=== PATIENT | female | born 1945 | race Caucasian/White ===

== ENCOUNTER 2017-07-12 16:52 | Inpatient (IN) | payer OTHER, MEDICARE ==
--- OUTSIDE RECORDS SUMMARY | 2017-07-12 17:06 | XMS REPORT | Clinical Summary ---
:1945 Author Organization [facility] Address [address] [place] [address] Phone Care Team Providers Name Role Phone Unavailable Primary Care Provider Unavailable Allergies Active Allergy Reactions Severity Noted Date Comments Clonidine Anaphylaxis, Swelling High 09/24/2013 Carvedilol Shortness Of Breath High 09/24/2013 Lisinopril Swelling, Hives, Itching High 09/24/2013 Tongue swelling Current Medications Prescription Sig. Disp. Refills Start Date End Date Status fLUoxetine (PROZAC) 20 Take 20 mg by Active MG capsule mouth daily. gabapentin (NEURONTIN) Take 100 mg by Active 100 MG capsule mouth 3 (three) times daily. glucosamine-chondroitin Take 1 tablet by Active 500-400 mg tablet mouth daily. levalbuterol (XOPENEX Inhale 2 puffs Active HFA) 45 mcg/actuation by mouth via inhaler inhaler every 4 (four) hours as needed for Wheezing. levothyroxine Take 88 mcg by Active (SYNTHROID, LEVOTHROID) mouth daily. 88 MCG tablet liothyronine (CYTOMEL) Take 5 mcg by Active 5 MCG tablet mouth daily. losartan-hydrochlorothi Take 1 tablet by Active azide (HYZAAR) 100-12.5 mouth daily. mg per tablet methocarbamol (ROBAXIN) Take 750 mg by Active 750 MG tablet mouth 3 (three) times daily as needed. montelukast (SINGULAIR) Take 10 mg by Active 10 mg tablet mouth nightly. omeprazole (PRILOSEC) Take 40 mg by Active 40 MG capsule mouth daily. salmeterol (SEREVENT) Inhale 1 puff by Active 50 mcg/dose diskus mouth via inhaler inhaler 2 (two) times daily. tiotropium (SPIRIVA) 18 Inhale 18 mcg by Active mcg inhalation capsule mouth via inhaler daily. aspirin 81 MG EC tablet Take 81 mg by Active mouth daily. anastrozole (ARIMIDEX) Take 1 mg by Active 1 mg tabletIndications: mouth daily. metastatic breast carcinoma hydrALAZINE Take 1 tablet 180 tablet 0 07/15/2015 Active (APRESOLINE) 25 MG (25 mg total) by tablet mouth every 8 (eight) hours. Active Problems Problem Noted Date Leukocytosis 07/15/2015 Fever 07/15/2015 GERD (gastroesophageal reflux disease) per 07-14-2015 UGI 07/14/2015 Chronic non erosive gastritis per 07-11-2015 EGD 07/12/2015 Granular duodenal mucosa per 07-11-2015 EGD 07/12/2015 Small HH (hiatus hernia) per 07-11-2015 EGD 07/12/2015 Decreased rectal sphincter tone per 07-11-2015 exam 07/12/2015 Diverticulosis of colon per 07-11-2015 colonoscopy 07/12/2015 Hemorrhoids per 07-11-2015 colonoscopy 07/12/2015 Vomiting and diarrhea 07/11/2015 COPD (chronic obstructive pulmonary disease) (HCC) 07/09/2015 Gastritis 07/09/2015 Hypertension 07/09/2015 Upper GI bleed 07/09/2015 Nausea & vomiting 07/09/2015 Depression Family History Medical History Relation Name Comments Cancer Brother testicular Hypertension Brother Cancer Mother brain Relation Name Status Comments Brother Mother Social History Tobacco Use Types Packs/Day Years Used Date Former Smoker Cigarettes 2 50 Alcohol Use Drinks/Week oz/Week Comments Yes 14 Standard drinks or equivalent 7.0 Sex Assigned at Date Recorded Not on file Last Filed Vital Signs Not on file Plan of Treatment Not on file Results Not on fileafter 07/11/2016
[2017-07-12 18:07] LABS: Absolute Lymphocytes (CBC) 3.2 K/uL (0.7-4.9); Absolute Monocytes 1.7 K/uL (0.1-1.3); Absolute Neutrophil 4.9 K/uL (1.8-8.0); Basophils % 0.7 % (0-1.3); Eosinophils % 0.5 % (0-4.4); Hematocrit 48.8 % (36.0-45.0); Lymphocytes % 32.4 % (15.3-44.8); MCH 30.7 pg (27.0-35.0); MCV 91.7 fL (80-100); MPV 10.7 fL (7.6-11.3); Monocytes % 16.7 % (3.3-12.3); RBC Red Blood Cell Count 5.32 M/uL (3.86-4.86)
[2017-07-12 18:34] LABS: Blood Morphology Comment NOT SEEN (NOT SEEN); Platelet Estimate ADEQ; Urine White Blood Cell Casts OK
[2017-07-12] MEDS: GUAIFENESIN/DM 5 ML UCUP PO PRN (18:40)
[2017-07-12] MEDS: Levofloxacin500mg IV 500 MG/100 ML BAG IV SCH (18:40)
[2017-07-12] MEDS: METHYLPREDNISOLONE 40 MG INJ IV SCH ×2 (18:40→23:40)
[2017-07-12 19:04] LABS: Potassium 3.6 mEq/L (3.6-5.0)
[2017-07-12 19:07] LABS: Albumin 4.3 g/dL (3.2-5.5); Bilirubin Total 0.6 mg/dL (0.3-1.2); Magnesium 1.8 mg/dL (1.8-2.5); Protein, Total 7.6 g/dL (6.0-8.3)
[2017-07-12 19:43] LABS: Thyroid Stimulating Hormone 0.45 uIU/mL (0.34-5.60)
--- NOTE | 2017-07-12 19:50 | RAD REPORT ---
EXAM DESCRIPTION: RAD - Chest Pa And Lat (2 Views) - 07/12/2017 7:43 pm CLINICAL HISTORY: COPD COMPARISON: 03/19/2017 TECHNIQUE: PA and lateral views of the chest were obtained. FINDINGS: The lungs are hyperexpanded compatible with COPD. The heart is upper limit of normal in si ze. No fracture or aggressive bony process. Postsurgical changes are present well the left breast. IMPRESSION: COPD without acute process identified.
[2017-07-12] MEDS: ALBUTEROL 2.5 MG/3 ML NEB SOL NEB SCH ×2 (19:53→23:20)
[2017-07-12] MEDS: IPRATROPIUM BROM 0.5MG/2.5ML NEB SCH ×2 (19:53→23:20)
[2017-07-12] MEDS: AMLODIPINE 5 MG TAB PO SCH (20:49)
[2017-07-12] MEDS: ENOXAPARIN 40 MG/0.4 ML SQ SCH (20:50)
[2017-07-12] MEDS: LOSARTAN/HCTZ 50-12.5 PO SCH (20:50)
[2017-07-13 00:01] LABS: Urine Appearance CLOUDY; Urine Blood NEGATIVE (NEG); Urine Color DK YELLOW; Urine Glucose NEGATIVE (NEG); Urine Microscopic Reflex ORDER UMIC; Urine Protein TRACE (NEG); Urine Specific Gravity 1.025 (1.005-1.030)
[2017-07-13 00:42] LABS: Urine Bilirubin NEGATIVE (NEG)
[2017-07-13 00:54] LABS: Urine Bacteria 20-50 /HPF (<20); Urine Culture Reflex Order REFLEXED; Urine RBC NONE SEEN /HPF (NONE SEEN)
[2017-07-13] MEDS: IPRATROPIUM BROM 0.5MG/2.5ML NEB SCH ×6 (03:22→23:20)
[2017-07-13] MEDS: ALBUTEROL 2.5 MG/3 ML NEB SOL NEB SCH ×6 (03:22→23:20)
[2017-07-13] MEDS: MAGNESIUM SULFATE 1 gm IVPB 1 GM/100 ML BAG IV ONE ×2 (04:23→05:16)
[2017-07-13] MEDS: KCL 20 MEQ/100 mL IVPB 20 MEQ/100 ML BAG IV SCH ×2 (05:00→05:13)
[2017-07-13] MEDS: METHYLPREDNISOLONE 40 MG INJ IV SCH ×3 (05:13→17:32)
[2017-07-13] MEDS ORDERED: NA CHLORIDE 0.9% 250 ML ONE (05:34)
--- NOTE | 2017-07-13 06:04 | HP ---
Date of Admission: 07/12/2017 Chief Complaint: Cough, congestion, fever, shortness of breath. History Of Present Illness: This is a 71-year-old female patient, who came into office today with 4 days' history of cough, chest congestion, coughing up some mucus, wheezing, shortness of breath, and fever of 101 degrees Fahrenheit. Denies any vomiting, diarrhea. The patient gets short of breath wi th any day-to-day activity including walking in the room and also while talking she gets short of virgie ath. After she was evaluated, she was admitted to the hospital. Allergies: TO CLONIDINE CAUSING TONGUE AND FACE SWELLING, LISINOPRIL CAUSING TONGUE SWELLING. Medications: According to office records, she takes albuterol nebulizer treatment every 4 hours as n eeded, Fosamax 70 mg once a week, amlodipine 5 mg 2 times a day, aspirin 81 mg daily, baclofen 10 mg 3 times a day as needed, Daliresp 500 mcg p.o. daily, fluoxetine 40 mg p.o. daily, levothyroxine 200 mcg p.o. daily, liothyronine 5 mcg 1 tablet p.o. 2 times a day, losartan/HCTZ 100/12.5 one p.o. daily , omeprazole 40 mg daily, Stiolto 2.5 mcg inhaler 2 puffs daily, Voltaren Gel p.r.n., Xopenex inhaler 45 mcg 2 puffs 4 times a day as needed. Review of Systems: Respiratory: As mentioned above. Constitutional: As mentioned above. All other systems reviewed and negative. Past Medical History: Significant for osteoporosis, diverticulosis, breast cancer, gastroesophageal reflux disease, mixed hyperlipidemia, COPD, thyroid cancer, impaired fasting glucose, hepatic cyst, o steoarthritis multiple sites, hypothyroidism, depression, hypertension, carotid artery stenosis. Past Surgical History: Significant for surgery for bowel obstruction in 2013, mastectomy in 2011 and 2013, thyroidectomy in 2006, hysterectomy, , and appendectomy. Family History: Significant for cardiovascular disease, prostate cancer, Alzheimer disease, myocardi al infarction, emphysema, breast cancer. Social History: Prior history of smoking, not at present time. Use of alcohol negative. Physical Examination: Vital Signs: Today when the patient came into office, height 61 inches, weight 157.8 pounds. Blood pressure 146/90, respiratory rate 20, pulse 105, oxygen saturation at rest at office on room air 89%, temperature 98.2. General: Awake, alert, oriented, not in distress. HEENT: Head atraumatic, normocephalic. Conjunctivae nonerythematous. Sclerae white. Mouth, no thr ush or edema noted. Ears/Nose, no mass, lesion, discharge noted. Neck: Supple. No JVD, lymph nodes, bruit, thyromegaly noted. Lungs: Mild respiratory distress and scattered wheezing present in all the lung lawson. Heart: Normal heart sounds, no murmur or gallop. Abdomen: Soft, bowel sounds normal. No guarding, rigidity, tenderness, mass, hepatosplenomegaly, di stention, or bruit noted. Extremities: No leg edema. No calf tenderness. Skin: No rash, ulcer, cellulitis. Lymphatics: No lymph node enlargement in neck, supraclavicular, infraclavicular region. Neuro: No focal neurological deficit. Chest: Unremarkable. External Genitalia: Deferred. Rectal: Deferred. Laboratory Data: White count 9.9, hemoglobin 16.3, platelets 184. Sodium 137, potassium 3.6, chlori de 100, bicarb 31, BUN 13, creatinine 0.75, and glucose 106. Liver function tests unremarkable. Pro calcitonin less than 0.05. TSH 0.45. Hemoglobin A1c pending. Chest x-ray; COPD. Impression: 1.Acute exacerbation of chronic obstructive pulmonary disease. 2.Acute bronchitis. 3.Hypertension. 4.Mixed hyperlipidemia. 5.Thyroid cancer. 6.Breast cancer. 7.Hypothyroidism, postsurgical. 8.Impaired fasting glucose. 9.Osteoarthritis, multiple sites. 10.Osteoporosis. 11.Depression. 12.Bilateral carotid artery stenosis. Plan: We will go ahead and admit the patient to hospital for further evaluation and management of th is problem. The patient is appropriate for inpatient and [facility] We will continue home medications per order. I did discuss with her at office regarding advance directive, and at this point according to patient's decision, she will remain full code. We will go ahead and treat her current illness with IV antibiotic, which will be Levaquin. Start the patient on IV steroid, oxygen nebulizer treatment. During this hospitalization, we will see if she does need a nd qualify for home oxygen or not. The patient says in the past she was using home oxygen and when s he started seeing Dr. Higuera, his recommendation at that time was that she no longer needed home ox ygen, so her oxygen service was discontinued by him. So, we will have to look into it again to see w joseph she needs and qualifies for home oxygen or not. Overall, prognosis is guarded. Details and p joseph of treatment discussed with her. DVT prophylaxis will be given using Lovenox per order. JENNIFER/MODL Voice ID: [id number]
[2017-07-13] MEDS: FLUOXETINE 20 MG CAP PO SCH (08:32)
[2017-07-13] MEDS: LOSARTAN/HCTZ 50-12.5 PO SCH ×2 (08:32→21:00)
[2017-07-13] MEDS: ROFLUMILAST 500 MCG TABLET PO SCH (08:33)
[2017-07-13] MEDS: ASPIRIN EC 81 MG TAB PO SCH (08:33)
[2017-07-13] MEDS: AMLODIPINE 5 MG TAB PO SCH ×2 (08:33→21:02)
[2017-07-13] MEDS: PANTOPRAZOLE 40MG TABLET PO SCH (08:38)
[2017-07-13] MEDS: LIOTHYRONINE SOD 5 MCG TAB PO SCH (08:38)
[2017-07-13] MEDS: GUAIFENESIN/DM 5 ML UCUP PO PRN ×3 (08:41→21:02)
[2017-07-13] MEDS: LEVOTHYROXINE SOD 0.1 MG TAB PO SCH (09:46)
[2017-07-13 11:15] LABS: A1c Component 0.72 mg/dL; Hemoglobin A1c 5.7 % (4-6.0)
[2017-07-13] MEDS: Levofloxacin500mg IV 500 MG/100 ML BAG IV SCH (17:31)
[2017-07-13] MEDS: DULERA 100/5 (MOMETASONE/FORMOTEROL) INHALER IH SCH (20:59)
[2017-07-13] MEDS: ENOXAPARIN 40 MG/0.4 ML SQ SCH (21:01)
--- NOTE | 2017-07-13 23:10 | PN ---
Date of Progress Note: 07/13/2017 Subjective: The patient was seen this morning for followup. No new complaints or problems reported by the patient. She was lying in bed, not in distress. She still has cough, congestion, shortness o f breath, and wheezing, but overall it is somewhat better compared to yesterday. Objective: Vital Signs: Reviewed. HEENT: Examination unremarkable. Lungs: Bilateral scattered wheezing noted in both lung lawson, better today than yesterday. Not usi ng accessory muscles of respiration today. Heart: Sounds normal. Abdomen: Soft, bowel sounds normal. No guarding, rigidity, tenderness, or distention. Extremities: No leg edema. Impression: 1.Acute exacerbation of chronic obstructive pulmonary disease. 2.Acute bronchitis. 3.Hypertension. Plan: We will go ahead and continue current medications including oxygen nebulizer treatment, IV annita roid, IV antibiotic, DVT prophylaxis with Lovenox. We will add inhaler Dulera per order. We will se e her tomorrow for followup. The patient was encouraged to start ambulating in the room today as muc h as she can and depending on how she does, we will decide if she can start ambulating outside her ro om tomorrow. JENNIFER/MODL Voice ID: [id number] Report ID: [id number]
[2017-07-14] MEDS: METHYLPREDNISOLONE 40 MG INJ IV SCH ×3 (00:10→11:12)
[2017-07-14] MEDS: ALBUTEROL 2.5 MG/3 ML NEB SOL NEB SCH ×5 (03:11→19:42)
[2017-07-14] MEDS: IPRATROPIUM BROM 0.5MG/2.5ML NEB SCH ×5 (03:12→19:41)
[2017-07-14] MEDS: IBUPROFEN 200 MG TAB PO PRN (03:36)
[2017-07-14] MEDS: GUAIFENESIN/DM 5 ML UCUP PO PRN ×2 (03:37→20:04)
[2017-07-14 06:02] LABS: Magnesium 1.6 mg/dL (1.8-2.5); Potassium 3.1 mEq/L (3.6-5.0)
[2017-07-14] MEDS: LEVOTHYROXINE SOD 0.1 MG TAB PO SCH (06:30)
[2017-07-14] MEDS: LIOTHYRONINE SOD 5 MCG TAB PO SCH (06:42)
[2017-07-14] MEDS ORDERED: POTASSIUM 25 MEQ EFFERV TAB PO ONE (06:51)
[2017-07-14] MEDS ORDERED: MAGNESIUM SULFATE 1 gm IVPB 1 GM/100 ML BAG IV ONE (06:52)
[2017-07-14] MEDS: PANTOPRAZOLE 40MG TABLET PO SCH (09:49)
[2017-07-14] MEDS: ASPIRIN EC 81 MG TAB PO SCH (09:50)
[2017-07-14] MEDS: ROFLUMILAST 500 MCG TABLET PO SCH (09:50)
[2017-07-14] MEDS: DULERA 100/5 (MOMETASONE/FORMOTEROL) INHALER IH SCH ×2 (09:50→20:04)
[2017-07-14] MEDS: FLUOXETINE 20 MG CAP PO SCH (09:50)
[2017-07-14] MEDS: AMLODIPINE 5 MG TAB PO SCH ×2 (09:50→20:05)
[2017-07-14] MEDS: LOSARTAN/HCTZ 50-12.5 PO SCH ×2 (09:50→20:05)
[2017-07-14] MEDS ORDERED: POTASSIUM CL SA 10 MEQ TAB PO ONE (15:00)
--- NOTE | 2017-07-14 15:32 | PN ---
Date of Progress Note: 07/14/2017 Subjective: Patient was seen this morning for followup. No new complaints, problems reported by the patient. Overall, her shortness of breath and wheezing is better than before. She ambulated well y esterday. Objective: Vital signs: Reviewed. HEENT: Unremarkable. Lungs: Bilateral good very minimum wheezing present not using any accessory muscles of respiration. Overall much better than before. Heart: Sounds normal. Abdomen: Soft, bowel sounds normal. No guarding, rigidity, tenderness, or distention. Laboratory Data: Sodium 135, potassium 3.1, chloride 99, bicarb 21, BUN 27, creatinine 0.93, glucose 222, magnesium 1.6. Impression: 1.Acute exacerbation of chronic obstructive pulmonary disease. 2.Acute bronchitis. 3.Hypokalemia. 4.Hypomagnesemia. 5.Hypertension. Plan: We will continue current medication, antibiotic, steroid inhaler, replace electrolytes per pro tocol. Ambulation was encouraged. I will see her tomorrow for followup. Possible discharge to go [facility] tomorrow. The patient was started on Dulera inhaler yesterday. We will continue that at this ti me. JENNIFER/MODL Voice ID: [id number] Report ID: [id number]
[2017-07-14] MEDS: Levofloxacin500mg IV 500 MG/100 ML BAG IV SCH (17:07)
[2017-07-14] MEDS: ENOXAPARIN 40 MG/0.4 ML SQ SCH (20:04)
[2017-07-14] MEDS: predniSONE 20 MG TAB PO SCH (20:06)
[2017-07-14] MEDS: ACETAMINOPHEN 500 MG TAB PO PRN (20:06)
[2017-07-15] MEDS: ALBUTEROL 2.5 MG/3 ML NEB SOL NEB SCH ×7 (00:01→23:24)
[2017-07-15] MEDS: IPRATROPIUM BROM 0.5MG/2.5ML NEB SCH ×7 (03:47→23:24)
[2017-07-15] MEDS: ACETAMINOPHEN 500 MG TAB PO PRN ×2 (04:05→20:48)
[2017-07-15 05:06] LABS: Magnesium 1.7 mg/dL (1.8-2.5)
[2017-07-15] MEDS ORDERED: MAGNESIUM SULFATE 1 gm IVPB 1 GM/100 ML BAG IV ONE (05:16)
[2017-07-15] MEDS: LEVOTHYROXINE SOD 0.1 MG TAB PO SCH (05:30)
[2017-07-15] MEDS: LIOTHYRONINE SOD 5 MCG TAB PO SCH (05:30)
[2017-07-15] MEDS: GUAIFENESIN/DM 5 ML UCUP PO PRN ×2 (05:43→20:49)
[2017-07-15] MEDS: DULERA 100/5 (MOMETASONE/FORMOTEROL) INHALER IH SCH ×2 (08:42→20:56)
[2017-07-15] MEDS: predniSONE 20 MG TAB PO SCH ×2 (08:42→20:48)
[2017-07-15] MEDS: ROFLUMILAST 500 MCG TABLET PO SCH (08:42)
[2017-07-15] MEDS: PANTOPRAZOLE 40MG TABLET PO SCH (08:42)
[2017-07-15] MEDS: ASPIRIN EC 81 MG TAB PO SCH (08:42)
[2017-07-15] MEDS: FLUOXETINE 20 MG CAP PO SCH (08:43)
[2017-07-15] MEDS: AMLODIPINE 5 MG TAB PO SCH ×2 (08:43→20:48)
[2017-07-15] MEDS: LOSARTAN/HCTZ 50-12.5 PO SCH ×2 (08:43→20:49)
[2017-07-15] MEDS: TIOTROPIUM 5 SPRAYS/INHALER IH SCH (11:12)
--- NOTE | 2017-07-15 16:12 | PN ---
Date of Progress Note: 07/15/2017 Subjective: The patient was seen this morning for followup. She still has some wheezing and shortne ss of breath and today the patient wanted to talk to me about her ongoing stress and depression tj valverde. She has children, one lives here and two lives out of town, outside [facility] and the patient lives by herself here at home and informs me that she really does not have good support from her chi ldren and she has good support from her children's friends and there are 4-5 families who helps her. She also has a good support from her christian families. She was upset and crying, talking about this ongoing stress and I did talk to her at great length, explain her that she should try to get some cou nseling service through counselor at her [facility] if one is available. If not, we can help make arrang ements for some outside counselor to provide her some counseling services. So she will look into get ting such help through her [facility]. We also talked about making adjustment on her antidepres mary beth medication. The patient is willing to do so. She takes Prozac 40 mg daily and we will add Sero quel 25 mg at bedtime and I would help her with her depression as well as insomnia that she has. Objective: Vital Signs: Reviewed. HEENT: Examination unremarkable. Lungs: Bilateral, good equal air entry. Presence of scattered wheezing in both lung lawson. I know wheezing is worse today compared to yesterday. Not using accessory muscles of respiration. Heart: Sounds normal. Abdomen: Soft, bowel sounds normal. No guarding, rigidity, tenderness, or distention. Extremities: No leg edema. Impression: 1.Acute exacerbation of chronic obstructive pulmonary disease. 2.Acute bronchitis. 3.Depression. 4.Insomnia. Plan: We will go ahead and continue current medications. Oxygen nebulizer treatment, antibiotics, s teroids which is prednisone 20 mg twice a day. The patient is on Dulera inhaler, we will continue th at and we will go ahead and add Spiriva inhaler daily per order and we will also start her on Seroque l 25 mg at bedtime. I will see her tomorrow for followup, depending on her respiratory condition, we will decide if she is stable enough for discharge tomorrow. We will continue current antihypertensi ve medication. JENNIFER/MODL Voice ID: [id number] Report ID: [id number]
[2017-07-15] MEDS: Levofloxacin500mg IV 500 MG/100 ML BAG IV SCH (17:01)
[2017-07-15] MEDS: QUETIAPINE 25 MG TAB PO SCH (20:48)
[2017-07-15] MEDS: ENOXAPARIN 40 MG/0.4 ML SQ SCH (22:14)
[2017-07-16] MEDS: IPRATROPIUM BROM 0.5MG/2.5ML NEB SCH ×7 (03:35→23:39)
[2017-07-16] MEDS: ALBUTEROL 2.5 MG/3 ML NEB SOL NEB SCH ×6 (03:35→23:39)
[2017-07-16 05:20] LABS: Magnesium 1.9 mg/dL (1.8-2.5)
[2017-07-16 05:21] LABS: Potassium 4.9 mEq/L (3.6-5.0)
[2017-07-16] MEDS: LEVOTHYROXINE SOD 0.1 MG TAB PO SCH (05:51)
[2017-07-16] MEDS: LIOTHYRONINE SOD 5 MCG TAB PO SCH (05:52)
[2017-07-16] MEDS: DULERA 200/5 (MOMETASONE/FORMOTEROL) INHALER IH SCH ×2 (09:00→20:57)
[2017-07-16] MEDS: AMLODIPINE 5 MG TAB PO SCH ×2 (10:05→20:54)
[2017-07-16] MEDS: METHYLPREDNISOLONE 40 MG INJ IV SCH ×2 (10:05→20:56)
[2017-07-16] MEDS: FLUOXETINE 20 MG CAP PO SCH (10:05)
[2017-07-16] MEDS: predniSONE 20 MG TAB PO SCH ×2 (10:06→20:56)
[2017-07-16] MEDS: ROFLUMILAST 500 MCG TABLET PO SCH (10:06)
[2017-07-16] MEDS: ASPIRIN EC 81 MG TAB PO SCH (10:06)
[2017-07-16] MEDS: LOSARTAN/HCTZ 50-12.5 PO SCH ×2 (10:06→21:00)
[2017-07-16] MEDS: PANTOPRAZOLE 40MG TABLET PO SCH (10:06)
[2017-07-16] MEDS: TIOTROPIUM 5 SPRAYS/INHALER IH SCH (10:07)
[2017-07-16] MEDS: Levofloxacin500mg IV 500 MG/100 ML BAG IV SCH (18:39)
[2017-07-16] MEDS: ENOXAPARIN 40 MG/0.4 ML SQ SCH (20:54)
[2017-07-16] MEDS: QUETIAPINE 25 MG TAB PO SCH (20:56)
--- NOTE | 2017-07-17 00:31 | PN ---
Date of Progress Note: 07/16/2017 Subjective: The patient was seen this morning for followup. She was lying in bed. She actually loo ked better today than yesterday and informed me that last night she slept very well. This is first t melissa she got good night sleep in a long time. She still has lot of coughing and wheezing that has not improved any since yesterday. Objective: Vital Signs: Reviewed. HEENT: Examination unremarkable. Lungs: Bilateral good equal air entry. Presence of scattered wheezing in both lung lawson, unchange d from yesterday. Heart: Heart sounds normal. Abdomen: Soft. Bowel sounds normal. No guarding, rigidity, tenderness, or distention. Extremities: No leg edema. Laboratory Data: Sodium 138, potassium 4.9, chloride 100, bicarb 28, BUN 16, creatinine 0.88, glucos e 163, magnesium 1.9. Impression: 1.Acute exacerbation of chronic obstructive pulmonary disease. 2.Acute bronchitis. 3.Depression. 4.Hypertension. Plan: We will go ahead and continue current medications. Continue oxygen nebulizer treatment, Levaq uin. DVT prophylaxis with Lovenox. Continue Dulera inhaler, but increase the strength on Dulera inh aler. Continue Spiriva inhaler and oral prednisone. We will give couple of doses of IV steroid today. We will see her tomorrow for followup. If her wheezing is better, then obed giraldo will plan to discharge her tomorrow. JENNIFER/MODL Voice ID: [id number] Report ID: [id number]
[2017-07-17] MEDS: IPRATROPIUM BROM 0.5MG/2.5ML NEB SCH ×2 (04:26→07:42)
[2017-07-17] MEDS: ALBUTEROL 2.5 MG/3 ML NEB SOL NEB SCH ×2 (04:26→07:42)
[2017-07-17] MEDS: LEVOTHYROXINE SOD 0.1 MG TAB PO SCH (05:08)
[2017-07-17] MEDS: LIOTHYRONINE SOD 5 MCG TAB PO SCH (05:08)
[2017-07-17] MEDS: PANTOPRAZOLE 40MG TABLET PO SCH (08:28)
[2017-07-17] MEDS: IBUPROFEN 200 MG TAB PO PRN (08:54)
[2017-07-17] MEDS: ASPIRIN EC 81 MG TAB PO SCH (08:55)
[2017-07-17] MEDS: LOSARTAN/HCTZ 50-12.5 PO SCH (08:55)
[2017-07-17] MEDS: AMLODIPINE 5 MG TAB PO SCH (08:55)
[2017-07-17] MEDS: FLUOXETINE 20 MG CAP PO SCH (08:55)
[2017-07-17] MEDS: ROFLUMILAST 500 MCG TABLET PO SCH (08:55)
[2017-07-17] MEDS: TIOTROPIUM 5 SPRAYS/INHALER IH SCH (08:56)
[2017-07-17] MEDS: predniSONE 20 MG TAB PO SCH (08:56)
[2017-07-17] MEDS: METHYLPREDNISOLONE 40 MG INJ IV SCH (08:56)
[2017-07-17] MEDS: DULERA 200/5 (MOMETASONE/FORMOTEROL) INHALER IH SCH (08:56)
--- NOTE | 2017-07-18 03:51 | DS ---
Date of Discharge: 07/17/2017 Disposition: Discharged to go home. Physical Examination: HEENT: Unremarkable. Lungs: Clear to auscultation except very minimum wheezing and it is much better than last couple of days, significantly better compared to how it was when she first came in. Not using accessory muscle s of respiration. Heart: Sounds normal. Abdomen: Soft, bowel sounds normal. No guarding, rigidity, tenderness, or distention. Extremities: No leg edema. Hospital Course: A 71-year-old female patient, admitted to the hospital with cough, congestion, feve r, and shortness of breath. Please see dictated H and P for more information. The patient was admit becky to the hospital after she was evaluated at the office with acute exacerbation of COPD and acute b ronchitis. Chest x-ray was done which was negative for pneumonia. She was started on oxygen nebuliz er treatment, IV steroid, and IV antibiotic, which was Levaquin. Home medications were continued. D VT prophylaxis with Lovenox was given. The patient started ambulating well, and we did change from I V steroid to oral prednisone and her wheezing got worse couple of days ago. At that time, we Dulera and Spiriva inhaler. As of yesterday, we gave couple of doses of IV Solu-Medrol and continued oral p rednisone. Overall, she is feeling much better. Today, her wheezing is much, much better. She is a mbulating well without much trouble, has good appetite. She has significant problem with depression that she informed me about and she takes Prozac 40 mg daily, which was continued. She also has signi ficant trouble with insomnia, so we did start her on Seroquel 25 mg at nighttime and for last 2 night s, she has rested very well and informed me that this is the best sleep that she has in a long time. This morning when I saw her, in fact, she was happy, smiling and this is first time I saw her, like that. So we will plan to continue Seroquel on outpatient basis as it has already helped her. Discharge Diagnoses: 1.Acute exacerbation of chronic obstructive pulmonary disease. 2.Acute bronchitis. 3.Hypertension. 4.Mixed hyperlipidemia. 5.Depression. 6.Primary insomnia. 7.Thyroid cancer. 8.Breast cancer. 9.Hypothyroidism, post-surgical. 10.Impaired fasting glucose. 11.Osteoarthritis, multiple sites. 12.Osteoporosis. 13.Depression. 14.Bilateral carotid artery stenosis. Discharge Medications And Instructions: 1.Continue all prior home medications. 2.Follow up at my office next week, according to her scheduled appointment, on 07/25/2017. Take new medications as prescribed as below: 1.Seroquel 25 mg p.o. at bedtime. 2.Levaquin 500 mg p.o. daily for 5 days. 3.Dulera 200 mcg inhaler 2 puffs by mouth 2 times a day. Rinse mouth with water after each use. 4.Prednisone 10 mg, the patient to take 2 tablets by mouth daily for 4 days, then 1 tablet by mouth daily for 4 days, then half tablet by mouth daily for 4 days, then stop. Laboratory Data: Her white count when she came in was 9.9, hemoglobin 16.3, platelets 184. When she first came in, sodium 137, potassium 3.6, chloride 100, bicarbonate 31. BUN 13, creatinine 0.75, gl ucose 106. Liver function tests normal. TSH 0.45. Last chemistry yesterday; sodium 138, potassium 4.9, chloride 100, bicarb 28. BUN 16, creatinine 0.88, glucose 163. JENNIFER/MODL Voice ID: [id number] Report ID: [id number]
== END 2017-07-17 09:50 | disposition home or self-care (01) | DRG 192 ==
LOC: 2ND 17:04
PROVIDERS: ADMIT Internal Medicine; ATTEND Internal Medicine
DX: J44.1 Chronic obstructive pulmonary disease with (acute) exacerbation (principal); J20.9 Acute bronchitis, unspecified; J44.0 Chronic obstructive pulmonary disease with (acute) lower respiratory infection; I10 Essential (primary) hypertension; E78.5 Hyperlipidemia, unspecified; F32.9 Major depressive disorder, single episode, unspecified; F51.01 Primary insomnia; E89.0 Postprocedural hypothyroidism; M19.90 Unspecified osteoarthritis, unspecified site; M81.0 Age-related osteoporosis without current pathological fracture; I65.23 Occlusion and stenosis of bilateral carotid arteries; E87.6 Hypokalemia; E83.42 Hypomagnesemia; Z85.3 Personal history of malignant neoplasm of breast; Z85.850 Personal history of malignant neoplasm of thyroid
CPT/HCPCS: 36415; 71046; 80048; 80053; 81003; 81015; 83036; 83735; 84132; 84145; 84443; 85025; 87070; 87086; 87088; 87205; J1650; J2920; J3475; J7512; J7606

== ENCOUNTER 2018-04-10 11:43 | Inpatient (IN) | payer OTHER, MEDICARE ==
[2018-04-10] MEDS: ALBUTEROL 2.5 MG/3 ML NEB SOL NEB SCH ×2 (15:01→19:39)
[2018-04-10] MEDS: IPRATROPIUM BROM 0.5MG/2.5ML NEB SCH ×2 (15:01→19:39)
--- NOTE | 2018-04-10 15:06 | RAD REPORT ---
EXAM DESCRIPTION: RAD - Chest Pa And Lat (2 Views) - 04/10/2018 2:50 pm CLINICAL HISTORY: COPD exacerbation, rule out pneumonia Chest pain. COMPARISON: Chest Pa And Lat (2 Views) dated 07/12/2017; Chest Pa And Lat (2 Views) dated 03/19/2017; Chest Single View dated 03/06/2017; Chest Single View dated 08/18/2016 FINDINGS: Diffuse COPD is present. The heart is normal in size. No displaced fractures. Postsurgical changes of left mastectomy noted. IMPRESSION: Prominent COPD.
[2018-04-10 15:21] LABS: Absolute Lymphocytes (CBC) 3.6 K/uL (0.7-4.9); Absolute Monocytes 1.3 K/uL (0.1-1.3); Absolute Neutrophil 8.2 K/uL (1.8-8.0); Basophils % 0.7 % (0-1.3); Eosinophils % 0.7 % (0-4.4); Hematocrit 46.2 % (36.0-45.0); Lymphocytes % 27.3 % (15.3-44.8); MPV 10.5 fL (7.6-11.3); Monocytes % 9.9 % (3.3-12.3); RBC Red Blood Cell Count 4.94 M/uL (3.86-4.86)
[2018-04-10 16:12] LABS: Bilirubin Total 0.4 mg/dL (0.2-1.0)
[2018-04-10 16:27] LABS: Potassium 3.8 mmol/L (3.5-5.1)
[2018-04-10 16:28] LABS: Albumin 3.6 g/dL (3.4-5.0); Magnesium 2.1 mg/dL (1.8-2.4); Protein, Total 7.5 g/dL (6.4-8.2); Thyroid Stimulating Hormone 46.7 uIU/mL (0.360-3.740)
[2018-04-10] MEDS: CEFTRIAXONE/SWI 1gm 1 GM/10 ML SYR IVP SCH ×2 (17:48→21:00)
[2018-04-10] MEDS: AZITHROMYCIN IV 500 MG in NA CHLORIDE 0.9% 250 ML IVPB SCH (17:48)
[2018-04-10] MEDS: ENOXAPARIN 40 MG/0.4 ML SQ SCH (17:53)
[2018-04-10 19:42] LABS: Urine Appearance CLOUDY; Urine Bilirubin NEGATIVE (NEG); Urine Blood NEGATIVE (NEG); Urine Color DK YELLOW; Urine Glucose NEGATIVE (NEG); Urine Protein TRACE (NEG)
[2018-04-10 20:07] LABS: Urine Bacteria >50 /HPF (<20); Urine RBC <5 /HPF (NONE SEEN)
[2018-04-10 20:08] LABS: Urine Culture Reflex Order NOT NEEDED
[2018-04-10] MEDS ORDERED: POTASSIUM CL SA 10 MEQ TAB PO ONE (21:00)
[2018-04-10] MEDS ORDERED: METHYLPREDNISOLONE 40 MG INJ IV SCH (22:00)
[2018-04-10] MEDS: QUETIAPINE 25 MG TAB PO SCH (22:02)
[2018-04-10] MEDS: AMLODIPINE 5 MG TAB PO SCH (22:02)
[2018-04-10] MEDS: LIOTHYRONINE SOD 5 MCG TAB PO SCH (22:03)
[2018-04-10] MEDS: DULERA 200/5 (MOMETASONE/FORMOTEROL) INHALER IH SCH (22:03)
[2018-04-11] MEDS: ALBUTEROL 2.5 MG/3 ML NEB SOL NEB SCH ×4 (01:50→20:00)
[2018-04-11] MEDS: IPRATROPIUM BROM 0.5MG/2.5ML NEB SCH ×4 (01:50→20:00)
--- NOTE | 2018-04-11 03:14 | HP ---
Date of Admission: 04/10/2018 Chief Complaint: Cough, congestion, shortness of breath, feeling weak. History Of Present Illness: This is a 72-year-old female patient who came into office today with inc reasing symptoms since April 02, 2018, including cough, chest congestion, coughing up greenish col ored mucus, feeling very weak, has very poor appetite, and feels tired and sleepy. She has tried ove [id number] medication which has not helped. She is having lot of wheezing and shortness of breath . Has very poor appetite, and feels weak and dizzy when she gets up. After I evaluated her, maria de jesus horton was made to admit her to hospital, as I was concerned about pneumonia and COPD exacerbation. Allergies: CLONIDINE CAUSING TONGUE AND FACE SWELLING AND LISINOPRIL CAUSING TONGUE SWELLING. Medications: Amlodipine 5 mg 2 times a day; aspirin 81 mg daily; fluoxetine 40 mg p.o. daily; levoth yroxine 200 mcg p.o. daily; liothyronine 5 mcg p.o. 2 times every day; losartan/HCTZ 100/12.5 one p.o . daily; omeprazole 40 mg daily; Robaxin 500 mg 3 times a day as needed for muscle spasm; Seroquel 25 mg at bedtime; Stiolto Respimat 2.5 mcg, take 2 puffs by mouth daily; and Dulera 200 mcg inhaler, 2 puffs by mouth 2 times a day; alendronate 70 mg p.o. every week; and albuterol nebulizer treatment ev charli 4 hours as needed; Xopenex inhaler 4 times a day as needed. Review of Systems: Constitutional: As mentioned above. Respiratory: As mentioned above. All other systems reviewed and negative. Past Medical History: Diverticulosis, breast cancer, gastroesophageal reflux disease, hyperlipidemia , COPD, thyroid cancer, impaired fasting glucose, liver cyst, osteoarthritis at multiple sites, osteo porosis, hypothyroidism, depression, hypertension, and carotid artery disease. Social History: Negative for alcohol use and negative for smoking. The patient does have prior hist ory of smoking, but she quit long time ago. Family History: Significant for Alzheimer disease, prostate cancer, COPD, myocardial infarction, virgie ast cancer. Past Surgical History: Thyroidectomy, mastectomy, surgery for bowel obstruction in 2013, appendectom y, , hysterectomy. Physical Examination: Vital Signs: When I saw her at office today, height 61 inches, weight 164.8 pounds, blood pressure 1 29/88, respiratory rate 16, pulse 88, temperature 97.6, oxygen saturation 95%. General: The patient appears very weaker than normal and gets into mild respiratory distress with co ughing spell. HEENT: Head atraumatic, normocephalic. Conjunctivae nonerythematous. Sclerae white. Mouth, no thr ush or edema noted. Ears/Nose, no mass, lesion, discharge noted. Neck: Supple. No JVD, lymph nodes, bruit, thyromegaly noted. Lungs: Bilateral scattered wheezing and rales noted in lower lung lawson. Heart: Normal heart sounds, no murmur or gallop. Abdomen: Soft, bowel sounds normal. No guarding, rigidity, tenderness, mass, hepatosplenomegaly, dis tention, or bruit noted. Extremities: No leg edema. No calf tenderness. Skin: No rash, ulcer, cellulitis. Lymphatics: No lymph node enlargement in neck, supraclavicular, infraclavicular region. Neuro: No focal neurological deficit. Chest: Unremarkable. External Genitalia: Deferred. Rectal: Deferred. Laboratory Data: Chest x-ray shows prominent COPD changes. White count 13.4, hemoglobin 15.8, plate lets 255. Sodium 139, potassium 3.8, chloride 104, bicarb 28, BUN 10, creatinine 0.98, glucose 101. Liver function tests unremarkable. Procalcitonin less than 0.05. TSH 46.7. Urinalysis more than 5 0 bacteria, otherwise negative. Impression: 1.Acute exacerbation of chronic obstructive pulmonary disease. 2.Rule out pneumonia. 3.Hypothyroidism. 4.Hypertension. 5.Breast cancer. 6.Mixed hyperlipidemia. 7.Thyroid cancer. 8.Postoperative hypothyroidism. 9.Impaired fasting glucose. 10.Osteoarthritis at multiple sites. 11.Osteoporosis. 12.Depression. Plan: Admit the patient to hospital for further evaluation and management of this problem. [facility] inpatient and is expected to spend 2 midnights in hospital. We will go ahead and continue her home medications. Her to make adjustment on thyroid medication depending on what in formation she gives me when I talk to her tomorrow regarding her compliance with the thyroid medicati on. Also, order CAT scan of the chest without contrast. It will be done tomorrow. Home medications will be continued per order and we will give her oxygen nebulizer treatment, IV steroid, and IV anti biotics per order. DVT prophylaxis will be given using Lovenox. We will follow up on sputum culture , blood culture. JENNIFER/EPIFANIO Voice ID: [id number]
[2018-04-11] MEDS: METHYLPREDNISOLONE 40 MG INJ IV SCH ×3 (05:34→21:48)
[2018-04-11] MEDS: PANTOPRAZOLE 40MG TABLET PO SCH (05:35)
[2018-04-11] MEDS: LEVOTHYROXINE SOD 0.1 MG TAB PO SCH (05:35)
--- NOTE | 2018-04-11 07:46 | RAD REPORT ---
EXAM DESCRIPTION: CT - Thorax Wo Con - 04/10/2018 9:53 pm CLINICAL HISTORY: Pneumonia, shortness of breath COMPARISON: Chest exam April 10, CT chest December 2017 TECHNIQUE: Axial 5 mm thick images of the chest were obtained without IV contrast. All CT scans are performed using dose optimization technique as appropriate and may include automated exposure control or mA/KV adjustment according to patient size. FINDINGS: No acute infiltrates seen. A few granulomas are present in the lung parenchyma. Minimal ar eas of nodularity detailed December 2017 are either stable or less pronounced. Patient does have pat ateral lower lobe bronchial wall thickening. Trace amount of interstitial opacification is present co mpared to prior imaging. No pleural thickening or pleural effusion. No pneumothorax. No abnormal mediastinal or hilar masses or lymphadenopathy seen. No gross aortic or pulmonary artery finding suspected. Assessment is limited in the absence of IV contrast. No chest wall mass or abnormal axillary lymphadenopathy. Prominent thoracic spine disc and endplate degenerative changes are present in the lower thoracic spi ne. IMPRESSION: Bronchitis or viral infiltrate findings are seen. No focal lung parenchymal process to suspect bacterial pneumonia.
[2018-04-11] MEDS: AZITHROMYCIN IV 500 MG in NA CHLORIDE 0.9% 250 ML IVPB SCH (08:26)
[2018-04-11] MEDS: DULERA 200/5 (MOMETASONE/FORMOTEROL) INHALER IH SCH ×2 (08:27→21:48)
[2018-04-11] MEDS: CEFTRIAXONE/SWI 1gm 1 GM/10 ML SYR IVP SCH ×2 (08:27→21:48)
[2018-04-11] MEDS: LIOTHYRONINE SOD 5 MCG TAB PO SCH ×2 (08:28→21:47)
[2018-04-11] MEDS: LOSARTAN POTASSIUM 50 MG TABLET PO SCH (08:28)
[2018-04-11] MEDS: ASPIRIN EC 81 MG TAB PO SCH (08:28)
[2018-04-11] MEDS: AMLODIPINE 5 MG TAB PO SCH ×2 (08:28→21:47)
[2018-04-11] MEDS: FLUOXETINE 20 MG CAP PO SCH (08:28)
[2018-04-11] MEDS: OLODATEROL HCL IH SCH (08:29)
[2018-04-11] MEDS: [UNRECOGNIZED DRUG - OTHER] IH SCH (08:29)
[2018-04-11 09:13] LABS: Potassium 4.5 mmol/L (3.5-5.1)
[2018-04-11] MEDS: ENOXAPARIN 40 MG/0.4 ML SQ SCH (17:13)
[2018-04-11] MEDS: CODEINE 30MG/APAP 300MG TAB PO PRN (21:47)
[2018-04-11] MEDS: QUETIAPINE 25 MG TAB PO SCH (21:48)
[2018-04-11] MEDS: GUAIFENESIN/DM 5 ML UCUP PO PRN (23:15)
--- NOTE | 2018-04-12 02:09 | PN ---
Date of Progress Note: 04/11/2018 Subjective: The patient was seen this morning for followup, lying in bed, not in distress. Overall, she feels better compared to yesterday. Objective: Vital Signs: Reviewed. HEENT: Examination unremarkable. Lungs: Clear to auscultation except some minimum scattered wheezing noted in both lung lawson, much better than yesterday, not in respiratory distress. Cardiac: Heart sounds normal. Abdomen: Soft. Bowel sounds normal. No guarding, rigidity, tenderness or distention. Extremities: No leg edema. Laboratory Data: Chemistry was pending this morning. CAT scan of the chest, results reviewed. Impression: 1.Acute exacerbation of chronic obstructive pulmonary disease. 2.Pneumonia. 3.Hypertension. Plan: We will go ahead and continue current medication, antibiotic, steroid, oxygen nebulizer treatm ent. I will see her tomorrow for followup. Depending on her condition, we will decide if she is sta ble for discharge tomorrow or not. This evening, the patient was complaining of some right-sided ricardo st pain with coughing and was requesting some pain medication and Tylenol With Codeine was ordered conrado grijalva JENNIFER/MODL Voice ID: [id number] Report ID: [id number]
[2018-04-12] MEDS: ALBUTEROL 2.5 MG/3 ML NEB SOL NEB SCH ×4 (02:29→20:45)
[2018-04-12] MEDS: IPRATROPIUM BROM 0.5MG/2.5ML NEB SCH ×4 (02:30→20:45)
[2018-04-12] MEDS: CODEINE 30MG/APAP 300MG TAB PO PRN ×4 (03:24→19:40)
[2018-04-12] MEDS: METHYLPREDNISOLONE 40 MG INJ IV SCH ×3 (06:09→22:09)
[2018-04-12] MEDS: PANTOPRAZOLE 40MG TABLET PO SCH (06:10)
[2018-04-12] MEDS: LEVOTHYROXINE SOD 0.1 MG TAB PO SCH (06:10)
[2018-04-12] MEDS: OLODATEROL HCL IH SCH (09:00)
[2018-04-12] MEDS: [UNRECOGNIZED DRUG - OTHER] IH SCH (09:00)
[2018-04-12] MEDS: GUAIFENESIN/DM 5 ML UCUP PO PRN ×2 (09:16→20:55)
[2018-04-12] MEDS: AZITHROMYCIN IV 500 MG in NA CHLORIDE 0.9% 250 ML IVPB SCH (09:16)
[2018-04-12] MEDS: CEFTRIAXONE/SWI 1gm 1 GM/10 ML SYR IVP SCH ×2 (09:17→20:46)
[2018-04-12] MEDS: LIOTHYRONINE SOD 5 MCG TAB PO SCH ×2 (09:17→20:45)
[2018-04-12] MEDS: DULERA 200/5 (MOMETASONE/FORMOTEROL) INHALER IH SCH ×2 (09:17→20:55)
[2018-04-12] MEDS: FLUOXETINE 20 MG CAP PO SCH (09:18)
[2018-04-12] MEDS: LOSARTAN POTASSIUM 50 MG TABLET PO SCH (09:18)
[2018-04-12] MEDS: ASPIRIN EC 81 MG TAB PO SCH (09:18)
[2018-04-12] MEDS: AMLODIPINE 5 MG TAB PO SCH ×2 (09:18→20:45)
--- NOTE | 2018-04-12 15:47 | PN ---
Date of Progress Note: 04/12/2018 Subjective: The patient was seen this morning for followup. No new complaints or problems reported by the patient, except she is not feeling as well today as yesterday. Overall, she feels better comp ared to how she was when she first came in. She still has some cough, congestion, coughing up colore d mucus with wheezing. Objective: Vital signs: Reviewed. HEENT: Unremarkable. Lungs: Bilateral scattered wheezing noted, which is more today compared to yesterday. Heart: Sounds normal. Abdomen: Soft. Bowel sounds normal. No guarding, rigidity, tenderness, or distention. Extremities: No leg edema. Impression: 1.Pneumonia. 2.Acute exacerbation of chronic obstructive pulmonary disease. 3.Hypertension. Plan: We will continue current medications. Continue nebulizer treatment, inhaler, oxygen, steroids , antibiotics. Ambulation was encouraged. I will see her tomorrow for followup. JENNIFER/MODL Voice ID: [id number] Report ID: [id number]
[2018-04-12] MEDS: ENOXAPARIN 40 MG/0.4 ML SQ SCH (17:28)
[2018-04-12] MEDS: QUETIAPINE 25 MG TAB PO SCH (20:47)
[2018-04-13] MEDS: ALBUTEROL 2.5 MG/3 ML NEB SOL NEB SCH ×4 (02:20→20:00)
[2018-04-13] MEDS: IPRATROPIUM BROM 0.5MG/2.5ML NEB SCH ×4 (02:20→20:00)
[2018-04-13] MEDS: CODEINE 30MG/APAP 300MG TAB PO PRN ×3 (02:51→15:20)
[2018-04-13] MEDS: LEVOTHYROXINE SOD 0.1 MG TAB PO SCH (05:57)
[2018-04-13] MEDS: PANTOPRAZOLE 40MG TABLET PO SCH (05:57)
[2018-04-13] MEDS: METHYLPREDNISOLONE 40 MG INJ IV SCH ×3 (05:57→21:34)
[2018-04-13] MEDS: GUAIFENESIN/DM 5 ML UCUP PO PRN ×3 (08:25→21:35)
[2018-04-13] MEDS: AZITHROMYCIN IV 500 MG in NA CHLORIDE 0.9% 250 ML IVPB SCH (08:25)
[2018-04-13] MEDS: LIOTHYRONINE SOD 5 MCG TAB PO SCH ×2 (08:26→21:35)
[2018-04-13] MEDS: AMLODIPINE 5 MG TAB PO SCH ×2 (08:26→21:35)
[2018-04-13] MEDS: CEFTRIAXONE/SWI 1gm 1 GM/10 ML SYR IVP SCH (08:26)
[2018-04-13] MEDS: FLUOXETINE 20 MG CAP PO SCH (08:26)
[2018-04-13] MEDS: DULERA 200/5 (MOMETASONE/FORMOTEROL) INHALER IH SCH ×2 (08:26→21:35)
[2018-04-13] MEDS: LOSARTAN POTASSIUM 50 MG TABLET PO SCH (08:26)
[2018-04-13] MEDS: ASPIRIN EC 81 MG TAB PO SCH (08:27)
[2018-04-13] MEDS: [UNRECOGNIZED DRUG - OTHER] IH SCH (08:27)
[2018-04-13] MEDS: OLODATEROL HCL IH SCH (08:27)
[2018-04-13] MEDS: TIOTROPIUM 5 SPRAYS/INHALER IH SCH (13:00)
[2018-04-13] MEDS: Levofloxacin500mg IV 500 MG/100 ML BAG IV SCH (13:00)
--- NOTE | 2018-04-13 15:01 | RAD REPORT ---
EXAM DESCRIPTION: Villat Pa And Lat (2 Views)04/13/2018 2:54 pm CLINICAL HISTORY: Cough COMPARISON: April 10, 2018 FINDINGS: Lungs are hyperaerated. Mild peribronchial thickening is unchanged. A lung consolidation is not noted. The heart is normal size IMPRESSION: COPD without visualization acute abnormality
--- NOTE | 2018-04-13 15:19 | PN ---
Date of Progress Note: 04/13/2018 Subjective: The patient was seen this morning for followup. No new complaints or problems reported by the patient, except she is not feeling any better today compared to yesterday. In fact, she reported that she feels a little worse today compared to yesterday. Objective: Vital Signs: Reviewed. HEENT: Unremarkable. Lungs: Bilateral equal entry. Presence of scattered wheezing noted in all the lung lawson, unchanged from yesterday. Heart: Sounds normal. Abdomen: Soft. Bowel sounds normal. No guarding, rigidity, tenderness, or distention. Extremities: No leg. Impression: 1. Pneumonia. 2. Acute exacerbation of chronic obstructive pulmonary disease. 3. Hypertension. Plan: We will go ahead and repeat chest x-ray today. Continue current Dulera inhaler, oxygen nebulizer treatment, IV steroids. The patient is on ceftriaxone as well as azithromycin, we will discontinue both of these antibiotics, and start her on Levaquin 500 mg IV piggyback daily. We will also add Spiriva inhaler daily. I will see her tomorrow for followup. JENNIFER/EPIFANIO Voice ID: [id number] Report ID: [id number] JUAN
[2018-04-13] MEDS: ENOXAPARIN 40 MG/0.4 ML SQ SCH (17:25)
[2018-04-13] MEDS: QUETIAPINE 25 MG TAB PO SCH (21:35)
[2018-04-14] MEDS: CODEINE 30MG/APAP 300MG TAB PO PRN ×3 (00:21→16:27)
[2018-04-14] MEDS: IPRATROPIUM BROM 0.5MG/2.5ML NEB SCH ×4 (02:00→19:40)
[2018-04-14] MEDS: ALBUTEROL 2.5 MG/3 ML NEB SOL NEB SCH ×4 (02:00→19:40)
[2018-04-14] MEDS: LEVOTHYROXINE SOD 0.1 MG TAB PO SCH (05:52)
[2018-04-14] MEDS: METHYLPREDNISOLONE 40 MG INJ IV SCH ×3 (05:52→20:58)
[2018-04-14] MEDS: PANTOPRAZOLE 40MG TABLET PO SCH (05:52)
[2018-04-14] MEDS: OLODATEROL HCL IH SCH (09:00)
[2018-04-14] MEDS: [UNRECOGNIZED DRUG - OTHER] IH SCH (09:00)
[2018-04-14] MEDS: GUAIFENESIN/DM 5 ML UCUP PO PRN ×2 (09:14→16:28)
[2018-04-14] MEDS: METHOCARBAMOL 500 MG TAB PO PRN ×2 (09:15→21:01)
[2018-04-14] MEDS: ASPIRIN EC 81 MG TAB PO SCH (09:16)
[2018-04-14] MEDS: LOSARTAN POTASSIUM 50 MG TABLET PO SCH (09:16)
[2018-04-14] MEDS: LIOTHYRONINE SOD 5 MCG TAB PO SCH ×2 (09:16→20:56)
[2018-04-14] MEDS: FLUOXETINE 20 MG CAP PO SCH (09:16)
[2018-04-14] MEDS: DULERA 200/5 (MOMETASONE/FORMOTEROL) INHALER IH SCH ×2 (09:16→20:58)
[2018-04-14] MEDS: AMLODIPINE 5 MG TAB PO SCH ×2 (09:17→20:56)
[2018-04-14] MEDS: TIOTROPIUM 5 SPRAYS/INHALER IH SCH (09:17)
[2018-04-14] MEDS: Levofloxacin500mg IV 500 MG/100 ML BAG IV SCH (13:00)
[2018-04-14] MEDS: ENOXAPARIN 40 MG/0.4 ML SQ SCH (16:27)
--- NOTE | 2018-04-14 19:24 | PN ---
Date of Progress Note: 04/14/2018 Subjective: The patient was seen this morning for followup. No new complaints or problems reported by her except she still has some cough, congestion, wheezing, and coughing up some yellowish-colored mucus, even though overall it is much better compared to how it was when she came in. Objective: Vital Signs: Reviewed. HEENT: Unremarkable. Lungs: Bilateral good equal air entry. Very minimum wheezing noted in her lung lawson and it is sig nificantly better compared to how it was when she first came in. Lung findings are much better than yesterday. Not in respiratory distress. Heart: Heart sounds normal. Abdomen: Soft. Bowel sounds normal. No guarding, rigidity, tenderness, or distention. Extremities: No leg edema. Impression: 1.Acute exacerbation of chronic obstructive pulmonary disease. 2.Pneumonia. 3.Hypertension. 4.Smoking. Plan: The patient was advised not to smoke anymore. She was smoking up until this hospital admissio n. Overall, her condition has improved. We will continue current oxygen nebulizer treatment, steroi d, antibiotic, and possible discharge to go home tomorrow. JENNIFER/MODL Voice ID: [id number] Report ID: [id number]
[2018-04-14] MEDS: QUETIAPINE 25 MG TAB PO SCH (20:57)
[2018-04-15] MEDS: ALBUTEROL 2.5 MG/3 ML NEB SOL NEB SCH ×2 (02:35→08:00)
[2018-04-15] MEDS: IPRATROPIUM BROM 0.5MG/2.5ML NEB SCH ×2 (02:35→08:00)
[2018-04-15] MEDS: GUAIFENESIN/DM 5 ML UCUP PO PRN (03:08)
[2018-04-15] MEDS: METHYLPREDNISOLONE 40 MG INJ IV SCH (06:17)
[2018-04-15] MEDS: LEVOTHYROXINE SOD 0.1 MG TAB PO SCH (06:17)
[2018-04-15] MEDS: PANTOPRAZOLE 40MG TABLET PO SCH (06:17)
--- NOTE | 2018-04-16 04:33 | DS ---
Date of Discharge: 04/15/2018 Disposition: Discharged to go home. Physical Examination: HEENT: Unremarkable. Lungs: Clear to auscultation. Heart: Sounds normal. Abdomen: Soft. Bowel sounds normal. No guarding, rigidity, tenderness, or distention. Extremities: No leg edema. Laboratory Data: Labs done during this hospitalization: Upon admission white count 13.4, hemoglobin 15.8, platelets 255. Upon admission sodium 139, potassium 3.8, chloride 104, bicarb 28, BUN 10, crea tinine 0.98, glucose 101. Liver function tests unremarkable. TSH was elevated at 46. Procalcitonin less than 0.05. Hospital Course: This is a 72-year-old female patient admitted to hospital with cough, congestion, s hortness of breath, feeling weak. Please see dictated H and P for more information. After patient w as evaluated at office, she was admitted to the hospital. Further evaluation done in the hospital in cluded chest x-ray, CAT scan of the chest. The patient was diagnosed as having pneumonia and acute e xacerbation of COPD, and was admitted and treated in the hospital for this problem. She was started on oxygen nebulizer treatment, IV steroid, IV antibiotics and initially she was started on ceftriaxon e and azithromycin. Her condition did improve but did not improve as expected. So over the weekend, I did change antibiotic from ceftriaxone and azithromycin to Levaquin and inhaler Dulera and Spiriva were given along with other medical management. Overall, her condition has improved very well in la st 48 hours and she is medically stable for discharge. Her TSH was very high when she came in and e patient admitted that she was not compliant and was not taking her thyroid medications regularly an d I have instructed her to take her thyroid medication as prescribed on a regular basis and we will m onitor her thyroid blood test sometime next month and then we will decide any further dose adjustment needed or not. The patient continues to smoke. She was smoking up until this hospital admission an d we did talk about importance of her not to smoke anymore. Final Diagnoses: 1.Pneumonia. 2.Acute exacerbation of chronic obstructive pulmonary disease. 3.Hypothyroidism. 4.Hypertension. 5.Breast cancer. 6.Mixed hyperlipidemia. 7.Thyroid cancer. 8.Postoperative hypothyroidism. 9.Impaired fasting glucose. 10.Osteoarthritis, multiple sites. 11.Osteoporosis. 12.Depression. Discharge Medications And Instruction: 1.Continue all prior home medications. 2.Take Dulera 2 puffs twice a day and Spiriva 1 puff daily. 3.Take Levaquin 500 mg p.o. daily for 1 week. 4.Take prednisone 10 mg; the patient to take 2 tablets daily for 4 days then 1 tablet daily for 4 da ys, then 1/2 tablet daily for 4 days, then stop. 5.Follow up at my office in 2 weeks. JENNIFER/EPIFANIO Voice ID: [id number] Report ID: [id number]
== END 2018-04-15 09:27 | disposition home or self-care (01) | DRG 190 ==
LOC: OBSVTOIN 12:34 → 2ND 12:34
PROVIDERS: ADMIT Internal Medicine; ATTEND Internal Medicine
DX: J44.1 Chronic obstructive pulmonary disease with (acute) exacerbation (principal); J18.9 Pneumonia, unspecified organism; E03.9 Hypothyroidism, unspecified; I10 Essential (primary) hypertension; C50.919 Malignant neoplasm of unspecified site of unspecified female breast; E78.2 Mixed hyperlipidemia; C73 Malignant neoplasm of thyroid gland; E89.0 Postprocedural hypothyroidism; M15.9 Polyosteoarthritis, unspecified; M81.0 Age-related osteoporosis without current pathological fracture; F32.9 Major depressive disorder, single episode, unspecified; F17.200 Nicotine dependence, unspecified, uncomplicated
CPT/HCPCS: 36415; 71046; 71250; 80048; 80053; 81001; 83735; 84145; 84439; 84443; 85025; 87040; 87070; 87205; J0456; J0696; J1650; J2920; J7606

== ENCOUNTER 2019-07-31 09:53 | Emergency (ER) | payer OTHER, MEDICARE ==
--- OUTSIDE RECORDS SUMMARY | 2019-07-31 09:55 | XMS REPORT | Summary of Care ---
:1945 Author Organization [facility] Address [address] [place] [address] Care Team Providers Name Role Phone Roc Brownlee Primary Care Provider Reason for Visit Reason Comments LAB WORK Auth/Cert Status Reason Specialty Diagnoses / Referred By Referred To Procedures Contact Contact Clinical Medical Procedures [facility] Laboratory CBC [address] [place] [address] Encounter Details Date Type Department Care Team Description 12/02/2018 Post Doc Fellowship Visit [facility] Marcos Monge MD [address] [place] [id number] Pre-op testing Phlebotomy 1, [facility] Lab (Primary Dx) Lab-[address] [place] [address] Allergies Active Allergy Reactions Severity Noted Date Comments Amlodipine Dizziness 05/22/2016 Carvedilol Shortness of Breath 05/22/2016 Clonidine Swelling 05/22/2016 Lisinopril Hives 05/22/2016 documented as of this encounter (statuses as of 12/02/2018) Medications Medication Sig Dispensed Refills Start Date End Date Status FLUoxetine 20 mg Take 20 mg by 0 Active capsule mouth daily. levalbuterol 45 Inhale 2 Puffs 0 Active mcg/actuation inhaler every 4 (four) hours as needed. levothyroxine 88 mcg Take 88 mcg by 0 Active tablet mouth every morning. liothyronine 5 mcg Take 5 mcg by 0 Active tablet mouth daily. losartan-hydrochlorothi Take 1 tablet by 0 Active azide 100-12.5 mg per mouth daily. tablet methocarbamol 750 mg Take 750 mg by 0 Active tablet mouth 4 (four) times daily as needed. montelukast 10 mg Take 10 mg by 0 Active tablet mouth daily. omeprazole 40 mg Take 40 mg by 0 Active capsule mouth daily. salmeterol 50 mcg/dose Inhale 1 Puff 0 Active diskus every 12 (twelve) hours. tiotropium 18 mcg Inhale 18 mcg 0 Active inhalation daily. oxymetazoline (AFRIN, Use 1 [place] in 15 mL 0 11/12/2017 Active OXYMETAZOLINE,) 0.05 % each nostril nasal spray every 6 (six) hours as needed for Other (Nasal congestion). multivitamin, Take 1 tablet by 0 Active tx-minerals (COMPLETE mouth daily. MULTIVITAMIN) tablet albuterol 2.5 mg /3 mL Inhale 2.5 mg as 0 07/27/2016 Active (0.083 %) nebulizer needed. solution alendronate 70 mg Take 70 mg by 0 07/19/2015 Active tablet mouth weekly. anastrozole 1 mg tablet Take 1 mg by 0 Active mouth daily aspirin-calcium Take 81 mg by 0 Active carbonate 81 mg-300 mg mouth daily. calcium(777 mg) Tab baclofen 10 mg tablet Take 10 mg by 0 04/27/2016 Active mouth 3 (three) times daily as needed. clonazePAM 0.5 mg Take 0.5 mg by 0 Active tablet mouth 2 (two) times daily as needed. Diclofenac Sodium 1 % Apply 1 Dose to 0 04/27/2016 Active gel area(s) as needed. glucosamine-chondroitin Take 1 tablet by 0 Active 500-400 mg tablet mouth daily. metoprolol tartrate 50 Take 50 mg by 0 Active mg tablet mouth 2 (two) times daily. acetaminophen-codeine Take 1 tablet by 0 Active 300-30 mg tablet mouth every 4 (four) hours as needed. documented as of this encounter (statuses as of 12/02/2018) Active Problems Not on filedocumented as of this encounter (statuses as of 12/02/2018) Social History Tobacco Use Types Packs/Day Years Used Date Current Every Day Smoker Cigarettes 0.25 Smokeless Tobacco: Never Used Alcohol Use Drinks/Week oz/Week Comments Yes 1-2 mixed drinks on weekends Alcohol Habits Answer Date Recorded How often do you have a drink containing alcohol? 2-4 times a month 12/02/2018 How many drinks containing alcohol do you have on a 1 or 2 12/02/2018 typical day when you are drinking? How often do you have six or more drinks on one Not asked occasion? Sex Assigned at Date Recorded Not on file Job Start Date Occupation Industry Not on file Not on file Not on file Travel History Travel Start Travel End No recent travel history available. documented as of this encounter Last Filed Vital Signs Not on filedocumented in this encounter Plan of Treatment Date Type Specialty Care Team Description 12/04/2018 Hospital Encounter Surgery Eddie Monge MD [address] [facility] [address] [address] 12/04/2018 Surgery Surgery Eddie Monge OPEN SHOUL LISA ROTATOR MD Konstantin CUFF REPAIR [address] [facility] [address] [address] Name Type Priority Associated Diagnoses Date/Ti me CBC WITH DIFF LAB Routine Pre-op testing 12/02/2018 1 2:57 PM CDT COMP. METABOLIC PANEL LAB Routine Pre-op testing 11/08 12:57 PM CDT (70125) CBC WITH DIFFERENTIAL LAB Routine Pre-op testing 11/08 12:57 PM CDT Health Maintenance Due Date Last Done Comments HEPATITIS C (HCV) SCREEN 1945 DTaP,Tdap,and Td Vaccines (1 - 1964 Tdap) MAMMOGRAM 1985 COLONOSCOPY 07/30/1995 Zoster Recombinant Vaccine 07/30/1995 (SHINGRIX) (1 of 2) Medicare Wellness Visit 2010 Osteoporosis Screening 2010 PNEUMOCOCCAL VACCINES 65+ (1 of 2 2010 - PCV13) INFLUENZA VACCINE (#1) 2018 01/19/2016, 11/30/2014, 12/11/2013, Additional history exists documented as of this encounter Results Not on filedocumented in this encounter Visit Diagnoses Diagnosis Pre-op testing - Primary Preoperative examination, unspecified documented in this encounter Insurance Payer Benefit Plan / Subscriber ID Effective Phone Address T ype Group Dates MEDICARE MEDICARE PART xxxxxxxxxx 2009-Pre [phone] [address] [employer] sent [phone] [place] B[place] [id number] [facility] [id number] 2016-Pre [address] [facility] sent [id number] Supplement MEDICARE [place] SUPPLEMENT IOANA SANCHEZ [id number] documented as of this encounter
--- OUTSIDE RECORDS SUMMARY | 2019-07-31 09:55 | XMS REPORT ---
:1945 Author Organization [facility] t Address [address] Ibarra [address] [place] [id number] Care Team Providers Name Role Phone Unavailable Unavailable Unavailable Problems This patient has no known problems. Allergies, Adverse Reactions, Alerts This patient has no known allergies or adverse reactions. Medications This patient has no known medications.
--- OUTSIDE RECORDS SUMMARY | 2019-07-31 09:56 | XMS REPORT | Summary of Care ---
:1945 Author Organization [facility] - [facility] Address [address] [place] [id number] Care Team Providers Name Role Phone Kem Roc Mims Primary Care Provider Reason for Visit Auth/Cert Status Reason Specialty Diagnoses / Procedures Referred By Felicita ontact Referred To Contact Surgery Diagnoses Incomplete rotator cuff tear or rupture of left shoulder, not specified as traumatic Incomplete L rotator cuff tear Adc Pre/Pacu/Post Procedures OH REPAIR ROTATOR CUFF,ACUTE OH SHLDR ARTHROSCOP,PART DEBRIDE OPEN SHOULDER ROTATOR CUFF REPAIR SHOULDER ARTHROSCOPY [address] [facility] [place], [place] [address] Phone: Fax: Encounter Details Date Type Department Care Team Description 12/04/2018 - Hospital Encounter ADC Intensive Care Jaspreet Monge Post-op pain 12/05/2018 Yeyo Pryor MD [address] [place] [address] [place] [address] [facility] [phone] [address] [phone] Allergies Active Allergy Reactions Severity Noted Date Comments Amlodipine Dizziness 05/22/2016 Carvedilol Shortness of Breath 05/22/2016 Clonidine Swelling 05/22/2016 Lisinopril Hives 05/22/2016 documented as of this encounter (statuses as of 12/05/2018) Medications Medication Sig Dispensed Refills Start Date End Date Status acyclovir 200 mg Take 4 140 capsule 0 05/22/2016 Discontinued capsule capsules by 9 mouth 5 (five) times daily. traMADOL (ULTRAM) 50 Take 1 tablet 20 tablet 0 11/10/201711/08 Discontinued mg tablet by mouth 9 every 6 (six) hours as needed for Pain (scale 4-6). aspirin 81 mg EC Take 81 mg by 0 Discontinued tablet mouth. 9 FLUoxetine 20 mg Take 20 mg by 0 Discontinued capsule mouth daily. 9 hydralAZINE 25 mg Take 25 mg by 0 07/15/2015 01 Discontinued tablet mouth. 9 levalbuterol 45 Inhale 2 0 Disc ontinued mcg/actuation Puffs every 4 9 inhaler (four) hours as needed. levothyroxine 88 mcg Take 88 mcg 0 01 Discontinued tablet by mouth 9 every morning. liothyronine 5 mcg Take 5 mcg by 0 01 Discontinued tablet mouth daily. 9 losartan-hydrochloro Take 1 tablet 0 12/05 Discontinued thiazide 100-12.5 mg by mouth 9 per tablet daily. methocarbamol 750 mg Take 750 mg 0 Discontinued tablet by mouth 4 9 (four) times daily as needed. montelukast 10 mg Take 10 mg by 0 12/06/19 1 Discontinued tablet mouth daily. 9 omeprazole 40 mg Take 40 mg by 0 Discontinued capsule mouth daily. 9 salmeterol 50 Inhale 1 Puff 0 Di scontinued mcg/dose diskus every 12 9 (twelve) hours. tiotropium 18 mcg Inhale 18 mcg 0 12/06/19 1 Discontinued inhalation daily. 9 amoxicillin-clavulan Take 1 tablet 20 tablet 0 11/12/201711/08 Discontinued ate (AUGMENTIN) by mouth 2 9 875-125 mg per (two) times tablet daily. oxymetazoline Use 1 [facility] 15 mL 0 11/12/2017 Dis continued (AFRIN, in each 9 OXYMETAZOLINE,) 0.05 nostril every % nasal spray 6 (six) hours as needed for Other (Nasal congestion). pseudoephedrine SA Take 1 tablet 14 tablet 0 11/12/2017 Discontinued (SUDAFED 12 HOUR) by mouth 2 9 120 mg SR tablet (two) times daily. multivitamin, Take 1 tablet 0 Di scontinued tx-minerals by mouth 9 (COMPLETE daily. MULTIVITAMIN) tablet albuterol 2.5 mg /3 Inhale 2.5 mg 0 07/27/201612/05 Discontinued mL (0.083 %) as needed. 9 nebulizer solution alendronate 70 mg Take 70 mg by 0 07/19/2015 01 Discontinued tablet mouth weekly. 9 anastrozole 1 mg Take 1 mg by 0 Discontinued tablet mouth daily 9 aspirin-calcium Take 81 mg by 0 Discontinued carbonate 81 mg-300 mouth daily. 9 mg calcium(777 mg) Tab baclofen 10 mg Take 10 mg by 0 04/27/2016 Discontinued tablet mouth 3 9 (three) times daily as needed. clonazePAM 0.5 mg Take 0.5 mg 0 Discontinued tablet by mouth 2 9 (two) times daily as needed. Diclofenac Sodium 1 Apply 1 Dose 0 04/27/2016 Discontinued % gel to area(s) as 9 needed. glucosamine-chondroi Take 1 tablet 0 12/05 Discontinued tin 500-400 mg by mouth 9 tablet daily. metoprolol tartrate Take 50 mg by 0 Discontinued 50 mg tablet mouth 2 (two) 9 times daily. acetaminophen-codein Take 1 tablet 0 12/05 Discontinued e 300-30 mg tablet by mouth 9 every 4 (four) hours as needed. documented as of this encounter (statuses as of 12/05/2018) Active Problems Problem Noted Date Post-op pain 12/04/2018 documented as of this encounter (statuses as of 12/05/2018) Social History Tobacco Use Types Packs/Day Years [...] of this encounter Last Filed Vital Signs Vital Sign Reading Time Taken Comments Blood Pressure 112/74 12/05/2018 12:00 PM CDT Pulse 71 12/05/2018 12:00 PM CDT Temperature 36.7 C (98 F) 12/05/2018 12:00 PM CDT Respiratory Rate 18 12/05/2018 12:00 PM CDT Oxygen Saturation 92% 12/05/2018 12:00 PM CDT Inhaled Oxygen Concentration - - Weight 68 kg (150 lb) 12/02/2018 9:00 AM CDT Height 157.5 cm (5' 2") 12/02/2018 9:00 AM CDT Body Mass Index 27.44 12/02/2018 9:00 AM CDT documented in this encounter Discharge Instructions Donny Burroughs RN - 12/05/2018Friday, December 06, 2018 at 08:30 AM Post Hospital follow up appointment with Dr Eddie Monge M.D. Address: [address] [place] [address] AttachmentsThe following attachments cannot be sent through Care Everywhere. Managing Post-Op Pain at Home ([place])Surgical Site Infections, Preventing ([place])Rotator Cuff Repair (Open), Discharge Instructions for ([place]) documented in this encounter Progress Notes Ct Gomes LBSW - 12/05/2018 11:04 AM CDTSubjective Patient ID: Yodit Mercedes is a 73 year old female. Care Management Social Functional Assessment Patient Name: Yodit Mercedes Age: [age] year old Sex: female Previous admit date: N/A Current diagnosis and co-morbidities: Incomplete L rotator cuff tear;M75.112 (ICD-10-CM) - Incomplete rotator cuff tear or rupture of leftshoulder, not specified as traumatic Readmission Questions: Was patient discharged from any acute care hospital within the last 30 days: No Social Functional Assessment: Primary language spoken/preferred: Malian Mental Status: Alert & Oriented to Person,Place & Time Information given by: Self Patient's support system: Child Name and number of support system: Chaparrita Wise dtr [phone] 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 Brownlee Home Health Care Agency: No Provider Services: No DME Company: No Equipment: None Hemodialysis: No Community resources utilized: None Funding Resources: Medicare A & B Prescription coverage plan: Medicare Part D Pharmacy where meds are filled: Other Other pharmacy: [facility] Anticipated services prior to disharge: Continue Medical Eval Expected mode of discharge transportation: Same as support system Additional Recommendations for DC: Medical clearance Additional info required for discharge planning: Pending medical evaluation Recommended discharge plan: Home SFA Complete: Social Functional Assessment complete: Yes Alcohol Use Screening (AUDIT-C) How often do you have a drink containing alcohol?: Never SCORE: 0 Did patient elect to have resources provided: No Role of Care Management explained. Any issues or concerns with obtaining/affording your medications at home: no. 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 Review of Systems Objective Physical Exam Assessment/Plan Home with support of her daughter APOLLO Hanley Wig Comber - Care Management [facility] [phone] [email or web address] documented in this encounter Plan of Treatment Health Maintenance Due Date Last Done Comments HEPATITIS C (HCV) SCREEN 1945 DTaP,Tdap,and Td Vaccines (1 - 1964 Tdap) MAMMOGRAM 1985 COLONOSCOPY 07/30/1995 Zoster Recombinant Vaccine 07/30/1995 (SHINGRIX) (1 of 2) LUNG CANCER SCREEN: Recommended 2000 for age 55-80 with 30 + pack year history Medicare Wellness Visit 2010 Osteoporosis Screening 2010 PNEUMOCOCCAL VACCINES 65+ (1 of 2 2010 - PCV13) INFLUENZA VACCINE (#1) 2018 01/19/2016, 11/30/2014, 12/11/2013, Additional history exists documented as of this encounter Implants Implanted Type Area Stamp Mounter Device Shelf Model / Identifier Expiration Serial / Date Lot Adc Vivien Suture Greenleaf 2.9 Mm - Sna ANCHOR Left: Biomet 09/30/2022 [id number] / Implanted: Qty: 1 on 12/04/2018 by Eddie Kidd MD at [facility] Shoulder N A / [id number] Chip documented as of this encounter Procedures Procedure Name Priority Date/Time Associated Comments Diagnosis THYROID STIMULATING Routine 12/05/2018 5:06 Resu lts for this HORMONE AM CDT procedure are i n the results section. SHOULDER Level 5 (greater 12/04/2018 7:25 Incomplete L ARTHROSCOPY than 5 days) AM CDT rotator cuff tear OPEN SHOULDER Level 5 (greater 12/04/2018 7:25 Incomplete L ROTATOR CUFF REPAIR than 5 days) AM CDT rotator cuff tear CONSENT/REFUSAL FOR Routine 12/02/2018 12:28 DIAGNOSIS AND PM CDT TREATMENT ASSIGNMENT OF Routine 12/02/2018 12:27 BENEFITS PM CDT NOTICE OF PRIVACY Routine 12/02/2018 12:27 PRACTICES PM CDT CONSENT/REFUSAL FOR Routine 12/02/2018 12:27 DIAGNOSIS AND PM CDT TREATMENT ASSIGNMENT OF Routine 12/02/2018 12:26 BENEFITS PM CDT PHYSICIAN ORDERS Routine 12/02/2018 12:01 AM CDT documented in this encounter Results THYROID STIMULATING HORMONE (12/05/2018 5:06 AM CDT) Pathologist Sig nature TSH 2.88Comment: Biotin 0.45 - 4.70 [facility] to cause a negative bias, interpret results relative to patient's use of biotin. Specimen Blood - HEEL, RIGHT Performing Organization Address City/State/Zipcode Phone Number [facility] CLIA: [id number], [address] [place], [place] [address] documented in this encounter Visit Diagnoses Diagnosis Post-op pain - Primary Other acute postoperative pain documented in this encounter Administered Medications Medication Order MAR Action Action Date Dose Rate Site albuterol (PROVENTIL) 2.5 mg /3 mL (0.08 3 %) nebulizer solution 2.5 mg 2.5 mg, Inhalation, Q6HPRN, Starting Sun12/04/18 at 15 47, Until Discontinued, Routine, Shortness of Breath, Wheezing docusate (COLACE) capsule 100 mg Given 12/05/2018 8:18 AM CDT 100 mg 100 mg, Oral, Q12H, First dose on Sun12/04/18 at 2000, Until Discontinued, Routine Given 12/04/2018 8:08 PM CDT 100 mg FLUoxetine (PROZAC) capsule 20 mg Given 12/05/2018 8:17 AM CDT 20 mg 20 mg, Oral, DAILY, First dose on Sun12/05/18 at 0900, Until Discontinued, Routine HYDROcodone-acetaminophen (NORCO) 10-325 Given 12/05/2018 5 :19 AM CDT 1 tablet mg tablet 1 tablet 1 tablet, Oral, Q4HPRN, Starting Sun12/04/18 at 0923, Until Discontinued, Routine, Pain (scale 7-10) Given 12/04/2018 11:28 AM CDT 1 tablet ipratropium (ATROVENT) 0.02 % nebulizer solution 0.5 mg 0.5 mg, Inhalation, Q6HPRN, Starting Sun12/04/18 at 15 47, Until Discontinued, Routine, Wheezing, Shortness of Breath levothyroxine (SYNTHROID) tablet 88 mcg Given 12/05/2018 5:10 AM CDT 88 mcg 88 mcg, Oral, QAM-0600, First dose on Sun12/05/18 at 0600, Until Discontinued, Routine liothyronine (CYTOMEL) tablet 5 mcg Given 12/05/2018 8:17 AM CDT 5 mcg 5 mcg, Oral, DAILY, First dose on Sun12/05/18 at 0900, Until Discontinued, Routine metoprolol tartrate (LOPRESSOR) tablet 5 0 mg Given 12/05/2018 8:18 AM CDT 50 mg 50 mg, Oral, BID, First dose on Sun12/04/18 at 2000, Until Discontinued, Routine Given 12/04/2018 8:08 PM CDT 50 mg morpHINE injection 2 mg Given 12/05/2018 8:18 AM CDT 2 mg 2 mg, Slow IV Push, Q4HPRN, Starting Sun12/04/18 at 1217, Until Discontinued, Routine, Pain (scale 7-10), Breakthrough Pain (scale 4-10) Given 12/04/2018 11:56 PM CDT 2 mg Given 12/04/2018 8:08 PM CDT 2 mg omeprazole (PRILOSEC) capsule 40 mg Given 12/05/2018 8:17 AM CDT 40 mg 40 mg, Oral, DAILY, First dose on Sun12/05/18 at 0900, Until Discontinued ondansetron (ZOFRAN (PF)) injection 4 mg Given 12/04/2018 8:08 PM CDT 4 mg 4 mg, Slow IV Push, Q6HPRN, Starting Sun12/04/18 at 0923, Until Discontinued, Routine, Nausea and Vomiting (N/V) tiotropium (SPIRIVA) inhalation 18 mcg Given 12/05/2018 8:18 AM CDT 18 mcg 18 mcg, Inhalation, DAILY, First dose on Sun12/05/18 at 0900, Until Discontinued, Routine, clergy member approving Restricted medication: MARCIA MUNOZ Medication Order MAR Action Action Date Dose Rate Site lactated ringers IV infusion New Bag 12/04/2018 7:28 AM CDT 1,000 mL 20 mL/hr 1,000 mL at 20 mL/hr, 1,000 mL, IV Infusion, ONCE, 1 dose, Sun12/04/18 at 0730, Routine, DSU Pre-op levalbuterol (XOPENEX) nebulizer solution Given 12/04/2018 7:28 AM CDT 1.25 mg 1.25 mg 1.25 mg, Inhalation, ONCE, 1 dose, Sun12/04/18 at 0800, Routine, DSU Pre-op, Approved by: ADC PROVIDER morpHINE injection 4 mg Given 12/04/2018 10:02 AM CDT 4 mg 4 mg, Slow IV Push, Q5MIN PRN, 2 doses, Starting Sun12/04/18 at 0959, Until Sun12/04/18 at 1058, Routine, Pain (scale 7-10), PACU documented in this encounter Insurance Payer Benefit Plan / Subscriber ID Effective Phone Address T e Group Dates MEDICARE MEDICARE PART xxxxxxxxxxx 2009-Pre [phone] [address] [employer] sent [id number] IO[place] BASS [id number] [facility] [id number] 2016-Pre [address] QUE [facility] sent [id number] Supplement MEDICARE [place] SUPPLEMENT IOANA SANCHEZ [id number] documented as of this encounter
--- OUTSIDE RECORDS SUMMARY | 2019-07-31 09:56 | XMS REPORT | Summary of Care ---
:1945 Author Organization [facility] - [facility] Address [address] [place] [address] Care Team Providers Name Role Phone Roc Brownlee Primary Care Provider Reason for Visit Reason Comments Transition Of Care Encounter Details Date Type Department Care Team Description 12/06/[address] [facility] [address] [address] Allergies Active Allergy Reactions Severity Noted Date Comments Amlodipine Dizziness 05/22/2016 Carvedilol Shortness of Breath 05/22/2016 Clonidine Swelling 05/22/2016 Lisinopril Hives 05/22/2016 documented as of this encounter (statuses as of 12/06/2018) Medications No known medicationsdocumented as of this encounter (statuses as of 12/06/2018) Active Problems Problem Noted Date Post-op pain 12/04/2018 documented as of this encounter (statuses as of 12/06/2018) Social History Tobacco Use Types Packs/Day Years [...] filedocumented in this encounter Plan of Treatment Health [...] of this encounter Implants Implanted Type Area Painter Maintenance Device Shelf Model / Identifier Expiration Serial / Date Lot Adc Juggerknot Suture [place] 2.9 Mm - Sna ANCHOR Left: Biomet 09/30/2022 [id number] / Implanted: Qty: 1 on 12/04/2018 by Eddie Kidd MD at [facility] Shoulder N A / [id number] Chip documented as of this encounter Results Not on filedocumented in this encounter Insurance Payer Benefit Plan / Subscriber ID Effective Phone Address T [facility] Group Dates MEDICARE MEDICARE PART xxxxxxxxxxx 2009-Pre [phone] [address] [place] [employer] sent [id number] IO[place] BASS [id number] [facility] [id number] 2016-Pre [address] [facility] sent [id number] Supplement MEDICARE [place] SUPPLEMENT IO[place] SANCHEZ [id number] documented as of this encounter
--- NOTE | 2019-07-31 11:04 | RAD REPORT ---
EXAM DESCRIPTION: CT - Head Brain Wo Cont - 07/31/2019 10:57 am CLINICAL HISTORY: Dizziness;Weakness Headache, drowsiness, CVA symptomology COMPARISON: No comparisons TECHNIQUE: All CT scans are performed using dose optimization technique as appropriate and may inclu de automated exposure control or mA/KV adjustment according to patient size. FINDINGS: No intracranial hemorrhage, hydrocephalus or extra-axial fluid collection.Moderate diminis hed density periventricular deep white matter is present suggesting chronic microvascular ischemic ch anges.No areas of brain edema or evidence of midline shift. The paranasal sinuses and mastoids are clear. The calvarium is intact. IMPRESSION: No acute intracranial abnormality. If there is continued clinical concern for CVA, MR imaging of the brain would be recommended.
[2019-07-31 11:36] LABS: Absolute Lymphocytes (CBC) 3.6 K/uL (0.7-4.9); Basophils % 0.9 % (0-1.3); Hematocrit 46.3 % (36.0-45.0); Lymphocytes % 32.6 % (15.3-44.8); RBC Red Blood Cell Count 5.05 M/uL (3.86-4.86)
[2019-07-31 11:57] LABS: ALT/SGPT 17 U/L (12-78); AST/SGOT 18 U/L (15-37); Albumin 3.4 g/dL (3.4-5.0); Alkaline Phosphatase 90 U/L (45-117); BUN Blood Urea Nitrogen 15 mg/dL (7-18); Bicarbonate 30 mmol/L (21-32); Bilirubin Direct 0.1 mg/dL (0-0.2); Bilirubin Total 0.4 mg/dL (0.2-1.0); Glucose Level 100 mg/dL (74-106); NT PRO-BNP 116 pg/mL (<125); Potassium 4.7 mmol/L (3.5-5.1); Protein, Total 6.6 g/dL (6.4-8.2); Sodium Level 142 mmol/L (136-145); Troponin (Emerg Dept Use Only) < 0.02 ng/mL (0.0-0.045)
--- NOTE | 2019-07-31 12:00 | RAD REPORT ---
EXAM DESCRIPTION: RAD - Chest Single View - 07/31/2019 11:06 am CLINICAL HISTORY: dizziness Chest pain. COMPARISON: Chest Pa And Lat (2 Views) dated 11/18/2018; Chest Pa And Lat (2 Views) dated 04/13/2018; C hest Pa And Lat (2 Views) dated 04/10/2018; Chest Pa And Lat (2 Views) dated 07/12/2017; Head Brain Wo Co nt dated 07/31/2019 FINDINGS: Portable technique limits examination quality. The lungs are grossly clear. The heart is normal in size. No displaced fractures. IMPRESSION: No acute intrathoracic process suspected.
[2019-07-31 12:04] LABS: Thyroid Stimulating Hormone 1.36 uIU/mL (0.360-3.740)
--- NOTE | 2019-07-31 13:14 | RAD REPORT ---
EXAM DESCRIPTION: MRI - Brain Wo Cont - 07/31/2019 12:50 pm CLINICAL HISTORY: Dizziness;Weakness COMPARISON: Head Brain Wo Cont dated 07/31/2019 TECHNIQUE: Sagittal T1-weighted images were obtained along with axial PD, heavily T2-weighted and T2 -FLAIR images. Axial DWI and ADC mapping sequences were also obtained along with coronal heavily T2-w eighted images. FINDINGS: No intracranial hemorrhage, mass or acute infarction. There is no edema or shift of midlin e structures. No cortical edema or sulcal effacement. Atrophy changes are mild. 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 Ventricles are in proportion to volume loss. Pickett-matter/white matter junction is preserved . Signal voids are seen as a normal finding in the major intracranial vessels. No globe or orbital content abnormality. No sella or supra sella abnormality. Mastoid air cells and paranasal sinuses are clear. IMPRESSION: No acute infarction changes. No hemorrhage or other acute intracranial finding. Mild to moderate atrophy with mild to moderate cerebral hemisphere and brainstem chronic ischemic paramjit nge.
--- NOTE | 2019-07-31 13:19 | RAD REPORT ---
EXAM DESCRIPTION: MRI - C Spine Wo Cont - 07/31/2019 12:50 pm CLINICAL HISTORY: dizziness, slurred speech, left upper extremity weakness and tingling COMPARISON: C Spine Wo Cont dated 08/16/2018 TECHNIQUE: Sagittal T1-weighted, T2-weighted and T2-STIR sequences were obtained as well as T2 medic sequence. FINDINGS: Exam has motion degradation limitations. Cervical vertebral bodies are normal in height and alignment. No suspicious marrow edema or marrow re placing process. No paraspinal mass. Cerebellar tonsils and mid-line skull base show no suspicious finding. No significant finding at the C1 and C2 levels. C2-3 level: No significant findings. C3-4 level: Significant left facet hypertrophic degenerative change present. Mild left foraminal encr oachment may be present. Motion limits accurate assessment. C4-5 level: Posterior disc bulge and endplate spurring changes are present attenuating the anterior s ubarachnoid space. Posterior ligamentous thickening also present. Canal is borderline stenotic at 9-1 0 mm. Motion limits accurate assessment. Bilateral mild bony foraminal encroachment seen from endplat e and uncovertebral joint hypertrophy. C5-6 level: No herniation or significant disc bulge. Facet hypertrophy and uncovertebral joint hypert rophy are evident. Left foraminal encroachment is suspected. C6-7 level: No herniation or significant disc bulge. Left facet joint hypertrophy causes bony foramin al encroachment. Right foraminal encroachment is questionable. C7-T1 level: No significant findings. Cervical cord shows no focal narrowing, expansion or signal abnormality. IMPRESSION: Multilevel cervical spondylosis changes are present as detailed. There is multilevel for aminal encroachment as well as borderline to mild central spinal stenosis at C4-5. No acute cervical spine finding. These degenerative changes are not substantially different from August 2018. The presence of motion does limit detail and the assessment of subtle interval change.
--- NOTE | 2019-07-31 13:32 | EDPHYS ---
Physician Documentation [facility] Name: Yodit Mercedes Age: 74 yrs Sex: Female : 1945 Arrival Date: 07/31/2019 Time: 09:55 Bed 6 Private MD: Chandni Brownlee C ED Physician Sherif Titus HPI: 07/30 10:20 This 74 yrs old Female presents to ER via Wheelchair with complaints of jr8 Dizziness, Slurred Speech. 10:20 The patient presents with dizziness. Onset: The symptoms/episode began/occurred jr8 gradually, 3 week(s) ago. Context: occurred at home. Modifying factors: The symptoms are alleviated by nothing, the symptoms are aggravated by changing position. Associated signs and symptoms: Pertinent positives: headache, weakness, syncope . Severity of symptoms: At their worst the symptoms were moderate in the emergency department the symptoms are unchanged. The patient has not experienced similar symptoms in the past. The patient has not recently seen a physician. Historical: - Allergies: 10:00 Lisinopril; aa5 10:00 Nifedipine; aa5 - PMHx: 10:00 Asthma; COPD; CVA; Depression; Hyperlipidemia; Hypertension; Breast Cancer; Thyroid aa5 Cancer; - PSHx: 10:00 L mastectomy; Thyroidectomy; aa5 - Immunization history:: Flu vaccine is up to date. - Social history:: Smoking status: Patient reports the use of cigarette tobacco products, smokes one-half pack cigarettes per day. ROS: 10:20 Eyes: Negative for injury, pain, redness, and discharge, ENT: Negative for injury, jr8 pain, and discharge, Neck: Negative for injury, pain, and swelling, Cardiovascular: Negative for chest pain, palpitations, and edema, Respiratory: Negative for shortness of breath, cough, wheezing, and pleuritic chest pain, Abdomen/GI: Negative for abdominal pain, nausea, vomiting, diarrhea, and constipation, Back: Negative for injury and pain, MS/Extremity: Negative for injury and deformity, Skin: Negative for injury, rash, and discoloration. 10:20 Neuro: Positive for dizziness, speech changes, visual changes, weakness. Exam: 10:20 Eyes: Pupils equal round and reactive to light, extra-ocular motions intact. Lids and jr8 lashes normal. Conjunctiva and sclera are non-icteric and not injected. Cornea within normal limits. Periorbital areas with no swelling, redness, or edema. ENT: Nares patent. No nasal discharge, no septal abnormalities noted. Tympanic membranes are normal and external auditory canals are clear. Oropharynx with no redness, swelling, or masses, exudates, or evidence of obstruction, uvula midline. Mucous membranes moist. Neck: Trachea midline, no thyromegaly or masses palpated, and no cervical lymphadenopathy. Supple, full range of motion without nuchal rigidity, or vertebral point tenderness. No Meningismus. Cardiovascular: Regular rate and rhythm with a normal S1 and S2. No gallops, murmurs, or rubs. Normal PMI, no JVD. No pulse deficits. Respiratory: Lungs have equal breath sounds bilaterally, clear to auscultation and percussion. No rales, rhonchi or wheezes noted. No increased work of breathing, no retractions or nasal flaring. Abdomen/GI: Soft, non-tender, with normal bowel sounds. No distension or tympany. No guarding or rebound. No evidence of tenderness throughout. Back: No spinal tenderness. No costovertebral tenderness. Full range of motion. Skin: Warm, dry with normal turgor. Normal color with no rashes, no lesions, and no evidence of cellulitis. 10:20 Musculoskeletal/extremity: Sensation intact. Patient able to move right side normally and with good strength. Left arm has pain with motion along with tenderness to left trapezius region. Pain with ROM of left leg as well. Noticeable weakness with left arm and leg. Pulses 2 + bilaterally radial and pedal . 11:05 ECG was reviewed by the Attending Physician. jr8 12:10 Neuro: Orientation: to person, place, time \T\ situation. Mentation: is normal, Memory: jr8 is normal, immediate memory is intact, recent memory is intact, remote memory is intact, Cranial nerves: CN I not tested, CN II- XII are normal as tested, visual lawson are intact. extraocular movements are intact, Facial palsy and sensory deficits are absent. Nystagmus is absent. Speech is clear and appropriate. Tongue strength is normal, Cerebellar function: dysmetria is noted on the left, heel to rodriguez testing is normal, Motor: moves all fours, Sensation: no obvious gross deficits, Gait: not tested. seizure activity, is not displayed by the patient, Abnormal movements: there are no abnormal movements. Vital Signs: 10:00 BP 142 / 82; Pulse 80; Resp 22 S; Temp 97.2(TE); Pulse Ox 97% on R/A; Weight 74.39 kg aa5 (R); Height 5 ft. 2 in. (157.48 cm) (R); Pain 10/10; 10:40 BP 126 / 75; Pulse 76; Resp 17; Pulse Ox 99% ; bp 12:05 BP 154 / 83; Pulse 78; Resp 27; Pulse Ox 99% ; bp 13:09 BP 140 / 74; Pulse 74; Resp 17 S; Pulse Ox 97% on R/A; ca1 10:00 Body Mass Index 30.00 (74.39 kg, 157.48 cm) aa5 NIH Stroke Scale Scores: 10:39 NIHSS Score: 2 bp 12:10 NIHSS Score: 3 jr8 MDM: 10:08 Patient medically screened. jr8 13:28 Data reviewed: vital signs, nurses notes, lab test result(s), EKG, radiologic studies, jr8 CT scan, MRI, plain films. Data interpreted: Pulse oximetry: on room air is 97 %. Interpretation: normal. Counseling: I had a detailed discussion with the patient and/or guardian regarding: the historical points, exam findings, and any diagnostic results supporting the discharge/admit diagnosis, lab results, radiology results, the need for outpatient follow up, a associate software engineer, a family practitioner, a neurologist, to return to the emergency department if symptoms worsen or persist or if there are any questions or concerns that arise at home. ED course: No acute findings on CT or MRI of brain. MRI cervical region still with spondylosis and disc bulge but without acute cord compression or substantial difference from past. Labs without acute finding. Discussed this with Dr. Brownlee. Both him and I agree patient ok to go home and f/u with him along with cardiology and neurology. Patient good with this and knows to come back if worse or other symptoms were to arrise. 07/30 10:09 Order name: Basic Metabolic Panel; Complete Time: 12:02 8 07/30 10:09 Order name: CBC with Diff; Complete Time: 11:55 8 07/30 10:09 Order name: LFT's; Complete Time: 12:02 07/30 10:09 Order name: Magnesium; Complete Time: 12:02 07/30 10:09 Order name: NT PRO-BNP; Complete Time: 12:02 07/30 10:09 Order name: Troponin (emerg Dept Use Only); Complete Time: 12:02 07/30 10:09 Order name: XRAY Chest (1 view); Complete Time: 12:02 07/30 10:09 Order name: EKG; Complete Time: 10:10 07/30 10:09 Order name: CT Head Brain wo Cont; Complete Time: 11:10 07/30 10:18 Order name: TSH; Complete Time: 12:07 07/30 10:18 Order name: T4 Free; Complete Time: 12:07 07/30 11:28 Order name: MRI - Brain Wo Cont; Complete Time: 13:14 07/30 11:34 Order name: C Spine Wo Cont; Complete Time: 13:21 EDNC 07/30 10:09 Order name: Cardiac monitoring; Complete Time: 10:15 07/30 10:09 Order name: EKG - Nurse/Tech; Complete Time: 10:36 07/30 10:09 Order name: IV Saline Lock; Complete Time: 10:36 07/30 10:09 Order name: Labs collected and sent; Complete Time: 10:36 07/30 10:09 Order name: O2 Per Protocol; Complete Time: 10:15 07/30 10:09 Order name: O2 Sat Monitoring; Complete Time: 10:15 EC:05 Rate is 76 beats/min. Rhythm is regular, Normal Sinus Rhythm. QRS [place] is Normal. CA jr8 interval is normal at 144 msec. QRS interval is normal at 80 msec. QT interval is normal at 452 msec. No Q waves. T waves are Normal. No ST changes noted. Clinical impression: Normal ECG and No evidence of ischemia. Interpreted by me. Reviewed by me. Administered Medications: No medications were administered Disposition: 13:53 Co-signature as Attending Physician, Sherif Titus MD I agree with the assessment and kdr plan of care. Disposition: 07/31/19 13:31 Discharged to Home. Impression: Dizziness and giddiness, Cervical disc disorder with radiculopathy, Syncope and collapse. - Condition is Stable. - Discharge Instructions: Cervical Radiculopathy, Dizziness, Syncope. - Medication Reconciliation Form, Thank You Letter, Antibiotic Education, Prescription Opioid Use form. - Follow up: Chandni Brownlee MD; When: 5 - 6 days; Reason: Recheck today's complaints, Continuance of care, Re-evaluation by your physician. Follow up: Romie Ribeiro MD; When: 2 - 3 days; Reason: Recheck today's complaints, Continuance of care, Re-evaluation by your physician. Follow up: Judd Sanders MD; When: 2 - 3 days; Reason: Recheck today's complaints, Continuance of care, Re-evaluation by your physician. - Problem is new. - Symptoms have improved. NIH Stroke Scale - NIH Stroke Score Date: 07/31/2019 Time: 10:39 Total Score = 2 1a. Level of Consciousness (LOC) - 0(Alert) 1b. Level of Consciousness (LOC) (Year \T\ Age) - 0(Both) 1c. LOC Commands (Open \T\ Closes Eyes/Demurrage Man) - 0(Both) 2. Best Gaze (Lateral Gaze Paresis) - 0(Normal) 3. Visual Field Loss - 0(No visual loss) 4. Facial Palsy - 0(Normal) 5a. Left Arm: Motor (10-second hold) - 1(Drift) 5b. Right Arm: Motor (10-second hold) - 0(No drift) 6a. Left Leg: Motor (5-second hold - always test supine) - 1(Drift) 6b. Right Leg: Motor (5-second hold - always test supine) - 0(No drift) 7. Limb Ataxia (finger/nose \T\ heel/rodriguez - test with eyes open) - 0(Absent) 8. Sensory Loss (pinprick arms/legs/face) - 0(Normal) 9. Best Language: Aphasia (description/naming/reading) - 0(No aphasia) 10. Dysarthria (speech clarity - read or repeat words) - 0(Normal) 11. Extinction and Inattention (visual/tactile/auditory/spatial/personal) - 0(No abnormality) Initials: bp NIH Stroke Scale - NIH Stroke Score Date: 07/31/2019 Time: 12:10 Total Score = 3 1a. Level of Consciousness (LOC) - 0(Alert) 1b. Level of Consciousness (LOC) (Year \T\ Age) - 0(Both) 1c. LOC Commands (Open \T\ Closes Eyes/Demurrage Man) - 0(Both) 2. Best Gaze (Lateral Gaze Paresis) - 0(Normal) 3. Visual Field Loss - 0(No visual loss) 4. Facial Palsy - 0(Normal) 5a. Left Arm: Motor (10-second hold) - 1(Drift) 5b. Right Arm: Motor (10-second hold) - 0(No drift) 6a. Left Leg: Motor (5-second hold - always test supine) - 1(Drift) 6b. Right Leg: Motor (5-second hold - always test supine) - 0(No drift) 7. Limb Ataxia (finger/nose \T\ heel/rodriguez - test with eyes open) - 1(Present in one limb) 8. Sensory Loss (pinprick arms/legs/face) - 0(Normal) 9. Best Language: Aphasia (description/naming/reading) - 0(No aphasia) 10. Dysarthria (speech clarity - read or repeat words) - 0(Normal) 11. Extinction and Inattention (visual/tactile/auditory/spatial/personal) - 0(No abnormality) Initials: jr8 Signatures: Dispatcher [employer] EDNC Sherif Titus MD MD kdr Missy Guevara, RN RN aa5 Javi Fine PA PA jr8 Jacob Hensley, FABI RN bp Corrections: (The following items were deleted from the chart) 12:38 10:10 PROTIME (+INR)+COAG.LAB.BRZ ordered. [facility] EDNC 13:32 10:20 Associated signs and symptoms: Pertinent positives: headache, weakness , jr8 jr8 13:32 13:31 07/31/2019 13:31 Discharged to Home. Impression: Dizziness and giddiness; jr8 Cervical disc disorder with radiculopathy. Condition is Stable. Forms are Medication Reconciliation Form, Thank You Letter, Antibiotic Education, Prescription Opioid Use. Follow up: Chandni Brownlee; When: 5 - 6 days; Reason: Recheck today's complaints, Continuance of care, Re-evaluation by your physician. Follow up: Romie Ribeiro; When: 2 - 3 days; Reason: Recheck today's complaints, Continuance of care, Re-evaluation by your physician. Follow up: Judd Sanders; When: 2 - 3 days; Reason: Recheck today's complaints, Continuance of care, Re-evaluation by your physician. Problem is new. Symptoms have improved. jr8 13:44 13:32 07/31/2019 13:31 Discharged to Home. Impression: Dizziness and giddiness; bp Cervical disc disorder with radiculopathy; Syncope and collapse. Condition is Stable. Discharge Instructions: Cervical Radiculopathy, Dizziness, Syncope. Forms are Medication Reconciliation Form, Thank You Letter, Antibiotic Education, Prescription Opioid Use. Follow up: Chandni Brownlee; When: 5 - 6 days; Reason: Recheck today's complaints, Continuance of care, Re-evaluation by your physician. Follow up: Romie Ribeiro; When: 2 - 3 days; Reason: Recheck today's complaints, Continuance of care, Re-evaluation by your physician. Follow up: Judd Sanders; When: 2 - 3 days; Reason: Recheck today's complaints, Continuance of care, Re-evaluation by your physician. Problem is new. Symptoms have improved. jr8
--- NOTE | 2019-07-31 13:32 | ER ---
Nurse's Notes [facility] Name: Yodit Mercedes Age: 74 yrs Sex: Female : 1945 Arrival Date: 07/31/2019 Time: 09:55 Bed 6 Private MD: Chandni Brownlee C Diagnosis: Dizziness and giddiness;Cervical disc disorder with radiculopathy;Syncope and collapse Presentation: 07/30 10:00 Chief complaint: Patient states: Left arm weakness and tingling x 1 month ago. Pt also aa5 reports tingling to left side of face x 1 month ago and intermittent slurred speech x 1 month ago. Weakness noted to left arm and left leg. Pt also reports left arm pain. 10:00 Coronavirus screen: Patient reports a cough. Patient reports shortness of breath or aa5 difficulty breathing. Patient denies measured and/or subjective temperature greater than 100.4F prior to today's visit. Patient denies travel on a cruise ship or to a country the [facility] currently lists as an affected area. Patient denies contact with known and/or suspected case of COVID-19. Pt reports SOB and cough is her baseline, not worse than normal. Pt reports she has COPD and is a current smoker. Ebola Screen: Patient negative for fever greater than or equal to 101.5 degrees Fahrenheit, and additional compatible Ebola Virus Disease symptoms. An acute neurological deficit is present. Pre-hospital glucose is not applicable to this patient. Risk Assessment: Do you want to hurt yourself or someone else? Patient reports no desire to harm self or others. Onset of symptoms was June 2019. 10:00 Acuity: SEN 2 aa5 10:00 Method Of Arrival: Wheelchair aa5 10:00 Initial Sepsis Screen: Does the patient meet any 2 criteria? HR > 90 bpm. Does the aa5 patient have a suspected source of infection? No. Patient's initial sepsis screen is negative. Triage Assessment: 10:12 The onset of the patients symptoms was more than six hours ago. General: Appears in no bp apparent distress. comfortable, obese, Behavior is cooperative, appropriate for age, anxious. Pain: Complains of pain in left arm. EENT: No deficits noted. Neuro: Level of Consciousness is awake, alert, obeys commands, Oriented to person, place, time, situation, Appropriate for age Weakness in left arm(s) leg(s) Reports dizziness, weakness in left arm and left leg. Cardiovascular: Rhythm is sinus rhythm. Respiratory: No deficits noted. GI: No signs and/or symptoms were reported involving the gastrointestinal system. : No signs and/or symptoms were reported regarding the genitourinary system. Derm: No deficits noted. Musculoskeletal: No deficits noted. Stroke Activation: Symptom onset > 6 hours Physician: Stroke Attending; Name: ; Notified At: ; Arrived At: Physician: Chief Stroke Resident; Name: ; Notified At: ; Arrived At: Physician: Stroke Resident; Name: ; Notified At: ; Arrived At: Physician: ED Attending; Name: ; Notified At: ; Arrived At: Physician: ED Resident; Name: ; Notified At: ; Arrived At: Historical: - Allergies: 10:00 Lisinopril; aa5 10:00 Nifedipine; aa5 - PMHx: 10:00 Asthma; COPD; CVA; Depression; Hyperlipidemia; Hypertension; Breast Cancer; Thyroid aa5 Cancer; - PSHx: 10:00 L mastectomy; Thyroidectomy; aa5 - Immunization history:: Flu vaccine is up to date. - Social history:: Smoking status: Patient reports the use of cigarette tobacco products, smokes one-half pack cigarettes per day. Screenin:14 Abuse screen: Denies threats or abuse. Denies injuries from another. Nutritional bp screening: No deficits noted. Tuberculosis screening: No symptoms or risk factors identified. Fall Risk None identified. Assessment: 10:14 General: SEE TRIAGE NOTE. bp 10:39 VAN Scoring: Arm Drift: Minor drift Visual Disturbance: No visual disturbance noted. bp Aphasia: No aphasia noted. Neglect: No neglect noted. The patient has not been NPO before screening. The patient is alert, and able to follow commands. The patient does not exhibit slurred or garbled speech. The patient is not exhibiting difficulty speaking. The patient does not exhibit difficulty understanding words. The patient is able to swallow own secretions with no drooling or need for suction. Patient tolerated one teaspoon of water. No drooling, immediate coughing, gurgling, or clearing of the throat was noted. The patient tolerated 90mL of water. No drooling, immediate coughing, gurgling, or clearing of the throat was noted. The patient passed the bedside swallow screening. Oral medications may be given as ordered. Contact Physician for further diet orders. Provider notified of bedside swallow screening results: Javi TRIPLETT. T-PA (Activase) Screening: Contraindications: Patient reports onset of signs and symptoms of stroke greater than 6 hours ago: Yes. 10:41 Reassessment: CT PENDING. NO CHANGE IN PT NEURO STATUS. bp 11:06 Reassessment: PT RETURNED FROM CT. PHLEBOTOMY AT B/S FOR LAB RECOLLECT. bp 12:06 Reassessment: NO NEURO FINDINGS NOTED. MRI PENDING. VS STABLE. bp 12:11 Reassessment: PT TO MRI. bp 13:42 Reassessment: PT D/C HOME VIA W/C, DX WITH CERVICAL RADICULOPATHY AND DIZZINESS. bp Vital Signs: 10:00 BP 142 / 82; Pulse 80; Resp 22 S; Temp 97.2(TE); Pulse Ox 97% on R/A; Weight 74.39 kg aa5 (R); Height 5 ft. 2 in. (157.48 cm) (R); Pain 10/10; 10:40 BP 126 / 75; Pulse 76; Resp 17; Pulse Ox 99% ; bp 12:05 BP 154 / 83; Pulse 78; Resp 27; Pulse Ox 99% ; bp 13:09 BP 140 / 74; Pulse 74; Resp 17 S; Pulse Ox 97% on R/A; ca1 10:00 Body Mass Index 30.00 (74.39 kg, 157.48 cm) aa5 NIH Stroke Scale Scores: 10:39 NIHSS Score: 2 bp 12:10 NIHSS Score: 3 8 ED Course: 09:55 Patient arrived in ED. ag5 09:56 Chandni Brownlee MD is Private Physician. ag5 10:00 Arm band placed on Patient placed in an exam room, on a stretcher. aa5 10:05 Javi Fine PA is [facility]. jr8 10:05 Sherif Titus MD is Attending Physician. jr8 10:06 Triage completed. aa5 10:10 Jacob Hensley, FABI is Primary Nurse. bp 10:14 Patient has correct armband on for positive identification. Bed in low position. Call bp light in reach. Side rails up X2. 10:36 Inserted saline lock: 22 gauge in right forearm, using aseptic technique. Blood bp collected. 10:46 CT Head Brain wo Cont Sent. bp 10:57 CT Head Brain wo Cont In Process Unspecified. EDMS 11:05 XRAY Chest (1 view) In Process Unspecified. EDMS 12:24 MRI - Brain Wo Cont In Process Unspecified. EDMS 12:51 C Spine Wo Cont In Process Unspecified. EDMS 13:30 Chandni Brownlee MD is Referral Physician. jr8 13:30 Romie Ribeiro MD is Referral Physician. jr8 13:30 Judd Sanders MD is Referral Physician. jr8 13:42 No provider procedures requiring assistance completed. IV discontinued, intact, bp bleeding controlled, No redness/swelling at site. Pressure dressing applied. Administered Medications: No medications were administered Outcome: 13:31 Discharge ordered by . jr8 13:42 Discharged to home via wheelchair. bp 13:42 Condition: stable 13:42 Discharge instructions given to patient, Instructed on discharge instructions, follow up and referral plans. Demonstrated understanding of instructions, follow-up care. 13:44 Patient left the ED. bp NIH Stroke Scale - NIH Stroke Score Date: 07/31/2019 Time: 10:39 Total Score = 2 1a. Level of Consciousness (LOC) - 0(Alert) 1b. Level of Consciousness (LOC) (Year \T\ Age) - 0(Both) 1c. LOC Commands (Open \T\ Closes Eyes/Field Hockey And Lacrosse Coach) - 0(Both) 2. Best Gaze (Lateral Gaze Paresis) - 0(Normal) 3. Visual Field Loss - 0(No visual loss) 4. Facial Palsy - 0(Normal) 5a. Left Arm: Motor (10-second hold) - 1(Drift) 5b. Right Arm: Motor (10-second hold) - 0(No drift) 6a. Left Leg: Motor (5-second hold - always test supine) - 1(Drift) 6b. Right Leg: Motor (5-second hold - always test supine) - 0(No drift) 7. Limb Ataxia (finger/nose \T\ heel/rodriguez - test with eyes open) - 0(Absent) 8. Sensory Loss (pinprick arms/legs/face) - 0(Normal) 9. Best Language: Aphasia (description/naming/reading) - 0(No aphasia) 10. Dysarthria (speech clarity - read or repeat words) - 0(Normal) 11. Extinction and Inattention (visual/tactile/auditory/spatial/personal) - 0(No abnormality) Initials: bp NIH Stroke Scale - NIH Stroke Score Date: 07/31/2019 Time: 12:10 Total Score = 3 1a. Level of Consciousness (LOC) - 0(Alert) 1b. Level of Consciousness (LOC) (Year \T\ Age) - 0(Both) 1c. LOC Commands (Open \T\ Closes Eyes/Field Hockey And Lacrosse Coach) - 0(Both) 2. Best Gaze (Lateral Gaze Paresis) - 0(Normal) 3. Visual Field Loss - 0(No visual loss) 4. Facial Palsy - 0(Normal) 5a. Left Arm: Motor (10-second hold) - 1(Drift) 5b. Right Arm: Motor (10-second hold) - 0(No drift) 6a. Left Leg: Motor (5-second hold - always test supine) - 1(Drift) 6b. Right Leg: Motor (5-second hold - always test supine) - 0(No drift) 7. Limb Ataxia (finger/nose \T\ heel/rodriguez - test with eyes open) - 1(Present in one limb) 8. Sensory Loss (pinprick arms/legs/face) - 0(Normal) 9. Best Language: Aphasia (description/naming/reading) - 0(No aphasia) 10. Dysarthria (speech clarity - read or repeat words) - 0(Normal) 11. Extinction and Inattention (visual/tactile/auditory/spatial/personal) - 0(No abnormality) Initials: jr8 Signatures: Dispatcher [employer] Missy Maynard RN RN aa5 Javi Fine PA PA jr8 Jacob Hensley RN RN bp Dyan Grigsby RN RN [facility] Farzaneh Mccracken 5
[2019-07-31 13:52] VITALS: TEMP 97.2
[2019-07-31 13:56] VITALS: BP 140/74; O2SAT 97
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
== END 2019-07-31 13:44 | disposition home or self-care (01) ==
LOC: ER 09:53
DX: M50.10 Cervical disc disorder with radiculopathy, unspecified cervical region (principal); R55 Syncope and collapse; I10 Essential (primary) hypertension; F17.210 Nicotine dependence, cigarettes, uncomplicated; Z85.3 Personal history of malignant neoplasm of breast; Z85.850 Personal history of malignant neoplasm of thyroid; Z88.8 Allergy status to other drugs, medicaments and biological substances
CPT/HCPCS: 36415; 70450; 70551; 71045; 72141; 80048; 80076; 83735; 83880; 84439; 84443; 84484; 85025; 93005; 99284

== ENCOUNTER 2020-02-26 07:55 | Day surgery (SDC) | payer OTHER, MEDICARE ==
[2020-02-25 11:14] LABS: Absolute Lymphocytes (CBC) 3.2 K/uL (0.7-4.9); Basophils % 1.1 % (0-1.3); Hematocrit 50.8 % (36.0-45.0); MPV 10.4 fL (7.6-11.3); RBC Red Blood Cell Count 5.49 M/uL (3.86-4.86)
[2020-02-25 11:55] LABS: Potassium 5.1 mmol/L (3.5-5.1)
--- NOTE | 2020-02-25 13:46 | RAD REPORT ---
EXAM DESCRIPTION: RAD - Chest Pa And Lat (2 Views) - 02/25/2020 11:15 am CLINICAL HISTORY: PRE OP, pending skin cancer removal left forearm COMPARISON: Single-view chest July 2019 TECHNIQUE: Frontal and lateral views of the chest were obtained. FINDINGS: The lungs are clear of acute finding. Interstitial pattern matches comparison. Diaphragm is flattened. COPD changes are evident. Numerous surgical clips overlie the left chest/ breast region. Heart size is normal and central vascu lature is within normal limits. No pleural effusion or pneumothorax seen. No acute bony finding not ed. No aortic abnormality. IMPRESSION: COPD with no acute cardiopulmonary finding. No significant change from comparison.
--- NOTE | 2020-02-26 06:06 | EKG ---
Test Date: 2020-02-25 Test Time: 10:35:26 Director Video: MANISH MEASUREMENT RESULTS: Intervals: Rate: 87 IL: 132 QRSD: 74 QT: 454 QTc: 546 [place]: P: 86 IL: 132 QRS: 79 T: 263 INTERPRETIVE STATEMENTS: Normal sinus rhythm T wave abnormality, consider inferior ischemia Abnormal ECG Compared to ECG 07/31/2019 10:50:25 T-wave abnormality now present Possible ischemia now present Sinus arrhythmia no longer present Electronically Signed On 02-26-20 06:03:13 FOOD CHECKER by Romie Ribeiro
[~2020-02-26 07:55] MED LIST: FENTANYL CITR 100 MCG/2 ML ONE; KETOROLAC 30 MG/ML INJ ONE; LIDOCAINE 2% MPF 5 ML VIAL ONE; MIDAZOLAM HCL 2 MG/2 ML INJ ONE; ONDANSETRON 4 MG/2 ML VIAL ONE; dexAMETHasone 4 MG/ML VIAL ONE; propofoL 200 MG/20 ML VIAL IV ONE
--- OUTSIDE RECORDS SUMMARY | 2020-02-26 07:59 | XMS REPORT | Clinical Summary ---
:1945 Author Organization [facility] Address [address] [place] [address] Care Team Providers Name Role Phone Jeremiah Unavailable Unavailable Quigley Primary Care Provider Allergies Active Allergy Reactions Severity Noted Date Comments Clonidine Anaphylaxis, Swelling High 09/24/2013 Carvedilol Shortness Of Breath High 09/24/2013 Lisinopril Swelling, Hives, Itching High 09/24/2013 Ton nataly swelling Medications Medication Sig Dispensed Refills Start Date End Date Status fLUoxetine (PROZAC) 20 Take 20 mg by 0 Active MG capsule mouth daily. gabapentin (NEURONTIN) Take 100 mg by 0 Active 100 MG capsule mouth 3 (three) times daily. glucosamine-chondroitin Take 1 tablet by 0 Active 500-400 mg tablet mouth daily. levalbuterol (XOPENEX Inhale 2 puffs 0 Active HFA) 45 mcg/actuation by mouth via inhaler inhaler every 4 (four) hours as needed for Wheezing. levothyroxine Take 88 mcg by 0 A ctive (SYNTHROID, LEVOTHROID) mouth daily. 88 MCG tablet liothyronine (CYTOMEL) Take 5 mcg by 0 Active 5 MCG tablet mouth daily. losartan-hydrochlorothi Take 1 tablet by 0 Active azide (HYZAAR) 100-12.5 mouth daily. mg per tablet methocarbamol (ROBAXIN) Take 750 mg by 0 Active 750 MG tablet mouth 3 (three) times daily as needed. montelukast (SINGULAIR) Take 10 mg by 0 Active 10 mg tablet mouth nightly. omeprazole (PRILOSEC) Take 40 mg by 0 Active 40 MG capsule mouth daily. salmeterol (SEREVENT) Inhale 1 puff by 0 Active 50 mcg/dose diskus mouth via inhaler inhaler 2 (two) times daily. tiotropium (SPIRIVA) 18 Inhale 18 mcg by 0 Active mcg inhalation capsule mouth via inhaler daily. aspirin 81 MG EC tablet Take 81 mg by 0 Active mouth daily. anastrozole (ARIMIDEX) Take 1 mg by 0 Active 1 mg tabletIndications: mouth daily. metastatic breast carcinoma hydrALAZINE Take 1 tablet 180 tablet 0 07/15/2015 Ac tive (APRESOLINE) 25 MG (25 mg total) by tablet mouth every 8 (eight) hours. Active Problems Problem Noted Date Leukocytosis 07/15/2015 Fever 07/15/2015 GERD (gastroesophageal reflux disease) per 07-14-2015 UG I 07/14/2015 Chronic non erosive gastritis per 07-11-2015 EGD 016 Granular duodenal mucosa per 07-11-2015 EGD 07/12/2015 Small HH (hiatus hernia) per 07-11-2015 EGD 07/12/2015 Decreased rectal sphincter tone per 07-11-2015 exam 07/2015 Diverticulosis of colon per 07-11-2015 colonoscopy 07/11 Hemorrhoids per 07-11-2015 colonoscopy 07/12/2015 Vomiting and diarrhea 07/11/2015 COPD (chronic obstructive pulmonary disease) 6 Gastritis 07/09/2015 Hypertension 07/09/2015 Upper GI bleed 07/09/2015 Nausea & vomiting 07/09/2015 Depression Family History Medical History Relation Name Comments Cancer Brother testicular Hypertension Brother Cancer Mother brain Relation Name Status Comments Brother Mother Social History Tobacco Use Types Packs/Day Years Used Date Former Smoker Cigarettes 2 50 Alcohol Use Drinks/Week oz/Week Comments Yes 14 Standard drinks or equivalent 11.7 Sex Assigned at Date Recorded Not on file Last Filed Vital Signs Not on file Plan of Treatment Not on file Results Not on fileafter 02/25/2019 Advance Directives For more information, please contact: [phone] Code Status Date Activated Date Inactivated Comments Full Code 07/09/2015 11:46 PM 07/15/2015 4:54 PM This code status was determined by: Patient Code ONE 09/24/2013 9:13 PM 09/27/2013 5:29 AM All possib le means of support, including: cardi ac massage, mechanical ventilation, and defibrillation will be used to suppo rt life.
--- OUTSIDE RECORDS SUMMARY | 2020-02-26 07:59 | XMS REPORT | Continuity of Care Document ---
:1945 Author Organization [facility] t Address [address] [place] [address] Care Team Providers Name Role Phone Quigley Primary Care Physician Lor DUNLAP, L Attending Clinician Unavailable Konstantin Monge MD Attending Clinician 1, Lab Attending Clinician Unavailable Konstantin Monge MD Admitting Clinician Problems Condition Condition Condition Status Onset Resolution Last Treating Co mments Source Name Details Category Date Date Treatment Clinician Date Leukocytos Leukocytos Disease Active [facility] Fever Fever Disease [facility] GERD GERD Disease Active [facility] (gastroeso (gastroeso 06 [place] - phageal phageal 00:00: Medical reflux reflux 00 Center disease) disease) per per 07-14-2015 07-14-2015 UGI UGI Chronic Chronic Disease Active [facility] - erosive erosive 00:00: Medical gastritis gastritis 00 Cent er per per 07-11-2015 07-11-2015 EGD EGD Granular Granular Disease [facility] duodenal duodenal [facility] mucosa per mucosa per 00:00: Me dical 07-11-2015 07-11-2015 00 Center EGD EGD Small HH Small HH Disease [facility] (hiatus ([facility]atus [facility] hernia) hernia) 00:00: Medical per per 00 Center 07-11-2015 07-11-2015 EGD EGD Decreased Decreased Disease Active [facility] rectal rectal 07-11 [facility] - sphincter sphincter 00:00: Medi joanne tone per tone per 00 Center 07-11-2015 07-11-2015 exam exam Diverticul Diverticul Disease Active [facility] osis of osis of 07[facility]11 [facility] - colon per colon per 00:00: Medi joanne 07-11-2015 07-11-2015 00 Center colonoscop colonoscop y y Hemorrhoid Hemorrhoid Disease Active [facility] per s per 07-11 [facility] - 07-11-2015 07-11-2015 00:00: Medica l colonoscop colonoscop 00 Ce nter y y Vomiting Vomiting Disease [facility] diarrhea diarrhea 00:00: Medica l 00 Center COPD COPD Disease Active [facility] (chronic (chronic 07-08 [facility] - obstructiv obstructiv 00:00: Me dical e e 00 Center pulmonary pulmonary disease) disease) Gastritis Gastritis Disease Active [facility] 07[facility]08 [facility] 00:[facility]: Medical 00 [place] Hypertensi Hypertensi Disease Active [facility] on on 07-08 [facility] - 00:[facility]: Medical 00 [place] Upper GI Upper GI Disease [facility] bleed bleed [facility]: Medical 00 [place] Nausea & Nausea & Disease [facility] vomiting vomiting [facility] Depression Depression Disease [facility] Allergies, Adverse Reactions, Alerts Allergy Allergy Status Severity Reaction(s) Onset Inactive Treating Comm ents Source Name Type Date Date Clinician Clonidin Drug Active Anaphylaxis, [facility] Allergy Swelling 09-24 [facility]: Medical 00 [place] Carvedil Propensi Active Shortness Of [facility] to Breath 09-24 [facility] - adverse 00:00: Medical reaction 00 Center s Lisinopr Drug Active Swelling, Tongue [facility] Allergy Hives, 6-18 swelling [facility] Itching 00:[facility]: [facility] 00 Center Family History Family Member Diagnosis Comments Start Date Stop Date Source Natural brother Cancer [facility] Natural brother Hypertension [facility] Natural mother Cancer [facility] Social History Social Habit Start Date Stop Date Quantity Comments Source History of tobacco Cigarette Smoker [facility] use [facility] Sex Assigned At [facility] Cigarettes smoked 2015-07-12 2015-07-12 [facility] - current (pack per 00:00:00 00:00:00 Medical Center day) - Reported Cigarette 2015-07-12 2015-07-12 [facility] - pack-years 00:00:00 00:00:00 [facility] Alcohol intake 2015-07-12 2015-07-12 Current drinker [facility] Osmin day antelmo - 00:00:00 00:00:00 of alcohol [facility] Center (finding) Smoking Status Start Date Stop Date Source Former smoker 2015-07-12 00:00:00 2015-07-12 00:00:00 [facility] Medications Ordered Filled Start Stop Current Ordering Indication Dosage Frequency Signature Comments Components Source Medication Medication Date Date Medication? Clinician (SIG) Name Name fLUoxetine Yes 20mg QD Take [address] (PROZAC) 20 4-07 by mouth Luke s - MG capsule 14:54: daily. Medic al 10 [place] gabapentin Yes 100mg [id number] Take [address] [facility] (NEURONTIN) 4-07 [id number] mg by L ukes - 100 MG 14:54: 3D mouth 3 Medical capsule 10 (three) Center times daily. glucosamine Yes 1{tbl} QD Take [address] -chondroiti 4-07 tablet by Nikki es - n 500-400 14:54: mouth Medical mg tablet 10 daily. [place] levalbutero Yes 2{puff} Inhale [address] [facility] (XOPENEX 4-07 puffs by Luantelmo - HFA) 45 14:54: mouth via Medic al mcg/actuati 10 inhaler Cente r on inhaler every 4 (four) hours as needed for Wheezing. levothyroxi Yes 88ug QD Take [address] ne 4-07 mcg by [facility] - (SYNTHROID, 14:54: mouth Medic al LEVOTHROID) 10 daily. [place] 88 MCG tablet liothyronin Yes 5ug QD Take [address] e (CYTOMEL) 4-07 by mouth Luke s - 5 MCG 14:54: daily. Medical tablet 10 [place] losartan-hy 2016-0 Yes 1{tbl} QD Take [address] drochloroth 4-07 tablet by Nikki es - iazide 14:54: mouth Medical (HYZAAR) 10 daily. [place] 100-12.5 mg per tablet methocarbam Yes 750mg Take [address] ol 4-07 mg by [facility] - (ROBAXIN) 14:54: mouth 3 Medic al 750 MG 10 (three) Center tablet times daily as needed. montelukast 2015- Yes 10mg QD Take [address] [facility] (SINGULAIR) 4-07 by mouth Luke s - 10 mg 14:54: nightly. Medical tablet 10 [place] omeprazole Yes 40mg QD Take [address] (PRILOSEC) 4-07 by mouth [facility] - 40 MG 14:54: daily. Medical capsule 10 [place] salmeterol Yes 1{puff} Q.5D Inhale [address] (SEREVENT) 4-07 puff by [facility] - 50 mcg/dose 14:54: mouth via M edical diskus 10 inhaler 2 [place] inhaler (two) times daily. tiotropium Yes 18ug QD Inhale [address] (SPIRIVA) 4-07 mcg by [facility] - 18 mcg 14:54: mouth via Medica l inhalation 10 inhaler Center capsule daily. aspirin 81 Yes 81mg QD Take [address] MG EC 4-07 by mouth [facility] - tablet 14:54: daily. [address] anastrozole Yes metastatic 1mg QD Take [address] [facility] [address] (ARIMIDEX) 4-07 breast by mouth Nikki es - 1 mg tablet 14:54: carcinoma daily. [address] hydrALAZINE Yes 25mg Take [address] [facility] (APRESOLINE 4-07 tablet (25 [place] - ) 25 MG 00:00: mg total) Medic al tablet 00 by mouth Center every 8 (eight) hours. Procedures This patient has no known procedures. Encounters Start End Encounter Admission Attending Care Care Encounter Source Date/Time Date/Time Type Type Clinicians Facility Department ID 2018-12-06 2018-12-06 Transition Samanta Hroowitz [id number] 00:00:00 00:00:00 of Care Trisha Muñiz [id number] Pr[place] [id number] 2018-12-04 2018-12-05 [facility] [id number] 06:07:00 13:55:00 Encounter Eddie Robertson [id number] [place] [id number] [place] [id number] 2018-12-02 2018-12-02 Patient Services Rep 1, Adc Lab [facility] [id number] 12:38:21 12:53:21 Visit Ailyn [id number] [place] [id number] [place] [id number] Results This patient has no known results.
[2020-02-26] MEDS ORDERED: Ringers Lactate 1,000 ML IV ONE (08:31)
[2020-02-26] MEDS: CEFAZOLIN/SWI 1gm 1 GM/10 ML SYR ONE ×2 (08:54→09:15)
[2020-02-26] MEDS ORDERED: ONDANSETRON 4 MG/2 ML VIAL ONE (10:05)
[2020-02-26] MEDS ORDERED: KETOROLAC 30 MG/ML INJ ONE (10:05)
[2020-02-26] MEDS ORDERED: LIDOCAINE 2% MPF 5 ML VIAL ONE (10:05)
[2020-02-26] MEDS ORDERED: propofoL 200 MG/20 ML VIAL IV ONE (10:05)
[2020-02-26] MEDS ORDERED: FENTANYL CITR 100 MCG/2 ML ONE (10:05)
[2020-02-26] MEDS ORDERED: MIDAZOLAM HCL 2 MG/2 ML INJ ONE (10:05)
--- NOTE | 2020-02-26 10:50 | OP ---
Date of Procedure: 02/26/2020 Surgeon: Garrison Parker MD Financial Aid Director: BLAZE Sampson. Preoperative Diagnosis: Left arm mass. Postoperative Diagnosis: Left arm mass. Procedure Performed: Wide excision, left arm mass 4 x 2 cm with layered closure. Estimated Blood Loss: Minimal. Specimen: Left arm mass, keratoacanthoma, margins free. Finding: As above. Anesthesia: MAC. Complications: None. Disposition: The patient tolerated the procedure in stable condition and taken to Recovery in good g eneral condition. Procedure In Detail: The patient was brought to the OR, placed in supine position. MAC anesthesia w as begun. The patient was prepped and draped in the usual sterile fashion. Lidocaine 1% infiltrated locally. A 15-blade was used to make a 4 x 2 cm incision. Subcutaneous tissue divided. There was 1.5 cm raised pleomorphic mass excised down through the subcutaneous tissue and sent to Pathology. 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 Wound was irrigated. Ble eding was controlled with cautery. Flaps were created. 3-0 chromic was used for subcutaneous tissue and 5-0 nylon used to close skin. Sterile dressing was applied. Patient was awakened and taken to Recovery in good general condition. Discharge Note: The patient will go to Day Surgery and home when stable. Disposition: Home. Condition: Stable. Discharge Instructions: Resume home medications and diet. Activity as tolerated. No heavy lifting. Keep dressing clean and dry. Follow up in my office in 12 days. Call for appointment. Tylenol No .3 one tablet p.o. q.4 p.r.n. pain. Shower with plastic covering. /MODL Voice ID: [id number] Report ID: [id number]
[2020-02-26 11:02] VITALS: BP 155/96; TEMP 97.5; O2SAT 93
== END 2020-02-26 10:56 | disposition home health service (06) ==
LOC: OR 07:55
PROVIDERS: ATTEND Surgery
PROC: 0JBH0ZZ Excision of Left Lower Arm Subcutaneous Tissue and Fascia, Open Approach (ICD-10-PCS; principal; 2020-02-26 09:45)
DX: R22.32 Localized swelling, mass and lump, left upper limb (principal); L85.8 Other specified epidermal thickening; L57.0 Actinic keratosis; J44.9 Chronic obstructive pulmonary disease, unspecified; I10 Essential (primary) hypertension; K58.9 Irritable bowel syndrome, unspecified; Z72.0 Tobacco use; Z88.8 Allergy status to other drugs, medicaments and biological substances; Z85.3 Personal history of malignant neoplasm of breast; Z85.850 Personal history of malignant neoplasm of thyroid; Z20.828 Contact with and (suspected) exposure to other viral communicable diseases
CPT/HCPCS: 93005; 85025; 80048; 36415; 88331; 88332; 88305; 71046; 11404; U0002; J2704 ×2; J1100; J2250 ×2; J3010 ×2; J0690; J7120; J2405 ×2

== ENCOUNTER 2021-01-04 06:37 | Inpatient (IN) | payer OTHER ==
[2021-01-04] MEDS ORDERED: IPRATROPIUM BROM 0.5MG/2.5ML ONE ×2 (08:19→11:11)
[2021-01-04] MEDS ORDERED: METHYLPREDNISOLONE 125 MG INJ ONE (08:19)
[2021-01-04] MEDS ORDERED: ALBUTEROL 2.5 MG/3 ML NEB SOL ONE ×3 (08:19→13:40)
[2021-01-04] MEDS ORDERED: MAGNESIUM SULFATE 1 gm IVPB 1 GM/100 ML BAG IV ONE (08:20)
--- NOTE | 2021-01-04 08:23 | RAD REPORT ---
EXAM DESCRIPTION: RAD - Chest Single View - 01/04/2021 7:02 am CLINICAL HISTORY: DYSPNEA COMPARISON: February 2020 TECHNIQUE: AP portable chest image was obtained 01/04/2021 7:02 am . FINDINGS: No acute lung parenchymal process. Interstitial pattern matches comparison. Numerous surgi joanne clips overlie the left side of the chest presumably from mastectomy. Heart and vasculature are no rmal. No measurable pleural effusion and no pneumothorax. No acute bony abnormality seen. No acute ao rtic findings suspected. IMPRESSION: No acute cardiopulmonary process.
[2021-01-04 08:37] LABS: ALT/SGPT 17 U/L (12-78); AST/SGOT 15 U/L (15-37); Alkaline Phosphatase 74 U/L (45-117); BUN Blood Urea Nitrogen 11 mg/dL (7-18); Bicarbonate 31 mmol/L (21-32); Bilirubin Direct 0.1 mg/dL (0-0.2); Bilirubin Total 0.3 mg/dL (0.2-1.0); Glucose Level 119 mg/dL (74-106); Magnesium 1.8 mg/dL (1.8-2.4); NT PRO-BNP 311 pg/mL (<450); Potassium 3.7 mmol/L (3.5-5.1); Protein, Total 6.7 g/dL (6.4-8.2); Sodium Level 141 mmol/L (136-145)
[2021-01-04 08:43] LABS: Absolute Lymphocytes (CBC) 2.6 K/uL (0.7-4.9); Basophils % 0.6 % (0-1.3); Hematocrit 46.2 % (36.0-45.0); Lymphocytes % 29.3 % (15.3-44.8); MPV 11.1 fL (7.6-11.3); RBC Red Blood Cell Count 5.14 M/uL (3.86-4.86)
[2021-01-04 08:46] LABS: Protime INR 1.09
--- NOTE | 2021-01-04 08:59 | EDPHYS ---
Physician Documentation [facility] Name: Yodit Mercedes Age: 75 yrs Sex: Female : 1945 Arrival Date: 01/04/2021 Time: 06:38 Bed 28 Private MD: ED Physician Rodrick Martinez HPI: 01/04 07:51 This 75 yrs old Female presents to ER via Ambulatory with complaints of kb Pneumonia, Flu, Low O2. 06:49 Pt reports shortness of breath, cough, fever, and weakness for 6 days. States she got kb the flu shot 10 days ago so she believes that is the cause of her symptoms. 07:51 The patient has shortness of breath at rest. Onset: The symptoms/episode began/occurred kb 6 day(s) ago. Duration: The symptoms are continuous. The patient's shortness of breath is aggravated by nothing, is alleviated by nothing. Associated signs and symptoms: Pertinent positives: non-productive cough, fever, Pertinent negatives: chest pain, productive cough. Severity of symptoms: At their worst the symptoms were mild moderate in the emergency department the symptoms are unchanged. The patient has not experienced similar symptoms in the past. The patient has not recently seen a physician. Historical: - Allergies: 06:46 Lisinopril; wg 06:46 Nifedipine; wg 06:46 tramadol; wg - PMHx: 06:46 COPD; Cancer; THYROID CANCER; Hypertension; breast cancer; Osteoporosis; wg - Immunization history:: Adult Immunizations up to date. - Social history:: Smoking status: Patient reports the use of cigarette tobacco products, smokes one pack cigarettes per day. - Family history:: not pertinent. - Code Status:: Full code. ROS: 07:50 Cardiovascular: Negative for chest pain, palpitations, and edema. kb 07:50 Constitutional: Positive for fever. 07:50 Respiratory: Positive for cough, shortness of breath, Negative for dyspnea on exertion, hemoptysis, orthopnea, pleurisy, sputum production, wheezing. 07:50 Neuro: Positive for weakness. 07:50 All other systems are negative. Exam: 07:49 Constitutional: This is a well developed, well nourished patient who is awake, alert, kb and in no acute distress. Head/Face: Normocephalic, atraumatic. ENT: Moist Mucous membranes Cardiovascular: Regular rate and rhythm with a normal S1 and S2. No gallops, murmurs, or rubs. No pulse deficits. Abdomen/GI: Soft, non-tender. No distention Skin: Warm, dry with normal turgor. Normal color. MS/ Extremity: Pulses equal, no cyanosis. Neurovascular intact. Full, normal range of motion. Neuro: Awake and alert, GCS 15, oriented to person, place, time, and situation. Moves all extremities. Normal gait. Psych: Awake, alert, with orientation to person, place and time. Behavior, mood, and affect are within normal limits. 07:49 ECG was reviewed by the Attending Physician. 07:49 Respiratory: the patient does not display signs of respiratory distress, Respirations: normal, Breath sounds: wheezing: expiratory that is moderate, is scattered. Vital Signs: 06:42 BP 132 / ???; Pulse 73; Resp 22; Temp 98.8; Pulse Ox 93% on R/A; Weight 68.95 kg; wg Height 5 ft. 0 in. (152.40 cm); Pain 0/10; 08:39 BP 130 / 93; Pulse 75; Resp 18; Temp 98.3; Pulse Ox 98% on 2 lpm NC; cc4 09:44 BP 121 / 65; Pulse 77; Resp 28 S; Pulse Ox 91% on R/A; kh1 10:56 BP 119 / 74; Pulse 81; Resp 32; Pulse Ox 100% on 2 lpm NC; kh1 06:42 Body Mass Index 29.69 (68.95 kg, 152.40 cm) MDM: 06:47 Patient medically screened. kb 06:49 Data reviewed: vital signs, nurses notes. Data interpreted: Pulse oximetry: on room air kb is 93 %. Interpretation: acceptable. 08:59 ED course: O2 sat 97% on room air. Pt nontoxic in appearance. No distress noted. . kb 09:57 Counseling: I had a detailed discussion with the patient and/or guardian regarding: the kb historical points, exam findings, and any diagnostic results supporting the discharge/admit diagnosis, lab results, radiology results, the need for further work-up and treatment in the hospital. Physician consultation: A Kem FELIX was contacted at 09:57, regarding admission, to the telemetry unit. patient's condition, and will see patient in inpatient room. 10:20 ED course: Pt now reports she wears oxygen at all times at home at 2L. Oxygen 91% on kb room air, 96-97% on 2L. Pt ambulated to restroom and became very short of breath. Nurse helped her back to room and back onto oxygen. Pt states she has been crawling around at home until she can get back onto her oxygen. . 01/04 06:48 Order name: Basic Metabolic Panel kb 01/04 06:48 Order name: CBC with Diff; Complete Time: 08:53 kb 01/04 06:48 Order name: LFT's; Complete Time: 08:38 kb 01/04 06:48 Order name: Magnesium; Complete Time: 08:38 kb 01/04 06:48 Order name: NT PRO-BNP; Complete Time: 08:38 kb 01/04 06:48 Order name: PT-INR; Complete Time: 08:53 kb 01/04 06:48 Order name: XRAY Chest (1 view); Complete Time: 08:35 kb 01/04 06:49 Order name: Basic Metabolic Panel; Complete Time: 08:38 EDMS 01/04 08:07 Order name: SARS-COV-2 RT PCR; Complete Time: 08:09 EDMS 01/04 09:46 Order name: CT Head Brain wo Cont; Complete Time: 11:10 kb 01/04 10:01 Order name: CT Chest Wo Con; Complete Time: 11:13 kb 01/04 10:02 Order name: Blood Culture Adult (2) kb 01/04 06:48 Order name: EKG; Complete Time: 06:49 kb 01/04 06:48 Order name: Cardiac monitoring; Complete Time: 07:48 kb 01/04 06:48 Order name: EKG - Nurse/Tech; Complete Time: 07:49 kb 01/04 06:48 Order name: IV Saline Lock; Complete Time: 09:20 kb 01/04 06:48 Order name: Labs collected and sent; Complete Time: 09:20 kb 01/04 06:48 Order name: O2 Per Protocol; Complete Time: 07:49 kb 01/04 06:48 Order name: O2 Sat Monitoring; Complete Time: 07:49 kb EC:49 Rate is 69 beats/min. Rhythm is regular. QRS Labadie is Normal. DC interval is normal at kb 110 msec. QRS interval is normal at 74 msec. QT interval is normal at 422 msec. Administered Medications: 08:22 Drug: SOLU-Medrol (methylPrednisoLONE) 125 mg Route: IVP; Site: right antecubital; cc4 08:22 Drug: Magnesium Sulfate 1 grams Route: IVPB; Infused Over: 30 mins; Site: right cc4 antecubital; 08:23 Drug: Albuterol 2.5 mg Route: Inhalation; cc4 08:23 Drug: AtroVENT (ipratropium) Aerosol 0.5 mg Route: Inhalation; cc4 09:10 Drug: NS 0.9% 500 ml Route: IV; Rate: bolus; Site: right antecubital; kh1 10:53 Drug: Albuterol 2.5 mg Route: Inhalation; kh1 10:53 Drug: AtroVENT (ipratropium) Aerosol 0.5 mg Route: Inhalation; kh1 13:32 Drug: Rocephin (cefTRIAXone) 1 grams Route: IV; Rate: calculated rate; Site: right 1 antecubital; 13:33 Drug: Zithromax (azithromycin) 500 mg Route: IVPB; Infused Over: 1 hrs; Site: right 1 antecubital; Disposition Summary: 01/04/21 10:09 Hospitalization Ordered Hospitalization Status: Inpatient Admission kb Provider: Chandni Brownlee Location: Telemetry/MedSurg (Inpatient)(01/04/21 10:09) kb Condition: Stable(01/04/21 10:09) kb Problem: new kb Symptoms: are unchanged kb Bed/Room Type: Standard Room Assignment: 210(01/04/21 13:13) bd Diagnosis - COPD/ Chronic obstructive pulmonary disease with (acute) exacerbation kb Forms: - Medication Reconciliation Form kb - SBAR form kb Addendum: 01/07/2021 04:30 Co-signature as Attending Physician, Rodrick Martinez MD PA/ACCOUNT ADJUSTER's history reviewed, m a2 patient interviewed, and examined. I agree with assessment and care plan and confirm the diagnosis (es) above. Signatures: Dispatcher [employer] Bonny Burton FNP-C FNP-Ckb Dirrim, Barbara bd Alzahri, Mohammad, MD MD ma2 Harris, Kecia [facility] Gamba, Contreras, RN wg Luis, Delphine, RN RN cc4 Corrections: (The following items were deleted from the chart) 01/04 07:14 06:49 CORONAVIRUS+MR.LAB.BRZ ordered. EDMS EDMS 07:52 06:49 Pt reports shortness of breath, cough, fever, and weakness for 6 days. . kb kb 08:24 08:24 PMHx: Asthma; cc4 cc4 08:24 08:24 PMHx: Depression; cc4 cc4 08:24 08:24 PMHx: Hyperlipidemia; cc4 cc4 08:24 08:24 PMHx: CVA; cc4 cc4 10:00 08:58 Counseling: I had a detailed discussion with the patient and/or guardian kb regarding: the historical points, exam findings, and any diagnostic results supporting the discharge/admit diagnosis, lab results, radiology results, the need for outpatient follow up, a family practitioner, to return to the emergency department if symptoms worsen or persist or if there are any questions or concerns that arise at home, kb 10:06 08:58 Home kb kb 10:06 08:58 Stable kb kb 10:06 08:58 Acute bronchitis, unspecified kb kb 10:06 08:58 COPD/ Chronic obstructive pulmonary disease, unspecified kb kb 13:13 10:09 kb bd
--- NOTE | 2021-01-04 08:59 | ER ---
Nurse's Notes [facility] Name: Yodit Mercedes Age: 75 yrs Sex: Female : 1945 Arrival Date: 01/04/2021 Time: 06:38 Bed 28 Private MD: Diagnosis: COPD/ Chronic obstructive pulmonary disease with (acute) exacerbation Presentation: 01/04 06:42 Chief complaint: Patient states: C/o SOB, cough, and weakness since Thurs following a wg Flu shot from [facility] 12/25. Pt has a hx of COPD. Coronavirus screen: Vaccine status: Patient reports receiving the 2nd dose of the covid vaccine. Date June 2020. Ebola Screen: Patient negative for fever greater than or equal to 101.5 degrees Fahrenheit, and additional compatible Ebola Virus Disease symptoms Patient denies exposure to infectious person. Patient denies travel to an Ebola-affected area in the 21 days before illness onset. Initial Sepsis Screen: Does the patient meet any 2 criteria? No. Patient's initial sepsis screen is negative. Does the patient have a suspected source of infection? No. Patient's initial sepsis screen is negative. Risk Assessment: Do you want to hurt yourself or someone else? Patient reports no desire to harm self or others. Onset of symptoms was December 30, 2020. 06:42 Method Of Arrival: Ambulatory 06:42 Acuity: SEN 3 wg Triage Assessment: 06:48 General: Appears uncomfortable, well groomed, well developed, Behavior is cooperative, wg appropriate for age, anxious. Pain: Denies pain. Historical: - Allergies: 06:46 Lisinopril; wg 06:46 Nifedipine; wg 06:46 tramadol; wg - PMHx: 06:46 COPD; Cancer; THYROID CANCER; Hypertension; breast cancer; Osteoporosis; wg - Immunization history:: Adult Immunizations up to date. - Social history:: Smoking status: Patient reports the use of cigarette tobacco products, smokes one pack cigarettes per day. - Family history:: not pertinent. - Code Status:: Full code. Screenin:23 Abuse screen: Denies threats or abuse. Nutritional screening: No deficits noted. cc4 Tuberculosis screening: No symptoms or risk factors identified. Fall Risk None identified. IV access (20 points). Ambulatory Aid- Gait- Weak (10 pts.). Assessment: 08:25 General: Appears in no apparent distress. Behavior is calm, cooperative, appropriate cc4 for age. Neuro: Level of Consciousness is awake, alert, obeys commands, Oriented to person, place, time, situation, Reports. Respiratory: Reports shortness of breath at rest cough that is productive. GI: No deficits noted. : No deficits noted. 09:51 Reassessment: attempted to let pt know of discharge. pt called PCP office and stated kh1 she was not leaving until she heard from Dr Lemus. [facility] [employer] made aware. 10:56 Reassessment: Patient appears in no apparent distress at this time. No changes from 1 previously documented assessment. Patient and/or family updated on plan of care and expected duration. Pain level reassessed. Patient is alert, oriented x 3, equal unlabored respirations, skin warm/dry/pink. Patient states symptoms have not improved. 12:00 Reassessment: Patient appears in no apparent distress at this time. [facility]. Patient and/or family updated on plan of care and expected duration. Pain level reassessed. Patient is alert, oriented x 3, equal unlabored respirations, skin warm/dry/pink. Vital Signs: 06:42 BP 132 / ???; Pulse 73; Resp 22; Temp 98.8; Pulse Ox 93% on R/A; Weight 68.95 kg; wg Height 5 ft. 0 in. (152.40 cm); Pain 0/10; 08:39 BP 130 / 93; Pulse 75; Resp 18; Temp 98.3; Pulse Ox 98% on 2 lpm NC; cc4 09:44 BP 121 / 65; Pulse 77; Resp 28 S; Pulse Ox 91% on R/A; kh1 10:56 BP 119 / 74; Pulse 81; Resp 32; Pulse Ox 100% on 2 lpm NC; kh1 06:42 Body Mass Index 29.69 (68.95 kg, 152.40 cm) ED Course: 06:38 Patient arrived in ED. bp1 06:40 Bonny Spears FNP-C is PHCP. kb 06:40 Rodrick Martinez MD is Attending Physician. kb 06:46 Triage completed. wg 06:48 Arm band placed on left wrist. wg 07:02 XRAY Chest (1 view) In Process Unspecified. EDMS 07:23 Delphine Smith, RN is Primary Nurse. cc4 08:23 Basic Metabolic Panel Sent. cc4 08:23 CBC with Diff Sent. cc4 08:23 LFT's Sent. cc4 08:23 Magnesium Sent. cc4 08:23 NT PRO-BNP Sent. cc4 08:23 PT-INR Sent. cc4 08:24 Patient has correct armband on for positive identification. Bed in low position. Call cc4 light in reach. Side rails up X2. cardiac monitor on. Pulse ox on. NIBP on. 08:26 Basic Metabolic Panel Sent. cc4 08:40 Inserted saline lock: 22 gauge in right antecubital area, using aseptic technique. cc4 10:08 Chandni Brownlee MD is Hospitalizing Provider. kb 10:18 CT Head Brain wo Cont In Process Unspecified. EDMS 10:18 CT Chest Wo Con In Process Unspecified. EDMS Administered Medications: 08:22 Drug: SOLU-Medrol (methylPrednisoLONE) 125 mg Route: IVP; Site: right antecubital; cc4 08:22 Drug: Magnesium Sulfate 1 grams Route: IVPB; Infused Over: 30 mins; Site: right cc4 antecubital; 08:23 Drug: Albuterol 2.5 mg Route: Inhalation; cc4 08:23 Drug: AtroVENT (ipratropium) Aerosol 0.5 mg Route: Inhalation; cc4 09:10 Drug: NS 0.9% 500 ml Route: IV; Rate: bolus; Site: right antecubital; kh1 10:53 Drug: Albuterol 2.5 mg Route: Inhalation; kh1 10:53 Drug: AtroVENT (ipratropium) Aerosol 0.5 mg Route: Inhalation; kh1 13:32 Drug: Rocephin (cefTRIAXone) 1 grams Route: IV; Rate: calculated rate; Site: right 1 antecubital; 13:33 Drug: Zithromax (azithromycin) 500 mg Route: IVPB; Infused Over: 1 hrs; Site: right 1 antecubital; Outcome: 08:58 Discharge ordered by MD. kb 10:09 Decision to Hospitalize by Provider. kb 14:25 Patient left the ED. kj1 Signatures: Dispatcher [employer] EDMS Bonny Spears, [employer]-Casandra Horan kj1 Betsy Fernandez Kecia kh1 Contreras Hilario, FABI Delphine Smith RN RN cc4 Corrections: (The following items were deleted from the chart) 08:24 08:24 PMHx: Asthma; cc4 cc4 08: 08:24 PMHx: Depression; cc4 cc4 08: 08:24 PMHx: Hyperlipidemia; cc4 cc4 08: 08:24 PMHx: CVA; cc4 cc4
[2021-01-04] MEDS ORDERED: NA CHLORIDE 0.9% 500 ML ONE (09:28)
[2021-01-04] MEDS ORDERED: AZITHROMYCIN 500 MG INJ IVPB ONE (10:56)
[2021-01-04] MEDS ORDERED: CEFTRIAXONE 1000 MG/VIAL ONE (10:57)
[2021-01-04] MEDS ORDERED: NA CHLORIDE 0.9% 250 ML ONE (10:58)
[2021-01-04] MEDS ORDERED: ACETAMINOPHEN 500 MG TAB PO PRN (11:09)
--- NOTE | 2021-01-04 11:09 | RAD REPORT ---
EXAM DESCRIPTION: CT - Head Brain Wo Cont - 01/04/2021 10:19 am CLINICAL HISTORY: WEAKNESS COMPARISON: Head Brain Wo Cont dated 07/31/2019 TECHNIQUE: Axial 5 mm thick images of the head were obtained without IV contrast. All CT scans are performed using dose optimization technique as appropriate and may include automated exposure control or mA/KV adjustment according to patient size. FINDINGS: No intracranial hemorrhage, mass, edema or shift of mid-line structures. No acute infarcti on changes seen. Atrophy changes are mild. Mild to moderate chronic ischemic change seen in the cereb ral white matter. Ventricles are in proportion to the volume loss. Arterial and physiologic calcifica tions are present. Mastoid air cells are clear. Small air-fluid levels are seen in the paranasal sinuses. No acute bony findings. IMPRESSION: No acute intracranial findings identified. Patient has mild atrophy and mild to moderate chronic ischemic change. Air-fluid levels are seen in several paranasal sinuses.
--- NOTE | 2021-01-04 11:12 | RAD REPORT ---
EXAM DESCRIPTION: CT - Thorax Wo Con - 01/04/2021 10:19 am CLINICAL HISTORY: dyspnea COMPARISON: Lung Cancer Screening CT W/O dated 08/25/2019 TECHNIQUE: Axial 5 mm thick images of the chest were obtained without IV contrast. All CT scans are performed using dose optimization technique as appropriate and may include automated exposure control or mA/KV adjustment according to patient size. FINDINGS: Small focus parenchymal stranding seen in the posterior right apex (image 13). Small area of spiculated tissue lateral right upper lobe (image 17) 6 mm in size. Bronchial wall thickening is p resent mild in severity throughout all lobes. Scattered interstitial and a few alveolar opacities are present. Findings are most pronounced in the right lower lobe. A few scattered small areas of nodula rity are present. A calcified granuloma is present in the right base. No pleural thickening or pleura l effusion. No pneumothorax. No abnormal mediastinal or hilar masses or lymphadenopathy seen. A few small nonspecific mediastinal lymph nodes are present similar to the comparison study. No endobronchial lesion. No cardiomegaly or pericardial effusion. Assessment is limited in the absence of IV contrast. No chest wall mass or abnormal axillary lymphadenopathy. IMPRESSION: Bronchial wall thickening and scattered areas of interstitial and patchy alveolar opacit y consistent with a bronchitis or viral infiltrate process. Allergic or reactive bronchial wall thick ening and interstitial edema possible as well. Patient has a few small areas of nodularity and slightly spiculated parenchyma that may all be relate d to the acute process. Follow-up CT chest imaging in 6 months could be performed to assure the areas of nodularity and spiculated parenchyma resolve after the acute event.
[2021-01-04 11:30] VITALS: BMI 4274.5
[2021-01-04] MEDS ORDERED: IPRATROPIUM BROM 0.5MG/2.5ML NEB SCH (12:00)
[2021-01-04] MEDS ORDERED: ALBUTEROL 2.5 MG/3 ML NEB SOL NEB SCH (12:00)
[2021-01-04] MEDS: ALBUTEROL 2.5 MG/3 ML NEB SOL NEB SCH ×2 (13:17→20:00)
[2021-01-04] MEDS: IPRATROPIUM BROM 0.5MG/2.5ML NEB SCH ×2 (13:17→20:00)
--- NOTE | 2021-01-04 16:40 | EKG ---
Test Date: 2021-01-04 Test Time: 07:42:14 Home Care Specialist: MOHAMUD MEASUREMENT RESULTS: Intervals: Rate: 69 UT: 110 QRSD: 74 QT: 422 QTc: 452 [place]: P: 83 UT: 110 QRS: 71 T: 64 INTERPRETIVE STATEMENTS: Sinus rhythm with short UT Nonspecific ST abnormality Abnormal ECG Compared to ECG 02/25/2020 10:35:26 Short UT interval now present ST (T wave) deviation now present T-wave abnormality no longer present Possible ischemia no longer present Electronically Signed On 01-04-21 16:38:56 CDT by Romie Ribeiro
[2021-01-04] MEDS: METHYLPREDNISOLONE 40 MG INJ IV SCH (17:53)
--- NOTE | 2021-01-04 21:01 | HP ---
Date of Admission: 01/04/2021 Chief Complaint: Cough, congestion, shortness of breath, and feeling weak. History Of Present Illness: This is a 75-year-old female, who was evaluated via tele visit yesterday and she reported that last week on Sunday she had a pulmonary function test done at [facility] and her COVID test was done on that same day and it was negative. Last week on Sunday, she got her flu vaccine and ever since that day she started to have cough, congestion, shortness of breath, wheezing. She has oxygen at home that she uses on an intermittent basis and as of last Sunday, she started to use her oxygen because of shortness of breath complaints. She denies any vomiting or diarrhea. She is coughing up some white mucus. Denies any diarrhea or vomiting. She is having generalized body ache and reduced appetite. With all these symptoms, she is feeling very weak and unsteady on her feet and in fact today it was difficult for her to walk. After I talked to her yesterday, she did not come to emergency room last night, but she did not come last night and she came to emergency room today. After she was evaluated, decision was made to admit her to hospital. The patient says that when her friend brought her to emergency room, she was not able to walk from parking lot to walk inside the emergency room and she had to be brought in a wheelchair. Denies any fall or head injury at home. Allergies: TO ZESTRIL CAUSING SWELLING OF TONGUE AND ALSO CLONIDINE CAUSING TONGUE SWELLING. Medications: Albuterol nebulizer treatment every 4 hours as needed, Trelegy inhaler 1 puff daily, amlodipine 5 mg 2 times a day, aspirin 81 mg daily, levothyroxine 200 mcg daily, and liothyronine 5 mcg take 1 tablet by mouth 2 times a day, methocarbamol 500 mg 2 times a day as needed for back pain and muscle spasm, metoprolol tartrate 50 mg takes 1-1/2 tablet 2 times a day, omeprazole 40 mg daily. Review of Systems: Respiratory: As mentioned above. Constitutional: As mentioned above. All other systems reviewed and negative. Past Medical History: Thyroid cancer, hypothyroidism, impaired fasting glucose, COPD, hypertension, mixed hyperlipidemia, carotid artery stenosis, gastroesophageal reflux disease, diverticulosis, liver cyst, cervical spondylosis, lumbar spondylosis, osteoarthritis at multiple sites, breast cancer, depression, osteoporosis. Past Surgical History: Thyroidectomy, mastectomy, appendectomy, exploratory laparotomy due to small bowel obstruction, , hysterectomy, shoulder surgery. Family History: Father had COPD. Mother had RI. Brother had Alzheimer disease and prostate cancer. Sister, breast cancer. Social History: Significant for smoking. Use of alcohol, negative. Physical Examination: Vital Signs: Height 5 feet, weight 152 pounds. Temperature 98.3, pulse 75, respiratory rate 18, blood pressure 130/93, oxygen saturation 98%. General: Awake, alert, oriented, not in distress. HEENT: Head atraumatic, normocephalic. Conjunctivae nonerythematous. Sclerae white. Mouth, no thrush or edema noted. Ears/Nose, no mass, lesion, discharge noted. Neck: Supple. No JVD, lymph nodes, bruit, thyromegaly noted. Lungs: Bilateral scattered wheezing noted in all the lung lawson. Not using any accessory muscles of respiration. Heart: Normal heart sounds, no murmur or gallop. Abdomen: Soft, bowel sounds normal. No guarding, rigidity, tenderness, mass, hepatosplenomegaly, distention, or bruit noted. Extremities: No leg edema. No calf tenderness. Skin: No rash, ulcer, cellulitis. Lymphatics: No lymph node enlargement in neck, supraclavicular, infraclavicular region. Neuro: No focal neurological deficit. Chest: Unremarkable. External Genitalia: Deferred. Rectal: Deferred. Laboratory Data: White count 9, hemoglobin 15.2, platelets 193. Sodium 141, potassium 3.7, chloride 104, bicarb 31, BUN 11, creatinine 0.46, glucose 119. Liver function test unremarkable. COVID-19 test negative. Chest x-ray, no acute cardiopulmonary changes. CAT scan of the chest does not show any definite infiltrate. Impression: 1. Acute exacerbation of chronic obstructive pulmonary disease. 2. Acute bronchitis. 3. Hypertension. 4. Mixed hyperlipidemia. 5. Hypothyroidism, postsurgical. 6. Impaired fasting glucose. 7. Osteoarthritis, multiple sites. 8. Gastroesophageal reflux disease. Plan: Admit the patient to hospital for further evaluation and management of this problem. The patient is appropriate for inpatient and is expected to spend 2 midnights in hospital. We will continue home medications per order. We will continue oxygen replacement therapy. IV steroid, IV antibiotics will be given per order and nebulizer treatment per order. We will consult Physical Therapy. The patient's CAT scan of the head was unremarkable for any acute change. I will see her tomorrow for followup and plan of treatment discussed with her. JENNIFER/EPIFANIO Voice ID: [id number] MTDD
[2021-01-04] MEDS ORDERED: ENOXAPARIN 40 MG/0.4 ML SQ ONE (21:15)
[2021-01-04] MEDS ORDERED: METOPROLOL TAR 25 MG TAB PO ONE (21:16)
[2021-01-05] MEDS: METHYLPREDNISOLONE 40 MG INJ IV SCH ×3 (00:56→17:58)
[2021-01-05] MEDS: IPRATROPIUM BROM 0.5MG/2.5ML NEB SCH ×4 (02:00→20:05)
[2021-01-05] MEDS: ALBUTEROL 2.5 MG/3 ML NEB SOL NEB SCH ×4 (02:00→20:05)
[2021-01-05] MEDS: LEVOTHYROXINE SOD 0.1 MG TAB PO SCH (06:17)
[2021-01-05 06:32] LABS: Absolute Lymphocytes (CBC) 1.5 K/uL (0.7-4.9); Basophils % 0.2 % (0-1.3); Hematocrit 45.4 % (36.0-45.0); Lymphocytes % 11.1 % (15.3-44.8); MPV 11.4 fL (7.6-11.3); RBC Red Blood Cell Count 5.06 M/uL (3.86-4.86)
[2021-01-05 06:54] LABS: BUN Blood Urea Nitrogen 13 mg/dL (7-18); Bicarbonate 31 mmol/L (21-32); Glucose Level 164 mg/dL (74-106); NT PRO-BNP 658 pg/mL (<450); Sodium Level 143 mmol/L (136-145)
[2021-01-05] MEDS: CEFTRIAXONE 1 GM/NS 50 ML 1 GM/50 ML BAG IV SCH (09:45)
[2021-01-05] MEDS: ASPIRIN EC 81 MG TAB PO SCH (09:45)
[2021-01-05] MEDS: AZITHROMYCIN IV 500 MG in NA CHLORIDE 0.9% 250 ML IVPB SCH (09:45)
[2021-01-05] MEDS: METOPROLOL TAR 25 MG TAB PO SCH ×2 (09:45→20:32)
[2021-01-05] MEDS ORDERED: ENOXAPARIN 40 MG/0.4 ML SQ SCH (17:00)
--- NOTE | 2021-01-05 19:43 | PN ---
Date of Progress Note: 01/05/2021 Subjective: The patient was seen this morning for followup. No new complaints or problems reported by the patient. Lying in bed, not in distress. Vital signs reviewed. Overall, she feels better alexander n yesterday. She still has cough and has thick slightly brownish colored mucus coming up. Objective: HEENT: Unremarkable. Lungs: Bilateral good equal air entry. Presence of wheezing which is significantly better today alexander n last night. Not in any respiratory distress. Heart: Sounds normal. Abdomen: Soft. Bowel sounds normal. No guarding, rigidity, tenderness, distention. Extremities: No leg edema. Laboratory Data: White count 13.7, hemoglobin 14.9, platelets 210. Sodium 142, potassium 4, chlorid e 106, bicarb 31, BUN 13, creatinine 0.56, glucose 164. Impression: 1.Acute exacerbation of chronic obstructive pulmonary disease. 2.Hypertension. 3.Generalized weakness. Plan: We will go ahead and continue current medications. Continue current steroid, antibiotics, neb ulizer treatment, and Physical Therapy to work with the patient. I will see her tomorrow for followu p. Possible discharge to go home tomorrow depending on her condition. JENNIFER/MODL Voice ID: [id number] Report ID: [id number]
[2021-01-05] MEDS ORDERED: ALPRAZOLAM 0.25 MG TABLET PO SCH (21:33)
[2021-01-06] MEDS: METHYLPREDNISOLONE 40 MG INJ IV SCH ×2 (00:30→08:06)
[2021-01-06] MEDS: ALBUTEROL 2.5 MG/3 ML NEB SOL NEB SCH ×2 (02:00→07:47)
[2021-01-06] MEDS: IPRATROPIUM BROM 0.5MG/2.5ML NEB SCH ×2 (02:00→07:47)
[2021-01-06] MEDS: LEVOTHYROXINE SOD 0.1 MG TAB PO SCH (06:09)
[2021-01-06] MEDS: METOPROLOL TAR 25 MG TAB PO SCH (08:04)
[2021-01-06] MEDS: ASPIRIN EC 81 MG TAB PO SCH (08:04)
[2021-01-06] MEDS: CEFTRIAXONE 1 GM/NS 50 ML 1 GM/50 ML BAG IV SCH (08:05)
[2021-01-06] MEDS: AZITHROMYCIN IV 500 MG in NA CHLORIDE 0.9% 250 ML IVPB SCH (09:00)
[2021-01-06 09:16] VITALS: BP 149/64; TEMP 98.3
[2021-01-06 09:57] VITALS: O2SAT 99
--- NOTE | 2021-01-07 06:51 | DS ---
Date of Discharge: 01/06/2021 Disposition: Discharged to go home. Physical Examination: HEENT: Unremarkable. LUNGS: Clear to auscultation. Heart: Hear sounds normal. Abdomen: Soft, bowel sounds normal. No guarding, rigidity, tenderness, or distention. Extremities: No leg edema. Laboratory Data: Upon admission, white count 9, hemoglobin 15.2, platelets 193. Yesterday, white co unt 13.7, hemoglobin 14.9, platelets 210. Upon admission, sodium 141, potassium 3.7, chloride 104, b icarb 31, BUN 11, creatinine 0.46, glucose 119. Liver function tests unremarkable. proBNP 311. Yes terday morning, sodium 143, potassium 4, chloride 106, bicarb 31, BUN 13, creatinine 0.56, glucose 16 4. Hospital Course: 75-year-old female patient admitted to the hospital with cough, congestion, shortne ss of breath, and feeling very weak. Please see dictated H and P for more information. After johan day was evaluated in the ER, she was admitted to the hospital. The patient was admitted to the [facility] with acute exacerbation of COPD and acute bronchitis. Please see dictated H and P for more details . After she was admitted to the hospital, she was given antibiotics, IV steroid, nebulizer treatment . DVT prophylaxis was given. Home medications were continued and physical therapy was consulted. T he patient started to ambulate well with physical therapy. Her weakness improved and overall shortne ss of breath, cough, congestion improved as well. Once her condition improved, we discharged her to go home in stable condition with following discharge medication and instructions. Final Diagnoses: 1.Acute exacerbation of chronic obstructive pulmonary disease. 2.Acute bronchitis. 3.Hypertension. 4.Mixed hyperlipidemia. 5.Hypothyroidism, postsurgical. 6.Impaired fasting glucose. 7.Osteoarthritis, multiple sites. 8.Gastroesophageal reflux disease. Discharge Medications And Instructions: 1.Continue all prior home medications. 2.Take new medications as below;. a.Prednisone 10 mg, the patient to take 2 tablets by mouth 2 times a day for 4 days, then 2 tablets by mouth daily for 4 days, then 1 tablet by mouth daily for 4 days, then 1/2 tablet by mouth daily fo r 4 days, then stop. b.Cefuroxime 250 mg 2 times a day for 1 week, take it with food. c.Follow up at my office next week on on 01/13/2021 at 10 a.m. d.Use oxygen at 2 L/minute per nasal cannula all the time. JENNIFER/MODL Voice ID: [id number] Report ID: [id number]
== END 2021-01-06 10:05 | disposition home or self-care (01) | DRG 192 ==
LOC: ER 06:37 → OBSVTOIN 10:10 → ERHOLD 10:10 → 2ND 13:56
PROVIDERS: ADMIT Internal Medicine; ATTEND Internal Medicine
DX: J44.0 Chronic obstructive pulmonary disease with (acute) lower respiratory infection (principal); J20.9 Acute bronchitis, unspecified; J44.1 Chronic obstructive pulmonary disease with (acute) exacerbation; I10 Essential (primary) hypertension; E78.2 Mixed hyperlipidemia; E89.0 Postprocedural hypothyroidism; R73.01 Impaired fasting glucose; M19.90 Unspecified osteoarthritis, unspecified site; K21.9 Gastro-esophageal reflux disease without esophagitis; Z85.3 Personal history of malignant neoplasm of breast; Z20.822 Contact with and (suspected) exposure to COVID-19
CPT/HCPCS: 36415; 70450; 71045; 71250; 80048; 80076; 83735; 83880; 85025; 85610; 93005; 94640; 94760; 96374; 96375; 97116; 97161; 99285; J0456; J0696; J1650; J2920; J2930; J3475; J7040; J7050; U0003

== ENCOUNTER 2021-01-11 12:25 | Inpatient (IN) | payer OTHER ==
--- NOTE | 2021-01-11 13:54 | RAD REPORT ---
EXAM DESCRIPTION: CT - Head Brain Wo Cont - 01/11/2021 1:36 pm CLINICAL HISTORY: stroke, left leg and arm weakness COMPARISON: Head Brain Wo Cont dated 01/04/2021 TECHNIQUE: Axial 5 mm thick images of the head were obtained without IV contrast. All CT scans are performed using dose optimization technique as appropriate and may include automated exposure control or mA/KV adjustment according to patient size. FINDINGS: No intracranial hemorrhage, mass, edema or shift of mid-line structures. No acute cortical based infarction is identifiable. The patient has prominent chronic ischemic changes are again noted . No new or progressive intracranial finding is identifiable. No abnormal extra-axial fluid collectio ns. Ventricles are in proportion to the volume loss. Arterial tree calcifications are present. Mastoid air cells are clear. Bilateral maxillary sinus air-fluid levels still present. No acute bony findings. IMPRESSION: Atrophy and chronic ischemic changes are again identified. No new intracranial process. Bilateral maxillary sinusitis similar to January 04.
--- NOTE | 2021-01-11 14:04 | RAD REPORT ---
EXAM DESCRIPTION: RAD - Chest Single View - 01/11/2021 1:39 pm CLINICAL HISTORY: COPD COMPARISON: Portable chest January 04, CT chest January 04 TECHNIQUE: AP portable chest image was obtained 01/11/2021 1:39 pm . FINDINGS: Chronic interstitial lung disease is evident compatible with the COPD history. No focal ma ss or new consolidation. No progressive interstitial infiltrate or edema changes identifiable. Trache a is midline. Heart and vasculature are normal. No measurable pleural effusion and no pneumothorax. N o acute bony abnormality seen. No acute aortic finding. Numerous surgical clips overlie the left side of the chest. Left mastectomy changes are present. IMPRESSION: Mild chronic interstitial lung disease is evident compatible with the COPD history and s imilar to the January 04 short interval imaging studies. No new or progressive cardiopulmonary finding.
[2021-01-11 15:18] LABS: Absolute Lymphocytes (CBC) 1.8 K/uL (0.7-4.9); Basophils % 0.2 % (0-1.3); Lymphocytes % 8.7 % (15.3-44.8); RBC Red Blood Cell Count 5.36 M/uL (3.86-4.86)
[2021-01-11 15:30] LABS: Albumin 3.4 g/dL (3.4-5.0); Bilirubin Total 0.3 mg/dL (0.2-1.0); Magnesium 2.3 mg/dL (1.8-2.4); Potassium 4.4 mmol/L (3.5-5.1)
[2021-01-11 15:53] LABS: Blood Morphology Comment NOT SEEN (NOT SEEN); Platelet Estimate ADEQ
[2021-01-11] MEDS ORDERED: INFLUENZA VACCINE (for 6+ mo) 0.5 ML DOSE IMVAC ONE (20:00)
[2021-01-11] MEDS ORDERED: PNEUMOCOCCAL VACCINE 0.5 ML IMVAC ONE (20:00)
[2021-01-11] MEDS ORDERED: ENOXAPARIN 40 MG/0.4 ML SQ ONE (21:14)
[2021-01-11] MEDS ORDERED: ASPIRIN EC 81 MG TAB PO ONE (21:16)
[2021-01-11] MEDS: HYDROCODONE/APAP 5/325 MG TAB PO PRN (21:44)
[2021-01-11] MEDS: NA CHLORIDE 0.9% 1,000 ML IV SCH (21:45)
[2021-01-11] MEDS: CEFTRIAXONE 1 GM/NS 50 ML 1 GM/50 ML BAG IV SCH (22:00)
[2021-01-11] MEDS ORDERED: FAMOTIDINE 20 MG/2 ML VIAL IV ONE (23:00)
[2021-01-11] MEDS ORDERED: NA CHLORIDE 0.9% 100 ML ONE (23:09)
[2021-01-11] MEDS ORDERED: CEFTRIAXONE 1000 MG/VIAL ONE (23:09)
[2021-01-11] MEDS: ALBUTEROL 2.5 MG/3 ML NEB SOL NEB SCH (23:40)
[2021-01-12 00:05] LABS: Urine Appearance CLOUDY (Clear); Urine Bilirubin NEGATIVE (Negative); Urine Blood NEGATIVE (Negative); Urine Color DK YELLOW (Yellow); Urine Glucose NEGATIVE (Negative); Urine Protein NEGATIVE (Negative); Urine Specific Gravity 1.025 (1.005-1.030); Urine Urobilinogen 0.2 mg/dL (0.2-1.0)
[2021-01-12 00:37] LABS: Calcium Oxalate Crystals- Ur MANY (NONE SEEN); Urine Urothelial Cells <5 /HPF (NONE SEEN)
[2021-01-12 00:38] LABS: Urine Bacteria <20 /HPF (<20); Urine RBC NONE SEEN /HPF (NONE SEEN)
[2021-01-12] MEDS: HYDROCODONE/APAP 5/325 MG TAB PO PRN (03:16)
[2021-01-12] MEDS ORDERED: MORPHINE 2 MG/ML SYR IV PRN (04:38)
--- NOTE | 2021-01-12 07:19 | RAD REPORT ---
EXAM DESCRIPTION: US - CP - 01/12/2021 12:48 am CLINICAL HISTORY: stroke COMPARISON: No comparisons TECHNIQUE: Real-time sonographic evaluation of bilateral carotid and vertebral systems was performed . Pickett scale and Doppler interrogation were performed with waveform tracing bilaterally. FINDINGS: Normal high resistance waveforms are noted in both external carotid arteries. The common c arotid arteries and internal carotid arteries show normal low resistance waveforms. Irregular calcified plaquing changes are present in each carotid bulb and extending into the proximal right internal carotid artery. Visually the atherosclerotic plaquing changes do not cause significan t luminal narrowing. Peak systolic and end diastolic velocity values and the ICA/CCA ratios are in th e non-hemodynamically significant range. Antegrade flow seen in both vertebral arteries. Velocity values and ratios were recorded and are retained in the patient's imaging records. IMPRESSION: Irregular calcified plaquing changes in each carotid bulb and the proximal right interna l carotid artery. No visual evidence of a hemodynamically significant stenosis. Velocity values and waveforms also rosalba emile no significant degree of stenosis.
[2021-01-12] MEDS ORDERED: methocarbamoL 500 MG TAB PO PRN (07:24)
--- NOTE | 2021-01-12 07:37 | HP ---
Date of Admission: 01/11/2021 Chief Complaint: Weakness of left side. History Of Present Illness: This is a 75-year-old female patient who was admitted to our hospital wi th acute bronchitis and COPD exacerbation from 01/04/2021 to 01/06/2021. The patient was discharged to go home with prednisone and antibiotic cefuroxime. She was taking her medications as prescribed. Today, she came in to see me with her friend, informed me that last 3-4 days she is having weakness of the left side and this started some time after she came home. She was discharged to go home on , and her problem started after she came home and she did not seek any medical attention unti l today. She came to see me with this with her friend. Because of her weakness, she is having troub le walking and she is using a walker. She denies any headache. Denies any visual complaints. Denie s any trouble swallowing. She has tingling, numbness of left upper extremity and left lower extremit y with some pain in left upper and left lower extremity associated with this tingling and numbness. No fever. No chills. No nausea or vomiting. Medications: Albuterol nebulizer treatment every 4 hours as needed, Trelegy only 1 puff daily, amlod ipine 5 mg 2 times a day, aspirin 81 mg daily, levothyroxine 200 mcg daily, liothyronine 5 mcg 2 time s a day, methocarbamol 500 mg 2 times a day as needed for back pain and muscle spasm, metoprolol tart rate 50 mg she takes 1-1/2 tablet 2 times a day, omeprazole 40 mg daily. New prescription prescribed from last hospital stay, she takes prednisone 10 mg, it was prescribed 2 tablets 2 times a day for 4 days, then 2 tablets daily for 4 days, 1 tablet daily for 4 days, then 1/ 2 tablet daily for 4 days, and cefuroxime 250 mg 2 times a day. Allergies: TO ZESTRIL CAUSING SWELLING OF HER TONGUE AND CLONIDINE CAUSING TONGUE SWELLING. 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 All other systems reviewed and negative. Past Medical History: Significant for thyroid cancer, hypothyroidism, impaired fasting glucose, COPD , hypertension, mixed hyperlipidemia, carotid artery stenosis, gastroesophageal reflux disease, diver ticulosis, liver cyst, cervical spondylosis, lumbar spondylosis, osteoarthritis multiple sites, breas t cancer, depression, osteoporosis. Past Surgical History: Thyroidectomy, mastectomy, appendectomy, exploratory laparotomy due to bowel obstruction, , shoulder surgery, and hysterectomy. Social History: Significant for smoking. Use of alcohol negative. Family History: Father had COPD. Mother had ID. Brother had Alzheimer disease and prostate cancer, and sister had breast cancer. Physical Examination: Vital Signs: Upon admission, temperature 97.5, pulse 87, respiratory rate 40, blood pressure 148/74, oxygen saturation 100% on 3 L nasal cannula oxygen. Height 5 feet, weight 142 pounds. General: Awake, alert, oriented, not in distress. HEENT: Head atraumatic, normocephalic. Conjunctivae nonerythematous. Sclerae white. Mouth, no thr ush or edema noted. Ears/Nose, no mass, lesion, discharge noted. Neck: Supple. No JVD, lymph nodes, bruit, thyromegaly noted. Lungs: Bilateral scattered wheezing noted in all the lung lawson. Not using any accessory muscles o f respirations. Heart: Normal heart sounds, no murmur or gallop. Abdomen: Soft, bowel sounds normal. No guarding, rigidity, tenderness, mass, hepatosplenomegaly, dis tention, or bruit noted. Extremities: No leg edema. No calf tenderness. Skin: No rash, ulcer, cellulitis. Lymphatics: No lymph node enlargement in neck, supraclavicular, infraclavicular region. Neuro: No focal neurological deficit. Chest: Unremarkable. External Genitalia: Deferred. Rectal: Deferred. 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 There is no facial asymmetry. Speech is normal. Gait not tested. Laboratory Data: White count 20.20, hemoglobin 15.9, platelets 305. Sodium 142, potassium 4.4, chlo ride 100, bicarb 40, BUN 17, creatinine 0.71, glucose 124. Liver function tests unremarkable. Urinalysis negative. COVID-19 test negative. Chest x-ray: No change compared to prior chest x-ray. No acute cardiopulmonary changes noted. CAT scan of the head was negative for any acute intracranial changes. Impression: 1.Stroke with left-sided hemiparesis. 2.Acute exacerbation of chronic obstructive pulmonary disease. 3.Leukocytosis, likely due to steroid use. 4.Hypertension. 5.Mixed hyperlipidemia. 6.Carotid artery stenosis. 7.Gastroesophageal reflux disease. 8.Diverticulosis. 9.Osteoarthritis, multiple sites. 10.Breast cancer. 11.Impaired fasting glucose. 12.Hypothyroidism. 13.Depression. Plan: Admit patient to hospital for further evaluation and management of this problem. The patient is appropriate for inpatient and is expected to spend 2 midnights in hospital. We will go ahead and get an MRI done tomorrow, as her CAT scan was negative. We will get an MRI per stroke protocol and c wili Sanders for further evaluation and management of this problem. Get carotid Doppler echo with Doppler. DVT prophylaxis will be given per order. High dose statin will be started. We will g et a fasting lipid profile done and start her on nebulizer treatment and steroids for her acute exace rbation of COPD problem. The patient continues to smoke and her overall prognosis will remain poor w ith multiple comorbidities. We will consult Physical Therapy and Occupational Therapy and I also dis cussed home status with her and this was discussed at office in presence of her friend. The patient has expressed to remain full code. JENNIFER/MODL Voice ID: [id number]
[2021-01-12] MEDS: ALBUTEROL 2.5 MG/3 ML NEB SOL NEB SCH ×3 (08:00→20:00)
[2021-01-12] MEDS ORDERED: FAMOTIDINE 20 MG/2 ML VIAL IV SCH (09:00)
[2021-01-12] MEDS: AMLODIPINE 5 MG TAB PO SCH ×2 (10:01→21:51)
[2021-01-12] MEDS: CEFTRIAXONE 1 GM/NS 50 ML 1 GM/50 ML BAG IV SCH ×2 (10:02→21:51)
[2021-01-12] MEDS: METOPROLOL TAR 25 MG TAB PO SCH ×2 (10:03→21:51)
[2021-01-12] MEDS: ASPIRIN EC 81 MG TAB PO SCH (10:03)
[2021-01-12] MEDS ORDERED: GUAIFENESIN/CODEINE 5ML UCUP PO PRN (10:48)
[2021-01-12] MEDS: GABAPENTIN 100 MG CAP PO SCH ×3 (11:03→20:33)
[2021-01-12] MEDS: PANTOPRAZOLE 40MG TABLET PO SCH (11:03)
--- NOTE | 2021-01-12 11:43 | RAD REPORT ---
EXAM DESCRIPTION: MRI - Brain W/Wo Cont - 01/12/2021 11:30 am CLINICAL HISTORY: STROKE, right-sided weakness and slurred speech COMPARISON: MRA Head Wo Cont dated 01/12/2021; Head Brain Wo Cont dated 01/11/2021 TECHNIQUE: Sagittal and axial T1-weighted images were obtained. Axial PD/heavily T2-weighted and T2- FLAIR images were obtained along with axial DWI/ADC mapping sequences. Coronal heavily T2 weighted s equence obtained. Axial and coronal post-contrast T1-weighted images were also obtained. A 14 ml Mul tihance contrast following utilized. FINDINGS: No intracranial hemorrhage, mass or acute infarction. No cortical edema or sulcal effaceme nt. There is no edema or shift of midline structures. No extra-axial fluid collections. Pickett-matter/w noah matter junction is preserved. Signal voids are seen as a normal finding in the major intracrani al vessels. Atrophy changes are mild in severity for patient age. Ventricles are in proportion. Moder ate severity periventricular white matter chronic ischemic changes are seen with additional scattered areas of cerebral chronic ischemic change. Basal ganglia and thalamus tissues are generally spared. Patient has significant chronic ischemic change in the jarred. Post-contrast images show normal enhancement. No dural thickening. Mastoid air cells and paranasal sinuses are clear. IMPRESSION: No acute infarction changes are present. No hemorrhage, mass or acute intracranial findi ng identifiable. Patient has mild to moderate atrophy with ventricles in proportion to volume loss. Moderate severity chronic ischemic changes throughout the cerebral white matter and in the jarred of th e brainstem.
--- NOTE | 2021-01-12 11:46 | RAD REPORT ---
EXAM DESCRIPTION: MRI - MRA Head Wo Cont - 01/12/2021 11:29 am CLINICAL HISTORY: CVA, right-sided weakness, slurred speech COMPARISON: MRI brain same date TECHNIQUE: Axial and coronal 3D [id number] image acquisition was performed. 3D rotational images were generated with source and reconstruction images reviewed. Horizontal and vertical axis rotation al views generated using MIP protocol. FINDINGS: No aneurysm or vascular malformation. No vasculitis findings. Mild atherosclerotic changes are present in the bilateral middle cerebral arteries. Atherosclerotic c hanges are seen in the bilateral A1 segment of each anterior cerebral artery. Distal vertebral arteri es, basilar artery and posterior cerebral arteries show no significant finding. No significant change s seen in the distal internal carotid arteries. Major venous sinuses are patent. IMPRESSION: Mild atherosclerotic changes in the middle cerebral artery distributions. No named branc h occlusion, vasculitis or other acute finding.
--- NOTE | 2021-01-12 11:49 | RAD REPORT ---
EXAM DESCRIPTION: MRI - MRA Neck W/Wo Cont - 01/12/2021 11:30 am CLINICAL HISTORY: CVA, slurred speech, right-sided weakness COMPARISON: CT head January 11, MRI brain January 12, MRA brain January 12 TECHNIQUE: MR angiography of the cervical vasculature performed. Coronal imaging plane acquisition u tilized. A 14 MultiHance contrast volume was utilized. Coronal reformatted images were generated and reviewed. Vertical axis 3D rotational projections obtained using maximum intensity projection protoco l. FINDINGS: Aortic arch is a normal variant bovine configuration with no origins stenosis. Vertebral a rteries are codominant also without origins stenosis. No significant common carotid artery findings i dentified. At the carotid bulbs luminal narrowing is noted more prominent on the right. This does not exceed 50% stenosis. No measurable stenosis on the left. No dissection changes identified. IMPRESSION: Atherosclerotic changes are present at each carotid bulb, right greater than left with s tenosis not exceeding 50%.
[2021-01-12] MEDS: NA CHLORIDE 0.9% 1,000 ML IV SCH (14:10)
[2021-01-12] MEDS: ENOXAPARIN 40 MG/0.4 ML SQ SCH (16:40)
[2021-01-12] MEDS: ATORVASTATIN 80 MG TAB PO SCH (20:33)
--- NOTE | 2021-01-12 23:10 | CON ---
Reason For Consultation: Consultation called by Dr. Brownlee because of possible stroke. History Of Present Illness: Ms. Mercedes is a 75-year-old patient with multiple stroke risk factors including hypertension, chronic cigarette smoking, prior stroke who comes in with left-sided numbness and weakness present, probably worse for about a week, although she said the weakness has been off and on, no longer than that, even maybe a month or more. In any event, she was recently admitted to [facility] with bronchitis and COPD exacerbation. Discharged home with antibiotics and steroids and became significantly weaker on the left arm and leg, could not ambulate without support. She also had numbness and tingling in the left upper and lower extremity. At [facility], head CT scan showed no acute ischemic or hemorrhagic change and her brain MRI did not show any acute ischemic or hemorrhagic changes; however, showed pontine chronic strokes in addition to mild severity periventricular white matter small vessel ischemic disease scattered in the cerebral hemispheres. It was noted that the basal ganglia and thalami were generally spared. There are multiple areas of stroke in the jarred which appear to be significantly chronic, possible contributing factors to the patient's symptoms of weakness, gait, instability, and numbness. Since hospitalization, she has noted some recovery in strength in the upper and lower extremities. Past Medical History: As noted in addition to hypothyroidism, dyslipidemia, carotid artery stenosis, GE reflux, breast cancer, osteoporosis, and depression. Past Surgical History: Mastectomy, thyroidectomy, appendectomy, exploratory laparotomy, C section. Allergies: ZESTRIL AND CLONIDINE. Medications: Amlodipine, levothyroxine, methocarbamol, metoprolol, omeprazole, prednisone, and cefuroxime. Family History: COPD in father. Myocardial infarction in mother. Alzheimer disease in brother. Social History: The patient smokes regularly and denies alcohol or IV drug use. Physical Examination: Vital Signs: Blood pressure 130/60, pulse 73, respiratory rate 16 to 20, temperature 98.8, oxygen saturation 99%, weight 120 pounds, height 5 feet 4 inches, BMI 20. General: Daren is resting in bed. She is in no significant distress. HEENT: She is normocephalic, atraumatic. Sclerae are anicteric. Oropharynx is pink and moist. Neck: Supple. Chest: Shows mildly decreased breath sounds. Abdomen: Soft. Extremities: Show no significant edema, cyanosis, or clubbing. Neurological: She is alert and oriented to situation, place, and person. Follows commands appropriately. Cranial nerves show no focal deficits on 2 through 12. Motor examination, left upper and lower extremity 4/5 compared to the right 5/5, proximally and distally. Sensory exam decreased to light touch and temperature in the left upper and lower compared to the right side. Coordination intact in upper and lower extremities. Reflexes are depressed and symmetric. For gait, she ambulated 15 feet with a 4 wheel walker without ataxia and wide-based. She had oxygen 2L via NC. Laboratory Studies: Complete blood count with differential shows an elevated white blood cell count of 20.2, neutrophils 86.6. She is on prednisone and antibiotics. Her basic metabolic panel shows glucose 124, and carbon dioxide of 40. Her triglycerides elevated 214, total cholesterol 182, LDL cholesterol 77, HDL cholesterol 62. Urinalysis shows 5-10 epithelial cells, and many calcium oxalate crystals, trace ketones. COVID-19 test is negative. Chest x-ray showed mild chronic interstitial lung disease compatible with COPD. No new progression compared to study on January 04. Magnetic resonance angiogram of the neck show atherosclerotic changes in the carotid bulb, greater on the right than left, but stenosis not exceeding 50%. Her head magnetic resonance angiogram showed mild osmolality changes in the middle cerebral artery distribution, but no branch occlusion. Assessment: Ms. Mercedes is a 75-year-old patient who likely has late effects of her stroke producing incoordination, ataxic gait, and left-sided arm and leg weakness. Her NIH Stroke Scale is 5. Her comorbid conditions are multiple including smoking, dyslipidemia, hypertension and chronic small vessel ischemic disease. Plan: She may benefit from aggressive physical and occupational, speech therapy in the acute inpatient rehabilitation unit. She should be on aspirin 81 mg daily, Lipitor continue 80 mg at night, Lovenox for DVT prophylaxis and aggressive management of hypertension and careful management of blood sugars after very elevated levels which can worsen the patient with a history of acute or chronic stroke. This was discussed with the patient and she is agreeable to inpatient rehabilitation. The process will be initiated to have the patient admitted to the 5th floor unit. ITZEL Voice ID: [id number] Report ID: [id number] [facility]
[2021-01-13] MEDS: NA CHLORIDE 0.9% 1,000 ML IV SCH (00:40)
--- NOTE | 2021-01-13 01:44 | PN ---
Date of Progress Note: 01/12/2021 Physical Examination: The patient was seen this morning for followup. No new complaints or problems reported by the patien t. Last night, she had lot of pain in her left upper and left lower extremity along with tingling, n umbness, and she did not respond to hydrocodone and morphine was ordered and that actually has helped her. Objective: Vital Signs: Reviewed. HEENT: Examination unremarkable. Lungs: Bilateral good equal air entry. Clear to auscultation. Wheezing that she had yesterday has resolved. Not in any distress. Heart: Heart sounds normal. Abdomen: Soft, bowel sounds normal. No guarding, rigidity, tenderness, or distention. Extremities: No leg edema. Neuro: No change from yesterday and left upper and left lower extremity weakness. No new findings. Laboratory Data: Carotid Doppler shows approximately 50% stenosis of the carotid artery. No hemodyn amically significant stenotic lesion. Echo result pending. MRI done today per stroke protocol and t hat does show evidence of atherosclerotic changes, but no evidence of any acute stroke or hemorrhage. Impression: 1.Stroke. 2.Cerebral atherosclerosis. 3.Smoking. 4.Hypertension. 5.Hyperlipidemia. Plan: We will go ahead and continue to follow with Dr. Sanders. Continue current aspirin, statin t herapy, Physical therapy, Occupational therapy as well as followup with rehab consult. I will see her tomorrow for followup. Gabapentin was ordered, and we will continue current empiric IV antib iotics. JENNIFER/MODL Voice ID: [id number] Report ID: [id number]
[2021-01-13] MEDS: ALBUTEROL 2.5 MG/3 ML NEB SOL NEB SCH ×4 (02:00→19:25)
[2021-01-13] MEDS: PANTOPRAZOLE 40MG TABLET PO SCH (06:10)
--- NOTE | 2021-01-13 07:59 | ECHO ---
HEIGHT: 5 ft 5 in WEIGHT: 120 lb 0 oz DATE OF STUDY: 01/12/[address]: Roc Brownlee MD 2-DIMENSIONAL: YES M.MODE: YES DOPPLER: YES COLOR FLOW: YES TDS: YES PORTABLE: NO DEFINITY: NO BUBBLE STUDY: NO DIAGNOSIS: STROKE CARDIAC HISTORY: CATHERIZATION: NO SURGERY: NO PROSTHETIC VALVE: NO PACEMAKER: NO MEASUREMENTS (cm) DIASTOLIC (NORMALS) SYSTOLIC (NORMALS) IVSd 0.9 (0.6-1.2) LA Diam 3.7 (1.9-4.0) LVEF 64% LVIDd 3.4 (3.5-5.7) LVIDs 2.2 (2.0-3.5) %FS 34% LVPWd 1.0 (0.6-1.2) Ao Diam 2.2 (2.0-3.7) 2 DIMENSIONAL ASSESSMENT: RIGHT ATRIUM: LEFT ATRIUM: RIGHT VENTRICLE: LEFT VENTRICLE: TRICUSPID VALVE: MITRAL VALVE: PULMONIC VALVE: AORTIC VALVE: PERICARDIAL EFFUSION: AORTIC ROOT: LEFT VENTRICULAR WALL MOTION: DOPPLER/COLOR FLOW: COMMENTS: NORMAL 2D ECHO WITH DOPPLER. NO VEGETATION. NO THROMBUS. TECHNOLOGIST: ARDEN DUDLEY
[2021-01-13] MEDS: CEFTRIAXONE 1 GM/NS 50 ML 1 GM/50 ML BAG IV SCH ×2 (09:00→10:04)
[2021-01-13] MEDS: METOPROLOL TAR 25 MG TAB PO SCH ×2 (10:04→20:51)
[2021-01-13] MEDS: FAMOTIDINE 20 MG TAB PO SCH (10:04)
[2021-01-13] MEDS: AMLODIPINE 5 MG TAB PO SCH ×2 (10:05→20:51)
[2021-01-13] MEDS: FOLIC ACID 1 MG TABLET PO SCH (10:05)
[2021-01-13] MEDS: ASPIRIN EC 81 MG TAB PO SCH (10:05)
[2021-01-13] MEDS: GABAPENTIN 100 MG CAP PO SCH ×3 (10:05→20:52)
[2021-01-13] MEDS: predniSONE 20 MG TAB PO SCH (10:05)
[2021-01-13] MEDS ORDERED: MORPHINE 4 MG/ML SYR IV PRN (17:54)
[2021-01-13] MEDS: ENOXAPARIN 40 MG/0.4 ML SQ SCH (18:26)
--- NOTE | 2021-01-13 20:05 | PN ---
Date of Progress Note: 01/13/2021 Subjective: The patient was seen this morning for followup. No new complaints or problems reported by her. Last night, she went to the bed and she felt like she was going to pass out. She sat down o n the commode. Her oxygen saturation had dropped down at that time to like 80% or so, and [facility] team was contacted. The patient was brought back to bed and she was temporarily placed on BiPAP and subsequently it was changed back to nasal cannula oxygen and her condition stabilized. This mor angie when I saw her, she was on nasal cannula oxygen. Objective: Vital Signs: Reviewed. HEENT: Unremarkable. Lungs: Bilateral equal air entry with scattered wheezing noted. Not using any accessory muscles of respiration. Heart: Sounds normal. Abdomen: Soft. Bowel sounds normal. No guarding, rigidity, tenderness. No distention. Extremity: No leg edema. Neuro: Left upper and left lower extremity weakness remains unchanged from yesterday. Impression: 1.Stroke. 2.Hypertension. 3.Chronic obstructive pulmonary disease, with acute exacerbation. 4.Hyperlipidemia. Plan: We will go ahead and continue to work with Physical Therapy to help ambulate the patient. Chuy arteaga to follow up with neurologist. Continue aspirin, high dose statin therapy, oxygen, nebulizer t reatment, and steroids. We are waiting on insurance company's approval for inpatient rehab. She ines l benefit from such rehab stay. She lives by herself, not able to return back with her current condi tion and she has home oxygen that I have advised her upon discharge, she should use oxygen all the ti me. Her IV access was lost today and nurses were not able to re-establish IV access, so we will change antibiotics to oral antibiotics. We will see her tomorrow for followup. JENNIFER/MODL Voice ID: [id number] Report ID: [id number]
[2021-01-13] MEDS: HYDROCODONE/APAP 5/325 MG TAB PO PRN (20:51)
[2021-01-13] MEDS: ATORVASTATIN 80 MG TAB PO SCH (20:51)
[2021-01-13] MEDS: CEFUROXIME 250 MG TAB PO SCH (20:51)
[2021-01-14] MEDS: ALBUTEROL 2.5 MG/3 ML NEB SOL NEB SCH ×3 (02:00→13:28)
[2021-01-14] MEDS: HYDROCODONE/APAP 5/325 MG TAB PO PRN ×2 (05:28→11:52)
[2021-01-14] MEDS: PANTOPRAZOLE 40MG TABLET PO SCH (05:30)
[2021-01-14 07:54] LABS: MPV 10.6 fL (7.6-11.3)
[2021-01-14 08:10] LABS: Absolute Lymphocytes (CBC) 4.5 K/uL (0.7-4.9); Basophils % 0.5 % (0-1.3); Hematocrit 43.4 % (36.0-45.0); Lymphocytes % 22.1 % (15.3-44.8); RBC Red Blood Cell Count 4.83 M/uL (3.86-4.86)
[2021-01-14 08:37] LABS: BUN Blood Urea Nitrogen 10 mg/dL (7-18); Bicarbonate 39 mmol/L (21-32); Folic Acid, (Folate) 7.6 ng/mL (3.1-17.5); Glucose Level 108 mg/dL (74-106); Sodium Level 139 mmol/L (136-145)
[2021-01-14] MEDS: CEFUROXIME 250 MG TAB PO SCH (09:16)
[2021-01-14] MEDS: ASPIRIN EC 81 MG TAB PO SCH (09:16)
[2021-01-14] MEDS: METOPROLOL TAR 25 MG TAB PO SCH (09:16)
[2021-01-14] MEDS: predniSONE 20 MG TAB PO SCH (09:16)
[2021-01-14] MEDS: AMLODIPINE 5 MG TAB PO SCH (09:16)
[2021-01-14] MEDS: GABAPENTIN 100 MG CAP PO SCH ×2 (09:16→13:50)
[2021-01-14] MEDS: FAMOTIDINE 20 MG TAB PO SCH (09:17)
[2021-01-14] MEDS: FOLIC ACID 1 MG TABLET PO SCH (09:17)
--- NOTE | 2021-01-14 10:38 | RAD REPORT ---
EXAM DESCRIPTION: MRI - C Spine Wo Cont- 01/14/2021 10:27 am CLINICAL HISTORY: left arm and leg weakness Neck pain, radiculopathy COMPARISON: C Spine Wo Cont dated 09/18/2019; C Spine Wo Cont dated 07/31/2019; Brain W/Wo Cont dated 01/12/2021 FINDINGS: Cervical vertebral bodies are normal in height and alignment. No suspicious marrow edema or marrow replacing process. No fracture or traumatic subluxation. The craniocervical junction is normal. C2-3 level: No significant findings. C3-4 level: Mild facet hypertrophy is present with mild narrowing the left exit foramen. C4-5 level: Small posterior osteophyte/ disc complex is present attenuating the anterior subarachnoid space and mildly narrowing the canal. Moderate bilateral uncovertebral spurring moderately narrows b oth exit foramina. C5-6 level: Small posterior osteophyte/ disc complex is present without significant canal stenosis. M ild left-sided uncovertebral facet spurring mildly narrows the left exit foramen. C6-7 level: Small posterior osteophyte/ disc complex is present without canal stenosis or foraminal s tenosis evident. C7-T1 level: No significant findings. Cervical cord is normal in size and signal. IMPRESSION: Mild midcervical degenerative changes present, most notable at C4-5 as detailed. No babs re canal or foraminal stenosis seen at any level.
[2021-01-14] MEDS ORDERED: levoFLOXacin 500 MG TAB PO ONE (12:26)
[2021-01-14 12:59] VITALS: BP 163/72; TEMP 97.3
[2021-01-14 15:34] VITALS: O2SAT 97
--- NOTE | 2021-01-15 04:52 | DS ---
Date of Discharge: 01/14/2021 Disposition: Discharged to go home. Physical Examination: HEENT: Unremarkable. Lungs: Clear to auscultation. Heart: Heart sounds normal. Abdomen: Soft, bowel sounds normal. No guarding, rigidity, tenderness, distention. Extremities: No leg edema. Discharge Medications And Instructions: Continue all prior home medications. Start taking following new medications; 1.Gabapentin 100 mg take 2 capsules by mouth 3 times a day. 2.Atorvastatin 40 mg 1 tablet by mouth daily at bedtime. 3.Levaquin 500 mg take 1 tablet by mouth daily for 1 week. 4.Follow up at my office next week on , which is 01/20/2021 at 11 a.m. 5.Use oxygen 2-3 L/minute nasal cannula all the time. 6.Do not smoke. 7.The patient to have someone with her 24 hours a day for safety reasons. 8.Social Service to make arrangements for home health care and home physical therapy for her. Laboratory Data: Sodium 142 upon admission with potassium 4.4, chloride 100, bicarb 40, BUN 17, crea tinine 0.71, glucose 124. Liver function tests unremarkable. Lipid profile; triglycerides 214, tota l cholesterol 182, LDL 77. White count 20.20, hemoglobin 15.9, platelets 301. Echocardiogram showed normal ejection fraction. No evidence of any vegetation or thrombus. CAT scan of the head was nega tive for any acute changes. MRI of the brain was negative for any stroke or any acute changes. MRA of intracranial arteries shows evidence of cerebral atherosclerosis. No evidence of aneurysm. Carot id artery Doppler showed bilateral plaquing up to 50%, but no evidence of hemodynamically significant stenotic lesion. Hospital Course: This is a 75-year-old female patient who came into office with complaints of left u pper and left lower extremity. Please see dictated H and P for more information. The patient's shashank r in left upper and left lower extremity when I evaluated her was 4/5 and right upper and right lower extremity was 5/5. I was concerned about a stroke and she was admitted to the hospital directly aft er I evaluated her at the office. Neurology consultation was obtained from Dr. Sanders. She takes aspirin 81 mg daily at home, which was continued. MRI did not show any acute stroke, but she definit alisson continue to have weakness of her left upper and left lower extremity, which has improved over the period of this hospitalization. Today, when I saw her, her left lower extremity weakness has almost completely resolved and left upper extremity weakness has improved, but not back to normal and today her power in left upper extremity is 4+/5. She does not have any trouble swallowing. No headache. No nausea, vomiting. No visual complaints. Physical therapy was consulted. Inpatient rehab was co nsulted and today we found out that the patient's insurance company refused inpatient rehab benefit a nd this was appealed and Dr. Sanders also talked to insurance company physician and they still denie d any inpatient rehab benefit for her. I did talk to patient regarding other option of going to [facility] and she refused to go to care home and she says she will go home. I advice her that she will need 24-hour care at home and she informed me that she will make sure that she will arrange that with help of her denominational members who are willing to help her. The patient has a longstanding history of smoking, but she says she has not smoked in last 2-3 months and I informed her that she should no t smoke at all, but at the same time while she is using oxygen, she should not smoke for sure and nob sara else around her should smoke either. Her white count persistently remains elevated at 20,000 on initial blood work when she came in, as well as today. Cultures remained negative. I suspect that t his is due to steroid use and is off her prednisone. We will add Levaquin upon discharge and first d ose of Levaquin was given today. Final Diagnoses: 1.Left-sided hemiparesis. 2.Transient ischemic attack. 3.Acute exacerbation of chronic obstructive pulmonary disease. 4.Leukocytosis, likely due to steroid use. 5.Hypertension. 6.Mixed hyperlipidemia. 7.Carotid artery stenosis, bilateral. 8.Gastroesophageal reflux disease. 9.Diverticulosis. 10.Osteoarthritis, multiple sites. 11.Breast cancer. 12.Impaired fasting glucose. 13.Hypothyroidism. 14.Depression. JENNIFER/MODL Voice ID: [id number] Report ID: [id number]
[2021-01-15] MEDS ORDERED: levoFLOXacin 500 MG TAB PO SCH (09:00)
== END 2021-01-14 16:10 | disposition home health service (06) | DRG 69 ==
LOC: 2ND 12:25
PROVIDERS: ADMIT Internal Medicine; ATTEND Internal Medicine
DX: G45.9 Transient cerebral ischemic attack, unspecified (principal); J44.1 Chronic obstructive pulmonary disease with (acute) exacerbation; I69.354 Hemiplegia and hemiparesis following cerebral infarction affecting left non-dominant side; G81.94 Hemiplegia, unspecified affecting left nondominant side; I10 Essential (primary) hypertension; E03.9 Hypothyroidism, unspecified; E78.2 Mixed hyperlipidemia; D72.829 Elevated white blood cell count, unspecified; T38.0X5A Adverse effect of glucocorticoids and synthetic analogues, initial encounter; I67.2 Cerebral atherosclerosis; I65.23 Occlusion and stenosis of bilateral carotid arteries; K21.9 Gastro-esophageal reflux disease without esophagitis; K57.90 Diverticulosis of intestine, part unspecified, without perforation or abscess without bleeding; M19.90 Unspecified osteoarthritis, unspecified site; F32.A Depression, unspecified; Z85.850 Personal history of malignant neoplasm of thyroid; Z85.3 Personal history of malignant neoplasm of breast; Z87.891 Personal history of nicotine dependence; Z23 Encounter for immunization; Z20.822 Contact with and (suspected) exposure to COVID-19
CPT/HCPCS: 36415; 70450; 70544; 70549; 70553; 71045; 72141; 80048; 80053; 80061; 81001; 82607; 82746; 83735; 85025; 87040; 87070; 87205; 90471; 90732; 93306; 93880; 94640; 94660; 94760; 97116; 97161; 97530; A9577; J0696; J1650; J2270; J7030; J7512; Q2035; U0003

== ENCOUNTER 2022-01-23 12:50 | Inpatient (IN) | payer OTHER ==
--- OUTSIDE RECORDS SUMMARY | 2022-01-23 12:55 | XMS REPORT | Continuity of Care Document ---
:1945 Author Organization [facility] t Address [address] [place] [address] Dr. [address] [place] [address] Care Team Providers Name Role Phone HITESH KHANG Mims Primary Care Physician Unavailable [id number] Attending Clinician Unavailable LOIS GRAVES Attending Clinician Unavailable LOIS GRAVES Attending Clinician Unavailable Lois Graves DO Attending Clinician Doctor Unassigned, [place] Attending Clinician Unavailable Sonia Zeng MD Attending Clinician SONIA ZENG Attending Clinician Unavailable Josse RT, Tiara C Attending Clinician Unavailable Only, Adc Test Attending Clinician Unavailable JAISON ESPINOZA Attending Clinician Unavailable Therapist, Adc Respiratory Attending Clinician Unavailable Jaison Espinoza MD Attending Clinician Satish Krishnamurthy MD Attending Clinician Pob, Adc Lab Main Attending Clinician Unavailable Jairo Vides MD Attending Clinician JAIRO VIDES Attending Clinician Unavailable Lee Church DO Attending Clinician Lor DUNLAP, Trisha Montiel Attending Clinician Unavailable DIAN GRAYSON Attending Clinician Unavailable Kyle Damon MD Attending Clinician Jose Estrada MD Attending Clinician Dian Grayson MD Attending Clinician Ramez Anderson MD Attending Clinician MARCIA SORIA Attending Clinician Unavailable Marcia Baeza Attending Clinician Sav DUNLAP, Sallie Attending Clinician MORIAH QUILES Attending Clinician Unavailable Kwadwo FELIX, Moriah Thompson Attending Clinician Mariposa FELIX, Eddie Pryor Attending Clinician [phone] , [facility] Attending Clinician Unavailable ARLIN MUNOZ Attending Clinician Unavailable [id number] Admitting Clinician Unavailable LOIS GRAVES Admitting Clinician Unavailable Lois Graves DO Admitting Clinician DIAN GRAYSON Admitting Clinician Unavailable Dian Grayson MD Admitting Clinician MARCIA SORIA Admitting Clinician Unavailable MORIAH QUILES Admitting Clinician Unavailable Moriah Quiles MD Admitting Clinician Eddie Monge MD Admitting Clinician [phone] Payers Payer Name Policy Type Policy Number Effective Date Expiration Date S concepcion AETM AETM [id number] [employer]ET[employer] MEDICARE ADV [id number] 2020 00:00:00 Problems Condition Condition Condition Status Onset Resolution Last Treating Co mments Source Name Details Category Date Date Treatment Clinician Date Hemoptysis Hemoptysis Disease Active U nivers 1-29 ity of 00:00: [address] Post-op Post-op Disease Active Univers pain pain 8-28 ity of 00:00: [place] [facility] Allergies, Adverse Reactions, Alerts Allergy Allergy Status Severity Reaction(s) Onset Inactive Treating Comm ents Source Name Type Date Date Clinician AMLODIPI DRUG Active Dizziness Unive rs NE INGREDI 2- ity of 00:00: [place] [facility] CARVEDIL DRUG Active SOB Univers OL INGREDI 2-13 ity of 00:00: [place] [facility] CLONIDIN DRUG Active Swelling 2017-0 Univer s E INGREDI 2-13 ity of 00:00: [place] 00 [facility] LISINOPR DRUG Active Hives Univers IL INGREDI 2-13 ity of 00:00: [place] 00 [facility] Amlodipi Propensi Active Dizziness Uni vers ne ty to 2-13 ity of adverse 00:00: [place] reaction 00 Medical s Branch Carvedil Propensi Active Shortness of Univers ol ty to Breath 2-13 ity of adverse 00:00: [place] reaction 00 Medical s Branch Clonidin Propensi Active Swelling Univ ers e ty to 2-13 ity of adverse 00:00: [place] reaction 00 Medical s Branch Lisinopr Propensi Active Hives Univer s il ty to 2-13 ity of adverse 00:00: [place] reaction 00 Medical s Branch CLONIDIN Allergy Active [facility] CARVEDIL Allergy Active High Sob [facility] LISINOPR Allergy Active High [facility] Social History Social Habit Start Date Stop Date Quantity Comments Source History of tobacco Cigarette Smoker University of use [facility] Branch History SDOH University o f Alcohol Binge [place] [facility] Exposure to 2021-12-19 2021-12-29 Not sure [facility] SARS-CoV-2 (event) 00:00:00 09:58:00 [facility] Cigarettes smoked 2021-12-29 2021-12-29 Univers ity of current (pack per 00:00:00 00:00:00 [place] ) - Reported Branch Tobacco use and 2021-12-29 2021-12-29 Smokeless Universit y of exposure 00:00:00 00:00:00 tobacco non-user [facility] dical Branch Alcohol intake 2021-12-29 2021-12-29 Current drinker Unive rsity of 00:00:00 00:00:00 of alcohol [place] [facility] (finding) [facility] Tobacco Comment 2021-12-29 2021-12-29 1/2 a pack a day Uni versity of 00:00:00 00:00:00 [facility] Branch History SDOH 2020-05-07 2020-05-07 5 University o f Financial 00:00:00 00:00:00 [place] [facility] History SDUT Food 2020-05-07 2020-05-07 1 Univers ity of Worry 00:00:00 00:00:00 [place] [facility] History SDOH Food 2020-05-07 2020-05-07 1 Univers ity of Scarcity 00:00:00 00:00:00 [place] [facility] History [facility] 2020-05-07 2020-05-07 2 University o f Transport Med 00:00:00 00:00:00 [place] [facility] History [facility] 2020-05-07 2020-05-07 2 University o f Transport Non-Med 00:00:00 00:00:00 [place] M edical [facility] History [facility] 2018-12-02 2018-12-02 3 University o f Alcohol Frequency 00:00:00 00:00:00 [facility] edical Branch History [facility] 2018-12-02 2018-12-02 1 University o f Alcohol Std Drinks 00:00:00 00:00:00 [facility] Alcohol Comment 2018-12-02 2018-12-02 1-2 mixed drinks Uni versity of 00:00:00 00:00:00 on weekends [facility] Sex [birth year] Universit y of 00:00:00 00:00:00 [facility] Smoking Status Start Date Stop Date Source Smokes tobacco daily 2021-12-29 00:00:00 Univers ity of [facility] Medications Ordered Filled Start Stop Current Ordering Indication Dosage Frequency Signature Comments Components Source Medication Medication Date Date Medication? Clinician (SIG) Name Name liothyronin Yes 5ug Take 5 mcg Univers e 5 mcg 08 by mouth 2 ity of tablet 11:23: (two) [place] 10 times Medical daily. Branch levothyroxi Yes Take by Uni vers ne 200 mcg 08 mouth. ity of Cap 11:23: [place] 10 Medical Branch amLODIPine Yes 5mg Take 5 mg Un yvonne 5 mg tablet 08 by mouth 2 it y of 11:23: (two) [place] 10 times Medical daily. Branch aspirin 81 Yes 81mg Take 81 mg U nivers mg chewable 08 by mouth ity of tablet 11:23: daily. [place] 10 Medical Branch methocarbam Yes 500mg Take 500 U nivers oL 500 mg 9-08 mg by ity of tablet 11:23: mouth as [place] 10 needed. Medical Branch ferrous Yes 325mg Take 325 Unive rs sulfate 325 9-08 mg by ity of mg (65 mg 11:23: mouth [place] iron) 10 daily. Medical tablet Branch glucosamine Yes Take by Uni vers /chondro rowan 9-08 mouth 2 ity o f A/C/Mn 11:23: (two) [place] (GLUCOSAMIN 10 times Medical E-CHONDROIT daily. Branch IN COMPLX ORAL) cyanocobala Yes 5000ug Take 5,000 Univers min, 9-08 mcg by ity of vitamin 11:23: mouth [place] B-12, 10 daily. Medical (VITAMIN Branch B-12 ORAL) Cholecalcif Yes Take by Uni vers jerardo, 9-08 mouth ity of Vitamin D3, 11:23: [place]. [place] 125 [place] 10 Medical (5,000 Branch unit) tablet Zinc 50 mg Yes Take by Univ ers Tab 9-08 mouth ity of 11:23: daily. [place] 10 Medical Branch liothyronin Yes 5ug Take 5 mcg Univers e 5 mcg 9-08 by mouth 2 ity of tablet 11:23: (two) [place] 10 times Medical daily. Branch levothyroxi Yes Take by Uni vers ne 200 mcg 9-08 mouth. ity of Cap 11:23: [place] 10 Medical Branch amLODIPine Yes 5mg Take 5 mg Un yvonne 5 mg tablet 908 by mouth 2 it y of 11:23: (two) [place] 10 times Medical daily. Branch aspirin 81 Yes 81mg Take 81 mg U nivers mg chewable 9-08 by mouth ity of tablet 11:23: daily. [place] 10 Medical Branch methocarbam Yes 500mg Take 500 U nivers oL 500 mg 9-08 mg by ity of tablet 11:23: mouth as [place] 10 needed. Medical Branch ferrous Yes 325mg Take 325 Unive rs sulfate 325 9-08 mg by ity of mg (65 mg 11:23: mouth [place] iron) 10 daily. Medical tablet Branch glucosamine Yes Take by Uni vers /chondro rowan - mouth 2 ity o f A/C/Mn 11:23: (two) [place] (GLUCOSAMIN 10 times Medical E-CHONDROIT daily. Branch IN COMPLX ORAL) cyanocobala Yes 5000ug Take 5,000 Univers min, 9-08 mcg by ity of vitamin 11:23: mouth [place] B-12, 10 daily. Medical (VITAMIN Branch B-12 ORAL) Cholecalcif Yes Take by Uni vers jerardo, - mouth ity of Vitamin D3, 11:23: [place]. [place] 125 mcg 10 Medical (5,000 Branch unit) tablet Zinc 50 mg Yes Take by Univ ers Tab 9- mouth ity of 11:23: daily. [place] 10 Medical Branch liothyronin Yes 5ug Take 5 mcg Univers e 5 mcg 9-08 by mouth 2 ity of tablet 11:23: (two) [place] 10 times Medical daily. Branch levothyroxi Yes Take by Uni vers ne 200 mcg 9- mouth. ity of Cap 11:23: [place] [address] Medical Branch amLODIPine Yes 5mg Take 5 mg Un yvonne 5 mg tablet 08 by mouth 2 it y of 11:23: (two) [place] 10 times Medical daily. Branch aspirin 81 Yes 81mg Take 81 mg U nivers mg chewable 9-08 by mouth ity of tablet 11:23: daily. [place] 10 Medical Branch methocarbam Yes 500mg Take 500 U nivers oL 500 mg 9-08 mg by ity of tablet 11:23: mouth as [place] 10 needed. Medical Branch ferrous Yes 325mg Take 325 Unive rs sulfate 325 9-08 mg by ity of mg (65 mg 11:23: mouth [place] iron) 10 daily. Medical tablet Branch glucosamine Yes Take by Uni vers /chondro rowan - mouth 2 ity o f A/C/Mn 11:23: (two) [place] (GLUCOSAMIN 10 times Medical E-CHONDROIT daily. Branch IN COMPLX ORAL) cyanocobala Yes 5000ug Take 5,000 Univers min, 9-08 mcg by ity of vitamin 11:23: mouth [place] B-12, 10 daily. Medical (VITAMIN Branch B-12 ORAL) Cholecalcif 0 Yes Take by Uni vers jerardo, 9-08 mouth ity of Vitamin D3, 11:23: daily. [place] 125 mcg 10 Medical (5,000 Branch unit) tablet Zinc 50 mg Yes Take by Univ ers Tab 9-08 mouth ity of 11:23: daily. [place] [address] Medical Branch liothyronin 0 Yes 5ug Take 5 mcg Univers e 5 mcg 9-08 by mouth 2 ity of tablet 11:23: (two) [place] 10 times Medical daily. Branch levothyroxi Yes Take by Uni vers ne 200 mcg 9-08 mouth. ity of Cap 11:23: [place] [address] Medical Branch amLODIPine Yes 5mg Take 5 mg Un yvonne 5 mg tablet 12-15 by mouth 2 it y of 11:23: (two) [place] 10 times Medical daily. Branch aspirin 81 Yes 81mg Take 81 mg U nivers mg chewable 908 by mouth ity of tablet 11:23: daily. [place] [address] Medical Branch methocarbam Yes 500mg Take 500 U nivers oL 500 mg 9-08 mg by ity of tablet 11:23: mouth as [place] 10 needed. Medical Branch ferrous Yes 325mg Take 325 Unive rs sulfate 325 9-08 mg by ity of mg (65 mg 11:23: mouth [place] iron) 10 daily. Medical tablet Branch glucosamine Yes Take by Uni vers /chondro rowan 9- mouth 2 ity o f A/C/Mn 11:23: (two) [place] (GLUCOSAMIN 10 times Medical E-CHONDROIT daily. Branch IN COMPLX ORAL) cyanocobala 0 Yes 5000ug Take 5,000 Univers min, 9-08 mcg by ity of vitamin 11:23: mouth [place] B-12, 10 daily. Medical (VITAMIN Branch B-12 ORAL) Cholecalcif 0 Yes Take by Uni vers jerardo, 9-08 mouth ity of Vitamin D3, 11:23: daily. [place] 125 mcg 10 Medical (5,000 Branch unit) tablet Zinc 50 mg Yes Take by Univ ers Tab 9-08 mouth ity of 11:23: daily. [place] 10 Medical Branch liothyronin Yes 5ug Take 5 mcg Univers e 5 mcg 9-08 by mouth 2 ity of tablet 11:23: (two) [place] 10 times Medical daily. Branch levothyroxi Yes Take by Uni vers ne 200 mcg 9-08 mouth. ity of Cap 11:23: [place] 10 Medical Branch amLODIPine Yes 5mg Take 5 mg Un yvonne 5 mg tablet 9-08 by mouth 2 it y of 11:23: (two) [place] 10 times Medical daily. Branch aspirin 81 Yes 81mg Take 81 mg U nivers mg chewable 9-08 by mouth ity of tablet 11:23: daily. [place] [address] Medical Branch methocarbam Yes 500mg Take 500 U nivers oL 500 mg 9-08 mg by ity of tablet 11:23: mouth as [place] 10 needed. Medical Branch ferrous Yes 325mg Take 325 Unive rs sulfate 325 9-08 mg by ity of mg (65 mg 11:23: mouth [place] iron) 10 daily. Medical tablet Branch glucosamine Yes Take by Uni vers /chondro rowan 9-08 mouth 2 ity o f A/C/Mn 11:23: (two) [place] (GLUCOSAMIN 10 times Medical E-CHONDROIT daily. Branch IN COMPLX ORAL) cyanocobala Yes 5000ug Take 5,000 Univers min, 9-08 mcg by ity of vitamin 11:23: mouth [place] B-12, 10 daily. Medical (VITAMIN Branch B-12 ORAL) Cholecalcif Yes Take by Uni vers jerardo, 9-08 mouth ity of Vitamin D3, 11:23: daily. [place] 125 mcg 10 Medical (5,000 Branch unit) tablet Zinc 50 mg Yes Take by Univ ers Tab 9-08 mouth ity of 11:23: daily. [place] [address] Medical Branch liothyronin Yes 5ug Take 5 mcg Univers e 5 mcg 9-08 by mouth 2 ity of tablet 11:23: (two) [place] 10 times Medical daily. Branch levothyroxi Yes Take by Uni vers ne 200 mcg 9-08 mouth. ity of Cap 11:23: [place] [address] Medical Branch amLODIPine 2022-0 Yes 5mg Take 5 mg Un yvonne 5 mg tablet 9-08 by mouth 2 it y of 11:23: (two) [place] 10 times Medical daily. Branch aspirin 81 Yes 81mg Take 81 mg U nivers mg chewable 9-08 by mouth ity of tablet 11:23: daily. [place] 10 Medical Branch methocarbam 0 Yes 500mg Take 500 U nivers oL 500 mg 9-08 mg by ity of tablet 11:23: mouth as [place] 10 needed. Medical Branch ferrous Yes 325mg Take 325 Unive rs sulfate 325 9-08 mg by ity of mg (65 mg 11:23: mouth [place] iron) 10 daily. Medical tablet Branch glucosamine Yes Take by Uni vers /chondro rowan 9-08 mouth 2 ity o f A/C/Mn 11:23: (two) [place] (GLUCOSAMIN 10 times Medical E-CHONDROIT daily. Branch IN COMPLX ORAL) cyanocobala Yes 5000ug Take 5,000 Univers min, 9-08 mcg by ity of vitamin 11:23: mouth [place] B-12, 10 daily. Medical (VITAMIN Branch B-12 ORAL) Cholecalcif Yes Take by Uni vers jerardo, 9-08 mouth ity of Vitamin D3, 11:23: daily. [place] 125 mcg 10 Medical (5,000 Branch unit) tablet Zinc 50 mg Yes Take by Univ ers Tab 9-08 mouth ity of 11:23: daily. [place] 10 Medical Branch liothyronin Yes 5ug Take 5 mcg Univers e 5 mcg 908 by mouth 2 ity of tablet 11:23: (two) [place] 10 times Medical daily. Branch levothyroxi Yes Take by Uni vers ne 200 mcg 9-08 mouth. ity of Cap 11:23: [place] 10 Medical Branch amLODIPine Yes 5mg Take 5 mg Un yvonne 5 mg tablet 9-08 by mouth 2 it y of 11:23: (two) [place] 10 times Medical daily. Branch aspirin 81 0 Yes 81mg Take 81 mg U nivers mg chewable 9-08 by mouth ity of tablet 11:23: daily. [place] 10 Medical Branch methocarbam Yes 500mg Take 500 U nivers oL 500 mg 9-08 mg by ity of tablet 11:23: mouth as [place] 10 needed. Medical Branch ferrous Yes 325mg Take 325 Unive rs sulfate 325 9-08 mg by ity of mg (65 mg 11:23: mouth [place] iron) 10 daily. Medical tablet Branch glucosamine Yes Take by Uni vers /chondro rowan 9-08 mouth 2 ity o f A/C/Mn 11:23: (two) [place] (GLUCOSAMIN 10 times Medical E-CHONDROIT daily. Branch IN COMPLX ORAL) cyanocobala Yes 5000ug Take 5,000 Univers min, 9-08 mcg by ity of vitamin 11:23: mouth [place] B-12, 10 daily. Medical (VITAMIN Branch B-12 ORAL) Cholecalcif Yes Take by Uni vers jerardo, 9-08 mouth ity of Vitamin D3, 11:23: daily. [place] 125 mcg 10 Medical (5,000 Branch unit) tablet Zinc 50 mg Yes Take by Univ ers Tab 9-08 mouth ity of 11:23: daily. [place] 10 Medical Branch liothyronin Yes 5ug Take 5 mcg Univers e 5 mcg 9-08 by mouth 2 ity of tablet 11:23: (two) [place] 10 times Medical daily. Branch levothyroxi Yes Take by Uni vers ne 200 mcg 9-08 mouth. ity of Cap 11:23: [place] 10 Medical Branch amLODIPine Yes 5mg Take 5 mg Un yvonne 5 mg tablet 08 by mouth 2 it y of 11:23: (two) [place] 10 times Medical daily. Branch aspirin 81 0 Yes 81mg Take 81 mg U nivers mg chewable 9-08 by mouth ity of tablet 11:23: daily. [place] 10 Medical Branch methocarbam 0 Yes 500mg Take 500 U nivers oL 500 mg 9-08 mg by ity of tablet 11:23: mouth as [place] 10 needed. Medical Branch ferrous Yes 325mg Take 325 Unive rs sulfate 325 9-08 mg by ity of mg (65 mg 11:23: mouth [place] iron) 10 daily. Medical tablet Branch glucosamine Yes Take by Uni vers /chondro rowan 9-08 mouth 2 ity o f A/C/Mn 11:23: (two) [place] (GLUCOSAMIN 10 times Medical E-CHONDROIT daily. Branch IN COMPLX ORAL) cyanocobala Yes 5000ug Take 5,000 Univers min, 9-08 mcg by ity of vitamin 11:23: mouth [place] B-12, 10 daily. Medical (VITAMIN Branch B-12 ORAL) Cholecalcif Yes Take by Uni vers jerardo, 9-08 mouth ity of Vitamin D3, 11:23: daily. [place] 125 mcg 10 Medical (5,000 Branch unit) tablet Zinc 50 mg Yes Take by Univ ers Tab 9-08 mouth ity of 11:23: daily. [place] [address] Medical Branch liothyronin Yes 5ug Take 5 mcg Univers e 5 mcg 9-08 by mouth 2 ity of tablet 11:23: (two) [place] 10 times Medical daily. Branch levothyroxi Yes Take by Uni vers ne 200 mcg 9-08 mouth. ity of Cap 11:23: [place] [address] Medical Branch amLODIPine Yes 5mg Take 5 mg Un yvonne 5 mg tablet 08 by mouth 2 it y of 11:23: (two) [place] 10 times Medical daily. Branch aspirin 81 Yes 81mg Take 81 mg U nivers mg chewable 908 by mouth ity of tablet 11:23: daily. [place] [address] Medical Branch methocarbam Yes 500mg Take 500 U nivers oL 500 mg 9-08 mg by ity of tablet 11:23: mouth as [place] 10 needed. Medical Branch ferrous Yes 325mg Take 325 Unive rs sulfate 325 9-08 mg by ity of mg (65 mg 11:23: mouth [place] iron) 10 daily. Medical tablet Branch glucosamine Yes Take by Uni vers /chondro rowan 9-08 mouth 2 ity o f A/C/Mn 11:23: (two) [place] (GLUCOSAMIN 10 times Medical E-CHONDROIT daily. Branch IN COMPLX ORAL) cyanocobala Yes 5000ug Take 5,000 Univers min, 9-08 mcg by ity of vitamin 11:23: mouth [place] B-12, 10 daily. Medical (VITAMIN Branch B-12 ORAL) Cholecalcif 0 Yes Take by Uni vers jerardo, 9-08 mouth ity of Vitamin D3, 11:23: daily. [place] 125 mcg 10 Medical (5,000 Branch unit) tablet Zinc 50 mg Yes Take by [facility] ers Tab 9 mouth ity of 11:23: daily. [place] 10 Medical Branch doxycycline 2021- Yes [id number] 100mg Take 1 Univers monohydrate 12-15 tablet by it y of 100 mg 00:00: 04:59 mouth in [place] tablet 00 :00 the Medical morning Branch and 1 tablet in the evening. Do all this for 7 days. doxycycline 2021- Yes [id number] 100mg Take 1 Univers monohydrate 12-15 tablet by it y of 100 mg 00:00: 04:59 mouth in [place] tablet 00 :00 the Medical morning Branch and 1 tablet in the evening. Do all this for 7 days. predniSONE 2021- Yes [id number] 20mg Take 1 Univers 20 mg 12-15 tablet by ity of tablet 00:00: 04:59 mouth in [place] 00 :00 the Medical morning Branch for 5 days. predniSONE 2021- Yes [id number] 20mg Take 1 Univers 20 mg 12-15 tablet by ity of tablet 00:00: 04:59 mouth in [place] 00 :00 the Medical morning Branch for 5 days. OPTICHAMBER Yes USE WITH Un yvonne DERREK LG 8-29 SYMBICORT ity of MASK Spcr 00:00: Medical Branch OPTICHAMBER 0 Yes USE WITH Un yvonne DERREK LG 8-29 SYMBICORT ity of MASK Spcr 00:00: Medical Branch OPTICHAMBER 0 Yes USE WITH Un yvonne DERREK LG 8-29 SYMBICORT ity of MASK Spcr 00:00: Medical Branch OPTICHAMBER 0 Yes USE WITH Un yvonne DERREK LG 8-29 SYMBICORT ity of MASK Spcr 00:00: Medical Branch OPTICHAMBER 0 Yes USE WITH Un yvonne DERREK LG 8-29 SYMBICORT ity of MASK Spcr 00:00: Medical Branch OPTICHAMBER 0 Yes USE WITH Un yvonne DERREK LG 8-29 SYMBICORT ity of MASK Spcr 00:00: 00 Medical Branch OPTICHAMBER 0 Yes USE WITH Un yvonne DERREK LG 8-29 SYMBICORT ity of MASK Spcr 00:00: 00 Medical Branch rosuvastati 2021-0 Yes TAKE 1 Univ ers n 5 mg 8-10 TABLET BY ity of tablet 00:00: MOUTH 1 TIME A Medical WEEK Branch rosuvastati 2021-0 Yes TAKE 1 Univ ers n 5 mg 8-10 TABLET BY ity of tablet 00:00: MOUTH 1 TIME A Medical WEEK Branch rosuvastati 2021-0 Yes TAKE 1 Univ ers n 5 mg 8-10 TABLET BY ity of tablet 00:00: MOUTH 1 TIME A Medical WEEK Branch rosuvastati Yes TAKE 1 Univ ers n 5 mg 8-10 TABLET BY ity of tablet 00:00: MOUTH 1 TIME A Medical WEEK Branch rosuvastati 0 Yes TAKE 1 Univ ers n 5 mg 8-10 TABLET BY ity of tablet 00:00: MOUTH 1 TIME A Medical WEEK Branch rosuvastati 0 Yes TAKE 1 Univ ers n 5 mg 8-10 TABLET BY ity of tablet 00:00: MOUTH 1 TIME A Medical WEEK Branch rosuvastati 0 Yes TAKE 1 Univ ers n 5 mg 8-10 TABLET BY ity of tablet 00:00: MOUTH 1 TIME A Medical WEEK Branch QUEtiapine 0 Yes 25mg Take 25 mg U nivers (SEROQUEL) 6-16 by mouth ity o f 25 mg 11:15: at [place] tablet 43 bedtime. Medical Branch QUEtiapine 0 Yes 25mg Take 25 mg U nivers (SEROQUEL) 6-16 by mouth ity o f 25 mg 11:15: at [place] tablet 43 bedtime. Medical Branch QUEtiapine 2021-0 Yes 25mg Take 25 mg U nivers (SEROQUEL) 6-16 by mouth ity o f 25 mg 11:15: at [place] tablet 43 bedtime. Medical Branch QUEtiapine 0 Yes 25mg Take 25 mg U nivers (SEROQUEL) 6-16 by mouth ity o f 25 mg 11:15: at [place] tablet 43 bedtime. Medical Branch QUEtiapine 2022-0 Yes 25mg Take 25 mg U nivers (SEROQUEL) 6-16 by mouth ity o f 25 mg 11:15: at [place] tablet 43 bedtime. Medical Branch QUEtiapine 0 Yes 25mg Take 25 mg U nivers (SEROQUEL) 6-16 by mouth ity o f 25 mg 11:15: at [place] tablet 43 bedtime. Medical Branch QUEtiapine 0 Yes 25mg Take 25 mg U nivers (SEROQUEL) 6-16 by mouth ity o f 25 mg 11:15: at [place] tablet 43 bedtime. Medical Branch QUEtiapine 0 Yes 25mg Take 25 mg U nivers (SEROQUEL) 6-16 by mouth ity o f 25 mg 11:15: at [place] tablet 43 bedtime. Medical Branch QUEtiapine Yes 25mg Take 25 mg U nivers (SEROQUEL) 6-16 by mouth ity o f 25 mg 11:15: at [place] tablet 43 bedtime. Medical Branch albuterol Yes [id number] 2{puff} Inhale 2 Univers 90 6-16 Puffs ity of mcg/actuati 00:00: every 6 [place] as on inhaler 00 (six) Medical hours as Branch needed for Wheezing or Shortness of Breath. albuterol Yes [id number] 2{puff} Inhale 2 Univers 90 6-16 Puffs ity of mcg/actuati 00:00: every 6 [place] on inhaler 00 (six) Medical hours as Branch needed for Wheezing or Shortness of Breath. albuterol Yes [id number] 2{puff} Inhale 2 Univers 90 6-16 Puffs ity of mcg/actuati 00:00: every 6 [place] on inhaler 00 (six) Medical hours as Branch needed for Wheezing or Shortness of Breath. albuterol Yes [id number] 2{puff} Inhale 2 Univers 90 6-16 Puffs ity of mcg/actuati 00:00: every 6 [place] on inhaler 00 (six) Medical hours as Branch needed for Wheezing or Shortness of Breath. albuterol Yes [id number] 2{puff} Inhale 2 Univers 90 6-16 Puffs ity of mcg/actuati 00:00: every 6 [place] on inhaler 00 (six) Medical hours as Branch needed for Wheezing or Shortness of Breath. albuterol Yes [id number] 2{puff} Inhale 2 Univers 90 6-16 Puffs ity of mcg/actuati 00:00: every 6 [place] as on inhaler 00 (six) Medical hours as Branch needed for Wheezing or Shortness of Breath. albuterol Yes [id number] 2{puff} Inhale 2 Univers 90 6-16 Puffs ity of mcg/actuati 00:00: every 6 [place] on inhaler 00 (six) Medical hours as Branch needed for Wheezing or Shortness of Breath. albuterol Yes [id number] 2{puff} Inhale 2 Univers 90 6-16 Puffs ity of mcg/actuati 00:00: every 6 [place] on inhaler 00 (six) Medical hours as Branch needed for Wheezing or Shortness of Breath. albuterol Yes [id number] 2{puff} Inhale 2 Univers 90 6-16 Puffs ity of mcg/actuati 00:00: every 6 [place] on inhaler 00 (six) Medical hours as Branch needed for Wheezing or Shortness of Breath. atorvastati Yes [id number] 40mg Take 1 Univers n 40 mg 3-18 tablet by ity of tablet 00:00: mouth at [place] [address] bedtime. Medical Branch atorvastati Yes [id number] 40mg Take 1 Univers n 40 mg 3-18 tablet by ity of tablet 00:00: mouth at [place] [address] bedtime. Medical Branch atorvastati Yes [id number] 40mg Take 1 Univers n 40 mg 3-18 tablet by ity of tablet 00:00: mouth at [place] [address] bedtime. Medical Branch atorvastati Yes [id number] 40mg Take 1 Univers n 40 mg 3-18 tablet by ity of tablet 00:00: mouth at [place] [address] bedtime. Medical Branch atorvastati Yes [id number] 40mg Take 1 Univers n 40 mg 3-18 tablet by ity of tablet 00:00: mouth at [place] [address] bedtime. Medical Branch atorvastati Yes [id number] 40mg Take 1 Univers n 40 mg 3-18 tablet by ity of tablet 00:00: mouth at [place] 00 bedtime. Medical Branch atorvastati 0 Yes [id number] 40mg Take 1 Univers n 40 mg 3-18 tablet by ity of tablet 00:00: mouth at [place] [address] bedtime. Medical Branch atorvastati 0 Yes [id number] 40mg Take 1 Univers n 40 mg 3-18 tablet by ity of tablet 00:00: mouth at [place] [address] bedtime. Medical Branch atorvastati 0 Yes [id number] 40mg Take 1 Univers n 40 mg 3-18 tablet by ity of tablet 00:00: mouth at [place] [address] bedtime. Medical Branch fluticasone Yes 1{puff} Inhale 1 Univers -umeclidin- 2-10 Puff ity of vilanter 00:00: daily. [place] ([address]) Branch 100-62.5-25 mcg DsDv albuterol Yes [id number] 2{puff} Inhale 2 Univers 90 2-10 Puffs ity of mcg/actuati 00:00: every 6 [place] as on inhaler 00 (six) Medical hours as Branch needed for Wheezing or Shortness of Breath. fluticasone Yes 1{puff} Inhale 1 Univers -umeclidin- 2-10 Puff ity of vilanter 00:00: daily. [place] ([address]) Branch 100-62.5-25 mcg DsDv albuterol Yes [id number] 2{puff} Inhale 2 Univers 90 2-10 Puffs ity of mcg/actuati 00:00: every 6 [place] as on inhaler 00 (six) Medical hours as Branch needed for Wheezing or Shortness of Breath. fluticasone 0 Yes 1{puff} Inhale 1 Univers -umeclidin- 2-10 Puff ity of vilanter 00:00: daily. [place] [facility] Branch 100-62.5-25 mcg DsDv albuterol 0 Yes [id number] 2{puff} Inhale 2 Univers 90 2-10 Puffs ity of mcg/actuati 00:00: every 6 [place] as on inhaler 00 (six) Medical hours as Branch needed for Wheezing or Shortness of Breath. fluticasone 202-0 Yes 1{puff} Inhale 1 Univers -umeclidin- 2-10 Puff ity of vilanter 00:00: daily. [address]) Branch 100-62.5-25 mcg DsDv albuterol 202-0 Yes [id number] 2{puff} Inhale 2 Univers 90 2-10 Puffs ity of mcg/actuati 00:00: every 6 [place] as on inhaler 00 (six) Medical hours as Branch needed for Wheezing or Shortness of Breath. fluticasone 2021-0 Yes 1{puff} Inhale 1 Univers -umeclidin- 2-10 Puff ity of vilanter 00:00: daily. [place] ([address]) Branch 100-62.5-25 mcg DsDv albuterol 2021-0 Yes [id number] 2{puff} Inhale 2 Univers 90 2-10 Puffs ity of mcg/actuati 00:00: every 6 [place] as on inhaler 00 (six) Medical hours as Branch needed for Wheezing or Shortness of Breath. fluticasone 2021-0 Yes 1{puff} Inhale 1 Univers -umeclidin- 2-10 Puff ity of vilanter 00:00: daily. [place] ([address]) Branch 100-62.5-25 mcg DsDv albuterol 2021-0 Yes [id number] 2{puff} Inhale 2 Univers 90 2-10 Puffs ity of mcg/actuati 00:00: every 6 [place] as on inhaler 00 (six) Medical hours as Branch needed for Wheezing or Shortness of Breath. fluticasone 2021-0 Yes 1{puff} Inhale 1 Univers -umeclidin- 2-10 Puff ity of vilanter 00:00: daily. [place] ([address]) Branch 100-62.5-25 mcg DsDv albuterol 202-0 Yes [id number] 2{puff} Inhale 2 Univers 90 2-10 Puffs ity of mcg/actuati 00:00: every 6 [place] as on inhaler 00 (six) Medical hours as Branch needed for Wheezing or Shortness of Breath. fluticasone Yes 1{puff} Inhale 1 Univers -umeclidin- 2-10 Puff ity of vilanter 00:00: daily. [place] ([facility] 00 Medical ELLIPTA) Branch 100-62.5-25 mcg DsDv albuterol Yes [id number] 2{puff} Inhale 2 Univers 90 2-10 Puffs ity of mcg/actuati 00:00: every 6 [place] as on inhaler 00 (six) Medical hours as Branch needed for Wheezing or Shortness of Breath. fluticasone Yes 1{puff} Inhale 1 Univers -umeclidin- 2-10 Puff ity of vilanter 00:00: daily. [place] (TRELEGY 00 Medical ELLIPTA) Branch 100-62.5-25 mcg DsDv albuterol Yes [id number] 2{puff} Inhale 2 Univers 90 2-10 Puffs ity of mcg/actuati 00:00: every 6 [place] as on inhaler 00 (six) Medical hours as Branch needed for Wheezing or Shortness of Breath. albuterol 2020-04 Yes [id number] 2.5mg Inhale 3 Univers 2.5 mg /3 1-05 mL every 4 ity of mL (0.083 00:00: (four) [place] %) 00 hours as Medical nebulizer needed for Bran ch solution Wheezing or Shortness of Breath. albuterol 2020-04 Yes [id number] 2.5mg Inhale 3 Univers 2.5 mg /3 1-05 mL every 4 ity of mL (0.083 00:00: (four) [place] %) 00 hours as Medical nebulizer needed for Bran ch solution Wheezing or Shortness of Breath. albuterol 2020-04 Yes [id number] 2.5mg Inhale 3 Univers 2.5 mg /3 1-05 mL every 4 ity of mL (0.083 00:00: (four) [place] %) 00 hours as Medical nebulizer needed for Bran ch solution Wheezing or Shortness of Breath. albuterol 2020-04 Yes [id number] 2.5mg Inhale 3 Univers 2.5 mg /3 1-05 mL every 4 ity of mL (0.083 00:00: (four) [place] %) 00 hours as Medical nebulizer needed for Bran ch solution Wheezing or Shortness of Breath. albuterol 2020-04 Yes [id number] 2.5mg Inhale 3 Univers 2.5 mg /3 1-05 mL every 4 ity of mL (0.083 00:00: (four) [place] %) 00 hours as Medical nebulizer needed for Bran ch solution Wheezing or Shortness of Breath. albuterol 2020-04 Yes [id number] 2.5mg Inhale 3 Univers 2.5 mg /3 1-05 mL every 4 ity of mL (0.083 00:00: (four) [place] %) 00 hours as Medical nebulizer needed for Bran ch solution Wheezing or Shortness of Breath. albuterol 2020-04 Yes [id number] 2.5mg Inhale 3 Univers 2.5 mg /3 1-05 mL every 4 ity of mL (0.083 00:00: (four) [place] %) 00 hours as Medical nebulizer needed for Bran ch solution Wheezing or Shortness of Breath. albuterol 2020-04 Yes [id number] 2.5mg Inhale 3 Univers 2.5 mg /3 1-05 mL every 4 ity of mL (0.083 00:00: (four) [place] %) 00 hours as Medical nebulizer needed for Bran ch solution Wheezing or Shortness of Breath. albuterol 2020-04 Yes [id number] 2.5mg Inhale 3 Univers 2.5 mg /3 1-05 mL every 4 ity of mL (0.083 00:00: (four) [place] %) 00 hours as Medical nebulizer needed for Bran ch solution Wheezing or Shortness of Breath. omeprazole 2020-0 Yes [id number] 40mg Take 1 U nivers 40 mg 2-03 capsule by ity of capsule 00:00: mouth [place] 00 daily. Medical Branch omeprazole 2020-0 Yes [id number] 40mg Take 1 U nivers 40 mg 2-03 capsule by ity of capsule 00:00: mouth [place] 00 daily. Medical Branch omeprazole 2020-0 Yes [id number] 40mg Take 1 U nivers 40 mg 2-03 capsule by ity of capsule 00:00: mouth [place] 00 daily. Medical Branch omeprazole 2020-0 Yes [id number] 40mg Take 1 U nivers 40 mg 2-03 capsule by ity of capsule 00:00: mouth 00 daily. Medical Branch omeprazole 2020-0 Yes [id number] 40mg Take 1 U nivers 40 mg 2-03 capsule by ity of capsule 00:00: mouth 00 daily. Medical Branch omeprazole 2020-0 Yes [id number] 40mg Take 1 U nivers 40 mg 2-03 capsule by ity of capsule 00:00: mouth 00 daily. Medical Branch omeprazole 2020-0 Yes [id number] 40mg Take 1 U nivers 40 mg 2-03 capsule by ity of capsule 00:00: mouth 00 daily. Medical Branch omeprazole 0 Yes [id number] 40mg Take 1 U nivers 40 mg 2-03 capsule by ity of capsule 00:00: mouth 00 daily. Medical Branch omeprazole 0 Yes [id number] 40mg Take 1 U nivers 40 mg 2-03 capsule by ity of capsule 00:00: mouth 00 daily. Medical Branch melatonin 3 0 Yes [id number] 3mg Take 1 Univers mg tablet 2-02 tablet by ity o f 00:00: mouth at bedtime. Medical Branch metoprolol 0 Yes [id number] 50mg Take 1 U nivers tartrate 50 2-02 tablet by ity of mg tablet 00:00: mouth (two) Medical times Branch daily. melatonin 3 2020-0 Yes [id number] 3mg Take 1 Univers mg tablet 2-02 tablet by ity o f 00:00: mouth at bedtime. Medical Branch metoprolol 2020-0 Yes [id number] 50mg Take 1 U nivers tartrate 50 2-02 tablet by ity of mg tablet 00:00: mouth (two) Medical times Branch daily. melatonin 3 2020-0 Yes [id number] 3mg Take 1 Univers mg tablet 2-02 tablet by ity o f 00:00: mouth at 00 bedtime. Medical Branch metoprolol 2020-0 Yes [id number] 50mg Take 1 U nivers tartrate 50 2-02 tablet by ity of mg tablet 00:00: mouth (two) Medical times Branch daily. melatonin 3 2020-0 Yes [id number] 3mg Take 1 Univers mg tablet 2-02 tablet by ity o f 00:00: mouth at bedtime. Medical Branch metoprolol 2020- Yes [id number] 50mg Take 1 U nivers tartrate 50 2-02 tablet by ity of mg tablet 00:00: mouth 2 (two) Medical times Branch daily. melatonin 3 2020- Yes [id number] 3mg Take 1 Univers mg tablet 2-02 tablet by ity o f 00:00: mouth at [place] bedtime. Medical Branch metoprolol Yes [id number] 50mg Take 1 U nivers tartrate 50 2-02 tablet by ity of mg tablet 00:00: mouth 2 (two) Medical times Branch daily. melatonin 3 Yes [id number] 3mg Take 1 Univers mg tablet 2-02 tablet by ity o f 00:00: mouth at [place] bedtime. Medical Branch metoprolol Yes [id number] 50mg Take 1 U nivers tartrate 50 2-02 tablet by ity of mg tablet 00:00: mouth 2 (two) Medical times Branch daily. melatonin 3 Yes [id number] 3mg Take 1 Univers mg tablet 2-02 tablet by ity o f 00:00: mouth at [place] bedtime. Medical Branch metoprolol Yes [id number] 50mg Take 1 U nivers tartrate 50 2-02 tablet by ity of mg tablet 00:00: mouth 2 (two) Medical times Branch daily. melatonin 3 Yes [id number] 3mg Take 1 Univers mg tablet 2-02 tablet by ity o f 00:00: mouth at [place] bedtime. Medical Branch metoprolol 2020- Yes [id number] 50mg Take 1 U nivers tartrate 50 2-02 tablet by ity of mg tablet 00:00: mouth 2 (two) Medical times Branch daily. melatonin 3 2020- Yes [id number] 3mg Take 1 Univers mg tablet 2-02 tablet by ity o f 00:00: mouth at [place] bedtime. Medical Branch metoprolol 2020- Yes [id number] 50mg Take 1 U nivers tartrate 50 2-02 tablet by ity of mg tablet 00:00: mouth 2 [place] [address] (two) Medical [facility] daily. Immunizations Ordered Filled Immunization Date Status Comments [facility] e Immunization Name Name Influenza High Dose 2016-01-19 Completed Unive rsity of 00:00:00 [facility] Influenza High Dose 2016-01-19 Completed Unive rsity of 00:00:00 [facility] Influenza High Dose 2016-01-19 Completed Unive rsity of 00:00:00 [facility] Influenza High Dose 2016-01-19 Completed Unive rsity of 00:00:00 [facility] Influenza High Dose 2016-01-19 Completed Unive rsity of 00:00:00 [facility] Influenza High Dose 2016-01-19 Completed Unive rsity of 00:00:00 [facility] Influenza High Dose 2016-01-19 Completed Unive rsity of 00:00:00 [facility] Influenza High Dose 2016-01-19 Completed Unive rsity of 00:00:00 [facility] Influenza High Dose 2016-01-19 Completed Unive rsity of 00:00:00 [facility] Pneumococcal 13 2015-04-22 Completed Universit y of Conjugate, PCV13 00:00:00 [place] Me [facility]ical (Prevnar 13) Branch Pneumococcal 13 2015-04-22 Completed Universit y of Conjugate, PCV13 00:00:00 [place] [facility] (Prevnar 13) Branch Pneumococcal 13 2015-04-22 Completed Universit y of Conjugate, PCV13 00:00:00 [place] [facility] (Prevnar 13) Branch Pneumococcal 13 2015-04-22 Completed Universit y of Conjugate, PCV13 00:00:00 [place] [facility] (Prevnar 13) Branch Pneumococcal 13 2015-04-22 Completed Universit y of Conjugate, PCV13 00:00:00 [place] [facility] (Prevnar 13) Branch Pneumococcal 13 2015-04-22 Completed Universit y of Conjugate, PCV13 00:00:00 [place] [facility] (Prevnar 13) Branch Pneumococcal 13 2015-04-22 Completed Universit y of Conjugate, PCV13 00:00:00 [place] [facility] (Prevnar 13) Branch Pneumococcal 13 2015-04-22 Completed Universit y of Conjugate, PCV13 00:00:00 [place] [facility] (Prevnar 13) Branch Pneumococcal 13 2015-04-22 Completed Universit y of Conjugate, PCV13 00:00:00 [place] [facility] (Prevnar 13) Branch Influenza High Dose 2014-11-30 Completed Unive rsity of 00:00:00 [facility] Influenza High Dose 2014-11-30 Completed Unive rsity of 00:00:00 [facility] Influenza High Dose 2014-11-30 Completed Unive rsity of 00:00:00 [facility] Influenza High Dose 2014-11-30 Completed Unive rsity of 00:00:00 [facility] Influenza High Dose 2014-11-30 Completed Unive rsity of 00:00:00 [facility] Influenza High Dose 2014-11-30 Completed Unive rsity of 00:00:00 [facility] Influenza High Dose 2014-11-30 Completed Unive rsity of 00:00:00 [facility] Influenza High Dose 2014-11-30 Completed Unive rsity of 00:00:00 [facility] Influenza High Dose 2014-11-30 Completed Unive rsity of 00:00:00 [facility] Influenza High Dose 2013-12-11 Completed Unive rsity of 00:00:00 [facility] Influenza High Dose 2013-12-11 Completed Unive rsity of 00:00:00 [facility] Influenza High Dose 2013-12-11 Completed Unive rsity of 00:00:00 [facility] Influenza High Dose 2013-12-11 Completed Unive rsity of 00:00:00 [facility] Influenza High Dose 2013-12-11 Completed Unive rsity of 00:00:00 [facility] Influenza High Dose 2013-12-11 Completed Unive rsity of 00:00:00 [facility] Influenza High Dose 2013-12-11 Completed Unive rsity of 00:00:00 [facility] Influenza High Dose 2013-12-11 Completed Unive rsity of 00:00:00 [facility] Influenza High Dose 2013-12-11 Completed Unive rsity of 00:00:00 [facility] Influenza High Dose 2013-01-01 Completed Unive rsity of 00:00:00 [facility] TDAP 2013-01-01 Completed University of 00:00:00 [facility] Influenza High Dose 2013-01-01 Completed Unive rsity of 00:00:00 [facility] TDAP 2013-01-01 Completed University of 00:00:00 [facility] Influenza High Dose 2013-01-01 Completed Unive rsity of 00:00:00 [facility] TDAP 2013-01-01 Completed University of 00:00:00 [facility] Influenza High Dose 2013-01-01 Completed Unive rsity of 00:00:00 [facility] TDAP 2013-01-01 Completed University of 00:00:00 [facility] Influenza High Dose 2013-01-01 Completed Unive rsity of 00:00:00 [facility] TDAP 2013-01-01 Completed University of 00:00:00 [facility] Influenza High Dose 2013-01-01 Completed Unive rsity of 00:00:00 [facility] TDAP 2013-01-01 Completed University of 00:00:00 [facility] Influenza High Dose 2013-01-01 Completed Unive rsity of 00:00:00 [facility] TDAP 2013-01-01 Completed University of 00:00:00 [facility] Influenza High Dose 2013-01-01 [facility] 00:[facility]:00 [facility] Influenza High Dose 2013-01-01 Completed Unive rsity of 00:00:00 [facility] TDAP 2013-01-01 Completed University of 00:00:00 [facility] Influenza High Dose 2011-12-26 Completed Unive rsity of 00:00:00 [facility] Influenza High Dose 2011-12-26 Completed Unive rsity of 00:00:00 [facility] Influenza High Dose 2011-12-26 Completed Unive rsity of 00:00:00 [facility] Influenza High Dose 2011-12-26 Completed Unive rsity of 00:00:00 [facility] Influenza High Dose 2011-12-26 Completed Unive rsity of 00:00:00 [facility] Influenza High Dose 2011-12-26 Completed Unive rsity of 00:00:00 [facility] Influenza High Dose 2011-12-26 Completed Unive rsity of 00:00:00 [facility] Influenza High Dose 2011-12-26 Completed Unive rsity of 00:00:00 [facility] Influenza High Dose 2011-12-26 Completed Unive rsity of 00:00:00 [facility] Influenza High Dose 2011-01-04 Completed Unive rsity of 00:00:00 [facility] Pneumococcal 2011-01-04 Completed University o f Polysaccharide, 00:00:00 [place] Med ical PPSV23 (PNEUMOVAX) Branch Influenza High Dose 2011-01-04 Completed Unive rsity of 00:00:00 [facility] Pneumococcal 2011-01-04 Completed University o f Polysaccharide, 00:00:00 [place] Med ical PPSV23 (PNEUMOVAX) Branch Influenza High Dose 2011-01-04 Completed Unive rsity of 00:00:00 [facility] Pneumococcal 2011-01-04 Completed University o f Polysaccharide, 00:00:00 [place] Med ical PPSV23 (PNEUMOVAX) Branch Influenza High Dose 2011-01-04 Completed Unive rsity of 00:00:00 [facility] Pneumococcal 2011-01-04 Completed University o f Polysaccharide, 00:00:00 [place] Med ical PPSV23 (PNEUMOVAX) Branch Influenza High Dose 2011-01-04 Completed Unive rsity of 00:00:00 [facility] Pneumococcal 2011-01-04 Completed University o f Polysaccharide, 00:00:00 [place] Med ical PPSV23 (PNEUMOVAX) Branch Influenza High Dose 2011-01-04 Completed Unive rsity of 00:00:00 [facility] Pneumococcal 2011-01-04 Completed University o f Polysaccharide, 00:00:00 [place] Med ical PPSV23 (PNEUMOVAX) Branch Influenza High Dose 2011-01-04 Completed Unive rsity of 00:00:00 [facility] Pneumococcal 2011-01-04 Completed University o f Polysaccharide, 00:00:00 [place] Med ical PPSV23 (PNEUMOVAX) Branch Influenza High Dose 2011-01-04 Completed Unive rsity of 00:00:00 [facility] Pneumococcal 2011-01-04 Completed University o f Polysaccharide, 00:00:00 [place] Med ical PPSV23 (PNEUMOVAX) Branch Influenza High Dose 2011-01-04 Completed Unive rsity of 00:00:00 [facility] Pneumococcal 2011-01-04 Completed University o f Polysaccharide, 00:00:00 [place] Med ical PPSV23 (PNEUMOVAX) Branch Influenza Virus 2009-12-22 Completed Universit y of Vaccine Quad IM 00:00:00 [place] Med ical Multi-dose 6+ MO Branch Influenza Virus 2009-12-22 Completed Universit y of Vaccine Quad IM 00:00:00 [place] Med ical Multi-dose 6+ MO Branch Influenza Virus 2009-12-22 Completed Universit y of Vaccine Quad IM 00:00:00 [place] Med ical Multi-dose 6+ MO Branch Influenza Virus 2009-12-22 Completed Universit y of Vaccine Quad IM 00:00:00 [place] Med ical Multi-dose 6+ MO Branch Influenza Virus 2009-12-22 Completed Universit y of Vaccine Quad IM 00:00:00 [place] Med ical Multi-dose 6+ MO Branch Influenza Virus 2009-12-22 Completed Universit y of Vaccine Quad IM 00:00:00 [place] Med ical Multi-dose 6+ MO Branch Influenza Virus 2009-12-22 Completed Universit y of Vaccine Quad IM 00:00:00 [place] Med ical Multi-dose 6+ MO Branch Influenza Virus 2009-12-22 Completed Universit y of Vaccine Quad IM 00:00:00 [place] Med ical Multi-dose 6+ MO Branch Influenza Virus 2009-12-22 Completed Universit y of Vaccine Quad IM 00:00:00 [place] Med ical Multi-dose 6+ MO Branch Influenza Virus 2009-01-06 Completed Universit y of Vaccine Quad IM 00:00:00 [place] Med ical Multi-dose 6+ MO Branch Influenza Virus 2009-01-06 Completed Universit y of Vaccine Quad IM 00:00:00 [place] Med ical Multi-dose 6+ MO Branch Influenza Virus 2009-01-06 Completed Universit y of Vaccine Quad IM 00:00:00 [place] Med ical Multi-dose 6+ MO Branch Influenza Virus 2009-01-06 Completed Universit y of Vaccine Quad IM 00:00:00 [place] Med ical Multi-dose 6+ MO Branch Influenza Virus 2009-01-06 Completed Universit y of Vaccine Quad IM 00:00:00 [place] Med ical Multi-dose 6+ MO Branch Influenza Virus 2009-01-06 Completed Universit y of Vaccine Quad IM 00:00:00 [place] Med ical Multi-dose 6+ MO Branch Influenza Virus 2009-01-06 Completed Universit y of Vaccine Quad IM 00:00:00 [place] Med ical Multi-dose 6+ MO Branch Influenza Virus 2009-01-06 Completed Universit y of Vaccine Quad IM 00:00:00 [place] Med ical Multi-dose 6+ MO Branch Influenza Virus 2009-01-06 Completed Universit y of Vaccine Quad IM 00:00:00 [place] [facility] Multi-dose 6+ MO Branch Zoster(Zostavax)( 2008-09-15 Completed Unive rsity of ingles) 00:00:00 [facility] Zoster(Zostavax)( 2008-09-15 Completed Unive rsity of ingles) 00:00:00 [facility] Zoster(Zostavax)( 2008-09-15 Completed Unive rsity of ingles) 00:00:00 [facility] Zoster(Zostavax)( 2008-09-15 Completed Unive rsity of ingles) 00:00:00 [facility] Zoster(Zostavax)( 2008-09-15 Completed Unive rsity of ingles) 00:00:00 [facility] Zoster(Zostavax)( 2008-09-15 Completed Unive rsity of ingles) 00:00:00 [facility] Zoster(Zostavax)( 2008-09-15 Completed Unive rsity of ingles) 00:00:00 [facility] Zoster(Zostavax)( 2008-09-15 Completed Unive rsity of ingles) 00:00:00 [facility] Zoster(Zostavax)( 2008-09-15 Completed Unive rsity of ingles) 00:00:00 [facility] Vital Signs Vital Name Observation Time Observation Value Comments Source Systolic blood 2021-12-29 16:20:00 149 mm[Hg] Univer sity of pressure [facility] Diastolic blood 2021-12-29 16:20:00 84 mm[Hg] Unive rsity of pressure [facility] Heart rate 2021-12-29 16:20:00 66 /min [facility] Oxygen saturation in 2021-12-29 16:20:00 92 /min [facility] Arterial blood by [facility] Pulse oximetry Branch Respiratory rate 2021-12-29 16:19:00 22 /[facility] [place] [facility] Body height 2021-12-29 16:19:00 154.9 cm [facility] Body weight 2021-12-29 16:19:00 69.128 kg [facility] BMI 2021-12-29 16:19:00 28.80 kg/m2 [facility] Systolic blood 2021-12-15 16:27:00 108 mm[Hg] Univer sity of pressure [facility] Diastolic blood 2021-12-15 16:27:00 69 mm[Hg] Unive rsity of pressure [facility] Heart rate 2021-12-15 16:27:00 67 /min [facility] Respiratory rate 2021-12-15 16:27:00 18 /min [facility] [place] [facility] Body height 2021-12-15 16:27:00 154.9 cm [facility] Body weight 2021-12-15 16:27:00 68.085 kg [facility] BMI 2021-12-15 16:27:00 28.36 kg/m2 [facility] Oxygen saturation in 2021-12-15 16:27:00 90 /min [facility] Arterial blood by [facility] Pulse oximetry Branch Procedures Procedure Date / Time Performing Clinician Source Performed AUTHORIZATION FOR 2021-12-26 05:01:00 [facility] PH[facility]ICIAN ORDERS 2021-12-15 05:01:00 [facility] Encounter Admission Attending Care Care Encounter Source Date/Time Date/Time Type Type Clinicians Facility Department ID 2021-11-04 Outpatient 3 [id number] [facility] CVA [id number] [facility] 10:21:12 [facility] [place] [facility] 2021-10-26 Outpatient 3 [id number] [facility] CVA [id number] [facility] 09:51:59 [facility] [place] 2021-10-24 Outpatient 3 [id number] [facility] REF [id number] [facility] 10:37:23 [facility] [place] 2021-10-21 Outpatient 3 [id number] [facility] REF [id number] [facility] 12:44:25 [facility]15 [facility] [place] 2021-05-05 Outpatient STLMLC ST[facility] [id number] Common 08:39:04 [facility] 2021-05-04 Outpatient STLMLC STLMLC [id number] Common 14:25:11 [id number] [facility] 2021-02-06 Outpatient LOIS GRAVES [facility] [id number] Univers 00:36:46 GRAVES LOIS it y of [facility] 2021-02-05 [facility] [id number] Univers 23:24:30 GRAVES LOIS gayatri y of [facility] 2022-01-26 2022-01-26 Outpatient R OCTAVIANO GRAVESClifford [facility] [id number] Univers 11:00:00 11:00:00 LOIS GRAVES i ty of [facility] 2022-01-23 2022-01-23 Outpatient R OCTAVIANO GRAVESClifford [facility] [id number] Univers 11:00:00 11:00:00 LOIS GRAVES i ty of [facility] 2022-01-23 2022-01-23 Outpatient R OCTAVIANO GRAVESClifford [facility] [id number] Univers 11:00:00 11:00:00 LOIS GRAVES i ty of [facility] 2021-12-29 2021-12-29 Office Alo [email or web address] [id number] Univers 10:30:00 11:00:00 Visit Lois JARRELL [id number] i ty of [place] [id number] [place] [id number] Az dical NAL 085 [facility] 2021-12-29 2021-12-29 Outpatient R OCTAVIANO GRAVESClifford [facility] [id number] Univers 10:30:00 10:30:00 LOIS GRAVES i ty of [facility] 2021-12-27 2021-12-27 Telephone Alo [facility] [[email or web address]] 1.2.537.123 [id number] Univers 00:00:00 00:00:00 Lois JARRELL 350.1.13.10 i ty of [place] [phone] Az dical NAL 085 [facility] 2021-12-26 2021-12-26 Orders Doctor WERNER 1.2.840.114 [id number] Univers 00:00:00 00:00:00 Only Unassigned, JANA 350.1.13.10 ity of [place] [facility] 4.2.7.2.686 [place] as [phone] [address] 2021-12-22 2021-12-22 Telephone Alo [facility] [[email or web address]] 1.2.292.650 [id number] Univers 00:00:00 00:00:00 Octavianon WESLY 350.1.13.10 i ty of [place] [phone] Az dic[address] 2021-12-15 2021-12-15 Outpatient R LOIS GRAVES [facility] 10 [id number] Univers 11:00:00 11:54:32 LOIS GRAVES i ty of [facility] 2021-12-15 2021-12-15 Office Alo [facility] [[email or web address]] 1.2.840.114 [id number] Univers 11:00:00 11:54:32 Visit Lois JARRELL 350.1.13.10 i ty [place] [phone] [address] 2021-12-15 2021-12-15 Orders Doctor ALPHONSO 1.2.840.114 [id number] Univers 00:00:00 00:00:00 Only Unassigned, JANA 350.1.13.10 ity of [place] [facility] 4.2.7.2.686 [place] as [phone] [address] 2021-11-24 2021-11-24 [facility] 1.2.044.442 [id number] Univers 00:00:00 00:00:00 Lois JARRELL 350.1.13.10 i ty of [place] [id number] [address] 2021-11-17 2021-11-17 [facility] 1.2.623.696 [id number] Univers 00:00:00 00:00:00 Octavianon WESLY 350.1.13.10 i ty of [place] [id number] [address] 2021-11-07 2021-11-07 [facility] 1.2.034.883 [id number] Univers 00:00:00 00:00:00 Shiwan [place] 350.1.13.10 i ty of [place] 4[place] [phone] [address] 2021-10-25 2021-10-25 [facility] 1.2.915.743 [id number] Univers 00:00:00 00:00:00 Shiwan [place] 350.1.13.10 i ty of [place] [phone] [address] 2021-10-20 2021-10-20 [facility] 1.2.865.379 [id number] Univers 00:00:00 00:00:00 Shiwan [place] 350.1.13.10 i ty [place] [id number] [address] 2021-10-19 2021-10-19 [facility] 1.2.901.600 [id number] Univers 00:00:00 00:00:00 Shiwan [place] 350.1.13.10 i ty of [place] [id number] [address] 2021-10-11 2021-10-11 [facility] 1.2.886.201 [id number] Univers 00:00:00 00:00:00 Shiwan [place] 350.1.13.10 i ty [place] [id number] [address] 2021-09-22 2021-09-22 Outpatient R LOIS GRAVES [facility] 10 [id number] Univers 11:00:00 11:57:19 LOIS GRAVES i ty of [facility] 2021-09-22 2021-09-22 Office Alo [facility] [[email or web address]] 1.2.840.114 [id number] Univers 11:00:00 11:57:19 Visit Octavianoclifford WESLY 350.1.13.10 i ty [place] [phone] Az dical NAL 085 [facility] 2021-09-22 2021-09-22 Telephone [facility] 1.2.730.531 [id number] Univers 00:00:00 00:00:00 Lois JARRELL 350.1.13.10 i ty [place] [phone] Az dical NAL 085 [facility] 2021-09-22 2021-09-22 Orders Doctor ALPHONSO 1.2.840.114 [id number] Univers 00:00:00 00:00:00 Only Unassigned, JANA 350.1.13.10 ity of [place] [facility] 4.2.7.2.686 [place] as [phone] [address] 2021-06-28 2021-06-28 Patient [facility] 1.2.840.114 [id number] Univers 00:00:00 00:00:00 Secure Msg Sonia JARRELL 350.1.13.10 ity of [place] [id number] Az dicnj NAL 9 [facility] 2021-06-23 2021-06-23 Orders Doctor ALPHONSO 1.2.840.114 [id number] Univers 00:00:00 00:00:00 Only Unassigned, JANA 350.1.13.10 ity of [place] [facility] 4.2.7.2.686 [place] as [phone] [address] 2021-06-23 2021-06-23 Telephone [facility] 1.2.979.722 [id number] [id number] Univers 00:00:00 00:00:00 Sonia JARRELL 350.1.13.10 ity of [place] [phone] Az dicnj NAL 059 [facility] 2021-06-22 2021-06-22 Outpatient [facility] [id number] Univers 10:00:00 10:00:00 SONIA oh o f [facility] 2021-06-22 2021-06-22 Outpatient R THADDEUS [facility] [id number] Univers 07:50:17 07:51:00 SONIA mendietay o f [facility] 2021-06-21 2021-06-21 Telephone [facility] 1.2.738.492 [id number] Univers 00:00:00 00:00:00 Tiara C [place] 350.1.13.10 i ty [place] [phone] Az dical NAL 296 [facility] 2021-06-16 2021-06-16 Telephone [facility] 1.2.056.725 [id number] 4734 Univers 00:00:00 00:00:00 Tiara C [place] 350.1.13.10 i ty [place] [id number] Az dical NAL 296 [facility] 2021-06-10 2021-06-10 [facility] 1.2.840.114 [id number] Univers 00:00:00 00:00:00 Secure Msg Qiaadajun [place] 350.1.13.10 ity of [place] [phone] Az dical NAL 059 [facility] 2021-06-09 2021-06-09 [facility]phone [facility] 1.2.627.514 [id number] 8702 Univers 00:00:00 00:00:00 Lois [place] 350.1.13.10 i ty of [place] [phone] Az dical NAL 085 [facility] 2021-06-08 2021-06-08 Telephone [facility] 1.2.040.649 [id number] Univers 00:00:00 00:00:00 Qiangjun [place] 350.1.13.10 ity of [place] [phone] Az dical NAL 059 [facility] 2021-06-07 2021-06-07 [facility] 1.2.840.[id number] [place] [address] 07:54:13 23:59:00 Encounter Sonia [place] 350.1.13.10 ity of [place] 4.2.7.2.686 [facility] [phone] [address] 2021-06-07 2021-06-07 [facility] 1.2.840.114 [id number] [facility] Univers 07:53:50 07:53:50 Encounter Qiangjeannine [place] 350.1.13.10 ity of [place] 4.2.7.2.686 [facility] [id number] [address] 2021-06-07 2021-06-07 [facility] 1.2.840.[id number] [place] [address] 07:53:27 07:53:27 Encounter Qiangjun [place] 350.1.13.10 ity of [place] 4.2.7.2.686 [facility] [id number] [address] 2021-06-07 2021-06-07 Outpatient [facility] [id number] Univers 07:53:04 07:53:04 SONIA mendietay o f [facility] 2021-06-07 2021-06-07 [facility] 1.2.840.[id number] [place] [address] 07:53:04 07:53:04 Encounter Janineadajeannine [place] 350.1.13.10 ity of [place] 4.2.7.2.686 [facility] [id number] [address] 2021-06-03 2021-06-03 Outpatient R [facility] [id number] Univers 08:30:00 08:30:00 SONIA mendietay o f [facility] 2021-06-02 2021-06-02 Telephone [facility] 1.2.990.312 [id number] Univers 00:00:00 00:00:00 Tiara [place] 350.1.13.10 i ty of [place] 4.2.7.2.686 [facility] PROFESSIO [phone] Az dical NAL 296 [facility] 2021-05-23 2021-05-23 Orders Doctor ALPHONSO 1.2.840.114 [id number] Univers 00:00:00 00:00:00 Only Unassigned, JANA 350.1.13.10 ity of [place] [facility] 4.2.7.2.686 [place] as [phone] [address] 2021-05-19 2021-05-19 Outpatient R [facility] [id number] Univers 11:40:00 12:03:28 SONIA mendietay o [facility] 2021-05-19 2021-05-19 Office [facility] 1.2.840.114 [id number] Univers 11:40:00 12:03:28 Visit Sonia JARRELL 350.1.13.10 ity [facility] [place].2.[place] [phone] Az dical NAL 059 [facility] 2021-05-19 2021-05-19 Outpatient R [facility] [id number] Univers 11:40:00 12:03:28 SONIA mendietay o [facility] 2021-05-19 2021-05-19 [facility] [id number] Univers 11:40:00 12:03:28 SONIA mendietay o [facility] 2021-05-19 2021-05-19 Office [facility] 1.2.840.114 [id number] Univers 11:40:00 12:03:28 Visit Sonia JARRELL 350.1.13.10 ity [facility] [place] [phone] Az dical NAL [address] [place] [address] 2021-05-19 2021-05-19 Outpatient R LOIS GRAVES [facility] 10 [id number] Univers 11:00:00 11:09:42 LOIS GRAVES i ty [facility] 2021-05-19 2021-05-19 Office [facility] 1.2.840.114 [id number] Univers 11:00:00 11:09:42 Visit Lois JARRELL 350.1.13.10 i ty [place] [id number] Az dicnj NAL [address] [place] [address] 2021-05-19 2021-05-19 Outpatient R LOIS GRAVES [facility] 10 [id number] Univers 11:00:00 11:00:00 LOIS GRAVES i ty of [facility] 2021-04-26 2021-04-26 [facility]phone [facility] 1.2.054.901 [id number] Univers 00:00:00 00:00:00 Shijesús [place] 350.1.13.10 i ty [place] [id number] [address] 2021-04-13 2021-04-13 [facility]phone [facility] 1.2.629.560 [id number] Univers 00:00:00 00:00:00 Shijesús [place] 350.1.13.10 i ty [facility] 4.2.7.2.[place] [phone] [address] 2021-02-11 2021-02-11 Outpatient R LOIS GRAVES [facility] 10 [id number] Univers 11:00:00 11:28:43 LOIS GRAVES i ty of [facility] 2021-02-11 2021-02-11 Office [facility] 1.2.840.114 [id number] Univers 10:54:36 11:28:43 Visit Lois JARRELL 350.1.13.10 i ty [place] [phone] [address] 2020-12-30 2020-12-30 Telephone Paulo Lawrence [facility] [[email or web address]] 1.2.840.114 [id number] Univers 00:00:00 00:00:00 Test [place] 350.1.13.10 i ty of [place].2.[place] [id number] [address] 2020-12-20 2020-12-20 Outpatient R OLGA [facility] [id number] Univers 10:00:00 10:00:00 JAISON ity of [facility] 2020-12-20 2020-12-20 Brush Head Maker Therapist, [facility] Respiratory [facility] [[email or web address]] 1.2.840.114 [id number] Univers 09:42:32 09:57:32 Visit Jaison Espinoza 350.1.13. 10 ity of [place] [phone] [facility] [address] [place] 2020-12-20 2020-12-20 Orders ESTIVEN Graves 1.2.121.456 [id number] Univers 00:00:00 00:00:00 Only [facility] 350.1.13.10 i ty of [place].2.[place] [phone] [facility] [address] [place] 2020-12-17 2020-12-17 Outpatient R [facility] [id number] [facility] 14:45:00 14:45:00 ity [facility] 2020-12-17 2020-12-17 Laboratory Only, [facility] Test [facility] [[email or web address]] 1.2.840. 114 [id number] [facility] 12:58:28 13:13:28 Only Yessy Satish [place] 350.1.13.10 ity of [place] 4.2.7.2.686 [facility] s [place] [phone] [facility] [address] [place] 2020-11-10 2020-11-10 Telephone Alo [facility] [[email or web address]] 1.2.289.100 [id number] Univers 00:00:00 00:00:00 Lois Jarrell 350.1.13.10 i ty of [place] [phone] Az dical nal [address] [place] [address] 2020-11-05 2020-11-05 Office Alo [facility] [[email or web address]] 1.2.840.114 [id number] Univers 15:24:38 16:01:16 Visit Lois Jarrell 350.1.13.10 i ty of [place] [phone] Az dical nal [address] [place] [address] 2020-11-05 2020-11-05 Outpatient R LIOS GRAVES [facility] 10 [id number] Univers 15:00:00 15:00:00 LOIS GRAVES i ty of [facility] 2020-11-05 2020-11-05 Orders Doctor ALPHONSO 1.2.840.114 [id number] Univers 00:00:00 00:00:00 Only Unassigned, JANA 350.1.13.10 ity of [place] [facility]PITAL 4.2.7.2.686 [place] as [phone] [address] 2020-11-01 2020-11-01 Telephone [facility] 1.2.830.901 [id number] Univers 00:00:00 00:00:00 Lois Jarrell 350.1.13.10 i ty of [place] [phone] Az dical nal 085 [facility] 2020-10-21 2020-10-21 Brush Head Maker Alie, [facility] Lab Main [facility] [[email or web address]] 1.2.8 40.114 [id number] Univers 10:09:49 10:24:49 Visit Jairo Vides [place] 350.1.13.1 0 ity of [place]2.[place] [id number] Az dical nal 353 [facility] 2020-10-21 2020-10-21 Outpatient R MAHOGANY [facility] [id number] Univers 10:15:00 10:15:00 JAIRO ity of [facility] 2020-10-21 2020-10-21 Orders Doctor ALPHONSO 1.2.840.114 [id number] Univers 00:00:00 00:00:00 Only Unassigned, JANA 350.1.13.10 ity of [place] [facility]OSPITAL 4.2.7.2.686 [place] as [phone] [address] 2020-09-16 2020-09-16 Outpatient R LOIS GRAVES [facility] 10 [id number] Univers 10:00:00 10:00:00 LOIS GRAVES i ty of [facility] 2020-09-12 2020-09-12 Telephone [facility] 1.2.165.735 [id number] Univers 00:00:00 00:00:00 Lois Jarrell 350.1.13.10 i ty [place] [phone] [place] 290165 [facility] 2020-06-11 2020-06-11 Office Alo [facility] [[email or web address]] 1.2.840.114 [id number] Univers 10:31:19 11:02:13 Visit Lois Jarrell 350.1.13.10 i ty of [place] [id number] [address] 2020-06-11 2020-06-11 Outpatient R LOIS GRAVES [facility] 10 [id number] Univers 10:00:00 10:00:00 LOIS GRAVES i ty of [facility] 2020-06-07 2020-06-07 Patient [facility] 1.2.840.114 [id number] Univers 00:00:00 00:00:00 Outreach Lee [facility] 350.1.13.10 i ty of [facility] 4.2.7.2.[place] [phone] [facility] [address] [place] 2020-06-02 2020-06-02 Hospital [facility] 1.2.840.114 [id number] Univers 06:39:00 11:15:00 Encounter [facility] Health 350.1.13.10 ity of [place].2.686 [place] [phone] [address] ([facility]) 2020-05-31 2020-05-31 Telephone ESTIVEN Graves 1.2.840.114 [id number] Univers 00:00:00 00:00:00 [facility] HEALTH 350.1.13.10 i ty of [place].2.[place] [id number] [place] 696064 [place] 2020-05-28 2020-05-28 Transition Samanta Horowitz 1.2.840.114 [id number] Univers 00:00:00 00:00:00 of Care Trisha Muñiz 350.1.13.10 i ty of [place].2.[place] [phone] [facility] [address] 2020-05-25 2020-05-26 Outpatient X [facility] [place] [id number] Univers 10:54:00 17:10:00 [place] ity [facility] 2020-05-25 2020-05-26 Hospital Kyle Damon 1.2.840.1 14 [id number] Univers 10:54:00 17:10:00 Encounter Joes Estrada 350.1.13.10 ity of [facility] 4.2.7.2.686 [place] [phone] [facility] [address] [place] 2020-05-21 2020-05-21 Office Alo [facility] [[email or web address]] 1.2.840.114 [id number] Univers 12:55:38 14:17:20 Visit Lois Jarrell 350.1.13.10 i ty of [place] [phone] Az dicnj nal [address] [place] [address] 2020-05-21 2020-05-21 Outpatient R LOIS GRAVES [facility] 10 [id number] Univers 13:40:00 13:40:00 LOIS GRAVES i ty of [facility] 2020-05-21 2020-05-21 Orders Doctor ALPHONSO 1.2.840.114 [id number] Univers 00:00:00 00:00:00 Only Unassigned, JANA 350.1.13.10 ity of [place] [facility] 4.2.7.2.686 [place] as [phone] [facility] [address] 2020-05-21 2020-05-21 Telephone Alo INJACLYN 1.2.403.159 [id number] Univers 00:00:00 00:00:00 Lois Jarrell 350.1.13.10 i ty of [place] [phone] Az dical nal 085 [facility] 2020-05-20 2020-05-20 Telephone Justin [facility] [[email or web address]] 1.2.840.114 [id number] Univers 00:00:00 00:00:00 Ramez PRIMARY 350.1.13.10 it y of [place] [phone] Az dical [address] 2020-05-13 2020-05-13 Emergency X SORIA [facility] [[email or web address]] ERT [id number] Univers 10:53:00 16:25:00 MARCIA ity of [facility] 2020-05-13 2020-05-13 Emergency [facility] 1.2.856.149 [id number] Univers 10:53:00 16:25:00 Marcia S [place] 350.1.13.10 i ty of [place] [phone] [facility] [address] 2020-05-12 2020-05-12 Transition Samanta Ang 1.2.840.114 [id number] Univers 00:00:00 00:00:00 of Care Sallie Muñiz 350.1.13.10 it y [place] [phone] [facility] [address] 2020-05-07 2020-05-11 Inpatient X [facility] [place] [id number] Univers 08:38:00 17:30:00 ity of [facility] 2020-05-07 2020-05-11 [facility] Kyle Damon 1.2.840.1 14 [id number] Univers 08:38:00 17:30:00 Encounter Kyle Damon 350.1.13.10 ity of [facility] 4.2.7.2.686 [place] [id number] [facility] [address] 2018-12-06 2018-12-06 Transition Samanta Horowitz 1.2.840.114 [id number] Univers 00:00:00 00:00:00 of Care Trisha Muñiz 350.1.13.10 i ty [place] [id number] [facility] [address] 2018-12-06 2018-12-06 Transition Samanta Horowitz 1.2.840.114 [id number] 00:00:00 00:00:00 of Care Trisha Muñiz 350.1.13.10 [place] 4.2.7.2.686 [id number] [facility] 2018-12-04 2018-12-05 [facility] 1.2.840.114 [id number] [facility] 06:07:00 13:55:00 Encounter Eddie Jarrell 350.1.13.10 ity of [place] 4.2.7.2.686 [facility] [phone] [facility] [address] [place] 2018-12-04 2018-12-05 [facility] 1.2.840.114 [id number] 06:07:00 13:55:00 Encounter Eddie Jarrell 350.1.13.10 [place] 4.2.7.2.686 [place] [phone] [facility] 2018-12-02 2018-12-02 Brush Head Maker 1, Adc Lab [facility] [[email or web address]] 1.2.840.114 [id number] [facility] 12:38:21 12:53:21 Visit Eddie Monge 350.1. 13.10 ity of [place] 4.2.7.2.686 [facility] [id number] [facility] [address] 2018-12-02 2018-12-02 Brush Head Maker 1, Adc Lab [facility] [[email or web address]] 1.2.840.114 [id number] 12:38:21 12:53:21 Visit Wesly 350.1.13.10 [place] 4.2.7.2.686 [place] [phone] 353 2014-11-30 2014-11-30 Outpatient ARLIN MUNOZ [id number] Janay 10:15:00 10:15:00 Paras dc Results This patient has no known results.
--- NOTE | 2022-01-23 14:39 | RAD REPORT ---
EXAM DESCRIPTION: RAD - Chest Single View - 01/23/2022 2:32 pm CLINICAL HISTORY: COUGH Chest pain. COMPARISON: Chest Single View dated 01/11/2021; Chest Single View dated 01/04/2021; Chest Pa And Lat ( 2 Views) dated 02/25/2020; Chest Single View dated 07/31/2019 FINDINGS: Portable technique limits examination quality. The lungs are grossly clear. The heart is normal in size. No displaced fractures.Left-sided chest pos tsurgical changes. IMPRESSION: No acute intrathoracic process suspected.
[2022-01-23 14:53] LABS: Absolute Lymphocytes (CBC) 3.5 K/uL (0.7-4.9); Hematocrit 46.6 % (36.0-45.0); Lymphocytes % 41.1 % (15.3-44.8); MCV 89.3 fL (80-100); MPV 10.5 fL (7.6-11.3); RBC Red Blood Cell Count 5.22 M/uL (3.86-4.86)
[2022-01-23 15:03] LABS: Protime INR 0.98
[2022-01-23 15:11] LABS: SARS-CoV-2 Antigen Rapid Res Negative (Negative)
[2022-01-23] MEDS ORDERED: CEFTRIAXONE 1000 MG/VIAL ONE (15:13)
[2022-01-23 15:15] LABS: Albumin 3.7 g/dL (3.4-5.0); Bilirubin Total 0.3 mg/dL (0.2-1.0); Potassium 3.7 mmol/L (3.5-5.1); Protein, Total 7.3 g/dL (6.4-8.2)
--- NOTE | 2022-01-23 18:47 | EDPHYS ---
Physician Documentation [facility] Name: Yodit Mercedes Age: 76 yrs Sex: Female : 1945 Arrival Date: 01/23/2022 Time: 12:51 Bed 24 Private MD: Chandni Brownlee C ED Physician Jazmyn Johnson HPI: 01/23 13:57 This 76 yrs old Female presents to ER via Ambulatory with complaints of pneumonia. snw 13:57 The patient has shortness of breath at rest. Onset: The symptoms/episode began/occurred snw 2 day(s) ago, and became worse. Duration: The symptoms are continuous. The patient's shortness of breath is aggravated by coughing, exertion, talking. Associated signs and symptoms: Pertinent positives: productive cough. Severity of symptoms: At their worst the symptoms were moderate today. The patient has experienced similar episodes in the past, multiple times. The patient has been recently seen by a physician: the patient's primary care provider, Dr. Brownlee. just came home from [facility] on 01.16.22. Over the past three days she has had worsening sob, cough with green mucus, on O2 chronically. Went to Dr. Brownlee's office today and came for ER eval. Historical: - Allergies: 13:37 Lisinopril; vg1 13:37 Nifedipine; vg1 13:37 tramadol; vg1 - PMHx: 13:37 breast cancer; Cancer; COPD; Hypertension; Osteoporosis; THYROID CANCER; vg1 - Immunization history:: Client reports receiving the 2nd dose of the Covid vaccine. - Social history:: Smoking status: Patient/guardian denies using tobacco, Stopped _ months ago 1. ROS: 14:00 Eyes: Negative for injury, pain, redness, and discharge, ENT: Negative for injury, snw pain, and discharge, Neck: Negative for injury, pain, and swelling, Cardiovascular: Negative for chest pain, palpitations, and edema, Abdomen/GI: Negative for abdominal pain, nausea, vomiting, diarrhea, and constipation, Back: Negative for injury and pain, : Negative for injury, bleeding, discharge, and swelling, MS/Extremity: Negative for injury and deformity, Skin: Negative for injury, rash, and discoloration, Neuro: Negative for headache, weakness, numbness, tingling, and seizure. 14:00 Constitutional: Positive for body aches, malaise, poor PO intake, worsening cough and congestion and shortness of breath over the past three days. 14:00 Respiratory: Positive for cough, dyspnea on exertion, orthopnea, shortness of breath, wheezing. Exam: 13:56 Constitutional: This is a well developed, well nourished patient who is awake, alert, snw and in no acute distress. Head/Face: Normocephalic, atraumatic. Eyes: Pupils equal round and reactive to light, extra-ocular motions intact. Lids and lashes normal. Conjunctiva and sclera are non-icteric and not injected. Cornea within normal limits. Periorbital areas with no swelling, redness, or edema. ENT: Nares patent. No nasal discharge, no septal abnormalities noted. Tympanic membranes are normal and external auditory canals are clear. Oropharynx with no redness, swelling, or masses, exudates, or evidence of obstruction, uvula midline. Mucous membranes moist. Neck: Trachea midline, no thyromegaly or masses palpated, and no cervical lymphadenopathy. Supple, full range of motion without nuchal rigidity, or vertebral point tenderness. No Meningismus. Chest/axilla: Normal chest wall appearance and motion. Nontender with no deformity. No lesions are appreciated. Cardiovascular: Regular rate and rhythm with a normal S1 and S2. No gallops, murmurs, or rubs. Normal PMI, no JVD. No pulse deficits. 13:56 Abdomen/GI: Soft, non-tender, with normal bowel sounds. No distension or tympany. No guarding or rebound. No evidence of tenderness throughout. Back: No spinal tenderness. No costovertebral tenderness. Full range of motion. Skin: Warm, dry with normal turgor. Normal color with no rashes, no lesions, and no evidence of cellulitis. MS/ Extremity: Pulses equal, no cyanosis. Neurovascular intact. Full, normal range of motion. Neuro: Awake and alert, GCS 15, oriented to person, place, time, and situation. Cranial nerves II-XII grossly intact. Motor strength 5/5 in all extremities. Sensory grossly intact. Cerebellar exam normal. Normal gait. 13:56 Respiratory: mild respiratory distress is noted, Respirations: accessory muscle usage, shallow respirations, tachypnea, Breath sounds: decreased breath sounds, rhonchi. Vital Signs: 13:31 BP 156 / 76; Pulse 86; Resp 28; Temp 98.6(O); Pulse Ox 97% on 2 lpm NC; Weight 69.85 vg1 kg; Height 5 ft. 1 in. (154.94 cm); Pain 5/10; 15:18 BP 139 / 92; Pulse 88; Resp 28; Pulse Ox 99% ; ld1 15:57 BP 146 / 76; Pulse 84; Resp 28; Pulse Ox 99% on 2 lpm NC; ld1 17:10 BP 142 / 80; Pulse 82; Resp 24; Pulse Ox 98% on 2 lpm NC; ld1 17:54 BP 165 / 60; Pulse 82; Resp 18; Pulse Ox 98% on 2 lpm NC; ld1 19:07 BP 162 / 79; Pulse 82; Resp 25; Pulse Ox 98% on 2 lpm NC; ld1 13:31 Body Mass Index 29.10 (69.85 kg, 154.94 cm) vg1 MDM: 13:40 Patient medically screened. snw 14:00 Data reviewed: vital signs, nurses notes. Physician consultation: A Kem FELIX regarding snw consult, patient's condition, will call when results available. 01/23 13:47 Order name: Blood Culture Adult (2) snw 01/23 13:47 Order name: CBC with Diff; Complete Time: 15:01 snw 01/23 13:47 Order name: CMP; Complete Time: 15:19 snw 01/23 13:47 Order name: Lactate; Complete Time: 15:19 snw 01/23 13:47 Order name: Protime (+inr); Complete Time: 15:06 snw 01/23 13:47 Order name: Ptt, Activated; Complete Time: 15:06 snw 01/23 13:47 Order name: Chest Single View XRAY; Complete Time: 14:42 snw 01/23 13:47 Order name: Accucheck; Complete Time: 15:09 snw 01/23 13:47 Order name: Cardiac monitoring; Complete Time: 15:18 snw 01/23 13:47 Order name: EKG - Nurse/Tech; Complete Time: 14:49 snw 01/23 13:47 Order name: IV Saline Lock - Large Bore; Complete Time: 14:49 snw 01/23 14:02 Order name: SARS RAPID; Complete Time: 15:19 snw 01/23 15:09 Order name: Glucose, Ancillary Testing; Complete Time: 15:19 EDMS 01/23 13:47 Order name: Labs collected and sent; Complete Time: 14:49 snw 01/23 13:47 Order name: O2 Per Protocol; Complete Time: 15:09 snw 01/23 13:47 Order name: O2 Sat Monitoring; Complete Time: 15:09 snw 01/23 13:47 Order name: Vital Signs; Complete Time: 15:18 snw EC:15 Rate is 81 beats/min. Rhythm is regular. QRS [place] is Normal. NH interval is normal. QRS snw interval is normal. Clinical impression: NSR w/ Non-specific ST/T Changes. Administered Medications: 15:18 Drug: Rocephin (cefTRIAXone) 1 grams Route: IV; Rate: calculated rate; Site: right ld1 forearm; Disposition Summary: 01/23/22 18:47 Hospitalization Ordered Hospitalization Status: Inpatient Admission snw Provider: Chandni Brownlee Location: Telemetry/MedSurg (Inpatient) snw Condition: Stable snw Problem: new snw Symptoms: have improved snw Bed/Room Type: Standard snw Room Assignment: 212(01/23/22 19:46) cg Diagnosis - COPD/ Chronic obstructive pulmonary disease with (acute) exacerbation snw Forms: - Medication Reconciliation Form snw - SBAR form snw Addendum: 01/26/2022 03:43 STAFF ATTESTATION STATEMENT: I was immediately available onsite in the emergency s d2 department for consultation in the care of this patient. I did not see or examine this patient. Jazmyn Johnson MD. Signatures: Dispatcher [employer] EDMS Gina Us FNP-C AUTOMOBILE TECHNICIAN-Csnw Barbara Jones, RN Joellen Hinton RN RN amador1 Evonne Finch RN RN ld1 Jazmyn Johnson MD MD sd2 Corrections: (The following items were deleted from the chart) 01/23 19:46 18:47 snw cg
--- NOTE | 2022-01-23 18:47 | ER ---
Nurse's Notes [facility] Name: Yodit Mercedes Age: 76 yrs Sex: Female : 1945 Arrival Date: 01/23/2022 Time: 12:51 Bed 24 Private MD: Chandni Brownlee C Diagnosis: COPD/ Chronic obstructive pulmonary disease with (acute) exacerbation Presentation: 01/23 13:31 Chief complaint: Patient states: SOB/difficulty breathing since 01/19/22, states CP was vg1 seen at Dr Brownlee's office today and was told to come to ED to be checked for pneumonia. Coronavirus screen: Vaccine status: Patient reports receiving the 2nd dose of the covid vaccine. Client denies travel out of the [place] in the last 14 days. Ebola Screen: Patient negative for fever greater than or equal to 101.5 degrees Fahrenheit, and additional compatible Ebola Virus Disease symptoms Patient denies exposure to infectious person. Initial Sepsis Screen: Does the patient meet any 2 criteria? RR > 20 per min. Yes Does the patient have a suspected source of infection? No. Patient's initial sepsis screen is negative. Risk Assessment: Do you want to hurt yourself or someone else? Patient reports no desire to harm self or others. Onset of symptoms was January 23, 2022. 13:31 Method Of Arrival: Ambulatory [facility] 13:31 Acuity: SEN 3 vg1 Triage Assessment: 13:37 General: Appears uncomfortable, Behavior is cooperative. Pain: Complains of pain in vg1 chest Pain currently is 5 out of 10 on a pain scale. Respiratory: Airway is patent Respiratory effort is even, labored, Respiratory pattern is tachypnea Breath sounds are diminished in left posterior lower lobe and right posterior lower lobe Breath sounds with wheezes bilaterally. Historical: - Allergies: 13:37 Lisinopril; vg1 13:37 Nifedipine; vg1 13:37 tramadol; vg1 - PMHx: 13:37 breast cancer; Cancer; COPD; Hypertension; Osteoporosis; THYROID CANCER; vg1 - Immunization history:: Client reports receiving the 2nd dose of the Covid vaccine. - Social history:: Smoking status: Patient/guardian denies using tobacco, Stopped _ months ago 1. Screenin:45 Abuse screen: Denies threats or abuse. Nutritional screening: No deficits noted. em6 Tuberculosis screening: No symptoms or risk factors identified. Fall Risk IV access (20 points). Total Hagan Fall Scale indicates No Risk (0-24 pts). Assessment: 14:45 General: Appears comfortable, Behavior is cooperative. Pain: Denies pain. Neuro: Level em6 of Consciousness is awake, alert, obeys commands, Oriented to person, place, time, situation. Cardiovascular: Heart tones present Patient's skin is warm and dry. Respiratory: Airway is patent Respiratory effort is even, unlabored, Respiratory pattern is regular, symmetrical, Breath sounds with crackles bilaterally. Respiratory: Reports cough that is productive, GI: No signs and/or symptoms were reported involving the gastrointestinal system. : No signs and/or symptoms were reported regarding the genitourinary system. EENT: No signs and/or symptoms were reported regarding the EENT system. Derm: No signs and/or symptoms reported regarding the dermatologic system. Musculoskeletal: Circulation, motion, and sensation intact. Range of motion: intact in all extremities. 16:00 Reassessment: Patient appears in no apparent distress at this time. No changes from ld1 previously documented assessment. Patient and/or family updated on plan of care and expected duration. Pain level reassessed. 17:54 Reassessment: Patient appears in no apparent distress at this time. Patient is alert, ld1 oriented x 3, equal unlabored respirations, skin warm/dry/pink. 19:07 Reassessment: Patient appears in no apparent distress at this time. Patient and/or ld1 family updated on plan of care and expected duration. Pain level reassessed. Patient is alert, oriented x 3, equal unlabored respirations, skin warm/dry/pink. Vital Signs: 13:31 BP 156 / 76; Pulse 86; Resp 28; Temp 98.6(O); Pulse Ox 97% on 2 lpm NC; Weight 69.85 vg1 kg; Height 5 ft. 1 in. (154.94 cm); Pain 5/10; 15:18 BP 139 / 92; Pulse 88; Resp 28; Pulse Ox 99% ; ld1 15:57 BP 146 / 76; Pulse 84; Resp 28; Pulse Ox 99% on 2 lpm NC; ld1 17:10 BP 142 / 80; Pulse 82; Resp 24; Pulse Ox 98% on 2 lpm NC; ld1 17:54 BP 165 / 60; Pulse 82; Resp 18; Pulse Ox 98% on 2 lpm NC; ld1 19:07 BP 162 / 79; Pulse 82; Resp 25; Pulse Ox 98% on 2 lpm NC; ld1 13:31 Body Mass Index 29.10 (69.85 kg, 154.94 cm) vg1 ED Course: 12:51 Patient arrived in ED. as 12:51 Chandni Brownlee MD is Private Physician. as 12:52 Gina Us FNP-C is [facility]. snw 12:52 Jazmyn Johnson MD is Attending Physician. snw 13:37 Triage completed. vg1 13:37 Arm band placed on. vg1 13:43 Evonne Finch, RN is Primary Nurse. ld1 13:49 Cheryle Doe, FABI is Primary Nurse. em6 14:34 Chest Single View XRAY In Process Unspecified. EDMS 14:45 Placed in gown. Bed in low position. Call light in reach. Side rails up X2. Cardiac em6 monitor on. Pulse ox on. NIBP on. Warm blanket given. 14:49 Inserted saline lock: 22 gauge in right forearm, using aseptic technique. Blood ld1 collected. 18:47 Chandni Brownlee MD is Hospitalizing Provider. snw 20:23 No provider procedures requiring assistance completed. Patient admitted, IV remains in ld1 place. Administered Medications: 15:18 Drug: Rocephin (cefTRIAXone) 1 grams Route: IV; Rate: calculated rate; Site: right ld1 forearm; Medication: 20:24 VIS not applicable for this client. ld1 Outcome: 18:47 Decision to Hospitalize by Provider. snw 20:23 Admitted to Med/surg accompanied by tech, via wheelchair, room 212, with chart, Report ld1 called to FABI Zurita 20:23 Condition: stable 20:23 Instructed on the need for admit. 21:12 Patient left the ED. ld1 Signatures: Dispatcher [employer] EDMS Gina Us FNP-C FNP-Olive Goldsmith Victoria, RN RN vg1 Evonne Finch, FABI RN ld1 Cheryle Doe RN RN em6
[2022-01-23] MEDS: IPRATROPIUM BROM 0.5MG/2.5ML NEB SCH (21:10)
[2022-01-23] MEDS ORDERED: ACETAMINOPHEN 500 MG TAB PO PRN (21:10)
[2022-01-23] MEDS: ALBUTEROL 2.5 MG/3 ML NEB SOL NEB SCH (21:10)
[2022-01-23] MEDS: METHYLPREDNISOLONE 40 MG INJ IV SCH (22:05)
[2022-01-23] MEDS: Levofloxacin500mg IV 500 MG/100 ML BAG IV SCH (22:05)
[2022-01-23 23:02] VITALS: BMI 29.0
[2022-01-24] MEDS: ALBUTEROL 2.5 MG/3 ML NEB SOL NEB SCH ×5 (01:00→19:40)
[2022-01-24] MEDS: IPRATROPIUM BROM 0.5MG/2.5ML NEB SCH ×4 (01:00→19:40)
[2022-01-24 05:33] LABS: Hematocrit 45.1 % (36.0-45.0); Lymphocytes % 23.9 % (15.3-44.8); MCV 89.1 fL (80-100); MPV 10.2 fL (7.6-11.3); RBC Red Blood Cell Count 5.06 M/uL (3.86-4.86)
[2022-01-24 05:56] LABS: Potassium 4.1 mmol/L (3.5-5.1)
[2022-01-24] MEDS: ASPIRIN EC 81 MG TAB PO SCH (07:48)
[2022-01-24] MEDS: ENOXAPARIN 40 MG/0.4 ML SQ SCH (07:48)
[2022-01-24] MEDS: METHYLPREDNISOLONE 40 MG INJ IV SCH ×2 (07:49→19:13)
--- NOTE | 2022-01-24 09:32 | RAD REPORT ---
EXAM DESCRIPTION: CT - Thorax Wo Con CLINICAL HISTORY: Chest pain COPD COMPARISON: Thorax Wo Con dated 01/04/2021 FINDINGS: Mild diffuse COPD is present. Small calcified granuloma is seen in the right lung base. Mi ld linear atelectasis or scarring is seen in the right posterior gutter. No pleural thickening or ple ural effusion. No pneumothorax. No axillary, mediastinal or hilar adenopathy. Mild diffuse osteopenia is present. No gross upper abdominal finding. All CT scans are performed using dose optimization technique as appropriate and may include automated exposure control or mA/KV adjustment according to patient size. IMPRESSION: Mild COPD is present.Linear scarring is seen in the right posterior gutter. Otherwise, t here is no significant or worrisome abnormality detected.
--- NOTE | 2022-01-24 11:45 | HP ---
Date of Admission: 01/23/2022 Chief Complaint: Cough, congestion, shortness of breath. History Of Present Illness: This is a 76-year-old female patient came into office today with her coty ivey and reported that she was admitted to the hospital for about 10 days in [facility] for pulmonary rehab therapy what she describes from December 30 to January 10. For last 3 or 4 days , she has been having increasing problem with cough, congestion, coughing up yellow to green colored mucus, wheezing and shortness of breath. She came into office today with these complaints. After hussain giraldo was evaluated, she was sent to emergency room for further evaluation and management of this problem and after further evaluation, she was admitted to the hospital. Medications: List reviewed. Review of Systems: Respiratory: As mentioned above. All other systems reviewed and negative. Allergies: LISINOPRIL CAUSING SWELLING OF HER TONGUE AND CLONIDINE CAUSING TONGUE SWELLING ALSO. Past Medical History: Significant for hypertension, hyperlipidemia, COPD, impaired fasting glucose, thyroid cancer, hypothyroidism, carotid artery stenosis, gastroesophageal reflux disease, diverticulo sis, liver cyst, cervical spondylosis, lumbar spondylosis, osteoarthritis at multiple sites, breast c ancer, depression, osteoporosis. Past Surgical History: Thyroidectomy, mastectomy, appendectomy, exploratory laparotomy due to bowel obstruction, , shoulder surgery, hysterectomy. Social History: Positive for smoking. Use of alcohol negative. Family History: Father had COPD. Mother had AK. Brother had Alzheimer disease, prostate cancer, an d sister had breast cancer. Physical Examination: Vital Signs: Temperature 98.6, pulse 86, respiratory rate 28, blood pressure 156/76, oxygen saturati on 97% on 2 L nasal cannula oxygen. Height 5 feet 1 inch, weight 154 pounds. General: Patient appears weaker than normal. Not using accessory muscles of respiration at rest. HEENT: Head atraumatic, normocephalic. Conjunctivae nonerythematous. Sclerae white. Mouth, no thr ush or edema noted. Ears/Nose, no mass, lesion, discharge noted. Neck: Supple. No JVD, lymph nodes, bruit, thyromegaly noted. Lungs: Presence of wheezing noted in bilateral lung lawson with presence of rales in lower lung fiel ds. Heart: Normal heart sounds, no murmur or gallop. Abdomen: Soft, bowel sounds normal. No guarding, rigidity, tenderness, mass, hepatosplenomegaly, dis tention, or bruit noted. Extremities: No leg edema. No calf tenderness. Skin: No rash, ulcer, cellulitis. Lymphatics: No lymph node enlargement in neck, supraclavicular, infraclavicular region. Neuro: No focal neurological deficit. Chest: Unremarkable. External Genitalia: Deferred. Rectal: Deferred. Laboratory Data: White count 8.6, hemoglobin 15.3, platelets 207. Sodium 138, potassium 3.7, chlori de 99, bicarb 37, BUN 10, creatinine 0.65, glucose 86. Liver function tests unremarkable. Chest x-r ay: No acute cardiopulmonary changes. COVID-19 test is negative. Impression: 1.Acute exacerbation of chronic obstructive pulmonary disease. 2.Acute respiratory failure with hypoxia. 3.Hypertension. 4.Hypothyroidism, postsurgical. 5.Mixed hyperlipidemia. 6.Impaired fasting glucose. 7.Gastroesophageal reflux disease. 8.Diverticulosis. 9.Osteoarthritis, multiple sites. 10.Depression. Plan: Admit patient to hospital for further evaluation and management of this problem. Patient is a ppropriate for inpatient and is expected to spend 2 midnights in hospital. DVT prophylaxis will be g iven using Lovenox per order. For COPD exacerbation, we will go ahead and give empiric antibiotic, o xygen replacement therapy, nebulizer treatment, and IV steroids per order. Continue her home medicat ions for hypertension. We will also continue her thyroid medication for her hypothyroidism per order . For her gastroesophageal reflux disease, continue her omeprazole. Problem is stable at this time. Overall, prognosis is guarded because of her severe COPD and ongoing smoker problem. Patient was a dvised on multiple occasions to quit smoking, but so far, she has decided not to quit smoking. JENNIFER/MODL Voice ID: [id number]
--- NOTE | 2022-01-24 14:04 | EKG ---
Test Date: 2022-01-23 Test Time: 14:10:40 Wallcovering Hanger: ZACARIAS MEASUREMENT RESULTS: Intervals: Rate: 81 DC: 126 QRSD: 74 QT: 386 QTc: 448 [place]: P: 80 DC: 126 QRS: 79 T: 78 INTERPRETIVE STATEMENTS: Normal sinus rhythm Normal ECG Compared to ECG 01/04/2021 07:42:14 Short DC interval no longer present ST (T wave) deviation no longer present Electronically Signed On 01-24-22 14:01:46 CDT by Stone Love
[2022-01-24] MEDS: Levofloxacin500mg IV 500 MG/100 ML BAG IV SCH (21:20)
[2022-01-24] MEDS ORDERED: methocarbamoL 500 MG TAB PO PRN (21:29)
[2022-01-24] MEDS: AMLODIPINE 5 MG TAB PO SCH (22:08)
[2022-01-24] MEDS: METOPROLOL TAR 50 MG TAB PO SCH (22:09)
[2022-01-24] MEDS: ALPRAZOLAM 0.25 MG TABLET PO PRN (22:09)
--- NOTE | 2022-01-24 23:01 | PN ---
Date of Progress Note: 01/24/2022 Subjective: Patient was seen this morning for followup. The patient was lying in bed, not in distre ss. Denies any new complaints. Objective: Vital Signs: Reviewed. HEENT: Unremarkable. Lungs: Clear to auscultation except presence of wheezing noted in lower lung lawson. Not using acce ssory muscles of respiration. Heart: Sounds normal. Abdomen: Soft. Bowel sounds normal. No guarding, rigidity, tenderness, distention. Extremities: No leg edema. Impression: 1.Acute exacerbation of chronic obstructive pulmonary disease. 2.Hypertension. 3.Hypothyroidism. Plan: We will go ahead and continue current medication including oxygen, steroid, antibiotic. DVT p rophylaxis. The patient asked me if she even had a CAT scan done of the brain because she has a fami ly history of brain cancer and she wants me to make sure that she at least had a CAT scan done and I did review her prior hospital records, January of 2021, which is almost a year ago. She had a CAT sc an of the brain and MRI of the brain and both were negative for any acute changes. Considering that and she does not have any symptoms indicating need for any repeat CAT scan of the brain, it is not ne cessary to do such test at this point, unless there is any clinical indication. CAT scan of the ches t was ordered today. JENNIFER/EPIFANIO Voice ID: [id number] Report ID: [id number]
[2022-01-25] MEDS: METHYLPREDNISOLONE 40 MG INJ IV SCH ×3 (00:45→16:49)
[2022-01-25] MEDS: IPRATROPIUM BROM 0.5MG/2.5ML NEB SCH ×4 (01:10→20:40)
[2022-01-25] MEDS: ALBUTEROL 2.5 MG/3 ML NEB SOL NEB SCH ×4 (01:10→20:40)
[2022-01-25] MEDS: METOPROLOL TAR 50 MG TAB PO SCH ×2 (08:35→21:04)
[2022-01-25] MEDS: ENOXAPARIN 40 MG/0.4 ML SQ SCH (08:35)
[2022-01-25] MEDS: LEVOTHYROXINE SOD 0.1 MG TAB PO SCH (08:37)
[2022-01-25] MEDS: PANTOPRAZOLE 40MG TABLET PO SCH (08:37)
[2022-01-25] MEDS: ASPIRIN EC 81 MG TAB PO SCH (08:37)
[2022-01-25] MEDS: DULERA 200/5 (MOMETASONE/FORMOTEROL) INHALER IH SCH ×2 (08:38→21:06)
[2022-01-25] MEDS: AMLODIPINE 5 MG TAB PO SCH ×2 (08:38→21:05)
[2022-01-25] MEDS ORDERED: ROSUVASTATIN 10 MG TAB PO SCH ×2 (09:00)
[2022-01-25] MEDS: ALPRAZOLAM 0.25 MG TABLET PO PRN (21:04)
[2022-01-25] MEDS: Levofloxacin500mg IV 500 MG/100 ML BAG IV SCH (21:06)
[2022-01-26] MEDS: METHYLPREDNISOLONE 40 MG INJ IV SCH ×2 (00:39→08:42)
[2022-01-26] MEDS: ALBUTEROL 2.5 MG/3 ML NEB SOL NEB SCH ×2 (02:00→08:25)
[2022-01-26] MEDS: IPRATROPIUM BROM 0.5MG/2.5ML NEB SCH ×2 (02:00→08:25)
[2022-01-26] MEDS: ENOXAPARIN 40 MG/0.4 ML SQ SCH (08:35)
[2022-01-26] MEDS: METOPROLOL TAR 50 MG TAB PO SCH (08:35)
[2022-01-26] MEDS: PANTOPRAZOLE 40MG TABLET PO SCH (08:36)
[2022-01-26] MEDS: ASPIRIN EC 81 MG TAB PO SCH (08:36)
[2022-01-26] MEDS: AMLODIPINE 5 MG TAB PO SCH (08:37)
[2022-01-26] MEDS: LEVOTHYROXINE SOD 0.1 MG TAB PO SCH (08:39)
[2022-01-26] MEDS: DULERA 200/5 (MOMETASONE/FORMOTEROL) INHALER IH SCH (08:40)
[2022-01-26 08:41] VITALS: BP 135/74
[2022-01-26 10:12] VITALS: O2SAT 96
[2022-01-26 10:19] VITALS: TEMP 97.3
--- NOTE | 2022-01-26 10:37 | PN ---
Date of Progress Note: 01/25/2022 Subjective: The patient was seen this morning for followup by the patient. She was lying in bed. Overall, she feels better but still has quite a bit cough, chest congestion and wheezing. Objective: Vital Signs: Reviewed. HEENT: Unremarkable. Lungs: Bilateral good equal air entry. Presence of wheezing and some rales noted in lower lung fiel ds, but overall better than before. Heart: Sounds normal. Abdomen: Soft. Bowel sounds normal. No guarding, rigidity, tenderness, distention. Extremities: No leg edema. Impression: 1.Acute exacerbation of chronic obstructive pulmonary disease. 2.Hypertension. 3.Hyperlipidemia. 4.Hypothyroidism. Plan: The patient's CAT scan of the chest done yesterday was unremarkable for any acute changes. We will continue current oxygen replacement therapy, steroids, antibiotics, DVT prophylaxis per order. Continue her levothyroxine and antihypertensive medication. I will see her tomorrow for followup, p ossible discharge to go home tomorrow depending on her condition. We will also use Dulera inhaler 2 puffs 2 times a day. JENNIFER/MODL Voice ID: [id number] Report ID: [id number]
--- NOTE | 2022-01-26 23:06 | DS ---
Date of Discharge: 01/26/2022 Disposition: Discharged to go home. Physical Examination: HEENT: Unremarkable. Lungs: Bilateral good equal air entry. Clear to auscultation. No wheezing. No rales. Not in any respiratory distress. Heart: Sounds normal. Abdomen: Soft. Bowel sounds normal. No guarding, rigidity, tenderness, or distention. Extremities: No leg edema. Laboratory Data: Upon admission; white count 8.6, hemoglobin 15.3, and platelets 207. Day after adm ission; white count 4.4, hemoglobin 14.8, and platelet count 195. Upon admission; sodium 138, potass ium 3.7, chloride 99, bicarb 37, BUN 10, creatinine 0.65, glucose 86. Liver function tests unremarka ble. Discharge Medications And Instructions: 1.Continue all prior home medications. 2.Take prednisone 10 mg 3 tablets daily for 3 days, then 2 tablets daily for 3 days, then 1 tablet d aily for 3 days, then stop. 3.Take Levaquin 500 mg daily for 5 days. 4.Follow up at my office next week. Hospital Course: This is a 76-year-old female patient admitted to the hospital with cough, congestio n, shortness of breath. Please see dictated H and P for more information. After patient was evaluat ed, she was admitted to the hospital with acute exacerbation of COPD. Chest x-ray was negative for a ny pneumonia. CAT scan of the chest was also negative for any acute changes. She was given oxygen r eplacement therapy. She takes oxygen at home also and this was continued. We also gave her IV stero id IV antibiotics. Home medications were continued per order and overall once her condition improved , today, we discharged her to go home in stable condition with above-mentioned medication and instruc tions. Final Diagnoses: 1.Acute exacerbation of chronic obstructive pulmonary disease. 2.Acute on chronic respiratory failure with hypoxia. 3.Hypertension. 4.Hypothyroidism, postsurgical. 5.Mixed hyperlipidemia. 6.Impaired fasting glucose. 7.Gastroesophageal reflux disease. 8.Diverticulosis. 9.Osteoarthritis, multiple sites. 10.Depression. JENNIFER/MODL Voice ID: [id number] Report ID: [id number]
== END 2022-01-26 11:32 | disposition home or self-care (01) | DRG 190 ==
LOC: ER 12:50 → ERHOLD 19:49 → 2ND 20:10
PROVIDERS: ADMIT Internal Medicine; ATTEND Internal Medicine
DX: J44.1 Chronic obstructive pulmonary disease with (acute) exacerbation (principal); J96.21 Acute and chronic respiratory failure with hypoxia; I10 Essential (primary) hypertension; E78.2 Mixed hyperlipidemia; F32.A Depression, unspecified; K21.9 Gastro-esophageal reflux disease without esophagitis; M19.09 Primary osteoarthritis, other specified site; E89.0 Postprocedural hypothyroidism; K57.90 Diverticulosis of intestine, part unspecified, without perforation or abscess without bleeding; R73.01 Impaired fasting glucose; Z88.5 Allergy status to narcotic agent; Z88.8 Allergy status to other drugs, medicaments and biological substances; Z85.3 Personal history of malignant neoplasm of breast; Z90.10 Acquired absence of unspecified breast and nipple; Z85.850 Personal history of malignant neoplasm of thyroid; Z87.891 Personal history of nicotine dependence; Z20.822 Contact with and (suspected) exposure to COVID-19
CPT/HCPCS: 36415; 71045; 71250; 80048; 80053; 82947; 83605; 83880; 85025; 85610; 85730; 87040; 87811; 93005; 94640; 94760; 96374; 97161; 99285; J1650; J2920; J3535

== ENCOUNTER 2023-05-13 09:09 | Observation (INO) | payer OTHER ==
[2023-05-13 10:25] LABS: Absolute Lymphocytes (CBC) 2.6 K/uL (0.7-4.9); Hematocrit 46.7 % (36.0-45.0); Lymphocytes % 21.5 % (15.3-44.8); MPV 10.4 fL (7.6-11.3); Platelets 225 thou/uL (152-406); RBC Red Blood Cell Count 4.96 M/uL (3.86-4.86)
[2023-05-13 10:28] LABS: Protime INR 0.94
[2023-05-13 10:41] LABS: Albumin 3.6 g/dL (3.4-5.0); Bilirubin Total 0.5 mg/dL (0.2-1.0); Potassium 3.5 mEq/L (3.5-5.1)
[2023-05-13 10:45] LABS: Magnesium 2.2 mg/dL (1.6-2.4); Troponin High Sensitivity 8.4 pg/mL (<58.9)
--- NOTE | 2023-05-13 11:14 | RAD REPORT ---
EXAM DESCRIPTION: Ashlyn Single View05/13/2023 10:57 am CLINICAL HISTORY: Chest pain COMPARISON: 2021 FINDINGS: The lungs appear clear of acute infiltrate. The heart is normal size IMPRESSION: No acute abnormalities displayed
[2023-05-13 11:45] LABS: Specific Gravity 1.021 (1.005-1.030); Urine Bacteria None Seen /HPF (<20); Urine Bilirubin NEGATIVE (Negative); Urine Blood Negative (Negative); Urine Clarity Turbid (Clear); Urine Color Yellow (Yellow); Urine Glucose NEGATIVE (Negative); Urine Mucus Slight /HPF (None Seen); Urine Protein TRACE (Negative); Urine RBC <5 /HPF (None Seen); Urine Urobilinogen 1+ (Normal)
--- NOTE | 2023-05-13 11:52 | ER ---
Nurse's Notes [facility] Name: Yodit Mercedes Age: 77 yrs Sex: Female : 1945 Arrival Date: 05/13/2023 Time: 09:09 Bed 16 Private MD: Diagnosis: COPD/ Chronic obstructive pulmonary disease with (acute) exacerbation;Altered mental status, unspecified Presentation: 05/13 09:42 Chief complaint: Patient's son or daughter states: "She saw Dr. Brownlee last week and told ss him that she hadn't been taking her medications. She started taking them again on Sunday and now she is having hallucinations." Pt reports that she has been seeing people coming out of the ceiling and she saw herself as the [place] on 3 different TVs within her home. Coronavirus screen: Client denies travel out of the [place] in the last 14 days. Ebola Screen: Patient denies exposure to infectious person. Patient denies travel to an Ebola-affected area in the 21 days before illness onset. Initial Sepsis Screen: Does the patient meet any 2 criteria? No. Patient's initial sepsis screen is negative. Does the patient have a suspected source of infection? No. Patient's initial sepsis screen is negative. Risk Assessment: Do you want to hurt yourself or someone else? Patient reports no desire to harm self or others. Onset of symptoms was May 10, 2023. 09:42 Method Of Arrival: Ambulatory 09:42 Acuity: SEN 3 Triage Assessment: 09:45 General: Appears in no apparent distress. comfortable, Behavior is calm, cooperative, bp appropriate for age. Pain: Denies pain. Historical: - Allergies: 09:46 Lisinopril; 09:46 Nifedipine; 09:46 tramadol; 09:46 atorvastatin; 09:46 Clonidine; 09:46 Zestril; - Home Meds: 09:46 Fosamax 70 mg Oral tablet 1 tab every week [Active]; amlodipine 5 mg tablet 1 tab daily ss [Active]; aspirin 81 mg Oral capsule [Active]; escitalopram oxalate 10 mg oral tablet 1 tab daily [Active]; levothyroxine 200 mcg capsule 1 cap daily [Active]; metoprolol tartrate 50 mg Oral tablet 1.5 tab 2 times per day [Active]; omeprazole 40 mg Oral capsule,delayed release (e.c.) 1 cap daily [Active]; rosuvastatin 5 mg oral tablet 1 tab 1 weekly [Active]; Incruse Ellipta 62.5 mcg/actuation inhalation Blister, With Inhalation Device [Active]; - PMHx: 09:46 breast cancer; Cancer; COPD; Hypertension; Osteoporosis; THYROID CANCER; Home O2 \\T\\ 2L ss NC (THYROID CANCER); - Immunization history:: Client reports receiving the 2nd dose of the Covid vaccine. - Social history:: Smoking status: Patient reports the use of cigarette tobacco products, smokes one pack cigarettes per day. Screenin:19 [facility] ED Fall Risk Assessment (Adult) History of falling in the last 3 months, bp including since admission No falls in past 3 months (0 pts). Abuse screen: Denies threats or abuse. Denies injuries from another. Nutritional screening: No deficits noted. Tuberculosis screening: No symptoms or risk factors identified. Assessment: 09:45 General: SEE TRIAGE NOTE. bp 11:30 Reassessment: Patient appears in no apparent distress at this time. Patient is alert, bp oriented x 3, equal unlabored respirations, skin warm/dry/pink. 12:11 Reassessment: ADMIT INITIATED. bp Vital Signs: 09:34 BP 167 / 83; Pulse 54; Resp 22; Temp 97.6; Pulse Ox 96% on 2 lpm NC; jg11 11:30 BP 147 / 73; Pulse 54; Resp 16; Pulse Ox 99% ; bp 13:30 BP 156 / 75; Pulse 55; Resp 16; Pulse Ox 100% ; bp 14:18 BP 151 / 71; Pulse 51; Resp 16; Pulse Ox 99% ; bp ED Course: 09:12 Patient arrived in ED. im 09:18 Gina Us FNP-C is PHCP. snw 09:18 Kari Plasencia MD is Attending Physician. snw 09:46 Triage completed. ss 09:46 Arm band placed on right wrist. ss 10:05 Patient has correct armband on for positive identification. Bed in low position. Call db light in reach. Side rails up X2. Client placed on continuous cardiac and pulse oximetry monitoring. NIBP monitoring applied. Warm blanket given. 10:05 Initial lab(s) drawn, by me, sent to lab. First set of blood cultures drawn by me. db Inserted saline lock: 22 gauge in right antecubital area, using aseptic technique. Blood collected. 10:10 Jacob Hensley, RN is Primary Nurse. bp 10:12 Jacob Hensley, RN is Primary Nurse. bp 10:59 Chest Single View XRAY In Process Unspecified. EDMS 11:51 Chandni Brownlee MD is Hospitalizing Provider. snw 12:19 CT Head Brain wo Cont In Process Unspecified. EDMS 19:45 No provider procedures requiring assistance completed. bp 19:45 Patient admitted, IV remains in place. bp Administered Medications: No medications were administered Medication: 19:45 VIS not applicable for this client. bp Outcome: 11:52 Decision to Hospitalize by Provider. snw 20:09 Patient left the ED. jbKelsea 20:16 Admitted to Med/surg accompanied by tech, via wheelchair, room 203, with chart, Report bp called to JOSE RN 20:16 Condition: good 20:16 Instructed on the need for admit, Signatures: Dispatcher [employer] EDGina Gomez, GUT SNATCHER-C GUT SNATCHER-Csnw Sara Reardon, RN RN George Silva, RN RN jbJacob Girard, RN RN Alannah Spencer, RN RN Manasa Vo Jordan [email or web address]
--- NOTE | 2023-05-13 11:52 | EDPHYS ---
Physician Documentation [facility] Name: Yodit Mercedes Age: 77 yrs Sex: Female : 1945 Arrival Date: 05/13/2023 Time: 09:09 Bed 16 Private MD: ED Physician Kari Plasencia HPI: 05/13 09:43 This 77 yrs old Female presents to ER via Unassigned with complaints of Hallucinations. snw 09:43 Onset: The symptoms/episode began/occurred 2 day(s) ago. It is unknown whether or not snw the patient has had similar symptoms in the past. Pt had stopped all of her regular medications (unknown duration). She saw Dr. Brownlee 2 weeks ago and restarted her medications. Pt has been cheerfully altered x 2-3 days. Last pm her Daughter noted she was confused but thought it might be from fatigue and not eating. This am at 0500, the patient called and told her that she had people coming out of the ceiling and flight of ideas was noted.. Historical: - Allergies: 09:46 Lisinopril; ss 09:46 Nifedipine; ss 09:46 tramadol; ss 09:46 atorvastatin; ss 09:46 Clonidine; ss 09:46 Zestril; ss - Home Meds: 09:46 Fosamax 70 mg Oral tablet 1 tab every week [Active]; amlodipine 5 mg tablet 1 tab daily ss [Active]; aspirin 81 mg Oral capsule [Active]; escitalopram oxalate 10 mg oral tablet 1 tab daily [Active]; levothyroxine 200 mcg capsule 1 cap daily [Active]; metoprolol tartrate 50 mg Oral tablet 1.5 tab 2 times per day [Active]; omeprazole 40 mg Oral capsule,delayed release (e.c.) 1 cap daily [Active]; rosuvastatin 5 mg oral tablet 1 tab 1 weekly [Active]; Incruse Ellipta 62.5 mcg/actuation inhalation Blister, With Inhalation Device [Active]; - PMHx: 09:46 breast cancer; Cancer; COPD; Hypertension; Osteoporosis; THYROID CANCER; Home O2 \T\ 2L ss NC (THYROID CANCER); - Immunization history:: Client reports receiving the 2nd dose of the Covid vaccine. - Social history:: Smoking status: Patient reports the use of cigarette tobacco products, smokes one pack cigarettes per day. ROS: 09:43 Eyes: Negative for injury, pain, redness, and discharge, ENT: Negative for injury, snw pain, and discharge, Neck: Negative for injury, pain, and swelling, Cardiovascular: Negative for chest pain, palpitations, and edema, Respiratory: Negative for shortness of breath, cough, wheezing, and pleuritic chest pain, Abdomen/GI: Negative for abdominal pain, nausea, vomiting, diarrhea, and constipation, Back: Negative for injury and pain, : Negative for injury, bleeding, discharge, and swelling, MS/Extremity: Negative for injury and deformity, Skin: Negative for injury, rash, and discoloration, Neuro: Negative for headache, weakness, numbness, tingling, and seizure, Psych: Negative for depression, anxiety, suicide ideation, homicidal ideation, and hallucinations, 09:43 Constitutional: Positive for confusion, seeing people come out of the ceiling, Exam: 09:43 Head/Face: Normocephalic, atraumatic. Eyes: Pupils equal round and reactive to light, snw extra-ocular motions intact. Lids and lashes normal. Conjunctiva and sclera are non-icteric and not injected. Cornea within normal limits. Periorbital areas with no swelling, redness, or edema. ENT: Nares patent. No nasal discharge, no septal abnormalities noted. Tympanic membranes are normal and external auditory canals are clear. Oropharynx with no redness, swelling, or masses, exudates, or evidence of obstruction, uvula midline. Mucous membranes moist. Neck: Trachea midline, no thyromegaly or masses palpated, and no cervical lymphadenopathy. Supple, full range of motion without nuchal rigidity, or vertebral point tenderness. No Meningismus. Chest/axilla: Normal chest wall appearance and motion. Nontender with no deformity. No lesions are appreciated. Cardiovascular: Regular rate and rhythm with a normal S1 and S2. No gallops, murmurs, or rubs. Normal PMI, no JVD. No pulse deficits. 09:43 Abdomen/GI: Soft, non-tender, with normal bowel sounds. No distension or tympany. No guarding or rebound. No evidence of tenderness throughout. Back: No spinal tenderness. No costovertebral tenderness. Full range of motion. Skin: Warm, dry with normal turgor. Normal color with no rashes, no lesions, and no evidence of cellulitis. MS/ Extremity: Pulses equal, no cyanosis. Neurovascular intact. Full, normal range of motion. Neuro: Awake and alert, GCS 15, oriented to person, place, time, and situation. Cranial nerves II-XII grossly intact. Motor strength 5/5 in all extremities. Sensory grossly intact. Cerebellar exam normal. Normal gait. 09:43 Constitutional: The patient appears alert, awake, pleasantly confused 09:43 Respiratory: the patient does not display signs of respiratory distress, Respirations: shallow respirations, tachypnea, wears Oxygen per nasal canula consistently, Breath sounds: bronchial sounds, that are mild, 09:43 Psych: Behavior/mood is pleasant, cooperative, confused. Affect is calm, Oriented to person, place, Not oriented to situation. Vital Signs: 09:34 BP 167 / 83; Pulse 54; Resp 22; Temp 97.6; Pulse Ox 96% on 2 lpm NC; jg11 11:30 BP 147 / 73; Pulse 54; Resp 16; Pulse Ox 99% ; bp 13:30 BP 156 / 75; Pulse 55; Resp 16; Pulse Ox 100% ; bp 14:18 BP 151 / 71; Pulse 51; Resp 16; Pulse Ox 99% ; bp MDM: 09:20 Patient medically screened. snw 09:51 Differential Diagnosis altered mental status, sepsis. Data reviewed: vital signs, snw nurses notes. 05/13 09:18 Order name: Urine W/Microscopic (UAM); Complete Time: 11:50 snw 05/13 09:19 Order name: Blood Culture Adult (2) snw 05/13 09:19 Order name: CBC with Diff; Complete Time: 10:39 snw 05/13 09:19 Order name: CMP; Complete Time: 11:00 snw 05/13 09:19 Order name: Lactate w/ 2H reflex if indic.; Complete Time: 11:00 snw 05/13 09:19 Order name: Protime (+inr); Complete Time: 10:39 snw 05/13 09:19 Order name: Ptt, Activated; Complete Time: 10:39 snw 05/13 09:39 Order name: Magnesium; Complete Time: 11:00 snw 05/13 09:39 Order name: Troponin High Sensitivity; Complete Time: 11:00 snw 05/13 09:39 Order name: BNP; Complete Time: 11:00 snw 05/13 14:29 Order name: Basic Metabolic Panel EDMS 05/13 14:29 Order name: Basic Metabolic Panel EDMS 05/13 14:29 Order name: CBC with Automated Diff EDMS 05/13 14:29 Order name: CBC with Automated Diff EDMS 05/13 14:29 Order name: Lipid Profile EDMS 05/13 14:29 Order name: Lipid Profile EDMS 05/13 14:29 Order name: Magnesium EDMS 05/13 14:29 Order name: Magnesium EDMS 05/13 16:59 Order name: Glucose, Ancillary Testing; Complete Time: 17:00 EDMS 05/13 09:19 Order name: Chest Single View XRAY; Complete Time: 11:24 snw 05/13 11:52 Order name: CT Head Brain wo Cont; Complete Time: 12:26 snw 05/13 09:19 Order name: EKG; Complete Time: 09:19 snw 05/13 14:29 Order name: Respiratory Therapy Consult EDNH 05/13 09:19 Order name: Accucheck; Complete Time: 10:41 snw 05/13 09:19 Order name: Cardiac monitoring; Complete Time: 09:34 snw 05/13 09:19 Order name: Cath; Complete Time: 11:45 snw 05/13 09:19 Order name: EKG - Nurse/Tech; Complete Time: 09:51 snw 05/13 09:19 Order name: IV Saline Lock - Large Bore; Complete Time: 09:51 snw 05/13 09:19 Order name: Labs collected and sent; Complete Time: 09:51 snw 05/13 09:19 Order name: O2 Per Protocol; Complete Time: 09:36 snw 05/13 09:19 Order name: O2 Sat Monitoring; Complete Time: 09:36 snw 05/13 09:19 Order name: Vital Signs; Complete Time: 09:36 snw EC:52 Rate is 53 beats/min. Rhythm is regular. QRS [place] is Normal. AL interval is normal at snw 130 msec. Q waves are Present in leads I, V4, V5, V6. Clinical impression: Sinus bradycardia. Administered Medications: No medications were administered Disposition Summary: 05/13/23 11:52 Hospitalization Ordered Notes: Hospitalization Status: Observation snw Provider: Brownlee, A snw Condition: Stable snw Problem: an acute exacerbation snw Symptoms: have improved snw Bed/Room Type: Standard snw Location: Telemetry/MedSurg (observation)(05/13/23 19:09) cg Room Assignment: 203(05/13/23 19:09) cg Diagnosis - COPD/ Chronic obstructive pulmonary disease with (acute) exacerbation snw - Altered mental status, unspecified snw Forms: - Medication Reconciliation Form snw - SBAR form snw - Leadership Thank You Letter snw Signatures: Dispatcher [employer] EDGina Gomez, MAT PACKER-C MAT PACKER-Csnw Sara Reardon RN RN ss Barbara Jones RN RN cg Donna Andrea Corrections: (The following items were deleted from the chart) 13:25 11:52 Telemetry/MedSurg (observation) snw eb 13: 11:52 snw eb 19: 13:25 [facility] ER HOLD eb cg 19: 13:25 ERHOLD- eb cg
--- NOTE | 2023-05-13 12:06 | HP ---
Date of Admission: 05/13/2023 Chief Complaint: Confusion. History Of Present Illness: This is a 77-year-old very pleasant female patient who lives at home by herself, was brought into emergency room by her daughter with couple of days of confusion and hallucinations. The patient has severe COPD on continuous home oxygen and she is not compliant with her medications and about 2 weeks ago, she came in to the office with acute exacerbation of COPD and acute bronchitis type of symptoms. She was prescribed oral steroid and antibiotic and then came back further followup this week and at that time, she had informed me that she was not taking most of her medications. We did review all her medication bottles and provided her with the accurate list of medications and instructed her to take medication as prescribed. In last 2 days, she is having trouble with confusion and hallucinations. She told her daughter that during nighttime she had gone to [place] and apparently she had not. She talks to people who are not there. She sees people coming out of the ceiling in her house and they talked to her and with all these concerns, daughter brought her to emergency room and I was contacted from ER. I went to see her in the ER and decision was made to admit her to hospital. Medications: List reviewed. 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 Respiratory: As mentioned above. All other systems reviewed and negative. Allergies: LISINOPRIL CAUSING SWELLING OF HER TONGUE AND CLONIDINE CAUSING TONGUE SWELLING ALSO. Past Medical History: Significant for hypertension, hyperlipidemia, COPD, impaired fasting glucose, thyroid cancer, hypothyroidism, carotid artery stenosis, gastroesophageal reflux disease, diverticulosis, liver cyst, cervical spondylosis, lumbar spondylosis, osteoarthritis at multiple sites, breast cancer, depression, osteoporosis. Past Surgical History: Thyroidectomy, mastectomy, appendectomy, exploratory laparotomy due to bowel obstruction, , shoulder surgery, hysterectomy. Social History: Positive for smoking. Use of alcohol negative. Family History: Father had COPD. Mother had OH. Brother had Alzheimer disease, prostate cancer, and sister had breast cancer. Physical Examination: Vital Signs: Height 5 feet 1 inches, weight 152 pounds, temperature 97.6, pulse 54, respiratory rate 22, blood pressure 167/83, oxygen saturation 96% on 2 LPM oxygen via nasal cannula. General: Awake, alert, oriented, not in distress. HEENT: Head atraumatic, normocephalic. Conjunctivae nonerythematous. Sclerae white. Mouth, no thrush or edema noted. Ears/Nose, no mass, lesion, discharge noted. Neck: Supple. No JVD, lymph nodes, bruit, thyromegaly noted. Lungs: Bilateral good equal air entry. Clear to auscultation. No rhonchi. No rales. Heart: Normal heart sounds, no murmur or gallop. Abdomen: Soft, bowel sounds normal. No guarding, rigidity, tenderness, mass, hepatosplenomegaly, distention, or bruit noted. Extremities: No leg edema. No calf tenderness. Skin: No rash, ulcer, cellulitis. Lymphatics: No lymph node enlargement in neck, supraclavicular, infraclavicular region. Neuro: No focal neurological deficit. Chest: Unremarkable. External Genitalia: Deferred. Rectal: Deferred. Laboratory Data: Chest x-ray no acute changes, no infiltrate, CT head no acute intracranial changes, WBC 11.9, hemoglobin 15.5, platelets 225, sodium 138, potassium 3.5, chloride 100, bicarb 34, BUN 12, creatinine 0.93, glucose 132, liver function tests unremarkable. Impression: 1. Hallucinations. 2. Severe chronic obstructive pulmonary disease. 3. Hypertension. 4. Hypothyroidism. 5. Hyperlipidemia. 6. Chronic respiratory failure with hypoxia. 7. Thyroid cancer. 8. Impaired fasting glucose. 9. Carotid artery stenosis. 10. Gastroesophageal reflux disease. 11. Diverticulosis. 12. Osteoarthritis, multiple sites. 13. Depression. 14. Osteoporosis. 15. Breast cancer. Plan: We will go ahead and admit the patient to hospital for further evaluation and management of this problem. We will continue her oxygen replacement therapy per order. Continue nebulizer treatment and give her steroid medication per order for her COPD problem. We have not introduced any new medication to her on outpatient basis and her chronic home medications she was not compliant with. She should continue that and I do not believe that those medications are causing any confusion or hallucinations. What I am concerned about is probably beginning of dementia presenting in a way that she is having this confusion and hallucination problems and I have asked her to follow up with the neurologist on outpatient basis. I have also expressed my concerns to patient and her daughter who was at bedside in the emergency room and explained that my recommendation is for her not to live by herself and daughter is well aware of that and she will communicate with the patient and other family members regarding this upon discharge. Daughter is also going to try to make it to all of her doctor's appointments. We will continue her home medications per order. Continue oxygen, steroid, nebulizer treatment. Continue her levothyroxine per order and I will see her tomorrow for followup. I did discuss with the patient regarding her advanced directives in presence of her daughter and the patient clearly has stated to me as well as emergency room provider that in the event of cardiopulmonary arrest, she does not want any heroic measures. No CPR, no defibrillation, no ventilator support and DNR order will be written in the chart. JENNIFER/ÁLVAROL Voice ID: [id number] JUAN
--- NOTE | 2023-05-13 12:25 | RAD REPORT ---
EXAM DESCRIPTION: CT - Head Brain Wo Cont - 05/13/2023 12:17 pm CLINICAL HISTORY: Alteration of awareness/confusion COMPARISON: 2020 TECHNIQUE: Computed axial tomography of the head was obtained. IV contrast was not requested. All CT scans are performed using dose optimization technique as appropriate and may include automated exposure control or mA/KV adjustment according to patient size. FINDINGS: An intracranial bleed is not seen The ventricles are normal in caliber No extra-axial fluid collection is noted. Mild to moderate low-density areas within periventricular, deep and subcortical white matter likely r epresent ischemic changes secondary to small vessel disease. Fluid within the sinuses/ mastoids is not seen. IMPRESSION: No acute intracranial abnormality is seen If patient's symptoms persist MRI of the brain would be recommended
[2023-05-13] MEDS: CEFTRIAXONE 1,000 MG in NA CHLORIDE 0.9% 50 ML IVPB SCH ×2 (15:00→21:00)
[2023-05-13] MEDS: INSULIN REGULAR (HUMAN) 100 UNIT/ML SQ SCH ×2 (16:30→21:00)
[2023-05-13] MEDS ORDERED: NA CHLORIDE 0.9% 100 ML ONE (16:42)
[2023-05-13] MEDS ORDERED: CEFTRIAXONE 1000 MG/VIAL ONE (16:42)
[2023-05-13] MEDS ORDERED: ENOXAPARIN 40 MG/0.4 ML SQ SCH (17:00)
[2023-05-13 17:22] VITALS: BMI 28.7
[2023-05-13] MEDS: IPRATROPIUM BROM 0.5MG/2.5ML NEB SCH (21:00)
[2023-05-13] MEDS ORDERED: ROSUVASTATIN 5 MG TAB PO SCH (21:00)
[2023-05-13] MEDS ORDERED: QUETIAPINE 25 MG TAB PO SCH (21:00)
[2023-05-13] MEDS: ALBUTEROL 2.5 MG/3 ML NEB SOL NEB SCH (21:00)
[2023-05-14] MEDS: ALBUTEROL 2.5 MG/3 ML NEB SOL NEB SCH ×2 (00:55→07:00)
[2023-05-14] MEDS: IPRATROPIUM BROM 0.5MG/2.5ML NEB SCH ×2 (00:55→07:00)
[2023-05-14] MEDS ORDERED: LEVOTHYROXINE SOD 0.1 MG TAB PO SCH (06:30)
[2023-05-14 07:02] LABS: Absolute Lymphocytes (CBC) 3.5 K/uL (0.7-4.9); Lymphocytes % 29.7 % (15.3-44.8); MCV 94.5 fL (80-100); MPV 10.7 fL (7.6-11.3); Platelets 206 thou/uL (152-406); RBC Red Blood Cell Count 4.76 M/uL (3.86-4.86)
[2023-05-14 07:22] LABS: Magnesium 2.1 mg/dL (1.6-2.4); Potassium 3.9 mEq/L (3.5-5.1)
[2023-05-14] MEDS: INSULIN REGULAR (HUMAN) 100 UNIT/ML SQ SCH (07:30)
[2023-05-14] MEDS ORDERED: PANTOPRAZOLE 40MG TABLET PO SCH (07:30)
[2023-05-14] MEDS: CEFTRIAXONE 1,000 MG in NA CHLORIDE 0.9% 50 ML IVPB SCH (07:41)
[2023-05-14 07:52] VITALS: BP 113/64; TEMP 98.5
[2023-05-14] MEDS ORDERED: ESCITALOPRAM 20 MG TAB PO SCH (09:00)
[2023-05-14] MEDS ORDERED: AMLODIPINE 5 MG TAB PO SCH (09:00)
[2023-05-14] MEDS ORDERED: ASPIRIN EC 81 MG TAB PO SCH (09:00)
--- NOTE | 2023-05-14 15:01 | EKG ---
Test Date: 2023-05-13 Test Time: 09:44:22 Business Continuity Analyst: DIDIER MEASUREMENT RESULTS: Intervals: Rate: 53 MN: 130 QRSD: 86 QT: 442 QTc: 414 [place]: P: 62 MN: 130 QRS: 58 T: 85 INTERPRETIVE STATEMENTS: Sinus bradycardia Nonspecific T wave abnormality Abnormal ECG Compared to ECG 01/23/2022 14:10:40 T-wave abnormality now present Sinus rhythm no longer present Electronically Signed On 05-14-23 14:58:25 SOCIAL SERVICE ASSISTANT by Stone Love
[2023-05-14 15:31] VITALS: O2SAT 95
--- NOTE | 2023-05-15 04:21 | DS ---
Date of Discharge: 05/14/2023 Physical Examination: HEENT: Unremarkable. Lungs: Clear to auscultation. Heart: Sounds normal. Abdomen: Soft. Bowel sounds normal. No guarding, rigidity, tenderness, distention. Extremities: No leg edema. Discharge Diagnoses: 1.Hallucinations. 2.Severe chronic obstructive pulmonary disease. 3.Hypertension. 4.Hypothyroidism. 5.Hyperlipidemia. 6.Chronic respiratory failure with hypoxia. 7.Thyroid cancer. 8.Impaired fasting glucose. 9.Carotid artery stenosis. 10.Gastroesophageal reflux disease. 11.Diverticulosis. 12.Osteoarthritis, multiple sites. 13.Depression. 14.Osteoporosis. 15.Breast cancer. Laboratory Data: Upon admission, white count 11.9, hemoglobin 15.5, and platelet count 225. Coat Cutter ry: Sodium 138, potassium 3.5, chloride 100, bicarb 34, BUN 12, creatinine 0.93, glucose 132. Liver function tests unremarkable. CAT scan of the head, no acute intracranial changes and chest x-ray, n o acute intrathoracic changes. Discharge Medications And Instructions: 1.Continue all prior home medications. 2.Take cefuroxime 250 mg 1 tablet by mouth 2 times a day with food for 1 week and prednisone 10 mg, the patient to take 3 tablets daily for 3 days, then 2 tablets daily for 3 days, then 1 tablet daily for 3 days, then stop, take it with food. 3.Seroquel 25 mg take 1 tablet by mouth daily at bedtime. 4.Follow up at my office next week. Hospital Course: This is a 77-year-old very pleasant female patient, who was brought into emergency room with complaints of hallucinations and confusion. Please see dictated H and P for more informati on. After the patient was evaluated in the ER, she was admitted to the hospital and her daughter was with her at bedside in the emergency room when I saw her yesterday. During her most recent office v isit, the patient informed me that she was not taking her medication as prescribed and she was encour aged to restart her usual home medications and this was just last week. About 2 weeks before that, s he was in office with acute exacerbation of COPD and she was prescribed antibiotic and prednisone and the patient's daughter told me that she did not take those medication as prescribed either. In any case during this hospitalization, we started her on Seroquel last night 25 mg at bedtime and in the p ast on outpatient basis, she was given Seroquel, but she stopped taking it. I have encouraged the pa alexy to follow up with neurologist on outpatient basis as I am concerned that she could have some un derlying senile dementia problem, presenting with symptoms of confusion and hallucinations and on out patient basis when she comes to see me next week, we will provide her referral to see the neurologist . Her overall condition remained stable and today after I saw her this morning, she was discharged t o go home in stable condition with above-mentioned medications and instructions. JENNIFER/MODL Voice ID: [id number] Report ID: [id number]
== END 2023-05-14 09:27 | disposition home or self-care (01) ==
LOC: ER 09:09 → ERHOLD 14:21 → 2ND 19:57
PROVIDERS: ADMIT Internal Medicine; ATTEND Internal Medicine
DX: R44.3 Hallucinations, unspecified (principal); R41.0 Disorientation, unspecified; J44.9 Chronic obstructive pulmonary disease, unspecified; J96.11 Chronic respiratory failure with hypoxia; I10 Essential (primary) hypertension; E03.9 Hypothyroidism, unspecified; E78.5 Hyperlipidemia, unspecified; C73 Malignant neoplasm of thyroid gland; C50.919 Malignant neoplasm of unspecified site of unspecified female breast; R73.02 Impaired glucose tolerance (oral); K21.9 Gastro-esophageal reflux disease without esophagitis; K57.90 Diverticulosis of intestine, part unspecified, without perforation or abscess without bleeding; M19.90 Unspecified osteoarthritis, unspecified site; F32.A Depression, unspecified; F17.210 Nicotine dependence, cigarettes, uncomplicated; M81.0 Age-related osteoporosis without current pathological fracture; Z91.148 Patient's other noncompliance with medication regimen for other reason; Z88.5 Allergy status to narcotic agent; Z88.8 Allergy status to other drugs, medicaments and biological substances; Z99.81 Dependence on supplemental oxygen
CPT/HCPCS: 93005; 87040 ×2; 85025 ×2; 81001; 80048; 36415; 83735 ×2; 85610; 80061; 82947 ×3; 83605; 85730; 84484; 80053; 83880; 70450; 71045; J7613; J7644; J0696 ×2; G0378 ×4

== ENCOUNTER 2023-05-24 10:56 | Inpatient (IN) | payer OTHER ==
[2023-05-24 11:49] LABS: Absolute Lymphocytes (CBC) 2.1 K/uL (0.7-4.9); Hematocrit 40.6 % (36.0-45.0); Lymphocytes % 15.7 % (15.3-44.8); MCV 96.4 fL (80-100); MPV 12.1 fL (7.6-11.3); Platelets 153 thou/uL (152-406); RBC Red Blood Cell Count 4.22 M/uL (3.86-4.86)
[2023-05-24 11:50] LABS: Protime INR 1.03
[2023-05-24] MEDS ORDERED: ASPIRIN 81 MG CHEWABLE TABLET ONE (11:53)
--- NOTE | 2023-05-24 12:00 | RAD REPORT ---
EXAM DESCRIPTION: Ashlyn Single View05/24/2023 11:32 am CLINICAL HISTORY: cough COMPARISON: May 13, 2023 FINDINGS: The lungs appear clear of acute infiltrate. The heart is normal size IMPRESSION: No acute abnormalities displayed
[2023-05-24 12:09] LABS: ALT/SGPT 57 U/L (13-56); AST/SGOT 20 U/L (15-37); Albumin 2.9 g/dL (3.4-5.0); Alkaline Phosphatase 85 U/L (45-117); BUN Blood Urea Nitrogen 11 mg/dL (7-18); Bilirubin Direct 0.3 mg/dL (0-0.2); Bilirubin Indirect, Calculated 0.3 mg/dL (0.2-0.8); Bilirubin Total 0.6 mg/dL (0.2-1.0); Glomerular Filtration Rate 90 ml/min (=/>90); Glucose Level 142 mg/dL (74-106); Magnesium 1.9 mg/dL (1.6-2.4); NT PRO-BNP 2120 pg/mL (<450); Potassium 3.8 mEq/L (3.5-5.1); Protein, Total 6.2 g/dL (6.4-8.2); Sodium Level 142 mEq/L (136-145); Troponin High Sensitivity 12.4 pg/mL (<58.9)
[2023-05-24 12:10] LABS: Bicarbonate > 45 mEq/L (21-32)
[2023-05-24] MEDS ORDERED: LEVALBUTEROL 1.25 MG/3 ML NEB ONE (14:03)
[2023-05-24] MEDS ORDERED: IPRATROPIUM BROM 0.5MG/2.5ML ONE (14:03)
[2023-05-24] MEDS ORDERED: predniSONE 20 MG TAB ONE (14:04)
[2023-05-24] MEDS ORDERED: levoFLOXacin 750 MG TAB ONE (14:04)
[2023-05-24 14:09] LABS: Arterial Blood Carboxyhemoglob 2.4 % (0-1.5); Blood Gas Oxyhemoglobin 83.3 % (94-97); Blood O2 Saturation 86.9 % (92-98.5)
--- NOTE | 2023-05-24 14:36 | EDPHYS ---
Physician Documentation [facility] Name: Yodit Mercedes Age: 77 yrs Sex: Female : 1945 Arrival Date: 05/24/2023 Time: 10:56 Bed 5 Private MD: ED Physician Carlton Dillon HPI: 05/24 14:02 This 77 yrs old Female presents to ER via EMS with complaints of Blood paramjit Pressure Problem. 14:02 The patient has shortness of breath at rest, with light activity. Onset: The paramjit symptoms/episode began/occurred 2 day(s) ago. Historical: - Allergies: 11:03 atorvastatin; kc6 11:03 Clonidine; kc6 11:03 Lisinopril; kc6 11:03 Nifedipine; kc6 11:03 tramadol; kc6 11:03 Zestril; kc6 - PMHx: 11:03 breast cancer; Cancer; COPD; Home O2 \\T\\ 2L NC (THYROID CANCER); Hypertension; kc6 Osteoporosis; THYROID CANCER; - PSHx: 11:03 left mastectomy (THYROID CANCER); kc6 - Immunization history:: Adult Immunizations unknown. - Social history:: Smoking status: unknown. ROS: 14:03 Constitutional: Negative for fever, chills, and weight loss, Eyes: Negative for injury, paramjit pain, redness, and discharge, ENT: Negative for injury, pain, and discharge, Neck: Negative for injury, pain, and swelling, Cardiovascular: Negative for chest pain, palpitations, and edema, Abdomen/GI: Negative for abdominal pain, nausea, vomiting, diarrhea, and constipation, Back: Negative for injury and pain, : Negative for injury, bleeding, discharge, and swelling, MS/Extremity: Negative for injury and deformity, Skin: Negative for injury, rash, and discoloration, Neuro: Negative for headache, weakness, numbness, tingling, and seizure, Psych: Negative for depression, anxiety, suicide ideation, homicidal ideation, and hallucinations, Allergy/Immunology: Negative for hives, rash, and allergies, Endocrine: Negative for neck swelling, polydipsia, polyuria, polyphagia, and marked weight changes, Hematologic/Lymphatic: Negative for swollen nodes, abnormal bleeding, and unusual bruising, 14:03 Respiratory: Positive for cough, "sounds productive", Exam: 14:03 Constitutional: This is a well developed, well nourished patient who is awake, alert, paramjit and in no acute distress. Head/Face: Normocephalic, atraumatic. Eyes: Pupils equal round and reactive to light, extra-ocular motions intact. Lids and lashes normal. Conjunctiva and sclera are non-icteric and not injected. Cornea within normal limits. Periorbital areas with no swelling, redness, or edema. ENT: Nares patent. No nasal discharge, no septal abnormalities noted. Tympanic membranes are normal and external auditory canals are clear. Oropharynx with no redness, swelling, or masses, exudates, or evidence of obstruction, uvula midline. Mucous membranes moist. Neck: Trachea midline, no thyromegaly or masses palpated, and no cervical lymphadenopathy. Supple, full range of motion without nuchal rigidity, or vertebral point tenderness. No Meningismus. Chest/axilla: Normal chest wall appearance and motion. Nontender with no deformity. No lesions are appreciated. Cardiovascular: Regular rate and rhythm with a normal S1 and S2. No gallops, murmurs, or rubs. Normal PMI, no JVD. No pulse deficits. Abdomen/GI: Soft, non-tender, with normal bowel sounds. No distension or tympany. No guarding or rebound. No evidence of tenderness throughout. Back: No spinal tenderness. No costovertebral tenderness. Full range of motion. Female : Normal external genitalia. Skin: Warm, dry with normal turgor. Normal color with no rashes, no lesions, and no evidence of cellulitis. MS/ Extremity: Pulses equal, no cyanosis. Neurovascular intact. Full, normal range of motion. Neuro: Awake and alert, GCS 15, oriented to person, place, time, and situation. Cranial nerves II-XII grossly intact. Motor strength 5/5 in all extremities. Sensory grossly intact. Cerebellar exam normal. Normal gait. Psych: Awake, alert, with orientation to person, place and time. Behavior, mood, and affect are within normal limits. 14:03 ECG was reviewed by the Attending Physician. 14:03 Respiratory: the patient does not display signs of respiratory distress, Respirations: labored breathing, that is mild, Breath sounds: bronchial sounds, that are mild, decreased breath sounds, that are mild, rhonchi, that are moderate, are scattered, stridor, is not appreciated, + upper airway congestion. wheezing: inspiratory expiratory is heard diffusely, Vital Signs: 11:00 BP 136 / 66; Pulse 65; Resp 18 S; Temp 98.6(O); Pulse Ox 100% on 2 lpm NC; Weight 68.04 kc6 kg (R); Height 5 ft. 2 in. (R); 12:46 BP 111 / 59; Pulse 58; Resp 16 S; Pulse Ox 96% on 2 lpm NC; kc6 15:40 BP 130 / 63; Pulse 68; Resp 16 S; Pulse Ox 100% 2 lpm ; kc6 11:00 Body Mass Index 27.44 (68.04 kg, 157.48 cm) kc6 Procedures: 14:46 Peripheral line: by aseptic technique a peripheral line was placed in the left external paramjit jugular vein. MDM: 11:03 Patient medically screened. [facility] 14:08 Differential diagnosis: Anemia asthma, Bronchitis CHF exacerbation, Chronic Obstructive paramjit Pulmonary Disease Myocardial Infarction pneumonia, Pneumothorax pulmonary edema, reactive airway disease, Sepsis Unstable Angina. Antibiotic administration: Levaquin given. Differential Diagnosis: CVA, electrolyte abnormality, pneumonia, seizure, sepsis, TIA, UTI, volume depletion. Differential Diagnosis: Obstructed Airway Bronchitis Influenza Upper Respiratory Infection Pharyngitis Otitis Media Viral Syndrome Pneumonia. Immunization status: Pneumococcal vaccine: within last 5 years. Influenza vaccine: within last 5 years. Data reviewed: vital signs, nurses notes, lab test result(s), EKG, radiologic studies, plain films. Consideration of Admission/Observation Patient was admitted/placed on observation. Escalation of care including admission/observation considered. I considered the following discharge prescriptions or medication management in the emergency department Medications were administered in the Emergency Department. See MAR. Test considered but Not performed: CT: no ct chest. 05/24 11:06 Order name: Basic Metabolic Panel; Complete Time: 13:46 [facility] 05/24 11:06 Order name: CBC with Diff; Complete Time: 13:46 [facility] 05/24 11:06 Order name: LFT's; Complete Time: 13:46 [facility] 05/24 11:06 Order name: Magnesium; Complete Time: 13:46 [facility] 05/24 11:06 Order name: NT PRO-BNP; Complete Time: 13:46 [facility] 05/24 11:06 Order name: PT-INR; Complete Time: 13:46 [facility] 05/24 11:06 Order name: Troponin HS; Complete Time: 13:46 [facility] 05/24 11:06 Order name: Urinalysis w/ reflexes 05/24 13:47 Order name: ABG [facility] 05/24 14:04 Order name: Blood Culture Adult (2) [facility] 05/24 14:11 Order name: SARS RAPID [facility] 05/24 14:11 Order name: Flu 05/24 11:06 Order name: XRAY Chest (1 view); Complete Time: 13:46 [facility] 05/24 14:34 Order name: CT Head Brain wo Cont [facility] 05/24 11:06 Order name: EKG; Complete Time: 11:07 [facility] 05/24 14:45 Order name: CONS Physician Consult EDAK 05/24 11:06 Order name: Cardiac monitoring; Complete Time: 11:24 [facility] 05/24 11:06 Order name: EKG - Nurse/Tech; Complete Time: 11:24 [facility] 05/24 11:06 Order name: IV Saline Lock; Complete Time: 14:37 [facility] 05/24 11:06 Order name: Labs collected and sent; Complete Time: 11:42 [facility] 05/24 11:06 Order name: O2 Per Protocol; Complete Time: 11:24 [facility] 05/24 11:06 Order name: O2 Sat Monitoring; Complete Time: 11:24 [facility] 05/24 11:32 Order name: Labs - recollect needed: please recollect green top; Complete Time: 11:42 em1 EC:03 Rate is 64 beats/min. Rhythm is regular. QRS [place] is Normal. [place] interval is normal. QRS paramjit interval is normal. QT interval is normal. No Q waves. T waves are Normal. No ST changes noted. Clinical impression: NSR w/ Non-specific ST/T Changes and No evidence of ischemia. Interpreted by me. Reviewed by me. Administered Medications: 11:56 Drug: Aspirin PO Chewable Tablet 324 mg PO once; 81 mg tablets x 4 Route: PO; kc6 12:47 Follow up: Response: No adverse reaction kc6 14:33 Not Given (Duplicate Order): [id number] mg PO once [facility] 14:35 Drug: Levalbuterol Inhalation 3.75 mg Inhalation once Route: Inhalation; kc6 14:35 Drug: Ipratropium Inhalation Aerosol 0.5 mg Inhalation once Route: Inhalation; kc6 14:41 Not Given (Patient Refused): [id number] mg PO once kc6 14:43 Not Given (Other Intervention Used): [id number] mg 100 ml IVPB once over 60 mins kc6 14:53 Drug: levofloxacin IVPB 750 mg 150 ml IVPB once over 90 mins Volume: 150 ml; Route: kc6 IVPB; Infused Over: 90 mins; Site: left jugular; 14:54 Drug: NS 0.9% IV 1000 ml IV at 125 ml/hr continuous Route: IV; Rate: 125 ml/hr; Site: kc6 left jugular; 15:07 Drug: MethylPrednisoLONE IVP 125 mg IVP once Route: IVP; Site: left jugular; kc6 Disposition Summary: 05/24/23 14:36 Hospitalization Ordered Notes: Hospitalization Status: Inpatient Admission paramjit Provider: Roc Brownlee cha Location: Telemetry/MedSurg (Inpatient) paramjit Condition: Fair paramjit Problem: new paramjit Symptoms: have improved paramjit Bed/Room Type: Standard [facility] Room Assignment: 206(05/24/23 16:43) ds4 Diagnosis - COPD/ Chronic obstructive pulmonary disease with (acute) exacerbation paramjit - Hypoxemia paramjit - Acute and chronic respiratory failure with hypoxia paramjit - Altered mental status, unspecified paramjit Forms: - Medication Reconciliation Form paramjit - SBAR form paramjit - Leadership Thank You Letter paramjit Signatures: Dispatcher [employer] EDCarlton Gutiérrez MD MD cha Martinez, Eric emAustin Garcia ds4 Brianna Quigley RN RN kc6 Corrections: (The following items were deleted from the chart) 16:43 14:36 paramjit ds4
--- NOTE | 2023-05-24 14:36 | ER ---
Nurse's Notes [facility] Name: Yodit Mercedes Age: 77 yrs Sex: Female : 1945 Arrival Date: 05/24/2023 Time: 10:56 Bed 5 Private MD: Diagnosis: COPD/ Chronic obstructive pulmonary disease with (acute) exacerbation;Hypoxemia;Acute and chronic respiratory failure with hypoxia;Altered mental status, unspecified Presentation: 05/24 11:00 Chief complaint: EMS states: family went to check on the pt today when they found 3 kc6 days worth of her metoprolol missing and called 911. EMS gave an ALISON treatment en route for wheezing and pt was 84% on RA. pt was not wearing her 2L of home O2. BGL en route 127. Coronavirus screen: At this time, the client does not indicate any symptoms associated with coronavirus-19. Ebola Screen: No symptoms or risks identified at this time. Initial Sepsis Screen: Does the patient meet any 2 criteria? Altered Mental Status. No. Patient's initial sepsis screen is negative. Does the patient have a suspected source of infection? No. Patient's initial sepsis screen is negative. Risk Assessment: Do you want to hurt yourself or someone else? Patient reports no desire to harm self or others. Onset of symptoms was May 24, 2023. 11:00 Method Of Arrival: EMS: [facility] kc6 11:00 Acuity: SEN 3 kc6 Triage Assessment: 11:03 General: Appears in no apparent distress. comfortable, well groomed, well developed, kc6 Behavior is calm, cooperative, appropriate for age. Pain: Denies pain. EENT: No signs and/or symptoms were reported regarding the EENT system. Neuro: Level of Consciousness is awake, alert, obeys commands, Oriented to person, place, time, situation, Appropriate for age. Cardiovascular: Capillary refill < 3 seconds. Respiratory: Airway is patent Trachea midline Respiratory effort is even, unlabored, Respiratory pattern is regular, symmetrical. GI: No signs and/or symptoms were reported involving the gastrointestinal system. : No signs and/or symptoms were reported regarding the genitourinary system. Derm: No signs and/or symptoms reported regarding the dermatologic system. Skin is intact, is healthy with good turgor, Skin is pink, warm \T\ dry. Musculoskeletal: No signs and/or symptoms reported regarding the musculoskeletal system. Circulation, motion, and sensation intact. Capillary refill < 3 seconds, Range of motion: intact in all extremities. Historical: - Allergies: 11:03 atorvastatin; kc6 11:03 Clonidine; kc6 11:03 Lisinopril; kc6 11:03 Nifedipine; kc6 11:03 tramadol; kc6 11:03 Zestril; kc6 - PMHx: 11:03 breast cancer; Cancer; COPD; Home O2 \T\ 2L NC (THYROID CANCER); Hypertension; kc6 Osteoporosis; THYROID CANCER; - PSHx: 11:03 left mastectomy (THYROID CANCER); kc6 - Immunization history:: Adult Immunizations unknown. - Social history:: Smoking status: unknown. Screenin:04 [facility] ED Fall Risk Assessment (Adult) History of falling in the last 3 months, kc6 including since admission No falls in past 3 months (0 pts) Confusion or Disorientation Yes (5 pts) Intoxicated or Sedated No (0 pts) Impaired Gait No (0 pts) Mobility Assist Device Used No (0 pt) Altered Elimination No (0 pt) Score/Fall Risk Level 3 or more points = High Risk. Abuse screen: Denies threats or abuse. Denies injuries from another. Nutritional screening: No deficits noted. Tuberculosis screening: No symptoms or risk factors identified. Assessment: 11:05 Reassessment: please see triage assessment. kc6 12:05 Reassessment: Patient appears in no apparent distress at this time. No changes from 6 previously documented assessment. Patient and/or family updated on plan of care and expected duration. Pain level reassessed. Patient is alert, oriented x 3, equal unlabored respirations, skin warm/dry/pink. 13:05 Reassessment: Patient appears in no apparent distress at this time. No changes from kc6 previously documented assessment. Patient and/or family updated on plan of care and expected duration. Pain level reassessed. Patient is alert, oriented x 3, equal unlabored respirations, skin warm/dry/pink. 14:05 Reassessment: Patient appears in no apparent distress at this time. No changes from 6 previously documented assessment. Patient and/or family updated on plan of care and expected duration. Pain level reassessed. Patient is alert, oriented x 3, equal unlabored respirations, skin warm/dry/pink. 15:05 Reassessment: Patient appears in no apparent distress at this time. No changes from [facility] previously documented assessment. Patient and/or family updated on plan of care and expected duration. Pain level reassessed. Patient is alert, oriented x 3, equal unlabored respirations, skin warm/dry/pink. Vital Signs: 11:00 BP 136 / 66; Pulse 65; Resp 18 S; Temp 98.6(O); Pulse Ox 100% on 2 lpm NC; Weight 68.04 kc6 kg (R); Height 5 ft. 2 in. (R); 12:46 BP 111 / 59; Pulse 58; Resp 16 S; Pulse Ox 96% on 2 lpm NC; kc6 15:40 BP 130 / 63; Pulse 68; Resp 16 S; Pulse Ox 100% 2 lpm ; kc6 11:00 Body Mass Index 27.44 (68.04 kg, 157.48 cm) [facility] ED Course: 11:00 Patient arrived in ED. [facility] 11:03 Triage completed. [facility] 11:03 Carlton Dillon MD is Attending Physician. [facility] 11:03 Arm band placed on. [facility] 11:04 Oxygen administration via nasal cannula \T\ 2L/min. [facility] 11:05 Patient has correct armband on for positive identification. Bed in low position. Call [facility] light in reach. Side rails up X2. Adult w/ patient. Client placed on continuous cardiac and pulse oximetry monitoring. NIBP monitoring applied. monitor car operator on. 11:25 Missed attempt(s): 20 gauge in right antecubital area. Missed attempt(s): 22 gauge in kc6 right forearm. 11:26 Brianna Quigley, FABI is Primary Nurse. kc 11:34 XRAY Chest (1 view) In Process Unspecified. EDMS 11:41 Initial lab(s) drawn, by nd, sent to lab. Missed attempt(s): 22 gauge in left iw antecubital area. Bleeding controlled, band aid applied, catheter tip intact. 14:35 Roc Brownlee MD is Hospitalizing Provider. [facility] 14:37 Inserted saline lock: 18 gauge in left EJ, using aseptic technique. ,using aseptic [facility] technique. by Dr. Dillon Blood collected. 14:45 CT Head Brain wo Cont In Process Unspecified. EDMS 16:50 IV discontinued, intact, bleeding controlled, No redness/swelling at site. Pressure ll1 dressing applied, patient pulled out IV. No active bleeding. Catheter intact. Administered Medications: 11:56 Drug: Aspirin PO Chewable Tablet 324 mg PO once; 81 mg tablets x 4 Route: PO; kc6 12:47 Follow up: Response: No adverse reaction kc6 14:33 Not Given (Duplicate Order): mg PO once paramjit 14:35 Drug: Levalbuterol Inhalation 3.75 mg Inhalation once Route: Inhalation; kc6 14:35 Drug: Ipratropium Inhalation Aerosol 0.5 mg Inhalation once Route: Inhalation; kc6 14:41 Not Given (Patient Refused): [id number] mg PO once kc6 14:43 Not Given (Other Intervention Used): [id number] mg 100 ml IVPB once over 60 mins kc6 14:53 Drug: levofloxacin IVPB 750 mg 150 ml IVPB once over 90 mins Volume: 150 ml; Route: kc6 IVPB; Infused Over: 90 mins; Site: left jugular; 14:54 Drug: NS 0.9% IV 1000 ml IV at 125 ml/hr continuous Route: IV; Rate: 125 ml/hr; Site: kc6 left jugular; 15:07 Drug: MethylPrednisoLONE IVP 125 mg IVP once Route: IVP; Site: left jugular; kc6 Outcome: 14:36 Decision to Hospitalize by Provider. paramjit 17:37 Patient left the ED. iw Signatures: Dispatcher [employer] EDND Carlton Dillon MD MD cha Williams, Irene, RN RN iw Jaswinder Cerda RN RN llBrianna Gerber RN RN kc6 Corrections: (The following items were deleted from the chart) 12:46 11:03 Neuro: Level of Consciousness is awake, alert, obeys commands, Oriented to kc6 person, place, kc6
[2023-05-24] MEDS ORDERED: NA CHLORIDE 0.9% 1,000 ML ONE (14:40)
[2023-05-24] MEDS ORDERED: Levofloxacin 750mg IV 750 MG/150 ML BAG IV ONE (14:42)
--- NOTE | 2023-05-24 14:55 | RAD REPORT ---
EXAM DESCRIPTION: CT - Head Brain Wo Cont - 05/24/2023 2:43 pm CLINICAL HISTORY: MENTAL STATUS CHANGE Headache, drowsiness COMPARISON: Head Brain Wo Cont dated 05/13/2023; Head Brain Wo Cont dated 01/11/2021 TECHNIQUE: All CT scans are performed using dose optimization technique as appropriate and may inclu de automated exposure control or mA/KV adjustment according to patient size. FINDINGS: No intracranial hemorrhage, hydrocephalus or extra-axial fluid collection.Moderate general ized brain atrophy is present with mild periventricular and deep white matter chronic microvascular i schemic changes.No areas of brain edema or evidence of midline shift. The paranasal sinuses and mastoids are clear. The calvarium is intact. IMPRESSION: No acute intracranial abnormality.
[2023-05-24 14:56] LABS: SARS-CoV-2 Antigen Rapid Res Negative (Negative)
[2023-05-24] MEDS ORDERED: METHYLPREDNISOLONE 125 MG INJ ONE (14:57)
[2023-05-24] MEDS ORDERED: ACETAMINOPHEN 500 MG TAB PO PRN (17:42)
[2023-05-24] MEDS ORDERED: ONDANSETRON 4 MG/2 ML VIAL IV PRN (17:42)
[2023-05-24] MEDS ORDERED: IPRATROPIUM BROM 0.5MG/2.5ML NEB PRN (17:42)
[2023-05-24] MEDS: Levofloxacin500mg IV 500 MG/100 ML BAG IV SCH (17:42)
[2023-05-24] MEDS ORDERED: ALBUTEROL 2.5 MG/3 ML NEB SOL NEB PRN (17:42)
[2023-05-24 17:55] VITALS: BMI 26.4
[2023-05-24] MEDS: METHYLPREDNISOLONE 40 MG INJ IV SCH (18:53)
[2023-05-24 20:41] LABS: Urine Bacteria None Seen /HPF (<20); Urine Bilirubin NEGATIVE (Negative); Urine Blood Negative (Negative); Urine Clarity Turbid (Clear); Urine Color Light-Yellow (Yellow); Urine Crystals Unidentified Few /HPF (None Seen); Urine Glucose 4+ (Over) (Negative); Urine Mucus Slight /HPF (None Seen); Urine Protein NEGATIVE (Negative); Urine RBC <5 /HPF (None Seen); Urine Urobilinogen Normal (Normal)
[2023-05-24] MEDS: DULERA 200/5 (MOMETASONE/FORMOTEROL) INHALER IH SCH (21:00)
[2023-05-25 03:47] LABS: Absolute Lymphocytes (CBC) 0.5 K/uL (0.7-4.9); Hematocrit 37.4 % (36.0-45.0); Lymphocytes % 5.6 % (15.3-44.8); MPV 11.7 fL (7.6-11.3); Platelets 143 thou/uL (152-406); RBC Red Blood Cell Count 3.94 M/uL (3.86-4.86)
[2023-05-25 04:10] LABS: Potassium 3.8 mEq/L (3.5-5.1)
[2023-05-25] MEDS: acetaZOLAMIDE 250 MG TAB PO SCH (08:44)
[2023-05-25] MEDS: METOPROLOL TAR 50 MG TAB PO SCH (08:44)
[2023-05-25] MEDS: AMLODIPINE 5 MG TAB PO SCH (08:44)
[2023-05-25] MEDS: ASPIRIN EC 81 MG TAB PO SCH (08:44)
[2023-05-25] MEDS ORDERED: GLUCAGON 1 MG/VIAL IM PRN (09:28)
[2023-05-25] MEDS ORDERED: D50W 25 GM/50 ML SYRINGE IV PRN (09:28)
[2023-05-25] MEDS ORDERED: D10W 125 ML IV PRN (09:48)
[2023-05-25] MEDS: ENOXAPARIN 40 MG/0.4 ML SQ ONE (10:00)
[2023-05-25 10:11] VITALS: O2SAT 96
--- NOTE | 2023-05-25 11:04 | PN ---
Date of Progress Note: 05/25/2023 Subjective: The patient was seen this morning for followup. No new complaints, problems reported by her. Overall feels a little better than yesterday. Still has cough, chest congestion, and wheezing . Vital signs reviewed. This morning blood pressure was elevated at 185/90 with pulse 79. The thong ent has not received her blood pressure medications last night so it was ordered this morning. Physical Examination: HEENT: Unremarkable. Lungs: Bilateral scattered wheezing. Not in any respiratory distress. Heart: Sounds normal. Abdomen: Soft. Bowel sounds normal. No guarding, rigidity, tenderness, distention. Extremities: No leg edema. Labs: White count 9.6, hemoglobin 12.4, platelets 143. Sodium 143, potassium 3.8, chloride 98, bica rb 43, BUN 14, creatinine 0.58, glucose 243. ProBNP 2482. Blood culture pending. Impression: 1.Acute exacerbation of COPD. 2.Acute respiratory failure with hypercapnia. 3.Chronic respiratory failure with hypoxia. 4.Hypertension. 5.Thrombocytopenia. Plan: We will go ahead and continue current medications. Continue current antibiotic, which is Leva michael. Continue IV steroid. We will go ahead and continue DVT prophylaxis using Lovenox. Physical T herapy to work with the patient. I will see her tomorrow morning for followup, possible discharge to go home tomorrow depending on her condition. Details and plan of mercedes atment discussed with the patient. JENNIFER/MODL Voice ID: [id number] Report ID: [id number]
--- NOTE | 2023-05-25 11:19 | P.CNS ---
Date of Consult: 05/25/23 Reason for Consult: COPD exacerbation Chief Complaint: Shortness of breath wheezing History of Present Illness: Patient is 77 years of age with a history of terminal COPD on oxygen apparently she got involved in a scam came distress started having more wheezing shortness of breath was brought into the emergency room is able to walk with physical therapy today denies any cough congestion Allergies memantine Allergy (Verified 02/25/20 11:12) Anaphylaxis clonidine Adverse Reaction (Verified 07/17/17 07:36) Anaphylaxis lisinopril Adverse Reaction (Verified 02/25/20 11:12) Anaphylaxis Home Medications: Omeprazole [Prilosec] 40 mg PO DAILY 02/25/20 Amlodipine [Norvasc*] 1 tab PO BID 01/24/22 Metoprolol Tartrate 1.5 tab PO BID 01/24/22 Rosuvastatin Calcium 1 tab PO SEECOM 01/24/22 Alendronate Sodium/Vitamin D3 [Fosamax Plus D 70 mg-2,800 Iu] 1 each PO SEECOM 05/24/23 Benzonatate 100 mg PO QID 05/24/23 Quetiapine Fumarate [Seroquel] 25 mg PO BEDTIME 05/24/23 - Past Medical/Surgical History Diabetic: No -: COPD -: Asthma -: Depression -: HTN -: hyperlipidemia -: Anxiety -: breast cancer -: thyroid cancer -: bowel obstruction -: left breast mastectomy -: thyroidectomy -: Bowel Sx -: Cesarian Section X1 -: hysterectomy -: appendectomy - Family History Mother Medical History: Heart disease, Hypertension, Cancer Notes: brain cancer Father Medical History: Lung disease Notes: emphysema. asthma Brother Medical History: Heart disease Sister Medical History: Cancer Notes: breast cancer - Social History Smoking Status: Unknown if ever smoked Alcohol use: No CD- Drugs: No Caffeine use: Yes Place of Residence: Home Review of Systems 10-point ROS is otherwise unremarkable General: Weakness Respiratory: Cough, Shortness of Breath Physical Examination Temp Pulse Resp BP Pulse Ox 98.0 F 85 19 185/90 H 97 05/25/23 08:00 05/25/23 08:00 05/25/23 08:00 05/25/23 04:00 05/25/23 08:00 General: Alert, Oriented x3 Respiratory: Clear to auscultation bilaterally, Diminished Cardiovascular: No edema, Regular rate/rhythm, Normal S1 S2 Gastrointestinal: Normal bowel sounds, Soft and benign Laboratory Data (last 24 hrs) 05/24/23 05/24/23 05/24/23 11:35 11:35 11:35 WBC 13.30 H Hgb 13.2 Hct 40.6 Plt Count 153 PT 11.3 INR 1.03 Sodium 142 Potassium 3.8 BUN 11 Creatinine 0.68 Glucose 142 H Magnesium 1.9 Total Bilirubin 0.6 AST 20 ALT 57 H Alkaline Phosphatase 85 - Problems (1) Chronic respiratory failure Current Visit: Yes Status: Acute Plan: Patient has a history of COPD has underlying chronic respiratory failure with elevated bicarbonate patient's chest x-ray is clear bicarbonate is very elevated patient will need some IV fluids IV bicarbonate will be a candidate for noninvasive ventilator at home to prevent readmissions labs chemistries all reviewed Qualifiers: Respiratory failure complication: hypoxia and hypercapnia Qualified Code(s): J96.11 - Chronic respiratory failure with hypoxia; J96.12 - Chronic respiratory failure with hypercapnia
[2023-05-25] MEDS: INSULIN REGULAR (HUMAN) 100 UNIT/ML SQ SCH (11:30)
[2023-05-25] MEDS: levoFLOXacin 500 MG TAB PO SCH (12:00)
[2023-05-25] MEDS: NA CHLORIDE 0.9% 1,000 ML IV SCH (12:00)
[2023-05-25] MEDS: IPRATROPIUM BROM 0.5MG/2.5ML NEB SCH (13:29)
[2023-05-25] MEDS ORDERED: LEVOFLOXACIN 750MG/D5W 150 ML IV SCH (15:00)
[2023-05-25] MEDS: DULERA 200/5 (MOMETASONE/FORMOTEROL) INHALER IH SCH (20:44)
[2023-05-26 08:46] VITALS: BP 150/71; TEMP 97.5
--- NOTE | 2023-05-26 09:50 | DS ---
Date of Discharge: 05/26/2023 Disposition: Discharged to go home. Physical Examination: HEENT: Unremarkable. Lungs: Clear to auscultation. Heart: Sounds normal. Abdomen: Soft. Bowel sounds normal. No guarding, rigidity, tenderness, distention. Extremities: No leg edema. Laboratory Data: Upon admission, white count 13.3, hemoglobin 13.2, platelets 153. Yesterday, white count 9.6, hemoglobin 12.4, platelets 143. Arterial blood gas: Upon admission, pH 7.38, pCO2 77.7, pO2 50.5, oxygen saturation 86.9% on 32% FiO2. Initial chemistry: Sodium 142, potassium 3.8, chlor rafael 97, bicarb more than 45, BUN 11, creatinine 0.68, glucose 142. Liver function test unremarkable. Initial troponin 12.4, second troponin 10.4. Initial proBNP 2120, second BNP 2482. Chemistry, fro m yesterday: Sodium 143, potassium , chloride 98, bicarb 43, BUN 14, creatinine 0.58, gluc ose . Final Diagnoses: 1.Acute respiratory failure with hypercapnia and hypoxia. 2.Chronic respiratory failure with hypoxia. 3.Acute exacerbation of chronic obstructive pulmonary disease. 4.Hypertension. 5.Hypothyroidism. 6.Hyperlipidemia. 7.Impaired fasting glucose. 8.Gastroesophageal reflux disease. 9.Carotid artery stenosis. 10.Diverticulosis. 11.Osteoarthritis, multiple sites. 12.Depression. 13.Osteoporosis. 14. cancer. 15.Thyroid cancer. Advance Directives: Do Not Resuscitate. Discharge Medications And Instructions: 1.Continue all prior home medications. 2.Take following new medications and prescription will be sent to your pharmacy. a.Levaquin 500 mg daily for 5 days. b.Prednisone 10 mg take 3 tablets daily for 3 days, then 2 tablets daily for 3 days, then 1 tablet d aily for 3 days, then stop, take it with food. c.Trelegy inhaler 1 puff by mouth daily, rinse mouth with water after each use. d.Albuterol inhaler 4 times a day. 3.Follow up at my office a week after. I have discussed with Dr. Higuera today regarding NIV, which is noninvasive ventilator and he will a rrange that on outpatient basis for the patient. Hospital Course: 77-year-old female patient, who lives at home, was brought into emergency room with altered mental status and she was found lethargic. Please see dictated H and P for more information . After she was evaluated, she was admitted to the hospital with respiratory failure with hypoxia an d hypercapnia and acute exacerbation of COPD. Overall, her condition improved with oxygen, nebulizer treatment, IV steroid, and antibiotics. Her mental status is back to normal as of last 2 days and s he has home oxygen that she uses at all the time, and Dr. Higuera from Pulmonary was consulted, and he has suggested that the patient will benefit from NIV, that is noninvasive ventilator and he will a rrange that for the patient on an outpatient basis. Meanwhile, the patient's condition has improved. Today, she was discharged to go home in stable condition with above-mentioned medications and instr uctions. JENNIFER/MODL Voice ID: [id number] Report ID: [id number]
[2023-05-26] MEDS: ENOXAPARIN 40 MG/0.4 ML SQ SCH (09:59)
--- NOTE | 2023-05-28 11:07 | EKG ---
Test Date: 2023-05-24 Test Time: 11:02:41 Senior Vice President & General Counsel: DIDIER MEASUREMENT RESULTS: Intervals: Rate: 64 WV: 112 QRSD: 82 QT: 396 QTc: 408 [place]: P: 85 WV: 112 QRS: 77 T: 78 INTERPRETIVE STATEMENTS: Normal sinus rhythm with sinus arrhythmia Normal ECG Compared to ECG 05/13/2023 09:44:22 Sinus bradycardia no longer present T-wave abnormality no longer present Electronically Signed On 05-28-23 11:00:54 LOAD DISPATCHER by Luis Armando Johns
--- NOTE | 2023-05-28 17:21 | HP ---
Date of Admission: 05/24/2023 Chief Complaint: Altered mental status. History Of Present Illness: This is a 77-year-old female patient, who has severe COPD, on home oxyge n due to chronic respiratory failure with hypoxia, was found very lethargic today at home, and she wa s brought into emergency room. After she was evaluated, she was admitted to the hospital with acute exacerbation of COPD and respiratory failure with hypercapnia and hypoxia. The patient's condition h as improved after her arrival and treatment in the emergency room. She was admitted to the hospital and I saw her this evening on the medical floor. One of her close friend was with her at bedside. Luz carpenter last hospital admission, young lady who was with the patient, and she introduced herself as the patient's daughter produce her as her daughter at that time and same lady came to office for followup visit recently, but today the patient tells me that she is not her daughter and in fact as she good relationship with her daughter as they do not come visit her and she does not want to communicate with that lady who was with her during last office visit and during last hospital stay. When I asked her about next of kin from her family that she wants me to communicate if it is necessary, she has informed me about her brother who lives in [place] and she has given permission to communicate with that brother if it becomes necessary at some point. Discussed with the patient reg arding her advance directives and in case of cardiopulmonary arrest, . Physical Examination: Vital Signs: 98.6, pulse 65, respiratory rate 18, blood pressure in both lung lawson. Not using accessory muscles of respiration. General: Awake, alert, oriented, not in distress. HEENT: Head atraumatic, normocephalic. Conjunctivae nonerythematous. Sclerae white. Mouth, no thr ush or edema noted. Ears/Nose, no mass, lesion, discharge noted. Neck: Supple. No JVD, lymph nodes, bruit, thyromegaly noted. Heart: Normal heart sounds, no murmur or gallop. Abdomen: Soft, bowel sounds normal. No guarding, rigidity, tenderness, mass, hepatosplenomegaly, dis tention, or bruit noted. Extremities: No leg edema. No calf tenderness. Skin: No rash, ulcer, cellulitis. Lymphatics: No lymph node enlargement in neck, supraclavicular, infraclavicular region. Neuro: No focal neurological deficit. Chest: Unremarkable. External Genitalia: Deferred. Rectal: Deferred. Laboratory Data: COVID-19 test negative. Chest x-ray, no acute cardiopulmonary changes. CAT scan o f the head, no acute intracranial changes. White count 13.3, hemoglobin 13.2, platelets 153. Sodium 142, potassium 3.8, chloride 97, bicarb more than 45, BUN , creatinine 0.68, glucose 142. Liver function tests unremarkable. Initial troponin 12.4, second troponin 10.4. ProBNP 2120. Shirin rial blood gas; pH 7.38, pCO2 77.7, pO2 59, oxygen saturation 86.9% on 32% FiO2. Impression: 1.Acute exacerbation of . 2.Hypertension. 3.Hypothyroidism. 4.Hyperlipidemia. 5.Thyroid cancer. 6.Impaired fasting glucose. 7.Carotid artery stenosis. 8.Gastroesophageal reflux disease. 9.Diverticulosis. 10.Osteoarthritis, multiple sites. 11.Breast cancer. 12.Osteoporosis. 13.Depression. Plan: We will go ahead and admit the patient to hospital for further evaluation and management of th is problem. The patient is appropriate for inpatient and [facility] We will continue oxygen replacement therapy per order. Continue IV steroid and nebulizer treatme nt per order. We will also continue empiric antibiotics. I will start her on acetazolamide 250 mg p .o. daily. Pulmonary consultation was requested from Dr. Higuera. DVT prophylaxis will be given pe r order. We will continue her home medications per order. For hypertension, we will continue antihy pertensive medication. Monitor blood pressure if necessary. Make adjustment on antihypertensive med ication. For hyperlipidemia, we will continue her statin therapy per order. Recently for serene moura, she was started on Seroquel and that actually has helped her very well to rest well at night and we will continue that. Fall precaution was ordered. I will see her tomorrow morning for followup. Consult Physical Therapy to help ambulate the patient. JENNIFER/EPIFANIO Voice ID: [id number]
== END 2023-05-26 13:55 | disposition home or self-care (01) | DRG 189 ==
LOC: ER 10:56 → ERHOLD 14:41 → 2ND 17:03
PROVIDERS: ADMIT Internal Medicine; ATTEND Internal Medicine
DX: J96.21 Acute and chronic respiratory failure with hypoxia (principal); J44.1 Chronic obstructive pulmonary disease with (acute) exacerbation; J96.02 Acute respiratory failure with hypercapnia; D69.6 Thrombocytopenia, unspecified; I10 Essential (primary) hypertension; E78.5 Hyperlipidemia, unspecified; E03.9 Hypothyroidism, unspecified; M81.0 Age-related osteoporosis without current pathological fracture; F32.A Depression, unspecified; K21.9 Gastro-esophageal reflux disease without esophagitis; M19.09 Primary osteoarthritis, other specified site; I65.29 Occlusion and stenosis of unspecified carotid artery; K57.90 Diverticulosis of intestine, part unspecified, without perforation or abscess without bleeding; R73.01 Impaired fasting glucose; Z66 Do not resuscitate; Z88.5 Allergy status to narcotic agent; Z88.8 Allergy status to other drugs, medicaments and biological substances; Z85.3 Personal history of malignant neoplasm of breast; Z90.12 Acquired absence of left breast and nipple; Z11.52 Encounter for screening for COVID-19; Z99.81 Dependence on supplemental oxygen; Z90.710 Acquired absence of both cervix and uterus; Z85.850 Personal history of malignant neoplasm of thyroid
CPT/HCPCS: 36415; 36600; 70450; 71045; 80048; 80076; 81001; 82805; 82947; 83735; 83880; 84484; 85025; 85610; 87040; 87804; 87811; 93005; 94640; 94760; 96374; 96375; 97116; 97161; 97530; 99285; J1650; J1815; J2920; J2930; J3535; J7030; J7512; J7614; J7644

== ENCOUNTER 2023-10-04 11:11 | Inpatient (IN) | payer OTHER ==
[2023-10-04] MEDS ORDERED: IPRATROPIUM BROM 0.5MG/2.5ML ONE (11:37)
[2023-10-04] MEDS ORDERED: NA CHLORIDE 0.9% 1,000 ML ONE (11:37)
[2023-10-04] MEDS ORDERED: ALBUTEROL 2.5 MG/3 ML NEB SOL ONE (11:37)
--- NOTE | 2023-10-04 12:13 | RAD REPORT ---
EXAM DESCRIPTION: RAD - Chest Single View - 10/04/2023 12:03 pm CLINICAL HISTORY: CHEST PAIN Chest pain. COMPARISON: Chest Single View dated 05/24/2023; Chest Single View dated 05/13/2023; Chest Pa And Lat (2 Views) dated 04/16/2023; Chest Single View dated 01/23/2022 FINDINGS: Portable technique limits examination quality. Prominent diffuse COPD is present. Vague rounded nodular lesion is present in the left base, incomple tely assessed on this radiograph. Mild linear opacities in the right base may represent subtle infilt rate/infection. The heart is normal in size. No displaced fractures.Postsurgical changes left chest w all. CT chest may be considered to further evaluate left lung base.
[2023-10-04 12:24] LABS: Absolute Basophils 0.1 K/uL (0-0.5); Absolute Eosinophils 0.1 K/uL (0-0.5); Absolute Lymphocytes (CBC) 2.4 K/uL (0.7-4.9); Absolute Monocytes 1.3 K/uL (0.1-1.3); Basophils % 0.5 % (0-1.3); Eosinophils % 0.7 % (0-4.4); Hematocrit 43.1 % (36.0-45.0); Hemoglobin 13.6 g/dL (12.0-15.0); Lymphocytes % 20.5 % (15.3-44.8); MCHC 31.6 g/dL (32.0-36.0); MCV 88.5 fL (80-100); MPV 10.9 fL (7.6-11.3); Monocytes % 10.7 % (3.3-12.3); Neutrophils % 67.6 % (41.7-73.7); Nucleated Red Blood Cells % 0.1 % (0-0); Platelets 209 thou/uL (152-406); RBC Red Blood Cell Count 4.87 M/uL (3.86-4.86); Red Cell Distribution Width 15.5 % (12.1-15.2)
[2023-10-04 12:43] LABS: ALT/SGPT < 14 U/L (13-56); AST/SGOT 12 U/L (15-37); Albumin 3.1 g/dL (3.4-5.0); Albumin/Globulin Ratio 0.9 (1.1-1.8); Alkaline Phosphatase 64 U/L (45-117); Anion Gap 3.7 mEq/L (5.0-15.0); BUN Blood Urea Nitrogen 11 mg/dL (7-18); Bicarbonate 42 mEq/L (21-32); Bilirubin Total 0.4 mg/dL (0.2-1.0); Globulin 3.5 g/dL (2.3-3.5); Glomerular Filtration Rate 94 ml/min (=/>90); Glucose Level 119 mg/dL (74-106); NT PRO-BNP 705 pg/mL (<450); Potassium 3.7 mEq/L (3.5-5.1); Protein, Total 6.6 g/dL (6.4-8.2); Sodium Level 143 mEq/L (136-145)
[2023-10-04 12:46] LABS: Troponin High Sensitivity 69.5 pg/mL (<58.9)
[2023-10-04] MEDS ORDERED: Levofloxacin 750mg IV 750 MG/150 ML BAG IV ONE (12:58)
--- NOTE | 2023-10-04 12:58 | ER ---
Nurse's Notes [facility] Name: Yodit Mercedes Age: 78 yrs Sex: Female : 1945 Arrival Date: 10/04/2023 Time: 11:11 Bed 15 Private MD: Diagnosis: Pneumonia;Sepsis;Elevated troponin Presentation: 10/03 11:13 Chief complaint: EMS states: they were toned out for left sided chest pain and kc6 difficulty breathing. pt is currently being treated for pnuemonia. Coronavirus screen: At this time, the client does not indicate any symptoms associated with coronavirus-19. Ebola Screen: No symptoms or risks identified at this time. Initial Sepsis Screen: Does the patient meet any 2 criteria? HR > 90 bpm. No. Patient's initial sepsis screen is negative. Does the patient have a suspected source of infection? No. Patient's initial sepsis screen is negative. Risk Assessment: Do you want to hurt yourself or someone else? Patient reports no desire to harm self or others. Onset of symptoms was October 04, 2023. 11:13 Method Of Arrival: EMS: [facility] kc6 11:13 Acuity: SEN 2 kc6 Triage Assessment: 11:15 General: Appears in no apparent distress. uncomfortable, well groomed, well developed, kc6 Behavior is calm, cooperative, appropriate for age. Pain: Complains of pain in anterior aspect of left upper chest. EENT: No signs and/or symptoms were reported regarding the EENT system. Neuro: Level of Consciousness is awake, alert, obeys commands, Oriented to person, place, time, situation, Appropriate for age. Cardiovascular: Reports chest pain, shortness of breath, Heart tones S1 S2 present Capillary refill < 3 seconds. Respiratory: Airway is patent Trachea midline Respiratory effort is even, pursed lip, Respiratory pattern is regular, symmetrical, Breath sounds are diminished in left posterior lower lobe. GI: No signs and/or symptoms were reported involving the gastrointestinal system. : No signs and/or symptoms were reported regarding the genitourinary system. Derm: No signs and/or symptoms reported regarding the dermatologic system. Skin is intact, with poor turgor Skin is dry, Skin is pale, Skin temperature is warm. Musculoskeletal: No signs and/or symptoms reported regarding the musculoskeletal system. Circulation, motion, and sensation intact. Capillary refill < 3 seconds, Range of motion: intact in all extremities. Historical: - Allergies: 11:15 atorvastatin; kc6 11:15 Clonidine; kc6 11:15 Lisinopril; kc6 11:15 Nifedipine; kc6 11:15 tramadol; kc6 11:15 Zestril; kc6 - PMHx: 11:15 breast cancer; Cancer; COPD; Home O2 \T\ 2L NC (THYROID CANCER); Hypertension; kc6 Osteoporosis; THYROID CANCER; - PSHx: 11:15 Left Mastectomy (D ); kc6 - Immunization history:: Adult Immunizations up to date. - Infectious Disease History:: Denies. - Social history:: Smoking status: Patient reports the use of cigarette tobacco products, denies chronic smoking, but will smoke occasionally. - Family history:: not pertinent. Screenin:16 [facility] ED Fall Risk Assessment (Adult) History of falling in the last 3 months, kc6 including since admission No falls in past 3 months (0 pts) Confusion or Disorientation No (0 pts) Intoxicated or Sedated No (0 pts) Impaired Gait No (0 pts) Mobility Assist Device Used No (0 pt) Altered Elimination No (0 pt) Score/Fall Risk Level 0 - 2 = Low Risk. Abuse screen: Denies threats or abuse. Denies injuries from another. Nutritional screening: No deficits noted. Tuberculosis screening: No symptoms or risk factors identified. Assessment: 11:16 Reassessment: please see triage. kc6 12:12 General: Appears in no apparent distress. Pain: Complains of pain in chest Pain does mb9 not radiate. Pain currently is 8 out of 10 on a pain scale. Quality of pain is described as throbbing, Pain began suddenly, Is continuous. Neuro: Dodson Agitation-Sedation Scale (RASS): 0 - Alert and Calm Level of Consciousness is awake, alert, obeys commands, Oriented to person, place, time, situation, Appropriate for age. Cardiovascular: Heart tones S1 S2 present Patient's skin is warm and dry. Respiratory: Airway is patent Respiratory effort is even, unlabored, Respiratory pattern is regular, symmetrical, Breath sounds with wheezes bilaterally. GI: No signs and/or symptoms were reported involving the gastrointestinal system. : No signs and/or symptoms were reported regarding the genitourinary system. Derm: Skin is fragile, is thin, Skin is dry, Skin is pale, Skin temperature is warm. Musculoskeletal: Range of motion: intact in all extremities. 14:00 Reassessment: No changes from previously documented assessment. Patient and/or family mb9 updated on plan of care and expected duration. Pain level reassessed. Patient is alert, oriented x 3, equal unlabored respirations, skin warm/dry/pink. Vital Signs: 11:13 BP 126 / 85; Pulse 109; Resp 20 S; Temp 98.3(O); Pulse Ox 100% on 4 lpm NC; Weight 50.8 kc6 kg (R); Height 5 ft. 0 in. (R); 13:45 BP 150 / 70; Pulse 120; Resp 18; Pulse Ox 100% on 2 lpm NC; mb9 15:03 BP 135 / 76; Pulse 115; Resp 18; Pulse Ox 100% on 2 lpm NC; mb9 11:13 Body Mass Index 21.87 (50.80 kg, 152.4 cm) 6 ED Course: 11:11 Patient arrived in ED. kc6 11:13 Brianna Quigley, RN is Primary Nurse. kc6 11:15 Triage completed. kc6 11:15 Arm band placed on. kc6 11:16 Patient has correct armband on for positive identification. Bed in low position. Call kc6 light in reach. Side rails up X2. monitor tech on. Pulse ox on. NIBP on. Pillow given. 11:17 Edd Hernandez MD is Attending Physician. rt 11:39 Primary Nurse role handed off by Brianna Quigley, FABI mb9 11:39 Shanelle Garcia, FABI is Primary Nurse. mb9 12:05 Chest Single View XRAY In Process Unspecified. EDMS 12:12 Initial lab(s) drawn, by il, sent to lab. Inserted saline lock: 22 gauge in left mb9 antecubital area, using aseptic technique. Blood collected. 12:12 No provider procedures requiring assistance completed. mb9 12:12 EKG done, by ED staff, reviewed by Shanelle Garcia RN. mb9 12:13 Provided Education on: press call light if needing anything. mb9 12:57 Roc Brownlee MD is Hospitalizing Provider. rt 15:03 Patient admitted, IV remains in place. mb9 Administered Medications: 12:12 Drug: NS 0.9% IV 1000 ml IV at 1 bolus Per protocol; 1000 mL bolus Route: IV; Rate: 1 mb9 bolus; Site: left antecubital; 13:12 Follow up: Response: No adverse reaction; IV Status: Completed infusion mb9 12:12 Drug: DuoNeb Nebulize (3:1) (2.5 mg - 0.5 mg) 3 ml Nebulizer once Route: Nebulizer; mb9 12:55 Follow up: Response: No adverse reaction mb9 13:12 Drug: LevaQUIN IVPB 750 mg IVPB once Route: IVPB; Site: left antecubital; mb9 15:01 Follow up: Response: No adverse reaction; IV Status: Completed infusion mb9 Medication: 11:53 VIS not applicable for this client. mb9 Outcome: 12:58 Decision to Hospitalize by Provider. rt 15:04 Admitted to ER Hold. Please see [facility] for further documentation. mb9 15:04 Condition: stable 15:04 Instructed on the need for admit, 16:11 Patient left the ED. mb9 Signatures: Dispatcher [employer] Brianna Bryan RN RN kc6 Shanelle Garcia RN RN mb9 Edd Hernandez MD MD rt
--- NOTE | 2023-10-04 12:58 | EDPHYS ---
Physician Documentation [facility] Name: Yodit Mercedes Age: 78 yrs Sex: Female : 1945 Arrival Date: 10/04/2023 Time: 11:11 Bed 15 Private MD: ED Physician Edd Hernandez HPI: 10/03 12:02 This 78 yrs old Female presents to ER via EMS with complaints of Chest Pain, Shortness rt Of Breath. 12:02 Patient with history of COPD presents to the ED with chest pain, shortness of breath rt starting about 3 this morning. Patient has been on about 30 mg of prednisone daily for the past week and a half. Denies other acute complaints at this time, symptoms are moderate in severity, no other aggravating alleviating factors.. Historical: - Allergies: 11:15 atorvastatin; kc6 11:15 Clonidine; kc6 11:15 Lisinopril; kc6 11:15 Nifedipine; kc6 11:15 tramadol; kc6 11:15 Zestril; kc6 - PMHx: 11:15 breast cancer; Cancer; COPD; Home O2 \T\ 2L NC (THYROID CANCER); Hypertension; kc6 Osteoporosis; THYROID CANCER; - PSHx: 11:15 Left Mastectomy (D ); kc6 - Immunization history:: Adult Immunizations up to date. - Infectious Disease History:: Denies. - Social history:: Smoking status: Patient reports the use of cigarette tobacco products, denies chronic smoking, but will smoke occasionally. - Family history:: not pertinent. ROS: 12:02 Constitutional: Negative for fever, chills, and weight loss, Abdomen/GI: Negative for rt abdominal pain, nausea, vomiting, diarrhea, and constipation, MS/Extremity: Negative for injury and deformity, Skin: Negative for injury, rash, and discoloration, Neuro: Negative for headache, weakness, numbness, tingling, and seizure, 12:02 Cardiovascular: Positive for chest pain, Negative for edema, 12:02 Respiratory: Positive for cough, shortness of breath, Exam: 12:02 Constitutional: This is a well developed, well nourished patient who is awake, alert, rt and in no acute distress. Head/Face: Normocephalic, atraumatic. Chest/axilla: Normal chest wall appearance and motion. Nontender with no deformity. No lesions are appreciated. Cardiovascular: Regular rate and rhythm with a normal S1 and S2. No gallops, murmurs, or rubs. Normal PMI, no JVD. No pulse deficits. Abdomen/GI: Soft, non-tender, with normal bowel sounds. No distension or tympany. No guarding or rebound. No evidence of tenderness throughout. Skin: Warm, dry with normal turgor. Normal color with no rashes, no lesions, and no evidence of cellulitis. MS/ Extremity: Pulses equal, no cyanosis. Neurovascular intact. Full, normal range of motion. Neuro: Awake and alert, GCS 15, oriented to person, place, time, and situation. Cranial nerves II-XII grossly intact. Motor strength 5/5 in all extremities. Sensory grossly intact. Cerebellar exam normal. Normal gait. 12:02 ECG was reviewed by the Attending Physician. 12:02 Respiratory: Wheezes with diminished breath sounds heard on all lung lawson, no respiratory distress, Vital Signs: 11:13 BP 126 / 85; Pulse 109; Resp 20 S; Temp 98.3(O); Pulse Ox 100% on 4 lpm NC; Weight 50.8 kc6 kg (R); Height 5 ft. 0 in. (R); 13:45 BP 150 / 70; Pulse 120; Resp 18; Pulse Ox 100% on 2 lpm NC; mb9 15:03 BP 135 / 76; Pulse 115; Resp 18; Pulse Ox 100% on 2 lpm NC; mb9 11:13 Body Mass Index 21.87 (50.80 kg, 152.4 cm) kc6 MDM: 11:18 Patient medically screened. rt 18:58 Differential diagnosis: Pneumonia, COPD, CHF. Data reviewed: vital signs, nurses notes, rt lab test result(s), EKG, radiologic studies. Consideration of Admission/Observation Patient was admitted/placed on observation. Management of patient was discussed with the following: Primary Care Provider: Agrees to admit. Test considered but Not performed: CT: Low suspicion for PE, CT angiogram not indicated. Care significantly affected by the following chronic conditions: Chronic Obstructive Pulmonary Disease. Counseling: I had a detailed discussion with the patient and/or guardian regarding the historical points, exam findings, and any diagnostic results supporting the discharge/admit diagnosis, lab results, radiology results, the need for further work-up and treatment in the hospital. Response to treatment: the patient's symptoms have markedly improved after treatment. 10/03 11:25 Order name: Blood Culture Adult (2) rt 10/03 11:25 Order name: CBC with Diff; Complete Time: 12:28 rt 10/03 11:25 Order name: CMP; Complete Time: 12:47 rt 10/03 11:25 Order name: Lactate w/ 2H reflex if indic.; Complete Time: 12:47 rt 10/03 11:25 Order name: Protime (+inr); Complete Time: 12:47 rt 10/03 11:25 Order name: Ptt, Activated; Complete Time: 12:47 rt 10/03 11:25 Order name: Troponin High Sensitivity; Complete Time: 12:47 rt 10/03 11:25 Order name: BNP; Complete Time: 12:47 rt 10/03 14:46 Order name: Troponin High Sensitivity; Complete Time: 14:59 EDMS 10/03 11:25 Order name: Chest Single View XRAY; Complete Time: 12:28 rt 10/03 13:04 Order name: CONS Physician Consult EDMS 10/03 11:25 Order name: Accucheck; Complete Time: 12:12 rt 10/03 11:25 Order name: Cardiac monitoring; Complete Time: 12:12 rt 10/03 11:25 Order name: EKG - Nurse/Tech; Complete Time: 12:12 rt 10/03 11:25 Order name: IV Saline Lock - Large Bore; Complete Time: 12:12 rt 10/03 11:25 Order name: Labs collected and sent; Complete Time: 12:12 rt 10/03 11:25 Order name: O2 Per Protocol; Complete Time: 12:12 rt 10/03 11:25 Order name: O2 Sat Monitoring; Complete Time: 12:12 rt 10/03 11:25 Order name: Vital Signs; Complete Time: 12:12 rt EC:02 Rate is 108 beats/min. Rhythm is regular, Sinus tachycardia with No ectopy. QRS [place] is rt Normal. TN interval is normal. QRS interval is normal. QT interval is normal. No Q waves. T waves are Normal. No ST changes noted. Administered Medications: 12:12 Drug: NS 0.9% IV 1000 ml IV at 1 bolus Per protocol; 1000 mL bolus Route: IV; Rate: 1 mb9 bolus; Site: left antecubital; 13:12 Follow up: Response: No adverse reaction; IV Status: Completed infusion mb9 12:12 Drug: DuoNeb Nebulize (3:1) (2.5 mg - 0.5 mg) 3 ml Nebulizer once Route: Nebulizer; mb9 12:55 Follow up: Response: No adverse reaction mb9 13:12 Drug: LevaQUIN IVPB 750 mg IVPB once Route: IVPB; Site: left antecubital; mb9 15:01 Follow up: Response: No adverse reaction; IV Status: Completed infusion mb9 Disposition Summary: 10/04/23 12:58 Hospitalization Ordered Notes: Hospitalization Status: Inpatient Admission rt Provider: Roc Brownlee rt Condition: Stable rt Problem: new rt Symptoms: have improved rt Bed/Room Type: Standard rt Location: Telemetry/MedSurg (Inpatient)(10/04/23 15:33) kb3 Room Assignment: 229(10/04/23 15:33) kb3 Diagnosis - Pneumonia rt - Sepsis rt - Elevated troponin rt Forms: - Medication Reconciliation Form rt - SBAR form rt - Leadership Thank You Letter rt Signatures: Dispatcher [employer] EDMS Brianna Quigley RN RN kc6 Amelia Gomez, RN RN kb3 Shanelle Garcia RN RN mb9 Edd Hernandez MD MD rt Corrections: (The following items were deleted from the chart) 11:26 11:26 Chest Single View+[id number].[email or web address].BRZ ordered. EDMS EDMS 13:31 12:58 Telemetry/MedSurg (Inpatient) rt kb3 13:31 12:58 rt kb3 15:33 13:31 [facility] ER HOLD kb3 kb3 15:33 13:31 ERHOLD- kb3 kb3
[2023-10-04 13:54] VITALS: BMI 21.9
--- NOTE | 2023-10-04 20:19 | CON ---
Date of Consultation: 10/04/2023 Reason For Consultation: Elevated troponin. History Of Present Illness: 78-year-old female, history of COPD, hypertension, breast cancer, hypoth yroidism, osteoporosis, presented to the emergency room with cough and left upper chest pain that is worsening with cough and chest wall movements as well as shortness of breath at rest and wheezing. S he has history of COPD and she is a smoker but smokes few cigarettes a week. Denies having any spont aneous chest pain. Her chest pain is mainly with deep breathing. Past Medical History: As outlined above in the HPI. Medications: Refer to reconciliation sheet for detailed list. Allergies: CLONIDINE AND LISINOPRIL AND MEMANTINE. Family History: No premature coronary artery disease or cancer. Social History: She is a smoker, but very lightly. Does not drink or use any drugs. Review of Systems: All systems were reviewed and they were negative except as mentioned in the HPI. Physical Examination: Vital Signs: Reviewed. Head and Neck: Pupils are equal, reactive to light. Intact eye movements. No JVD. No cervical lym phadenopathy. Neck is supple. Thyroid is not enlarged. Lungs: She has crackles on the left upper lung. Heart: Regular rate and rhythm. No extra sounds. Abdomen: Soft, nontender. Bowel sounds positive. No organomegaly. No masses or hernia. No rigidi ty or rebound. Extremities: No edema, clubbing, or cyanosis. Intact pulses. Skin: No rash. No nodule. Neurologic: Alert, awake, oriented x3. No acute focal deficits appreciated. Investigations: BUN is 11, creatinine 0.54. Troponin first set 69, second set 113, and hemoglobin i s 13.5. Chest x-ray showed questionable pneumonia. The white count is 11.8. Assessment And Recommendations: 1.Chest pain. It could be due to the pneumonia or it could be musculoskeletal as it is reproducible with the palpation. However, troponin is slightly elevated. Trend troponin one more set and recomm end to obtain a Lexiscan nuclear stress test when she is more clinically stable. To admit on telemet ry monitor. Start her on baby aspirin 81 mg and I recommend anticoagulation with Lovenox 1 mg/kg sub cu q.12 hours until the cardiac workup is completed. 2.Pneumonia, on antibiotics. 3.Chronic obstructive pulmonary disease, severe, with acute exacerbation. Antibiotics as above and nebulizers treatment. 4.Hypertension. Blood pressure is controlled. 5.Smoker. Patient was counseled to quit. SR/MODL Voice ID: [id number] Report ID: [id number]
[2023-10-04] MEDS: METOPROLOL TAR 25 MG TAB PO SCH (21:00)
[2023-10-04] MEDS: ATORVASTATIN 40 MG TAB PO SCH (21:01)
[2023-10-04] MEDS: ASPIRIN EC 81 MG TAB PO ONE (21:01)
[2023-10-04] MEDS: QUETIAPINE 25 MG TAB PO SCH (21:01)
[2023-10-04] MEDS: ENOXAPARIN 40 MG/0.4 ML SQ SCH (21:01)
[2023-10-04 21:38] LABS: Sqamous Epithelial <5 /HPF (None Seen); Urine Bacteria None Seen /HPF (<20); Urine Bilirubin NEGATIVE (Negative); Urine Blood Negative (Negative); Urine Clarity Clear (Clear); Urine Color Yellow (Yellow); Urine Culture Reflex Order NOT NEEDED; Urine Glucose NEGATIVE (Negative); Urine Ketones NEGATIVE (Negative); Urine Microscopic Reflex YN ORDER UMIC; Urine Nitrite NEGATIVE (Negative); Urine Protein TRACE (Negative); Urine RBC <5 /HPF (None Seen); Urine Urobilinogen Normal (Normal); Urine WBC <5 /HPF (<5); Urine pH 7.5 (5.0-7.0)
[2023-10-05] MEDS: NITROGLYCERIN 1 GM PKT TD SCH
[2023-10-05] MEDS: ALBUTEROL 2.5 MG/3 ML NEB SOL NEB SCH (00:33)
[2023-10-05] MEDS: IPRATROPIUM BROM 0.5MG/2.5ML NEB SCH (00:33)
--- NOTE | 2023-10-05 04:13 | HP ---
Date of Admission: 10/04/2023 Chief Complaint: Chest pain, cough, congestion, shortness of breath. History Of Present Illness: This is a 78-year-old female patient with multiple comorbidities, who has a longstanding history of smoking and says that she quit smoking just about 1 week ago, came into emergency room with few days' history of cough, congestion, coughing up some colored mucus, and as of this morning, started to have left-sided chest pain and left arm pain. After the patient was evaluated in the ER, she was admitted to the hospital with pneumonia, abnormal chest x-ray, abnormal cardiac enzymes. Medications: List reviewed. Review of Systems: Respiratory: As mentioned above. All other systems reviewed and negative. Allergies: LISINOPRIL CAUSING SWELLING OF HER TONGUE AND CLONIDINE CAUSING TONGUE SWELLING ALSO. Past Medical History: Significant for hypertension, hyperlipidemia, COPD, impaired fasting glucose, thyroid cancer, hypothyroidism, carotid artery stenosis, gastroesophageal reflux disease, diverticulosis, liver cyst, cervical spondylosis, lumbar spondylosis, osteoarthritis at multiple sites, breast cancer, depression, osteoporosis. Past Surgical History: Thyroidectomy, mastectomy, appendectomy, exploratory laparotomy due to bowel obstruction, , shoulder surgery, hysterectomy. Social History: Positive for smoking. Use of alcohol negative. Family History: Father had COPD. Mother had RI. Brother had Alzheimer disease, prostate cancer, and sister had breast cancer. Physical Examination: Vital Signs: Temperature 98.7, pulse 97, respiratory rate 28, blood pressure 142/74, oxygen saturation 94% on 2 L nasal cannula oxygen. Height 5 feet, weight 112 pounds. General: Awake, alert, oriented, not in distress. HEENT: Head atraumatic, normocephalic. Conjunctivae nonerythematous. Sclerae white. Mouth, no thrush or edema noted. Ears/Nose, no mass, lesion, discharge noted. Neck: Supple. No JVD, lymph nodes, bruit, thyromegaly noted. Presence of rales noted in right lower lung field and left lung base with diminished air entry in the left lower lung field. Not using any accessory muscles of respiration. Heart: Normal heart sounds, no murmur or gallop. Abdomen: Soft, bowel sounds normal. No guarding, rigidity, tenderness, mass, hepatosplenomegaly, distention, or bruit noted. Extremities: No leg edema. No calf tenderness. Skin: No rash, ulcer, cellulitis. Lymphatics: No lymph node enlargement in neck, supraclavicular, infraclavicular region. Neuro: No focal neurological deficit. Chest: Unremarkable. External Genitalia: Deferred. Rectal: Deferred. Laboratory Data: White count 11.8, hemoglobin 13.6, platelets 209. Sodium 143, potassium 3.7, chloride 101, bicarb 42, BUN 11, creatinine 0.54, glucose 119, lactic acid 1.4. Liver function tests unremarkable. Initial troponin 69.5, second troponin 113.4. Chest x-ray shows changes of COPD with vague, rounded, nodular density in the left lung base and some opacity in the right lung base as well. EKG shows sinus tachycardia. Impression: 1. Pneumonia. 2. Acute exacerbation of COPD. 3. Non-STEMI. 4. Chronic respiratory failure with hypoxia. 5. Hypertension. 6. Sepsis. 7. Hyperlipidemia. 8. Impaired fasting glucose. 9. Gastroesophageal reflux disease. 10. Diverticulosis. 11. Osteoarthritis, multiple sites. 12. Thyroid cancer. 13. Depression. 14. Osteoporosis. 15. Hypothyroidism. Plan: We will go ahead and admit her to hospital for further evaluation and management of this problem. The patient is appropriate for inpatient and is expected to spend 2 midnights in hospital. For pneumonia, we will go ahead and continue Levaquin. She received 750 mg of Levaquin in the emergency room and starting tomorrow, we will continue 500 mg IV daily. For abnormal chest x-ray showing pneumonia, but we need to rule out any possibility of underlying pulmonary mass, I have ordered CT scan of the chest without contrast. For acute exacerbation of COPD, we will continue her oxygen and nebulizer treatment using albuterol and Atrovent per order. For her chronic respiratory failure with hypoxia. She is on oxygen, which we will continue that and she is maintaining adequate oxygenation. For non-STEMI, we will go ahead and give her Lovenox per order and aspirin 81 mg daily, and we will consult Cardiology. For hypertension, we will go ahead and give metoprolol 25 mg 2 times a day per order. For hyperlipidemia, we will get a fasting lipid profile done tomorrow morning and start high-dose statin therapy, atorvastatin 40 mg daily at bedtime. I have reviewed prior hospital record from May 24, 2023, admission and her chest x-ray and CAT scan result as well as I have reviewed prior office records. I have also communicated with the ER physician and total time spent today including all these activities along with performing evaluation and management today was 85 minutes. I will see her tomorrow morning for followup. JENNIFER/EPIFANIO Voice ID: [id number] MTDD
[2023-10-05 04:49] LABS: Absolute Basophils 0.1 K/uL (0-0.5); Absolute Eosinophils 0.2 K/uL (0-0.5); Absolute Lymphocytes (CBC) 3.4 K/uL (0.7-4.9); Absolute Monocytes 1.1 K/uL (0.1-1.3); Absolute Neutrophil 4.1 K/uL (1.8-8.0); Basophils % 0.6 % (0-1.3); Eosinophils % 2.5 % (0-4.4); Hematocrit 34.4 % (36.0-45.0); Hemoglobin 11.3 g/dL (12.0-15.0); MCH 28.9 pg (27.0-35.0); MCHC 32.8 g/dL (32.0-36.0); MCV 88.2 fL (80-100); MPV 12.1 fL (7.6-11.3); Monocytes % 12.7 % (3.3-12.3); Neutrophils % 46.2 % (41.7-73.7); Nucleated Red Blood Cells % 0.2 % (0-0); Platelets 179 thou/uL (152-406); Red Cell Distribution Width 15.8 % (12.1-15.2)
[2023-10-05 05:04] LABS: Albumin 2.4 g/dL (3.4-5.0); Albumin/Globulin Ratio 0.9 (1.1-1.8); Alkaline Phosphatase 49 U/L (45-117); Anion Gap 4.5 mEq/L (5.0-15.0); BUN Blood Urea Nitrogen 17 mg/dL (7-18); Bicarbonate 37 mEq/L (21-32); Bilirubin Total 0.2 mg/dL (0.2-1.0); Globulin 2.7 g/dL (2.3-3.5); Glomerular Filtration Rate 96 ml/min (=/>90); Glucose Level 138 mg/dL (74-106); HDL Cholesterol 65 mg/dL (40-60); LDL Cholesterol, Calculated 72 mg/dL (<130); LDL Cholesterol,Calc NonReport 72; Potassium 3.5 mEq/L (3.5-5.1); Protein, Total 5.1 g/dL (6.4-8.2); Sodium Level 142 mEq/L (136-145)
[2023-10-05 05:06] LABS: ALT/SGPT < 14 U/L (13-56); AST/SGOT < 10 U/L (15-37)
[2023-10-05] MEDS: Levofloxacin500mg IV 500 MG/100 ML BAG IV SCH (08:59)
[2023-10-05] MEDS: ASPIRIN EC 81 MG TAB PO SCH (08:59)
--- NOTE | 2023-10-05 09:20 | RAD REPORT ---
EXAM DESCRIPTION: CT - Thorax Wo Con - 10/05/2023 7:53 am CLINICAL HISTORY: COPD COMPARISON: Thorax Wo Con dated 01/24/2022; Thorax Wo Con dated 01/04/2021; Lung Cancer Screening CT W/O dated 08/25/2019; Thorax Wo Con dated 04/10/2018; Chest Single View dated 10/04/2023; Chest Single Vi ew dated 05/24/2023; 3D DIAG GAUDENCIO RT UNI W/CAD dated 10/26/2021 TECHNIQUE: Axial thin cut images of the chest were obtained without IV contrast. Multiplanar reforma ts were generated and reviewed. All CT scans are performed using dose optimization technique as appropriate and may include automated exposure control or mA/KV adjustment according to patient size. FINDINGS: Lobulated left lower lobe mass measuring 2.2 x 1.8 cm in greatest axial dimensions, and 2. 1 cm in greatest craniocaudal extent, corresponding to the radiographic abnormality. This appears new since the prior exam. Subsegmental right lower lobe atelectasis, stable, with mildly progressive bro nchial wall thickening in the right lower lobe. Sub solid confluent nodules in the central right uppe r lobe, on axial image 13, collectively measuring up to 8 mm. Bibasilar scattered subpleural reticula r opacities. Calcified right lower lobe 5 mm granuloma. No other focal in the lung parenchyma. No ple ural thickening or pleural effusion. No pneumothorax. No abnormal mediastinal or hilar masses or lymphadenopathy seen. Small calcified right hilar lymph no sabrina, suggestive of sequelae of remote granulomatous infection. No significant aortic or pulmonary art charli findings. Assessment is limited in the absence of IV contrast. No chest wall mass or abnormal axillary lymphadenopathy. Evaluation of the solid abdominal structures reveals no suspicious findings. Status post left mastect edilberto and axillary dissection. IMPRESSION: Left lower lobe irregular 2.2 cm mass, new since the 01/24/2022 CT, concerning for prima ry lung versus metastatic malignancy. Nonspecific confluent sub solid nodules in the right upper lobe up to 8 mm, indeterminate, but may be of infectious/inflammatory nature. Right lower lobe areas of atelectasis and bronchial wall thickening, may reflect reactive airway dise ase/ infection as well.
--- NOTE | 2023-10-05 13:48 | P.PN ---
Subjective Date of Service: 10/05/23 Subjective: No new changes, No C/O voiced, Tolerating diet, Ambulating, Improving Review of Systems 10-point ROS is otherwise unremarkable Physical Examination - Vital Signs Temperature: 97.7 F Blood Pressure: 141/73 Pulse: 77 Respirations: 16 Pulse Ox (%): 96 - Physical Exam General: Alert, In no apparent distress HEENT: Atraumatic, PERRLA, EOMI Neck: Supple, JVD not distended Respiratory: Clear to auscultation bilaterally, Normal air movement Cardiovascular: Regular rate/rhythm, Normal S1 S2 Gastrointestinal: Normal bowel sounds, No tenderness Musculoskeletal: No tenderness Integumentary: No rashes Neurological: Normal speech, Normal tone, Normal affect Lymphatics: No axilla or inguinal lymphadenopathy - Studies Medications List Reviewed: Yes Assessment And Plan - Current Problems (Diagnosis) (1) NSTEMI (non-ST elevated myocardial infarction) Current Visit: Yes Status: Acute Plan: Troponin leak is mild with no significant delta in rise, patient chest pain is atypical in nature, most likely type 2 OR secondary to lung mass and PNA. Continue ASA 81 mg daily Continue Lipitor 40 mg daily D/C lovenox (2) Hyperlipidemia Onset Date: 07/13/17 Current Visit: No Status: Chronic Plan: Continue Lipitor 40 mg daily Qualifiers: (3) Hypertension Onset Date: 07/13/17 Current Visit: No Status: Chronic Plan: Continue Lopressor 25 mg po BID
[2023-10-06] MEDS: MORPHINE 4 MG/ML SYR IV PRN (04:25)
[2023-10-06] MEDS: ONDANSETRON 4 MG/2 ML VIAL IV PRN (06:30)
--- NOTE | 2023-10-06 09:26 | PN ---
Date of Progress Note: 10/06/2023 Subjective: The patient was seen this morning for followup. She was lying in bed, not in distress. Continues to have intermittent chest pain in the center of her chest and the patient reports that he r pain gets worse when she coughs or when she takes a deep breath. Objective: Vital Signs: Reviewed. HEENT: Unremarkable. Lungs: Clear to auscultation except some occasional scattered wheezing, not in any respiratory distr ess. Heart: Sounds normal. Abdomen: Soft. Bowel sounds normal. No guarding, rigidity, tenderness, distention. Extremities: No leg edema. Laboratory Data: CAT scan of the chest, results reviewed with the patient on top of pneumonia demond g possibility of lung mass that we need to rule out possibility of lung cancer. The patient has a lo ngstanding history of smoking and she says she just quit smoking about 1 week ago and I have asked he r that I would definitely need to pursue this further investigation on outpatient basis for further w orkup of her lung mass. She is willing to see specialist on outpatient basis which will help her wit h that referral. She would like to go to [facility], so we will facilitate that when she comes back to office for followup after this discharge. I will see her tomorrow for followup, possible dischar ge to go home tomorrow depending on her condition. The patient will continue to get aspirin 81 mg da phillip and atorvastatin 40 mg at bedtime for non-STEMI and she was getting Lovenox twice a day. We will change the dose now on the Lovenox for DVT prophylaxis 40 mg subcutaneous injection daily. JENNIFER/MODL Voice ID: [id number] Report ID: [id number]
--- NOTE | 2023-10-06 09:56 | PN ---
Date of Progress Note: 10/05/2023 Subjective: The patient was seen this morning for followup. She was lying in bed, not in any distre ss. No new complaints or problems reported by her. Objective: Vital Signs: Reviewed. HEENT: Unremarkable. Lungs: Bilateral good equal entry with presence of some rales noted in lower lung lawson. Not using accessory muscles of respiration. Heart: Sounds normal. Abdomen: Soft. Bowel sounds are normal. No guarding, rigidity, tenderness, distention. Extremities: No leg edema. Impression: 1.Pneumonia. 2.Acute exacerbation of chronic obstructive pulmonary disease. 3.Hypertension. Plan: We will go ahead and continue current antibiotic oxygen nebulizer treatment and CAT scan of th e chest without contrast was ordered. We will follow up on that and I will see her tomorrow for foll owup. I did discuss with her regarding code status today and as per my discussion with her and as pe r patient's decision, DNR order was written in the chart. JENNIFER/MODL Voice ID: [id number] Report ID: [id number]
[2023-10-06] MEDS: ENOXAPARIN 40 MG/0.4 ML SQ SCH (17:22)
--- NOTE | 2023-10-07 10:27 | RAD REPORT ---
EXAM DESCRIPTION: RAD - Chest Pa And Lat (2 Views) - 10/07/2023 9:57 am CLINICAL HISTORY: pneumonia, COPD, lung mass Chest pain. COMPARISON: Chest Single View dated 10/04/2023; Chest Single View dated 05/24/2023; Chest Single View dated 05/13/2023; Chest Pa And Lat (2 Views) dated 04/16/2023 FINDINGS: Significant emphysema is present throughout the lungs. Small left pleural effusion is seen with moderate opacity in the posterior left lung base. The heart is mildly enlarged in size. No disp laced fractures.
[2023-10-07 12:28] VITALS: BP 144/62; TEMP 97.1
[2023-10-07 16:38] VITALS: O2SAT 95
--- NOTE | 2023-10-08 07:34 | ECHO ---
HEIGHT: 5 ft 0 in WEIGHT: 112 lb 0 oz DATE OF STUDY: 10/05/[address]: Roc Brownlee MD 2-DIMENSIONAL: YES M.MODE: YES DOPPLER: YES COLOR FLOW: YES TDS: YES PORTABLE: YES DEFINITY: BUBBLE STUDY: DIAGNOSIS: CHEST PAIN CARDIAC HISTORY: CATHERIZATION: SURGERY: PROSTHETIC VALVE: PACEMAKER: MEASUREMENTS (cm) DIASTOLIC (NORMALS) SYSTOLIC (NORMALS) IVSd 0.9 (0.6-1.2) LA Diam 3.9 (1.9-4.0) LVEF 60-65% LVIDd 3.5 (3.5-5.7) LVIDs 2.3 (2.0-3.5) %FS 33% LVPWd 1.0 (0.6-1.2) Ao Diam 2.8 (2.0-3.7) 2 DIMENSIONAL ASSESSMENT: RIGHT ATRIUM: NORMAL LEFT ATRIUM: NORMAL RIGHT VENTRICLE: NORMAL LEFT VENTRICLE: NORMAL TRICUSPID VALVE: NORMAL MITRAL VALVE: NORMAL PULMONIC VALVE: NORMAL AORTIC VALVE: NORMAL PERICARDIAL EFFUSION: NONE AORTIC ROOT: NORMAL LEFT VENTRICULAR WALL MOTION: NORMAL DOPPLER/COLOR FLOW: GRADE I DIASTOLIC DYSFUNCTION COMMENTS: 1. NORMAL LEFT VENTRICULAR SYSTOLIC FUNCTION, EJECTION FRACTION 60-65%, NORMAL WALL MOTION 2. GRADE I DIASTOLIC DYSFUNCTION 3. NORMAL FILLING PRESSURE (RIGHT ATRIUM 0-5 mmHg) TECHNOLOGIST: OCTAVIA GILBERT
--- NOTE | 2023-10-08 14:24 | EKG ---
Test Date: 2023-10-04 Test Time: 11:33:59 Associate Professor Of Management: MB MEASUREMENT RESULTS: Intervals: Rate: 108 VT: 128 QRSD: 68 QT: 332 QTc: 444 [place]: P: 82 VT: 128 QRS: 70 T: 75 INTERPRETIVE STATEMENTS: Sinus tachycardia Otherwise normal ECG Compared to ECG 05/24/2023 11:02:41 Sinus rhythm no longer present Sinus arrhythmia no longer present Electronically Signed On 10-08-23 14:16:51 CDT by Stone Love
--- NOTE | 2023-10-11 12:48 | DS ---
Date of Discharge: 10/07/2023 Disposition: The patient was discharged to go home. Physical Examination: HEENT: Unremarkable. Lungs: Clear to auscultation. No wheezing. No rales. Heart: Sounds normal. Abdomen: Soft. Bowel sounds normal. No guarding, rigidity, tenderness, distention. Extremities: No leg edema. Discharge Medications And Instructions: 1.Continue all prior home medications. 2.Start following new antibiotic, which is Levaquin 500 mg daily for 10 days and prescription was se nt to her pharmacy from my office. 3.Follow up at my office on 10/10/2023. My office will initiate the referral process for her to go to [facility] for lung mass. Laboratory Data: Upon admission, WBC count was 11.8, hemoglobin 13.6, platelets 209. On 10/04, WBC 8.9, hemoglobin 11.8, platelets 179. Chemistry upon admission, sodium 143, potassium 3.7, chloride 1 01, bicarb 42, BUN 11, creatinine 0.54, glucose 119. Lactic acid 1.4. Liver function tests unremark able. Troponin 69.5, second troponin 113.4, third troponin 145.9. ProBNP 705. Repeat chemistry fro m 10/04, sodium 142, potassium 3.5, chloride 104, bicarb 37, BUN 17, creatinine 0.50, glucose 88. Li sunni function tests unremarkable. Her lipid profile, LDL was 72, total cholesterol 155, triglycerides 91, and HDL 65. Her CAT scan of the chest without contrast from 10/05/2023 shows left lower lobe ir regular 2.2 cm mass, new since January 24, 2022, CAT scan concerning for primary lung neoplasm versus metastatic disease. There is another 8 mm small nodule type of area, which is indeterminate, could be inflammatory or infectious in origin. Some atelectasis in the right lower lobe. Chest x-ray show ed changes of significant COPD along with small left pleural effusion and opacity in the left lower l yimi region. Hospital Course: This is a 78-year-old female patient who was admitted to the hospital with cough, c ongestion, chest pain, and shortness of breath. Please see dictated H and P for more information. A fter the patient was evaluated in the emergency room, she was admitted to the hospital with pneumonia , acute exacerbation of COPD, and non-STEMI. The patient was given aspirin and Lovenox, and Cardiolo gy consultation was requested. No further cardiac intervention was recommended except medical manage ment and for pneumonia and COPD exacerbation, the patient received IV antibiotics, nebulizer treatmen t, oxygen replacement therapy. The patient also showed signs of sepsis when she came into emergency room and received IV fluids and IV antibiotics. Hemodynamically, she was stable and did not require any vasopressor medication and lactic acid level was normal. The patient's condition improved. CAT scan findings reviewed with her and I am concerned about lung cancer. The patient has a longstanding history of smoking and she says she just quit smoking about 1 week ago when she started getting sick and she feels like at this time she is not going to smoke again. She is aware of our concern about abnormality noted on the CAT scan of the chest and she would like to go to [facility], which we will go ahead and make arrangements for outpatient referral on her. Today, she is feeling better. Medic ally, she is stable for discharge and was discharged to go home with above-mentioned medications and instructions. Final Diagnoses: 1.Pneumonia. 2.Acute exacerbation of chronic obstructive pulmonary disease. 3.Sepsis. 4.Vzx-OS-wclfxkvrj myocardial infarction. 5.Chronic respiratory failure with hypoxia. 6.Hypertension. 7.Hypothyroidism. 8.Hyperlipidemia. 9.Impaired fasting glucose. 10.Gastroesophageal reflux disease. 11.Diverticulosis. 12.Osteoarthritis, multiple sites. 13.Thyroid cancer. 14.Depression. 15.Osteoporosis. Total time spent 45 minutes. JENNIFER/ÁLVAROL Voice ID: [id number] Report ID: [id number]
== END 2023-10-07 14:26 | disposition home health service (06) | DRG 871 ==
LOC: ER 11:11 → ERHOLD 12:59 → 2ND 16:07
PROVIDERS: ADMIT Internal Medicine; ATTEND Internal Medicine
DX: A41.9 Sepsis, unspecified organism (principal); I21.A1 Myocardial infarction type 2; J18.9 Pneumonia, unspecified organism; J44.0 Chronic obstructive pulmonary disease with (acute) lower respiratory infection; J44.1 Chronic obstructive pulmonary disease with (acute) exacerbation; J96.11 Chronic respiratory failure with hypoxia; I10 Essential (primary) hypertension; E03.9 Hypothyroidism, unspecified; F32.A Depression, unspecified; K21.9 Gastro-esophageal reflux disease without esophagitis; M19.09 Primary osteoarthritis, other specified site; M81.0 Age-related osteoporosis without current pathological fracture; K57.90 Diverticulosis of intestine, part unspecified, without perforation or abscess without bleeding; F17.210 Nicotine dependence, cigarettes, uncomplicated; R73.01 Impaired fasting glucose; R91.8 Other nonspecific abnormal finding of lung field; R79.89 Other specified abnormal findings of blood chemistry; Z66 Do not resuscitate; Z71.6 Tobacco abuse counseling; Z88.5 Allergy status to narcotic agent; Z85.3 Personal history of malignant neoplasm of breast; Z88.8 Allergy status to other drugs, medicaments and biological substances; Z99.81 Dependence on supplemental oxygen; Z90.12 Acquired absence of left breast and nipple; Z90.49 Acquired absence of other specified parts of digestive tract; Z85.850 Personal history of malignant neoplasm of thyroid; Z90.710 Acquired absence of both cervix and uterus
CPT/HCPCS: 36415; 71045; 71046; 71250; 80053; 80061; 81001; 83605; 83880; 84484; 85025; 85610; 85730; 87040; 93005; 93306; 94640; 96361; 96365; 96366; 97116; 97161; 97530; 99285; J1650; J2405; J7030; J7613; J7644

== ENCOUNTER 2024-04-01 19:19 | Inpatient (IN) | payer OTHER ==
--- OUTSIDE RECORDS SUMMARY | 2024-04-01 19:23 | XMS REPORT | Clinical Summary ---
Author Name Unknown Organization [facility] Address [address] [place] [address] Care Team Providers Care Senior Art Director Name Role Phone Roc Brownlee MD Unavailable [phone] Pastora Dahl MD Primary Care Provider [phone] Alisha Kumari MD Unavailable [phone] Yunior Bradford MD Unavailable Allergies Active Allergy Reactions Criticality Noted Date Comments Amlodipine Other (See Comments) Medium 06/06/2013 dizziness Clonidine Anaphylaxis High 11/05/2023 Lisinopril Anaphylaxis High 11/05/2023 Memantine Anaphylaxis High 11/05/2023 Medications * This document contains information received from the source organization and may not represent a complete record from that organization. acetaminophen-c odeine (TYLENOL #3) 300 mg-30 mg tablet Take 1 tablet by mouth as needed. 08/17/2023 Active albuterol (VENTOLIN HFA,PROAIR HFA) 90 mcg/puff inhaler Inhale 2 puffs by mouth as needed. 10/04/2023 Active alendronate (FOSAMAX) 70 mg tablet Take 1 tablet (70 mg) by mouth every 7 days. 10/21/2023 Active amLODIPine (NORVASC) 5 mg tablet Take 1 tablet (5 mg) by mouth daily. 01/23/2022 Active ascorbic acid, vitamin C, (VITAMIN C) 1000 mg tablet Take 1 tablet (1,000 mg) by mouth daily. 02/25/2020 Active aspirin 81 mg chewable tablet Chew and swallow 1 tablet (81 mg) by mouth daily. Active atorvastatin (LIPITOR) 40 mg tablet Take 1 tablet (40 mg) by mouth once a week. 06/24/2021 Active budesonide-form oterol (SYMBICORT) 160-4.5 mcg/actuation inhaler Inhale 2 puffs by mouth as needed. Active Breztri Aerosphere 160-9-4.8 mcg/actuation HFAA Inhale 1 Dose by mouth twice daily. Active cholecalciferol , vitamin D3, 25 mcg (1,000 unit) capsule Take 1 capsule (1,000 Units) by mouth daily. 02/25/2020 Active ferrous sulfate 325 mg (65 mg elemental iron per tablet) tablet Take 1 tablet (325 mg) by mouth daily. Active fluticasone-ume clidin-vilanter 100-62.5-25 mcg dsdv Inhale 1 Dose by mouth as needed. 02/25/2020 Active inhalational spacing device with large mask (OptiChamber Ashlee Lg Mask) Inhale 1 Device by mouth as needed. 12/05/2021 Active levalbuterol (XOPENEX HFA) 45 mcg/puff inhaler Inhale 2 puffs by mouth as needed. Active levothyroxine (TIROSINT) 200 mcg capsule Take 1 capsule (200 mcg) by mouth. 01/23/2022 Active melatonin 3 mg tablet Take 1 tablet (3 mg) by mouth as needed. 05/11/2020 Active metoprolol tartrate (LOPRESSOR) 50 mg tablet Take 1.5 tablets (75 mg) by mouth twice daily. 05/11/2020 Active omeprazole (PriLOSEC) 40 MG capsule Take 1 capsule (40 mg) by mouth every morning before breakfast. Active predniSONE (DELTASONE) 20 mg tablet Take 1 tablet (20 mg) by mouth daily. 10/06/2023 Active salmeteroL (SEREVENT) 50 mcg/inhalation diskus inhaler Inhale 1 puff by mouth as needed. Active azithromycin (Zithromax Z-Telly) 250 mg tabletIndicatio ns:Acute bronchitis, not otherwise specified Take as directed (Directions on box or blister pack). 6 tablet 12/17/2023 Active Active Problems Problem Noted Date Diagnosed Date Lower lobe, lung cancer <Left> 11/26/2023 Lung mass found on diagnostic imaging of lung Encounters * This document contains information received from the source organization and may not represent a complete record from that organization. 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> Discharge Disposition: Home 03/18/2024 Travel 03/17/2024 9:28 AM SCHOOL BUS DISPATCHER - 03/17/2024 11:59 PM SCHOOL BUS DISPATCHER Hospital Encounter Main CT IMAGING [address], 3rd [place] [address] Giovanni Mancini APRN Lung mass found on diagnostic imaging of lung; Adenocarcinoma, NOS of lower lobe, 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> Discharge Disposition: Home 03/05/2024 Telephone [facility] [facility] Main Bldg, 1st [place] [address] Мария Johnson RN 03/04/2024 Telephone [facility] [address] [facility] Main Bldg, 1st [place] [address] Мария Johnson RN 01/16/2024 8:20 PM CDT Ancillary Procedure Image Library [address] [place] [address] Pastora Dahl MD Cancer 01/16/2024 8:15 PM CDT Ancillary Procedure Image Library [address] [place] [address] Pastora Dahl MD Cancer 01/16/2024 8:10 PM CDT Ancillary Procedure Image Library [address] [place] [address] Pastora Dahl MD Cancer 01/16/2024 8:05 PM CDT Ancillary Procedure Image Library [address] [place] [address] Pastora Dahl MD Cancer 01/16/2024 8:00 PM CDT Ancillary Procedure Image Library [address] [place] [address] Pastora Dahl MD Cancer 12/30/2023 Nurse Triage [facility] PHYSICIAN [address] [place] [address] Sydni Dao, HEALTH ANALYTICS CONSULTANT 12/17/2023 Telephone [facility] [address] [place], [place] [address]vd Main Bldg, 1st [place] [address] Giovanni Mancini, HEALTH ANALYTICS CONSULTANT 12/17/2023 Orders Only Radiation Treatment Center [facility] Main Bldg, 1st [place] [address] Giovanni Mancini, HEALTH ANALYTICS CONSULTANT Acute bronchitis, not otherwise specified (Primary Dx) 12/17/2023 Telephone [facility] PHYSICIAN [address] [place] [address] Janice Espinal, barbering teacher Call 12/16/2023 Telephone [facility] PHYSICIAN [address] [place] [address] Chayito Lyle, barbering teacher Call 12/14/2023 9:43 AM CDT - 12/14/2023 1:25 PM CDT [facility] [address] [place] [address] Main Bldg, 1st [place] [address] Katarzyna Jerome MD Dyspnea (Primary Dx); Near syncope Discharge Disposition: Home 12/14/2023 9:00 AM CDT - 12/14/2023 9:42 AM CDT Hospital Encounter [facility] [place] [address] Pastora Dahl MD Discharge Disposition: Home 12/14/2023 Documentation Thoracic Center - Radiation Oncology [facility] Main Bldg, 9th [place] [address] Yunior Bradford MD 12/14/2023 Documentation [facility] [address] [place], [place] [address] [place] [address] Pedro Esposito MD 12/14/2023 Travel 12/13/2023 9:15 AM CDT - 12/13/2023 11:59 PM CDT Hospital Encounter [facility] [address] [place], [place] [address] Main Bldg near [place] [id number] Pastora Dahl MD Discharge Disposition: Home 12/13/2023 Documentation [facility] [address] [place], [place] [address] Main Bldg, 1st Floo near Elevator [place] [phone] Satish Kimble MD 12/12/2023 9:43 AM CDT - 12/12/2023 11:59 PM CDT Hospital Encounter [facility] [address] [place], [place] [address] Main Bldg, 1st Floo near Elev[place] [phone] Yunior Bradford MD Discharge Disposition: Home 12/12/2023 9:06 AM CDT - 12/12/2023 9:42 AM CDT Hospital Encounter [facility] [address] [place] [address] Blvd Main Bldg near [place] [id number] Pastora Dahl MD Discharge Disposition: Home 12/12/2023 Orders Only [facility] [address] [place], [place] [address] Main Bldg, 1st Floo near Ele[place] [phone] Giovanni Mancini, HEALTH ANALYTICS CONSULTANT Lung mass found on diagnostic imaging of lung (Primary Dx); Adenocarcinoma, NOS of lower lobe, 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> 12/12/2023 Documentation Radiation Treatment Center [facility] [address] Main [address]ld[address], 1st [place] [address] Nicki Burris MD 12/11/2023 8:31 AM CDT - 12/11/2023 11:59 PM CDT Hospital Encounter [facility] [address] [place], [place] [address] Main Bldg near [place] [phone] Pastora Dahl MD Discharge Disposition: Home 12/11/2023 Documentation [facility] - Radiation Oncology [address] Main Bldg, 9th Floor [address] [place] [phone] Luis Perez MD 12/11/2023 Travel 12/07/2023 Documentation [facility] - Radiation Oncology [address] Main Bldg, 9th [place] [address] Yunior Bradford MD 12/07/2023 Telephone Cardiopulmonary Center - Pulmonology Medicine [address] Main Bldg, 6th [place] [address] Ingrid Fischer RN 12/07/2023 Telephone [facility] [address] Main Bldg, 1st [place] [address] Giovanni Mancini APRN 12/03/2023 2:45 PM CDT - 12/03/2023 11:59 PM CDT Hospital Encounter [facility] [address] Main Bldg near [place] [phone] Pastora Dahl MD Discharge Disposition: Home 12/03/2023 Telephone [facility] [address] Main Bldg, 1st Floo near [place] [phone] Sergey Moeller, FABI 11/28/2023 Telephone [facility] [address] Main Bldg, 1st [place] [address] Sergey Moeller, RN 11/27/2023 9:44 AM CDT - 11/27/2023 11:59 PM CDT Hospital Encounter [facility] [address] Main Bldg near [place] [phone] Giovanni Mancini, Yunior Wicnhester MD Lung mass found on diagnostic imaging of lung Discharge Disposition: Home 11/27/2023 8:50 AM CDT - 11/27/2023 9:43 AM CDT Hospital Encounter [facility] [address] [facility] Main Bldg, 1st [place] [address] Giovanni Mancini, Yunior Winchester MD Lung mass found on diagnostic imaging of lung Discharge Disposition: Home 11/27/2023 Documentation [facility] - Radiation Oncology [address] [facility] Main Bldg, 9th [place] [address] Yunior Bradford MD 11/27/2023 Documentation [facility] - Radiation Oncology [address] [facility] Main Bldg, 9th [place] [address] Yunior Bradford MD 11/27/2023 Travel 11/24/2023 8:00 PM CDT Ancillary Procedure Image Library [address] [place] [address] Pastora Dahl MD Cancer 11/22/2023 Orders Only [facility] Main Bldg, 1st [place] [address] Giovanni Mancini APRN Lung mass found on diagnostic imaging of lung (Primary Dx) 11/22/2023 Telephone [facility] [address] [facility] Main Bldg, 1st [place] [address] Sergey Moeller RN 11/21/2023 1:58 PM CDT - 11/21/2023 11:59 PM CDT Hospital Encounter [facility] - Radiation Oncology [address] [facility] Main Bldg, 9th [place] [address] Alisha Kumari MD Gandhi, Saumil, MD Lung mass found on diagnostic imaging of lung Discharge Disposition: Home 11/21/2023 Travel 11/15/2023 Orders Only Cardiopulmonary Center - Pulmonology Medicine [facility]ldg, 6th [place] [address] Alisha Kumari MD Lung mass found on diagnostic imaging of lung (Primary Dx) 11/14/2023 4:00 PM CDT Ancillary Procedure PET Imaging [address] [facility], 6th [place] [address] Alisha Kumari MD Pulmonary nodules 11/13/2023 4:30 PM CDT POEM Appointments [facility] [address] [place] [address], 6th [place] [address] Pastora Dahl MD 11/13/2023 Telephone Cardiopulmonary Center - Pulmonology Medicine [address] [place] [address], 6th [place] [address] Ingrid Fischer, RN 11/12/2023 11:59 PM CDT Anesthesia Event [facility] [address] [place] [address], [facility] [place] [address] Yuki Gayle, RN 11/12/2023 2:00 PM CDT Consult Cardiopulmonary Center - Pulmonology Medicine [address] [place] [address], [facility] [place] [address] Alisha Kumari MD Pulmonary nodules; Lymphadenopathy 11/12/2023 12:51 PM CDT - 11/12/2023 11:59 PM CDT Hospital Encounter [facility]iopulmonary Center [address] [place] [address], 6th [place] [address] Qing Camarena, HEALTH ANALYTICS CONSULTANT Multiple nodules of lung Discharge Disposition: Home 11/12/2023 12:51 PM CDT - 11/12/2023 11:59 PM CDT Hospital Encounter Diagnostic Laboratory Center [address] [place] [address], [place] [address] Genie Simmons, HEALTH ANALYTICS CONSULTANT Lung mass found on diagnostic imaging of lung Discharge Disposition: Home 11/12/2023 Orders Only Internal Medicine Center [address] [place] [address], 9th [place] [address] Isaías García APRN 11/12/2023 Travel 11/05/2023 8:10 PM CDT Ancillary Procedure Image Library [address] [place] [address] Pastora Dahl MD Cancer 11/05/2023 8:05 PM CDT Ancillary Procedure Image Library [address] [place] [address] Pastora Dahl MD Cancer 11/05/2023 8:00 PM CDT Ancillary Procedure Image Library [address] [place] [address] Pastora Dahl MD Cancer 11/05/2023 4:45 PM CDT - 11/05/2023 11:59 PM CDT Hospital Encounter Diagnostic Laboratory Center [address] [place] [address] Main [facility], [place] [address] Qing Camarena APRN Multiple nodules of lung (Primary Dx) Discharge Disposition: Home 11/05/2023 2:00 PM CDT Office Visit Internal Medicine Center [address] [place] [address] Main [facility], 9th [place] [address] Pastora Dahl MD Multiple nodules of lung (Primary Dx) 11/05/2023 1:00 PM CDT NPR MDA PATIENT ACCESS Pastora Dahl MD 11/05/2023 Travel 11/02/2023 Prep for Surgery [facility]iop[facility] - Pulmonology Medicine [address] [place] [address] Main dg, 6th [place] [address] Genie Simmons APRN Lung mass found on diagnostic imaging of lung (Primary Dx) 11/02/2023 Orders Only Internal Medicine Center [address] [place] [address] Main dg, 9th [place] [address] Isaías García APRN Pulmonary nodules (Primary Dx); Lymphadenopathy after 04/02/2023 Surgical History Surgery Date Site/Laterality Comments MASTECTOMY 04/09/2011 - 04/08/2012 Left and 2013 THYROIDECTOMY 04/09/2005 - 04/08/2006 SMALL INTESTINE SURGERY 04/09/2016 - 04/08/2017 removal due to blockage SECTION, CLASSIC 04/09/1979 - 04/08/1980 LAPAROTOMY EXPLORATORY TOTAL ABDOMINAL HYSTERECTOMY W/ BILATERAL SALPINGOOPHORECTOMY SHOULDER SURGERY 04/09/2019 - 04/08/2020 Left rotator cuff repair Medical History Medical History Date Comments Stroke 2018 and 2017 Hypertension Hyperlipidemia Chronic obstructive pulmonary disease 2009 Malignant neoplasm of thyroid gland 2006 Breast cancer 2012 left breast Diverticulosis of colon 2017 Hypothyroidism Anxiety disorder Family History Medical History Relation Name Comments Testicular cancer Brother 1 Testicular cancer Brother 2 Testicular cancer Brother 3 Lung cancer Mother Brain cancer Sister 1 Breast cancer Sister 2 Relation Name Status Comments Brother 1 Brother 2 Brother 3 Mother Sister 1 Sister 2 Social History Tobacco Use Types Packs/Day Years Used Date Smoking Tobacco: Every Day Cigarettes 1 67 Started: 1957 Passive Smoke Exposure: Past Smokeless Tobacco: Never Tobacco Cessation:Ready to Q uit: Yes; Counseling Given: No Comments:1957- current Alcohol Use Standard Drinks/Week Comments Not Currently 0 (1 standard drink = 0.6 oz pur e alcohol) AUDIT-C Answer Date Recorded Q1: How often do you have a drink containing alcohol? Never 11/05/2023 Q2: How many drinks containi ng alcohol do you have on a typical day when you are drinking? Patient does not drink Q3: How often do you have si x or more drinks on one occasion? Never 11/05/2023 Comments Unknown Sex and Gender Information Value Date Recorded Sex Assigned at Not on file Legal Sex Female 7:49 PM CDT Gender Identity Not on file Sexual Orientation Not on file Obstetrics History Last Filed Vital Signs Vital Sign Reading Time Taken Comments Blood Pressure 119/67 03/18/2024 9:51 AM SCHOOL BUS DISPATCHER Pulse 84 03/18/2024 9:51 AM SCHOOL BUS DISPATCHER Temperature 36.9 C (98.4 F) 12/14/2023 1:21 PM CD T Respiratory Rate 22 03/18/2024 9:51 AM SCHOOL BUS DISPATCHER Oxygen Saturation 97% 03/18/2024 9:51 AM SCHOOL BUS DISPATCHER Inhaled Oxygen Concentration - - Weight 48.5 kg (106 lb 14.8 oz) 03/18/2024 9:46 AM SCHOOL BUS DISPATCHER Height 155 cm (5' 1.02") 11/14/2023 1:43 PM CDT Body Mass Index 20.19 11/14/2023 1:43 PM CDT Plan of Treatment Upcoming Encounters Date Type Department Care Team (Late st Contact Info) Description 06/10/2024 6:30 AM SCHOOL BUS DISPATCHER Ancillary Procedure PET Imaging [address] [facility], 6th [place] [address] Giovanni Mancini, HEALTH ANALYTICS CONSULTANT [address] [place] [address] [email or web address] 06/10/2024 11:30 AM SCHOOL BUS DISPATCHER Appointment Radiation Treatment Center [address] [facility] Main Bldg, 1st [place] [address] Yunior Bradford MD [address] [place] [address] [email or web address] Health Maintenance Due Date Last Done Comments COVID-19 Vaccine (#1) 1950 Influenza Vaccine (#1) 2023 3, 12/15/2021, 12/25/2020, Additional history exists Pneumococcal Vaccine: 65+ Years Completed 12/15/2021, 01/11/2021, 04/22/2015, Additional history exists Procedures Procedure Name Priority Date/Time Associated Diagnosis Comments CT CHEST W CONTRAST Routine 03/17/2024 1 1:35 AM SCHOOL BUS DISPATCHER Lung mass found on diagnostic imaging of lung Adenocarcinoma, NOS of lower lobe, 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> POC CREATININE Routine 03/17/2024 10:50 AM SCHOOL BUS DISPATCHER XR CHEST 1 VW Routine 12/14/2023 11:25 AM CDT .CBC Routine 12/14/2023 10:55 AM CDT CARDIAC PANEL Routine 12/14/2023 10:55 AM CDT APTT Routine 12/14/2023 10:55 AM CDT PROTHROMBIN TIME Routine 12/14/2023 10:5 5 AM CDT PHOSPHORUS LEVEL Routine 12/14/2023 10:5 5 AM CDT MAGNESIUM LEVEL Routine 12/14/2023 10:55 AM CDT COMPREHENSIVE METABOLIC PANEL Routine 12/14/2023 10:55 AM CDT COMPLETE BLOOD COUNT W/ DIFFERENTIAL Routine 12/14/2023 10:[address] HEAD WO CONTRAST Routine 12/14/2023 1 0:46 AM CDT EKG, 12-LEAD (PORTABLE) STAT 12/14/2023 CT THORACIC SIMULATION WITHOUT CONTRAST Routine 11/27/2023 10:29 AM CDT Lung mass found on diagnostic imaging of lung PETCT F18 FDG (FLUORODEOXYGLUCOSE) WITHOUT CONTRAST Routine 11/14/2023 5:21 PM CDT Pulmonary nodules .CBC Routine 11/12/2023 12:57 PM CDT Lung mass found on diagnostic imaging of lung COMPREHENSIVE METABOLIC PANEL Routine 11/12/2023 12:57 PM CDT Lung mass found on diagnostic imaging of lung COMPLETE BLOOD COUNT W/ DIFFERENTIAL Routine 11/12/2023 12:57 PM CDT Lung mass found on diagnostic imaging of lung PROTHROMBIN TIME Routine 11/12/2023 12:5 7 PM CDT Lung mass found on diagnostic imaging of lung HEMOGLOBIN A1C Routine 11/12/2023 12:57 PM CDT Lung mass found on diagnostic imaging of lung EKG, 12-LEAD (SCHEDULED) Routine 11/12/2023 Multiple nodules of lung FRAIRE MISC TEST Routine 11/05/2023 5:42 PM CDT Multiple nodules of lung NEUP MISC TEST Routine 11/05/2023 5:37 PM CDT Multiple nodules of lung .CBC Routine 11/05/2023 5:37 PM CDT Multiple nodules of lung CARBOHYDRATE ANTIGEN 15-3 Routine 11/05/2023 5:37 PM CDT Multiple nodules of lung RHEUMATOID FACTOR QUANTITATIVE Routine 11/05/2023 5:37 PM CDT Multiple nodules of lung C REACTIVE PROTEIN Routine 11/05/2023 5: 37 PM CDT Multiple nodules of lung ANCA PANEL FOR VASCULITIS SERUM Routine 11/05/2023 5:37 PM CDT Multiple nodules of lung ANTINUCLEAR ANTIBODY HEP-2 SUBSTRATE IGG Routine 11/05/2023 5:37 PM CDT Multiple nodules of lung SEDIMENTATION RATE NON-AUTOMATED Routine 11/05/2023 5:37 PM CDT Multiple nodules of lung ANGIOTENSIN CONVERTING ENZYME Routine 11/05/2023 5:37 PM CDT Multiple nodules of lung HIV 1/2 ANTIGEN/ANTIBODY, FOURTH GEN W/RFL Routine 11/05/2023 5:37 PM CDT Multiple nodules of lung T-SPOT TUBERCULOSIS Routine 11/05/2023 5 :37 PM CDT Multiple nodules of lung COCCIDIOIDES ANTIBODY Routine 11/05/2023 5:37 PM CDT Multiple nodules of lung THYROID STIMULATING HORMONE Routine 11/05/2023 5:37 PM CDT Multiple nodules of lung HEPATITIS C VIRUS ANTIBODY Routine 11/05/2023 5:37 PM CDT Multiple nodules of lung HEPATITIS B CORE ANTIBODY Routine 11/05/2023 5:37 PM CDT Multiple nodules of lung HEPATITIS B SURFACE ANTIGEN Routine 11/05/2023 5:37 PM CDT Multiple nodules of lung HEPATITIS B SURFACE ANTIBODY Routine 11/05/2023 5:37 PM CDT Multiple nodules of lung APTT Routine 11/05/2023 5:37 PM CDT Multiple nodules of lung PROTHROMBIN TIME Routine 11/05/2023 5:37 PM CDT Multiple nodules of lung COMPLETE BLOOD COUNT W/ DIFFERENTIAL Routine 11/05/2023 5:37 PM CDT Multiple nodules of lung COMPREHENSIVE METABOLIC PANEL Routine 11/05/2023 5:37 PM CDT Multiple nodules of lung CRYPTOCOCCAL ANTIGEN, SERUM Routine 11/05/2023 5:37 PM CDT Multiple nodules of lung OSI CHEST Routine 10/07/2023 9:04 PM CDT Cancer OSI CT CHEST Routine 10/05/2023 9:04 PM CDT Cancer OSI CHEST Routine 10/04/2023 9:05 PM CDT Cancer OSI MRI SPINE THORACIC Routine 1:54 PM CDT Cancer OSI MRI SPINE LUMBAR Routine 08/30/2023 1:53 PM CDT Cancer OSI THORACIC SPINE Routine 08/30/2023 1: 53 PM CDT Cancer OSI LUMBAR SPINE Routine 08/30/2023 1:53 PM CDT Cancer OSI MRI HEAD Routine 08/30/2023 1:52 PM CDT Cancer OSI FOOT Routine 08/15/2023 5:18 AM CDT Cancer after 04/02/2023 Results * CT Chest with Contrast (03/17/2024 11:35 AM SCHOOL BUS DISPATCHER) Anatomical Region Laterality Modality Chest Computed Tomogra phy 03/17/2024 11:4 4 AM SCHOOL BUS DISPATCHER Impressions 03/17/2024 12:01 PM SCHOOL BUS DISPATCHER 1. Decrease in left lower lobe primary malignancy. 2. Small left pleural effusion of uncertain etiology. Attention on follow-up. 3. New small nodules in the anterior lungs may be infectious or inflammatory. Findings suggest chronic aspiration in the right lower lobe. 4. Subsolid right lung nodules are unchanged and may reflect indolent adenocarcinoma. 5. Right and left ventricular hypertrophy. Multivessel coronary artery disease. ACTIONABLE ITEMS/RECOMMENDATIONS*: None. *An Actionable Finding is a finding that may be unrelated to the original reason for imaging but potentially actionable, meaning further investigation may be necessary. The Actionable Findings Vigilance Unit (AFVU) assists medical providers with responding to additional radiologic findings that are unexpected and potentially actionable. Narrative 03/17/2024 12:01 PM SCHOOL BUS DISPATCHER FULL RESULT: Examination: CT CHEST W CONTRAST on 03/17/2024 11:35 AM. 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 The left lower lobe tumor is decreased in size from 25 mm on 11/14/2023 to 19 mm (image 86, series 3). Subsolid nodules in the right lung are unchanged (images 35, 52). Subpleural nodules in the anterior lungs are new (images 53, 55, 56, 58, 67, 72). Again seen are clustered micronodules and confluent nodular opacities in the right lung base. There is bronchial wall thickening, tracheobronchial secretions and diffuse bronchial impaction with predominance in the lower lobes. Small left pleural effusion. Neck/Mediastinum/Nodes/Heart: The thyroid gland is resected. Mediastinal and hilar lymph nodes measure up to 10 mm, unchanged (images 57 and 62, series 2). The heart is normal in size with small physiologic pericardial fluid. There is right and left ventricular hypertrophy (image 93, series 2). There is multivessel coronary artery disease. The thoracic aorta and main pulmonary trunk are normal in diameter. The pulmonary arteries are adequately opacified. The esophagus is nondistended and normal in course. Upper abdomen: Bilateral adrenal nodules are unchanged and was not hypermetabolic on PET CT, most compatible with adenomas. No focal hepatic or splenic lesion. Bones/Soft Tissues: The bones are osteopenic. There are age-related degenerative changes of the spine and shoulders. No bone lesion or acute bone fracture. Surgical clips in the left chest wall reflect prior mastectomy with flap reconstruction. Procedure Note Helen Alva MD - 03/17/2024 FULL RESULT: Examination: CT CHEST W CONTRAST on 03/17/2024 11:35 AM. 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 The left lower lobe tumor is decreased insize from 25 mm on 11/14/2023 to 19 mm (image 86, series 3). Subsolidnodules in the right lung are unchanged (images 35, 52). Subpleuralnodules in the anterior lungs are new (images 53, 55, 56, 58, 67, 72).Again seen are clustered micronodules and confluent nodular opacities inthe right lung base. There is bronchial wall thickening, tracheobronchialsecretions and diffuse bronchial impaction with predominance in the lowerlobes. Small left pleural effusion. Neck/Mediastinum/Nodes/Heart: The thyroid gland is resected. Mediastinal and hilar lymph nodes measure up to 10 mm, unchanged ( and 62, series 2). The heart is normal in size with small physiologic pericardial fluid.There is right and left ventricular hypertrophy (image 93, series 2).There is multivessel coronary artery disease. The thoracic aorta and mainpulmonary trunk are normal in diameter. The pulmonary arteries areadequately opacified. The esophagus is nondistended and normal in course. Upper abdomen: Bilateral adrenal nodules are unchanged and was not hypermetabolic on PETCT, most compatible with adenomas. No focal hepatic or splenic lesion. Bones/Soft Tissues: The bones are osteopenic. There are age-relateddegenerative changes of the spine and shoulders. No bone lesion or acutebone fracture. Surgical clips in the left chest wall reflect prior mastectomy with flapreconstruction. IMPRESSION: 1. Decrease in left lower lobe primary malignancy. 2. Small left pleural effusion of uncertain etiology. Attention onfollow-up. 3. New small nodules in the anterior lungs may be infectious orinflammatory. Findings suggest chronic aspiration in the right lowerlobe. 4. 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 5. Right and left ventricular hypertrophy. Multivessel coronary arterydisease. ACTIONABLE ITEMS/RECOMMENDATIONS*: None. *An Actionable Finding is a finding that may be unrelated to the originalreason for imaging but potentially actionable, meaning furtherinvestigation may be necessary. The Actionable Findings Vigilance Unit(AFVU) assists medical providers with responding to additional radiologicfindings that are unexpected and potentially actionable. us Giovanni Mancini HEALTH ANALYTICS CONSULTANT IM CT ORDERABLES Final Res ult * POC Creatinine (03/17/2024 10:50 AM [employer]) POC Creatinine 0.6 0.6 - 1.3 mg/dL 03/17/2024 10:55 AM [facility] Comment:Medications, especia lly hydroxyurea or supplements, such as ascorbate, can interfere with test results causing a falsely and significantly higher result than expected. If a problem is suspected with a patient's result, a sample should be sent to the laboratory for confirmatory testing. POC eGFR 92 >=60 mL/min/1.7 3 sq. m 03/17/2024 10:55 AM [facility] Comment: The eGFRcr is calculated with the 2020 CKD-EPI creatinine equation using creatinine, patient's age, and sex for adults 18 years of age and older. Other factors, especially muscle mass, may affect accuracy and need to be considered. According to the Kidney Disease: Improving Global Outcomes (KDIGO) CKD Work Group 2012 Clinical Practice Guideline, chronic kidney disease (CKD) is defined as the abnormalities of kidney structure or function, present for more than 3 months, with implications for health. CKD should be classified by cause, GFR category, and albuminuria category. KDIGO guidelines provide the following GFR categories. Stage / Description / GFR mL/min/1.73 m2: G1* / Normal or high / >= 90 G2* / Mildly decreased / 60-89 G3a / Mildly to moderately decreased / 45-59 G3b / Moderately to severely decreased / 30-44 G4 / Severely decreased / 15-29 G5 / Kidney failure / <15 *In the absence of evidence of kidney damage, neither G1 nor G2 fulfill criteria for CKD. Blood 03/17/2024 10:5 0 AM [employer] DISPATCHER 03/17/2024 10:55 AM [employer] DISPATCHER Narrative [facility] - 03/17/2024 10:55 AM [employer] DISPATCHER Method description: The i-STAT is an analyzer used for in vitro quantification of various analytes in whole blood. The device uses a single disposable cartridge which contains microfabricated sensors, a calibration solution, fluidics system, and a waste chamber. Each test cartridge contains chemically sensitive biosensors on a silicon chip that are configured to perform specific tests. The microfabricated sensors measure analyte concentration by an electrochemical assay. Giovanni Mancini APRN POCT ORDERABLES - DEVICE Fi nal Result [facility] Unless otherwise noted, all lab tests performed by: Division of Pathology and Laboratory Medicine [address] [place] [id number] * X-ray Chest 1 View (12/14/2023 11:25 AM CDT) Anatomical Region Laterality Modality Chest Digital Radiogra phy 12/14/2023 11:3 6 AM CDT Impressions 12/14/2023 11:40 AM CDT Presumed left lower lobe primary malignancy. No acute consolidation. ACTIONABLE ITEMS/RECOMMENDATIONS*: None. *An Actionable Finding is a finding that may be unrelated to the original reason for imaging but potentially actionable, meaning further investigation may be necessary. The Actionable Findings Vigilance Unit (AFVU) assists medical providers with responding to additional radiologic findings that are unexpected and potentially actionable. Narrative 12/14/2023 11:40 AM CDT FULL RESULT: Examination: XR CHEST 1 VW on 12/14/2023 11:25 AM. Clinical History: Presentation to the [facility] with dizziness, fatigue, and shortness of breath. Indication: Shortness of Breath Comparison: PET/CT from 11/14/2023 and PA and lateral conventional chest radiography from 10/07/2023. Technique: Frontal radiograph of the chest Findings: Support Apparatus: No thoracic lines or tubes. Lungs/Pleura/Mediastinum: There is no pleural effusion. There is no pneumothorax. There is a left lower lung spiculated opacity, which is better characterized on CT chest from 11/14/2023. No acute consolidation is identified. The cardiac silhouette is normal in size when accounting for anteroposterior projection. The mediastinal contour is unremarkable for portable technique. Musculoskeletal: The bones are intact. Surgical clips project over the left breast and left axilla. Upper abdomen: No significant abnormality of the upper abdomen is identified on chest radiography. Procedure Note Giovanni Alan MD PhD - 12/14/2023 FULL RESULT: Examination: XR CHEST 1 VW on 12/14/2023 11:25 AM. Clinical History: Presentation to the [facility] withdizziness, fatigue, and shortness of breath. Indication: Shortness of Breath Comparison: PET/CT from 11/14/2023 and PA and lateral conventional chestradiography from 10/07/2023. Technique: Frontal radiograph of the chest Findings: Support Apparatus: No thoracic lines or tubes. Lungs/Pleura/Mediastinum: There is no pleural effusion. There is nopneumothorax. There is a left lower lung spiculated opacity, which isbetter characterized on CT chest from 11/14/2023. No acute consolidationis identified. The cardiac silhouette is normal in size when accountingfor anteroposterior projection. The mediastinal contour is unremarkablefor portable technique. Musculoskeletal: The bones are intact. Surgical clips project over theleft breast and left axilla. Upper abdomen: No significant abnormality of the upper abdomen isidentified on chest radiography. IMPRESSION: Presumed left lower lobe primary malignancy. No acute consolidation. ACTIONABLE ITEMS/RECOMMENDATIONS*: None. *An Actionable Finding is a finding that may be unrelated to the originalreason for imaging but potentially actionable, meaning furtherinvestigation may be necessary. The Actionable Findings Vigilance Unit(AFVU) assists medical providers with responding to additional radiologicfindings that are unexpected and potentially actionable. Katarzyna Jerome MD IMG DIAGNOSTIC IMAGING ORDERAB LES Final Result * (ABNORMAL) .CBC (12/14/2023 10:55 AM CDT) Only the most recent of3 resultswithin the time period is included. White Blood Cell 14.4(H) 4.1 - 10.5 K/uL 12/14/2023 11:22 AM CDT [facility] Red Blood Cell 4.53 3.99 - 5.46 M/uL 12/14/2023 11:22 AM CDT [facility] Hemoglobin 13.2 12.2 - 15.3 g/dL 12/14/2023 11:22 AM CDT [facility] Hematocrit 44.4 36.4 - 46.8 % 12/14/2023 11:22 AM CDT [facility] Mean Cell Volume 98 82 - 99 fL 12/14/2023 11:22 AM CDT [facility] Mean Cell Hemoglobin 29.1 26.6 - 33.2 pg 12/14/2023 11:22 AM CDT [facility] Mean Cell Hemoglobin Concentration 29.7(L) 31.1 - 35.2 g/dL 12/14/2023 11:22 AM CDT [facility] RDW-SD 53.5(H) 37.5 - 49.7 fL 12/14/2023 11:22 AM CDT [facility] Red Cell Diameter Width 14.7 11.6 - 15.5 % 12/14/2023 11:22 AM CDT [facility] Platelet 158(L) 160 - 397 K/uL 12/14/2023 11:22 AM CDT [facility] Mean Platelet Volume 13.6(H) 9.1 - 12.6 fL 12/14/2023 11:22 AM CDT [facility] INRBC 0.0 0.0 - 0.1 /100 WBC 12/14/2023 11:22 AM [facility] Comment: The INRBC (instrument NRBC) value reflects the enumeration of nucleated red blood cells contained in a 200uL sample of whole blood analyzed by the instrument. This value may differ from the NRBC value reported in a manual differential, which is based on a 100 cell differential. Neutrophil % 72.8(H) 43.2 - 72.7 % 12/14/2023 11:22 AM CDT [facility] Lymphocyte % 15.4(L) 16.8 - 46.2 % 12/14/2023 11:22 AM T [facility] Monocyte % 9.8 5.1 - 12.5 % 12/14/2023 11:22 AM [facility] Eosinophil % 1.3 0.4 - 6.3 % 12/14/2023 11:22 AM [facility] Basophil % 0.3 0.2 - 1.4 % 12/14/2023 11:22 AM [facility] IGRE % 0.4 0.1 - 1.5 % 12/14/2023 11:22 AM [facility] Comment:The IGRE% includes M etamyelocytes, Myelocytes and Promyelocytes. Neutrophil Abs 10.50(H) 1.95 - 7.25 K/uL 12/14/2023 11:22 AM [facility] Lymphocyte Abs 2.23 1.01 - 3.24 K/uL 12/14/2023 11:22 AM [facility] Monocyte Abs 1.42(H) 0.24 - 0.85 K/uL 12/14/2023 11:22 AM T [facility] Eosinophil Abs 0.19 0.02 - 0.50 K/uL 12/14/2023 11:22 AM [facility] Basophil Abs 0.04 0.02 - 0.09 K/uL 12/14/2023 11:22 AM [facility] IG Abs 0.06 0.01 - 0.12 K/uL 12/14/2023 11:22 AM CDT [facility] Blood Peripheral blood specimen / Unknown Venipuncture / Unknown 12/14/2023 10:55 AM CDT 12/14/2023 11:01 AM CDT us Katarzyna Jerome MD LAB BLOOD ORDERABLES Final Res ult [facility] Unless otherwise noted, all lab tests performed by: Division of Pathology and Laboratory Medicine [address] [place] [id number] * (ABNORMAL) Comprehensive Metabolic Panel (12/14/2023 10:55 AM CDT) Only the most recent of3 resultswithin the time period is included. Bilirubin Total 0.4 0.0 - 1.2 mg/dL 12/14/2023 11:39 AM CDT [facility] Comment:Indocyanine Green (I CG) may cause falsely elevated bilirubin results. Total and direct bilirubin must not be measured from samples containing indocyanine green. False elevation of total bilirubin can be seen in patients with IgG concentrations above 28 g/L. eGFR 95 >=60 mL/min/1. 73 sq. m 12/14/2023 11:39 AM CDT [facility] Comment: The eGFRcr is calculated with the 2020 CKD-EPI creatinine equation using creatinine, patient's age, and sex for adults 18 years of age and older. Other factors, especially muscle mass, may affect accuracy and need to be considered. According to the Kidney Disease: Improving Global Outcomes (KDIGO) CKD Work Group 2012 Clinical Practice Guideline, chronic kidney disease (CKD) is defined as the abnormalities of kidney structure or function, present for more than 3 months, with implications for health. CKD should be classified by cause, GFR category, and albuminuria category. KDIGO guidelines provide the following GFR categories. Stage / Description / GFR mL/min/1.73 m2: G1* / Normal or high / >= 90 G2* / Mildly decreased / 60-89 G3a / Mildly to moderately decreased / 45-59 G3b / Moderately to severely decreased / 30-44 G4 / Severely decreased / 15-29 G5 / Kidney failure / <15 *In the absence of evidence of kidney damage, neither G1 nor G2 fulfill criteria for CKD. Tot Protein 6.8 6.4 - 8.3 gm/dL 12/14/2023 11:39 AM [facility] Calcium Level Total 9.9 8.2 - 10.2 mg/dL 12/14/2023 11:39 AM [facility] Alkaline Phosphatase 63 35 - 104 U/L 12/14/2023 11:39 AM [facility] Albumin Level 3.9 3.5 - 5.2 gm/dL 12/14/2023 11:39 AM [facility] AST 18 <=32 U/L 12/14/2023 11:39 AM [facility] ALT 9 <=33 U/L 12/14/2023 11:39 AM [facility] Sodium Level 145 136 - 145 mmol/L 12/14/2023 11:39 AM [facility] Potassium Level 4.0 3.4 - 4.5 mmol/L 12/14/2023 11:39 AM [facility] Chloride 98 98 - 107 mmol/L 12/14/2023 11:39 AM [facility] CO2 40(H) 22 - 29 mmol/L 12/14/2023 11:39 AM [facility] Anion Gap 7 4 - 14 mmol/L 12/14/2023 11:39 AM [facility] Creatinine 0.53 0.51 - 0.95 mg/dL 12/14/2023 11:39 AM [facility] BUN 13 6 - 23 mg/dL 12/14/2023 11:39 AM [facility] Glucose Level 101(H) 70 - 99 mg/dL 12/14/2023 11:39 AM [facility] Comment: Effective 11/03/15, the glucose reference intervals have been updated based on [place] [employer] guidelines (Standards of Medical Care in Diabetes 2016. Diabetes Care 2016; 39: S13-S22). Fasting blood glucose: Normal: 70-99 mg/dL Impaired fasting glucose (increased risk for diabetes or pre-diabetes): 100-125 mg/dL Diabetes mellitus: >/=126 mg/dL Random blood glucose: Normal: 70-199 mg/dL Note: Random glucose >100 mg/dL is associated with increased risk for diabetes. Blood Peripheral blood specimen / Unknown Venipuncture / Unknown 12/14/2023 10:55 AM CDT 12/14/2023 11:01 AM CDT Katarzyna Jerome MD LAB BLOOD ORDERABLES Final Res ult [facility] Unless otherwise noted, all lab tests performed by: Division of Pathology and Laboratory Medicine [address] [place] [id number] * (ABNORMAL) Cardiac Panel (12/14/2023 10:55 AM CDT) Creatine Kinase 20(L) 26 - 192 U/L 12/14/2023 11:41 AM CDT [facility] CKMB <2.0 <=5.3 ng/mL 12/14/2023 11:41 AM CDT [facility] Troponin T 13 <=19 ng/L 12/14/2023 11:41 AM CDT [facility] Comment: < 19 ng/L Suggest retest at 3 to 6 hours later to rule out myocardial infarction >= 19 to <=52 ng/L Possible myocardial injury. Suggest retest at 3 hours. - a change of < 20 ng/L, retest at 6 hours - a change of >= 20 ng/L, suggestive of myocardial infarction > 52 ng/L Suggestive of myocardial infarction Critical value will be reported when cTnT is > 52 ng/L and only reported for the first in a series. Hemolyzed specimens with Hemolysis Index >100 (100 mg/dl or moderate hemolysis) may cause interferences and falsely low results. Blood Peripheral blood specimen / Unknown Venipuncture / Unknown 12/14/2023 10:55 AM CDT 12/14/2023 11:01 AM CDT Katarzyna Jerome MD LAB BLOOD ORDERABLES Final Res ult [facility] Unless otherwise noted, all lab tests performed by: Division of Pathology and Laboratory Medicine [address] [place] [id number] * aPTT (12/14/2023 10:55 AM CDT) Only the most recent of2 resultswithin the time period is included. Activated PTT 28.7 24.1 - 35.5 second(s) 12/14/2023 11:32 AM CDT [facility] Blood Peripheral blood specimen / Unknown Venipuncture / Unknown 12/14/2023 10:55 AM CDT 12/14/2023 11:01 AM CDT Katarzyna Jerome MD LAB BLOOD ORDERABLES Final Res ult [facility] Unless otherwise noted, all lab tests performed by: Division of Pathology and Laboratory Medicine [address] [place] [id number] * Prothrombin Time with INR (12/14/2023 10:55 AM CDT) Only the most recent of3 resultswithin the time period is included. Prothrombin Time 12.4 11.9 - 14.5 second(s) 12/14/2023 11:32 AM CDT [facility] International Normalization Ratio 0.92 0.87 - 1.12 12/14/2023 11:32 AM CDT [facility] Blood Peripheral blood specimen / Unknown Venipuncture / Unknown 12/14/2023 10:55 AM CDT 12/14/2023 11:01 AM CDT Katarzyna Jerome MD LAB BLOOD ORDERABLES Final Res ult [facility] Unless otherwise noted, all lab tests performed by: Division of Pathology and Laboratory Medicine [address] [place] [id number] * Phosphorus Level (12/14/2023 10:55 AM CDT) Phosphorus Level 3.1 2.5 - 4.5 mg/dL 12/14/2023 11:39 AM CDT [facility] Blood Peripheral blood specimen / Unknown Venipuncture / Unknown 12/14/2023 10:55 AM CDT 12/14/2023 11:01 AM CDT Katarzyna Jerome MD LAB BLOOD ORDERABLES Final Res ult [facility] Unless otherwise noted, all lab tests performed by: Division of Pathology and Laboratory Medicine [address] [place] [id number] * Magnesium Level (12/14/2023 10:55 AM CDT) Magnesium Level 1.8 1.6 - 2.6 mg/dL 12/14/2023 11:39 AM CDT [facility] Blood Peripheral blood specimen / Unknown Venipuncture / Unknown 12/14/2023 10:55 AM CDT 12/14/2023 11:01 AM CDT Katarzyna Jerome MD LAB BLOOD ORDERABLES Final Res ult Performing Organization Address [facility] Co de Phone Number [facility] Unless otherwise noted, all lab tests performed by: Division of Pathology and Laboratory Medicine [address] [place] [id number] * CT Head without Contrast (12/14/2023 10:46 AM CDT) Anatomical Region Laterality Modality Head Computed Tomogra phy 12/14/2023 10:5 3 AM CDT Impressions 12/14/2023 10:54 AM CDT No acute intracranial abnormality is seen. ACTIONABLE ITEMS/RECOMMENDATIONS*: None. *An Actionable Finding is a finding that may be unrelated to the original reason for imaging but potentially actionable, meaning further investigation may be necessary. The Actionable Findings Vigilance Unit (AFVU) assists medical providers with responding to additional radiologic findings that are unexpected and potentially actionable. Narrative 12/14/2023 10:54 AM CDT FULL RESULT: Examination: CT HEAD WO CONTRAST on 12/14/2023 10:46 AM. CLINICAL HISTORY: Lung cancer, thyroid cancer breast cancer. INDICATION: syncope, Syncope COMPARISON: None. TECHNIQUE: CT head without IV contrast was performed. FINDINGS: Intracranial: There is no acute hemorrhage or large vascular territory infarct. Hypoattenuation the supratentorial white matter most likely related to chronic microvessel ischemic change. There is no mass effect or midline shift. The ventricles and extra-axial spaces are appropriate for age. Bone: There are no suspicious lytic or sclerotic calvarial and skull base lesions. Extracranial: The orbits are unremarkable. The visualized paranasal sinuses are predominantly clear. The mastoid air cells are clear. Procedure Note Korina Dao MD - 12/14/2023 FULL RESULT: Examination: CT HEAD WO CONTRAST on 12/14/2023 10:46 AM. CLINICAL HISTORY: Lung cancer, thyroid cancer breast cancer. INDICATION: syncope, Syncope COMPARISON: None. TECHNIQUE: CT head without IV contrast was performed. FINDINGS: Intracranial: There is no acute hemorrhage or large vascular territory infarct.Hypoattenuation the supratentorial white matter most likely related tochronic microvessel ischemic change. There is no mass effect or midline shift. The ventricles and extra-axial spaces are appropriate for age. Bone: There are no suspicious lytic or sclerotic calvarial and skull baselesions. Extracranial: The orbits are unremarkable. The visualized paranasal sinuses are predominantly clear. The mastoid air cells are clear. IMPRESSION: No acute intracranial abnormality is seen. ACTIONABLE ITEMS/RECOMMENDATIONS*: None. *An Actionable Finding is a finding that may be unrelated to the originalreason for imaging but potentially actionable, meaning furtherinvestigation may be necessary. The Actionable Findings Vigilance Unit(AFVU) assists medical providers with responding to additional radiologicfindings that are unexpected and potentially actionable. us Katarzyna Jerome MD IMG CT ORDERABLES Final Result * EKG, 12-Lead (Portable) (12/14/2023) us Katarzyna Jerome MD ECG ORDERABLES Final Result [facility] IECG * CT Thoracic Simulation without Contrast (11/27/2023 10:29 AM CDT) Narrative Systemgenerated, Documentation - 11/27/2023 10:29 AM CDT This procedure requires no interpretation from the radiologist. us Giovanni Niko Mancini APRN IMG RO CT SIM ORDERABLES Fi nal Result * PETCT F18 FDG (Fluorodeoxyglucose) without contrast (11/14/2023 5:21 PM CDT) Anatomical Region Laterality Modality Whole Body Positron Emissio n Tomography (PET) 11/15/2023 5:28 PM CDT Impressions 11/15/2023 8:41 PM CDT Left lower lobe nodule suspicious for a primary malignancy. No enlarged or FDG avid lymph nodes. No evidence of FDG avid extrathoracic metastases. ACTIONABLE ITEMS/RECOMMENDATIONS*: None. *An Actionable Finding is a finding that may be unrelated to the original reason for imaging but potentially actionable, meaning further investigation may be necessary. The Actionable Findings Vigilance Unit (AFVU) assists medical providers with responding to additional radiologic findings that are unexpected and potentially actionable. Narrative 11/15/2023 8:41 PM CDT FULL RESULT: Examination: 18F-FDG-PET/CT without contrast, 11/14/2023 5:21 PM Clinical History: Lung malignancy History of thyroid cancer breast cancer. Indication: Initial treatment strategy. Comparison: 10/05/2023 Technique: F-18 fluorodeoxyglucose 7.4 mCi was administered intravenously via right forearm. To allow for distribution and uptake of radiotracer, the patient was asked to rest quietly for approximately 60-90 minutes. PET/CT imaging was performed from the vertex to thighs. CT scanning was done for attenuation correction, image registration, and diagnosis with scan parameters optimized to minimize radiation exposure to the patient. SUV measurements are reported as maximum SUV based on body weight unless otherwise specified. Findings: Head and Neck: No FDG avid lymph nodes suspicious for cindy disease. Chest: The is a 2.5 cm nodule in the left lower lobe (SUV 15.6) previously 2.4 cm.Emphysematous changes of the lungs. There is bronchial wall thickening and dilation in the right lower lobe. Patchy opacities in the right lower lobe on image 177 have increased slightly and are suspicious for aspiration/infectious process. Stable 4 mm nodule in the right lower lobe on image 155. Groundglass nodules on images 116, 119, and 136 measuring up to 1.1 cm are stable and not FDG avid. These can be secondary to focal fibrosis or atypical adenomatous hyperplasia. Calcified granuloma in the right lower lobe. No enlarged or FDG avid lymph nodes. Stable 0.9 cm right paratracheal lymph node. Moderate coronary artery calcification is present. No pleural or pericardial effusions. Abdomen and Pelvis: No FDG avid lesions in the liver, spleen or adrenal glands. No hydronephrosis. 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 No FDG avid lymph nodes suspicious for cindy disease. Diverticular disease. Musculoskeletal: There are degenerative changes of the spine. Postsurgical changes after left mastectomy. Procedure Note Catalina Light MD - 11/15/2023 FULL RESULT: Examination: 18F-FDG-PET/CT without contrast, 11/14/2023 5:21 PM Clinical History: Lung malignancy History of thyroid cancer breast cancer. Indication: Initial treatment strategy. Comparison: 10/05/2023 Technique: F-18 fluorodeoxyglucose 7.4 mCi was administered intravenously via rightforearm. To allow for distribution and uptake of radiotracer, the patientwas asked to rest quietly for approximately 60-90 minutes. PET/CT imagingwas performed from the vertex to thighs. CT scanning was done forattenuation correction, image registration, and diagnosis with scanparameters optimized to minimize radiation exposure to the patient. SUVmeasurements are reported as maximum SUV based on body weight unlessotherwise specified. Findings: Head and Neck: No FDG avid lymph nodes suspicious for cindy disease. Chest: The is a 2.5 cm nodule in the left lower lobe (SUV 15.6) previously 2.4cm.Emphysematous changes of the lungs. There is bronchial wall thickeningand dilation in the right lower lobe. Patchy opacities in the right lowerlobe on image 177 have increased slightly and are suspicious foraspiration/infectious process. Stable 4 mm nodule in the right lower lobe on image 155. Groundglassnodules on images 116, 119, and 136 measuring up to 1.1 cm are stable andnot FDG avid. These can be secondary to focal fibrosis or atypicaladenomatous hyperplasia. Calcified granuloma in the right lower lobe. No enlarged or FDG avid lymph nodes. Stable 0.9 cm right paratracheallymph node. Moderate coronary artery calcification is present. No pleural orpericardial effusions. Abdomen and Pelvis: No FDG avid lesions in the liver, spleen or adrenal glands. Nohydronephrosis. 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 No FDG avidlymph nodes suspicious for cindy disease. Diverticular disease. Musculoskeletal: There are degenerative changes of the spine. Postsurgical changes afterleft mastectomy. IMPRESSION: Left lower lobe nodule suspicious for a primary malignancy. No enlarged orFDG avid lymph nodes. No evidence of FDG avid extrathoracic metastases. ACTIONABLE ITEMS/RECOMMENDATIONS*: None. *An Actionable Finding is a finding that may be unrelated to the originalreason for imaging but potentially actionable, meaning furtherinvestigation may be necessary. The Actionable Findings Vigilance Unit(AFVU) assists medical providers with responding to additional radiologicfindings that are unexpected and potentially actionable. Alisha Kumari MD IMG PETCT ORDERABLES Final Resu lt * Hemoglobin A1c (11/12/2023 12:57 PM CDT) Hemoglobin A1c 5.5 4.3 - 5.6 % 11/12/2023 1:26 PM CDT [facility] Blood Peripheral blood specimen / Unknown Venipuncture / Unknown 11/12/2023 12:57 PM CDT 11/12/2023 1:02 PM CDT Narrative [facility] - 11/12/2023 1:26 PM CDT HbA1c values >=6.5% are diagnostic of diabetes mellitus. Diagnosis should be confirmed by repeat testing. Therapeutic Action suggested: >8.0% HbA1c; Goal of therapy: <7.0% HbA1c Genie Simmons APRN LAB BLOOD ORDERABLES Final Result [facility] Unless otherwise noted, all lab tests performed by: Division of Pathology and Laboratory Medicine [address] [place] [address] * EKG, 12-Lead (Scheduled) (11/12/2023) Qing Camarena APRN ECG ORDERABLES Final Resu lt YAIR IECG * [place] Misc Test (11/05/2023 5:42 PM CDT) [facility] Test Result See Footnote 11/08/2023 6:36 PM CDT [facility] Comment: Test Result Flag Unit RefValue Histoplasma/Blastomyces Ag, EIA, U Histoplasma/Blastomyces Ag Not Detected Not Detected Result No antigen from Histoplasma or Blastomyces detected. False negative results may occur depending on extent of disease, and/or site of infection. Repeat testing on a new specimen if clinically indicated. Histoplasma/Blastomyces Ag Not Detected ng/mL Value ADDITIONAL INFORMATION This test was developed and its performance characteristics determined by [facility] in a manner consistent with CLIA requirements. This test has not been cleared or approved by the U.S. Food and Drug Administration. Test Performed by: [facility] - [address] [address] Data Management Specialist: Alvin Babb Ph.D.; CLIA# [id number] Other (Other) Non-blood Collection / Unknown 11/05/2023 5:42 PM CDT 11/05/2023 6:02 PM CDT Qing Camarena APRN LAB BLOOD ORDERABLES Final Result [facility] * Antinuclear Antibody (ALISON) HEp-2 Substrate, IgG (11/05/2023 5:37 PM CDT) [facility]ISON HEp-2 Substrate <1:80 (Negativ e) <1:80 (Negativ e) 11/07/2023 11:14 PM CDT [facility] Comment: ADDITIONAL INFORMATION Method: Immunofluorescence using HEp-2 cellular substrate. Test Performed by: [facility] [address] [place] [address] Data Management Specialist: Alvin Babb Ph.D.; CLIA# [id number] [facility] Titer DNR 11/07/2023 11:14 PM CDT [facility] ALISON Pattern DNR 11/07/2023 11:14 PM CDT [facility] ALISON Titer 2 DNR 11/07/2023 11:14 PM CDT [facility] ALISON Pattern 2 DNR 11/07/2023 11:14 PM CDT [facility] ALISON Cytoplasmic Pattern DNR 11/07/2023 11:14 PM CDT [facility] Lab Comment DNR 11:14 PM CDT [facility] Blood Peripheral blood specimen / Unknown Venipuncture / Unknown 11/05/2023 5:37 PM CDT 11/05/2023 5:39 PM CDT Qing Camarena APRN LAB BLOOD ORDERABLES Final Result [facility] * HIV 1/2 Antigen/Antibody, Fourth Gen W/RFL (11/05/2023 5:37 PM CDT) HIV Ag/Ab, 4TH Gen NON-REACT AKSHAT NON-REACT AKSHAT 11/06/2023 6:53 PM CDT [facility] ([facility]) Comment: HIV-1 antigen and HIV-1/HIV-2 antibodies were not detected. There is no laboratory evidence of HIV infection. PLEASE NOTE: This information has been disclosed to you from records whose confidentiality may be protected by state law. If your state requires such protection, then the state law prohibits you from making any further disclosure of the information without the specific written consent of the person to whom it pertains, or as otherwise permitted by law. A general authorization for the release of medical or other information is NOT sufficient for this purpose. For additional information please refer to [email or web address]/[email or web address] (This link is being provided for informational/ educational purposes only.) The performance of this assay has not been clinically validated in patients less than 2 years old. Blood Peripheral blood specimen / Unknown Venipuncture / Unknown 11/05/2023 5:37 PM CDT 11/05/2023 5:39 PM CDT Narrative [facility] ([place]) - 11/06/2023 6:53 PM CDT Performing Organization Information: [facility] [address] [place] [phone] Richa Downs Qing Camarena APRN LAB BLOOD ORDERABLES Final Result [facility]) * [facility] Test (11/05/2023 5:37 PM CDT) [facility] Test 1-ARUP SEE NOTE 11/10/19 24 7:24 PM CDT [facility] ([place]) Comment: Test name Result Flag Units RefIntvl Histoplasma Mycelia Antibodies by CF <1:8 <1:8 INTERPRETIVE INFORMATION: Histoplasma Mycelia Antibodies by CF A titer of 1:8 or greater is generally considered presumptive evidence of histoplasmosis. A titer of 1:32 or greater or rising titers indicate strong presumptive evidence of histoplasmosis. Cross reactions, usually at lower titers, may occur with other fungal diseases. Histoplasma Yeast Antibodies by CF <1:8 <1:8 INTERPRETIVE INFORMATION: Histoplasma Yeast Antibodies by CF A titer of 1:8 or greater is generally considered presumptive evidence of histoplasmosis. A titer of 1:32 or greater or rising titers indicate strong presumptive evidence of histoplasmosis. Cross reactions, usually at lower titers, may occur with other fungal diseases. Histoplasma Antibodies by ID Not Detected Not Detected No Histoplasma antibodies were detected. This result does not exclude Histoplasma infection. Performed By: [facility] [address] [place] [id number] [place] Polisher: Nimesh Barraza MD, PhD CLIA Number: [id number] Other (Other) 11/05/2023 5:3 7 PM CDT 11/05/2023 6:14 PM CDT [facility] Tiana Camarena [facility] LAB BLOOD ORDERABLES Final Result [facility]) * Hepatitis C Virus Antibody (11/05/2023 5:37 PM CDT) [facility] HCVAb. Non Reactive Non Reactive 11/05/2023 6:47 PM CDT [facility] Blood Peripheral blood specimen / Unknown Venipuncture / Unknown 11/05/2023 5:37 PM CDT 11/05/2023 5:39 PM CDT Narrative [facility] - 11/05/2023 6:47 PM CDT Antibody detection in the immunocompromised and immunosuppressed population may be delayed or absent entirely. Therefore serial testing, correlation with other clinical findings, and supplemental testing (if available) should be taken into consideration when interpreting the results. [facility] LAB BLOOD ORDERABLES Final Result [facility] Unless otherwise noted, all lab tests performed by: Division of Pathology and Laboratory Medicine [address] [place] [address] * Hepatitis B Total Ig Core Ab (SCREENING) (anti-HBc total Ig; HBcAb total Ig) (11/05/2023 5:37 PM CDT) [facility] HBcAb. Non Reactive Non Reactive 11/05/2023 6:46 PM CDT [facility] Blood Peripheral blood specimen / Unknown Venipuncture / Unknown 11/05/2023 5:37 PM CDT 11/05/2023 5:39 PM CDT Qing Camarena APRN LAB BLOOD ORDERABLES Final Result Performing Organization Address City/[facility]/ZIP Co de Phone Number [facility] Unless otherwise noted, all lab tests performed by: Division of Pathology and Laboratory Medicine [address] [place] [address] * Cryptococcal Antigen, Serum (11/05/2023 5:37 PM CDT) [facility] Cryptococcal Antigen Screen - Interpretation Negative Negative 11/06/2023 11:45 AM CDT [facility] Comment:Cryptococcal antigen negative making invasive cryptococcal disease unlikely. Recommend clinical correlation. A negative result does not completely rule out infection as antigen may be below the detection limit of the test, especially early in infection. Blood Peripheral blood specimen / Unknown Venipuncture / Unknown 11/05/2023 5:37 PM CDT 11/05/2023 5:39 PM CDT Narrative [facility] - 11/06/2023 11:45 AM CDT Cryptococcal antigen is a lateral flow immunochromatographic assay for the semi-quantitative detection of the capsular polysaccharide antigens of Cryptococcus species complex in human serum. This is an FDA-approved assay [employer] and its performance characteristics were verified by the microbiology laboratory at the [facility]. Results must be interpreted within the context of all relevant clinical and laboratory findings. us Qing Camarena APRN MICROBIOLOGY - GENERAL ORD ERABLES Final Result Performing Organization Address City/[facility]/ZIP Co de Phone Number [facility] Unless otherwise noted, all lab tests performed by: Division of Pathology and Laboratory Medicine [address] [place] [address] * T-spot Tuberculosis (11/05/2023 5:37 PM CDT) [facility] Tspot TB Negative SeeBelow 11/07/2023 4:31 PM CDT [facility] ([facility]) Comment: Normal Value: Negative A negative test result does not exclude the possibility of exposure to or infection with Mycobacterium tuberculosis (M. tuberculosis). Patients with recent exposure to TB infected individuals exhibiting a negative T-SPOT.TB result should be considered for retesting within 6 weeks or if other relevant clinical symptoms indicate. Results from T-SPOT.TB testing must be used in conjunction with each individual's epidemiological history, current medical status, and results of other diagnostic evaluations. The T-SPOT.TB test is qualitative and results are reported as positive, borderline or negative, given that the test controls perform as expected. In line with the Centers for Disease Control and Prevention's 2010 recommendation to report quantitative measurements alongside the qualitative result, the laboratory provides spot counts for informational purposes only. The T-SPOT.TB test should not be interpreted as a quantitative test. Tspot TB Panel A 0 11/07/19 24 4:31 PM CDT [facility] ([facility]) Tspot TB Panel B 3 11/07/19 24 4:31 PM CDT [facility] ([facility]) Tspot TB NIL Cont Passed 024 4:31 PM CDT [facility]) Tspot TB Pos Cont Passed 024 4:31 PM CDT [facility]) Blood Peripheral blood specimen / Unknown Venipuncture / Unknown 11/05/2023 5:37 PM CDT 11/05/2023 5:38 PM CDT Narrative [facility] ([facility]) - 11/07/2023 4:31 PM CDT Performing Organization Information: [facility], [facility], [address] [place] [address] [facility] us Qing Camarena HEALTH ANALYTICS CONSULTANT LAB BLOOD ORDERABLES Final Result [facility] ([employer]) * Anti-Neutrophil Cytoplasmic Antibodies Vascultitis Panel (11/05/2023 5:37 PM CDT) Pathologist [facility] Myeloperox Ab-Fraire <0.2 <0.4 (Negative) U 11/08/2023 9:34 AM CDT [facility] Proteinase 3 Ab-Fraire <0.2 <0.4 (Negative) U 11/08/2023 9:34 AM CDT [facility] Comment: Test Performed by: [place] [address] Data Management Specialist: Alvin Babb Ph.D.; CLIA# [id number] Blood Peripheral blood specimen / Unknown Venipuncture / Unknown 11/05/2023 5:37 PM CDT 11/05/2023 5:39 PM CDT Qing Montiel Migue HEALTH ANALYTICS CONSULTANT LAB BLOOD ORDERABLES Final Result [facility] * Coccidioides Ab (11/05/2023 5:37 PM CDT) [facility] Cocci Comp Fix-[place] Negative Negative 11/10 2:59 PM CDT [facility] Cocci IgG-[place] Negative Negative 11/11/2023 2:59 PM CDT [facility] Cocci IgM-[place] Negative Negative 11/11/2023 2:59 PM CDT [facility] Comment: A negative complement fixation and immunodiffusion (CompF/ImmDiff) result does not exclude the diagnosis of coccidioidomycosis. Repeat testing by CompF/ImmDiff in 2-3 weeks if clinically indicated. Test Performed by: [address] [address] Data Management Specialist: Alvin Bbab Ph.D.; CLIA# [id number] Blood Peripheral blood specimen / Unknown Venipuncture / Unknown 11/05/2023 5:37 PM CDT 11/05/2023 5:39 PM CDT Qingnaya Albarrano HEALTH ANALYTICS CONSULTANT LAB BLOOD ORDERABLES Final Result [facility] * CA 15-3 (11/05/2023 5:37 PM CDT) Pathologist [facility] CA 15-3 20.1 <=25.0 U/mL 11/05/2023 6:39 PM CDT [facility] Blood Peripheral blood specimen / Unknown Venipuncture / Unknown 11/05/2023 5:37 PM CDT 11/05/2023 5:39 PM CDT Narrative [facility] - 11/05/2023 6:39 PM CDT Results greater than 2400.0 U/mL may not be reliable due to matrix effect with extended dilution as it exceeds the dispatcher motor vehicle's recommended limit. Caution should be exercised when interpreting such values and done in conjunction with clinical context. This test is measured by electrochemiluminescence immunoassay on [employer] immunoassay analyzers. Results obtained in different methods are not interchangeable. Qing Camarena APRN LAB BLOOD ORDERABLES Final Result Performing Organization Address City/[facility]/ZIP Co de Phone Number [facility] Unless otherwise noted, all lab tests performed by: Division of Pathology and Laboratory Medicine [address] [place] [address] * Hepatitis B Surface Antibody (11/05/2023 5:37 PM CDT) HBsAb Non Reactive 11/05/2023 6:46 PM CDT [facility] Blood Peripheral blood specimen / Unknown Venipuncture / Unknown 11/05/2023 5:37 PM CDT 11/05/2023 5:39 PM CDT Narrative [facility] - 11/05/2023 6:46 PM CDT Vaccinated individual: Reactive Unvaccinated individual: Non-Reactive Qing Camarena APRN LAB BLOOD ORDERABLES Final Result [facility] Unless otherwise noted, all lab tests performed by: Division of Pathology and Laboratory Medicine [address] [place] [address] * Hepatitis B Surface Ag (11/05/2023 5:37 PM CDT) Pathologist [facility] HBsAg. Non Reactive Non Reactive 11/05/2023 6:46 PM CDT [facility] Blood Peripheral blood specimen / Unknown Venipuncture / Unknown 11/05/2023 5:37 PM CDT 11/05/2023 5:39 PM CDT us Qing Camarena HEALTH ANALYTICS CONSULTANT LAB BLOOD ORDERABLES Final Result Performing Organization Address City/[facility]/ZIP Co de Phone Number [facility] Unless otherwise noted, all lab tests performed by: Division of Pathology and Laboratory Medicine [address] [place] [address] * Sed Rate (11/05/2023 5:37 PM CDT) [facility] Sedimentation Rate 25 <=30 mm/hr 2023 9:15 PM CDT [facility] Blood Peripheral blood specimen / Unknown Venipuncture / Unknown 11/05/2023 5:37 PM CDT 11/05/2023 5:39 PM CDT us Qing Albarrano HEALTH ANALYTICS CONSULTANT LAB BLOOD ORDERABLES Final Result Performing Organization Address [facility] Co de Phone Number [facility] Unless otherwise noted, all lab tests performed by: Division of Pathology and Laboratory Medicine [address] [place] [address] * Rheumatoid Factor Quant (11/05/2023 5:37 PM CDT) [facility] Rheumatoid Factor 10 <14 IU/mL 11/05/2023 6:31 PM CDT [facility] Blood Peripheral blood specimen / Unknown Venipuncture / Unknown 11/05/2023 5:37 PM CDT 11/05/2023 5:38 PM CDT us Qing Montiel Aceaparna [facility] LAB BLOOD ORDERABLES Final Result [facility] Unless otherwise noted, all lab tests performed by: Division of Pathology and Laboratory Medicine [address] [place] [address] * XAVI (11/05/2023 5:37 PM CDT) [facility] XAVI-Fraire 25 16 - 85 U/L 11/07/2023 5:39 PM CDT [facility] Comment: Test Performed by: [facility] - [address] [address] Data Management Specialist: Alvin Babb Ph.D.; CLIA# [id number] Blood Peripheral blood specimen / Unknown Venipuncture / Unknown 11/05/2023 5:37 PM CDT 11/05/2023 5:39 PM CDT Qingnaya Camarena APRN LAB BLOOD ORDERABLES Final Result Performing Organization Address City/[facility] Co de Phone Number [facility] * CRP (11/05/2023 5:37 PM CDT) Pathologist [facility] CRP (C Reactive Protein) 1.28 mg/L 11/05/2023 6:39 PM CDT [facility] Blood Peripheral blood specimen / Unknown Venipuncture / Unknown 11/05/2023 5:37 PM CDT 11/05/2023 5:39 PM CDT Narrative [facility] - 11/05/2023 6:39 PM CDT Adult Reference ranges for HS CRP assay are as follows: Reference ranges when used to assess cardiac risk: <1.00 mg/L Low cardiovascular risk 1.00-3.00 mg/L Average cardiovascular risk >3.00 mg/L High cardiovascular risk Reference ranges when used to assess inflammatory responses: Less than or equal to 10.00 mg/L. Qing Camarena APRN LAB BLOOD ORDERABLES Final Result [facility] Unless otherwise noted, all lab tests performed by: Division of Pathology and Laboratory Medicine [address] [place] [address] * (ABNORMAL) TSH (11/05/2023 5:37 PM CDT) Pathologist [facility] Thyroid Stimulating Hormone 0.02(L) 0.27 - 4.20 mcunit/mL 11/05/2023 6:39 PM CDT [facility] Blood Peripheral blood specimen / Unknown Venipuncture / Unknown 11/05/2023 5:37 PM CDT 11/05/2023 5:39 PM CDT us Qing Camarena JOELLEN LAB BLOOD ORDERABLES Final Result [facility] Unless otherwise noted, all lab tests performed by: Division of Pathology and Laboratory Medicine [address] [place] [address] * OSI Chest (10/07/2023 9:04 PM CDT) Only the most recent of2 resultswithin the time period is included. Narrative Systemgenerated, Documentation - 11/05/2023 9:04 PM CDT Study acquired at another institution. For comparison only. No MD Santana originated interpretation requested or available. us Pastora Dahl MD IMG OUTSIDE IMAGE ORDERABLES F inal Result * OSI CT Chest (10/05/2023 9:04 PM CDT) Narrative Systemgenerated, Documentation - 11/05/2023 9:04 PM CDT Study acquired at another institution. For comparison only. No MD Santana originated interpretation requested or available. us Pastora PALMAG OUTSIDE IMAGE ORDERABLES F inal Result * OSI MRI SPINE THORACIC (08/30/2023 1:54 PM CDT) Narrative Systemgenerated, Documentation - 01/16/2024 1:54 PM CDT Study acquired at another institution. For comparison only. No MD Santana originated interpretation requested or available. us Pastora Dahl MD IMG OUTSIDE IMAGE ORDERABLES F inal Result * OSI MRI SPINE LUMBAR (08/30/2023 1:53 PM CDT) Narrative Systemgenerated, Documentation - 01/16/2024 1:53 PM CDT Study acquired at another institution. For comparison only. No MD Santana originated interpretation requested or available. us Pastora Dahl MD IMG OUTSIDE IMAGE ORDERABLES F inal Result * OSI Thoracic Spine (08/30/2023 1:53 PM CDT) Narrative Systemgenerated, Documentation - 01/16/2024 1:53 PM CDT Study acquired at another institution. For comparison only. No MD Dillon originated interpretation requested or available. us Pastora Dahl MD IMG OUTSIDE IMAGE ORDERABLES F inal Result * OSI Lumbar Spine (08/30/2023 1:53 PM CDT) Narrative Systemgenerated, Documentation - 01/16/2024 1:53 PM CDT Study acquired at another institution. For comparison only. No MD Dillon originated interpretation requested or available. Result Haider Dahl MD IMG OUTSIDE IMAGE ORDERABLES F inal Result * OSI MRI Head (08/30/2023 1:52 PM CDT) Narrative Systemgenerated, Documentation - 01/16/2024 1:52 PM CDT Study acquired at another institution. For comparison only. No MD Dillon originated interpretation requested or available. Result Haider Dahl MD IMG OUTSIDE IMAGE ORDERABLES F inal Result * OSI Foot (08/15/2023 5:18 AM CDT) Narrative Systemgenerated, Documentation - 11/24/2023 5:18 AM CDT Study acquired at another institution. For comparison only. No MD Dillon originated interpretation requested or available. Result Haider Dahl MD IMG OUTSIDE IMAGE ORDERABLES F inal Result after 04/02/2023 Insurance [employer] MEDICARE PPO A[employer] MEDICARE PPO Care Teams Senior Art Director Relationship Specialty Start Date End Date Roc Brownlee MD [address] [place] [phone] [email or web address] [email or web address] - External Referring Internal Medicine 10/18/23 Pastora Dahl MD [address] [place] [phone] [email or web address] PCP - General Internal Medicine 10/23/23 Alisha Kumari MD [address] [place] [phone] [email or web address] Consulting Physician Pulmonary Medicine 11/12/23 Yunior Bradford MD [address] [place] [phone] [email or web address] Consulting Physician Radiation Oncology 11/21/23
[2024-04-01] MEDS ORDERED: METOPROLOL TARTRATE 5 MG/5 ML INJ IV ONE (20:01)
[2024-04-01] MEDS ORDERED: dilTIAZem HCL 25 MG/5 ML VIAL IV ONE ×2 (20:07→20:29)
[2024-04-01] MEDS ORDERED: NA CHLORIDE 0.9% 0 ML ONE (20:29)
[2024-04-01 20:32] LABS: Absolute Basophils 0.1 K/uL (0-0.5); Absolute Monocytes 1.7 K/uL (0.1-1.3); Absolute Neutrophil 10.2 K/uL (1.8-8.0); Basophils % 0.5 % (0-1.3); Eosinophils % 0.1 % (0-4.4); Hematocrit 37.2 % (36.0-45.0); Hemoglobin 11.5 g/dL (12.0-15.0); Lymphocytes % 14.4 % (15.3-44.8); MCH 28.3 pg (27.0-35.0); MCV 91.3 fL (80-100); MPV 12.7 fL (7.6-11.3); Monocytes % 11.8 % (3.3-12.3); Neutrophils % 73.2 % (41.7-73.7); Platelets 96 thou/uL (152-406); RBC Red Blood Cell Count 4.07 M/uL (3.86-4.86); Red Cell Distribution Width 14.5 % (12.1-15.2)
[2024-04-01 20:40] LABS: PT Prothrombin Time 12.1 SECONDS (9.4-12.5); Protime INR 1.08
[2024-04-01] MEDS ORDERED: NA CHLORIDE 0.9% 50 ML ONE (20:44)
[2024-04-01 20:52] LABS: Albumin/Globulin Ratio 0.9 (1.1-1.8); Anion Gap 8.4 mEq/L (5.0-15.0); Bilirubin Direct 0.2 mg/dL (0-0.2); Bilirubin Indirect, Calculated 0.4 mg/dL (0.2-0.8); Bilirubin Total 0.6 mg/dL (0.2-1.0); Globulin 3.2 g/dL (2.3-3.5); Magnesium 1.5 mg/dL (1.6-2.4); Potassium 3.4 mEq/L (3.5-5.1); Protein, Total 6.2 g/dL (6.4-8.2)
[2024-04-01 20:55] LABS: Troponin High Sensitivity 493.7 pg/mL (<58.9)
[2024-04-01 20:57] LABS: Anisocytosis 1+; Blood Morphology Comment NOTED (NOT SEEN); Platelet Estimate DECR; White Blood Cell Scan OK (OK)
[2024-04-01 20:58] LABS: Poikilocytosis 1+
[2024-04-01] MEDS ORDERED: Magnesium Sulfate 2gm IVPB 2 G/50 ML BAG IV ONE (21:47)
[2024-04-01] MEDS ORDERED: POTASSIUM CL SA 10 MEQ TAB PO ONE ×2 (21:47→22:38)
--- NOTE | 2024-04-01 21:59 | RAD REPORT ---
Procedure: Chest Single View HISTORY: Chest pain COMPARISON: September 2023 FINDINGS: Vague nodular opacity left lower lobe is without obvious change. It is more clearly visualized on CT. Right lung appears clear of acute infiltrate. Lungs are hyperaerated. No significant pleural effusion noted. The heart is normal size.
--- NOTE | 2024-04-01 22:33 | ER ---
Nurse's Notes [facility] Name: Yodit Mercedes Age: 78 yrs Sex: Female : 1945 Arrival Date: 04/01/2024 Time: 19:19 Bed 6 Private MD: Diagnosis: Atrial fibrillation with RVR, COPD exacerbation, physical debility Presentation: 04/01 19:25 Chief complaint: EMS states: patient c/o shortness of breath and difficulty breathing al5 x3 days. patient experiencing new onset afib with rvr. 19:25 Coronavirus screen: shortness of breath. Ebola Screen: No symptoms or risks identified al5 at this time. Initial Sepsis Screen: Does the patient meet any 2 criteria? RR > 20 per min. HR > 90 bpm. Yes Does the patient have a suspected source of infection? No. Patient's initial sepsis screen is negative. Risk Assessment: Do you want to hurt yourself or someone else? Patient reports no desire to harm self or others. Onset of symptoms was March 29, 2024. 19:25 Method Of Arrival: EMS: [facility] al5 19:25 Acuity: SEN 2 al5 Triage Assessment: 19:25 General: Appears distressed, ill, Behavior is calm, cooperative. Pain: Denies pain. al5 EENT: No signs and/or symptoms were reported regarding the EENT system. Neuro: Level of Consciousness is awake, alert, obeys commands, Oriented to person, place, time, situation. Cardiovascular: Capillary refill < 3 seconds Patient's skin is warm and dry. Rhythm is atrial fibrillation with rapid ventricular response. Respiratory: Airway is patent Respiratory effort is even, labored, Respiratory pattern is regular, symmetrical, tachypnea. GI: No signs and/or symptoms were reported involving the gastrointestinal system. : No signs and/or symptoms were reported regarding the genitourinary system. Derm: Skin is intact, Skin is pink, warm \T\ dry. normal. Musculoskeletal: No signs and/or symptoms reported regarding the musculoskeletal system. Historical: - Allergies: 19:25 atorvastatin; al5 19:25 Clonidine; al5 19:25 Lisinopril; al5 19:25 Nifedipine; al5 19:25 tramadol; al5 19:25 Zestril; al5 - Home Meds: 19:25 amlodipine 5 mg tablet 1 tab daily [Active]; aspirin 81 mg Oral capsule [Active]; al5 escitalopram oxalate 10 mg Oral tablet 1 tab daily [Active]; Fosamax 70 mg Oral tablet 1 tab every week [Active]; Incruse Ellipta 62.5 mcg/actuation inhalation Blister [Active]; levothyroxine 200 mcg capsule 1 cap daily [Active]; metoprolol tartrate 50 mg Oral tablet 1.5 tab 2 times per day [Active]; omeprazole 40 mg Oral capsule 1 cap daily [Active]; rosuvastatin 5 mg Oral tablet 1 tab 1 weekly [Active]; - PMHx: 19:25 breast cancer; Cancer; COPD; Home O2 \T\ 2L NC (THYROID CANCER); Hypertension; al5 Osteoporosis; THYROID CANCER; - PSHx: 19:25 Left Mastectomy; al5 - Immunization history:: Adult Immunizations up to date. - Infectious Disease History:: Denies. - Social history:: Smoking status: Patient/guardian denies using tobacco. Screenin:25 [facility] ED Fall Risk Assessment (Adult) History of falling in the last 3 months, al5 including since admission No falls in past 3 months (0 pts) Confusion or Disorientation No (0 pts) Intoxicated or Sedated No (0 pts) Impaired Gait Yes (1 pt) Mobility Assist Device Used Yes (1 pt) Altered Elimination Yes (1 pt) Score/Fall Risk Level 3 or more points = High Risk Oriented to surroundings, Maintained a safe environment, Hourly rounding (assess needs \T\ fall precautionary measures) done. Abuse screen: Denies threats or abuse. Denies injuries from another. Nutritional screening: No deficits noted. Tuberculosis screening: No symptoms or risk factors identified. Assessment: 19:25 Reassessment: see triage assessment. al5 20:45 Reassessment: Patient and/or family updated on plan of care and expected duration. Pain br2 level reassessed. Patient is alert, oriented x 3, equal unlabored respirations, skin warm/dry/pink. Cardiovascular: Capillary refill < 3 seconds Rhythm is atrial fibrillation with rapid ventricular response. Respiratory: Airway is patent Respiratory effort is even, unlabored, Respiratory pattern is regular, symmetrical. 22:46 Reassessment: Patient and/or family updated on plan of care and expected duration. Pain br2 level reassessed. Patient is alert, oriented x 3, equal unlabored respirations, skin warm/dry/pink. PT HAS CONVERTED TO NSR 86. Pain: Denies pain. Neuro: Dodson Agitation-Sedation Scale (RASS): 0 - Alert and Calm Level of Consciousness is awake, alert, obeys commands, Oriented to person, place, time, situation. 04/02 00:05 Reassessment: Patient and/or family updated on plan of care and expected duration. Pain br2 level reassessed. Patient is alert, oriented x 3, equal unlabored respirations, skin warm/dry/pink. Patient states feeling better. Patient states symptoms have improved. Vital Signs: 04/01 19:25 BP 154 / 89; Pulse 187; Resp 25; Temp 98.1; Pulse Ox 97% on 6 lpm NC; Weight 45.36 kg; al5 Height 5 ft. 0 in. ; 20:02 BP 122 / 81; Pulse 191; Resp 24; br2 20:54 BP 129 / 65; Pulse 183; Resp 22 S; Pulse Ox 95% on 3 lpm NC; br2 21:18 BP 133 / 83; Pulse 172; Resp 22; Pulse Ox 91% on 3 lpm NC; br2 22:31 BP 120 / 80; Pulse 125; Resp 18; Pulse Ox 98% on 3 lpm NC; br2 22:31 BP 134 / 78; Pulse 78; Resp 23; Pulse Ox 96% on 3 lpm NC; Pain 0/10; br2 19:25 Body Mass Index 19.53 (45.36 kg, 152.4 cm) al5 22:31 Pain Scale: Adult br2 ED Course: 19:25 Patient arrived in ED. rv1 19:25 No provider procedures requiring assistance completed. Maintain EMS IV. Dressing al5 intact. Good blood return noted. Site clean \T\ dry. Gauge \T\ site: 20G R wrist. 19:25 Arm band placed on right wrist. Patient placed in the treatment room, on a stretcher, al5 on oxygen, on nursery laborer, on pulse oximetry. 19:25 Patient has correct armband on for positive identification. Placed in gown. Bed in low al5 position. Call light in reach. Side rails up X2. Provided Education on: plan of care. 19:28 Blanca Fernandez PA-C is PHCP. sb4 19:28 Carlton Dillon MD is Attending Physician. sb4 19:58 Aylin Lauren, FABI is Primary Nurse. br2 20:27 XRAY Chest (1 view) In Process Unspecified. EDMS 20:27 Triage completed. al5 20:27 Basic Metabolic Panel Sent. jj7 20:27 CBC with Diff Sent. jj7 20:27 LFT's Sent. jj7 20:27 Magnesium Sent. jj7 20:27 NT PRO-BNP Sent. jj7 20:27 PT-INR Sent. jj7 20:27 Troponin HS Sent. jj7 20:55 Inserted saline lock: 20 gauge in right hand, using aseptic technique. Flushed with 10 br2 mL NS. 22:15 Attending Physician role handed off by Carlton Dillon MD sp4 22:15 German Murillo MD is Attending Physician. sp4 22:32 Roc Brownlee MD is Hospitalizing Provider. sp4 22:45 Inserted saline lock: 24 gauge in right ,using aseptic technique. right shoulder. br2 23:01 CT Chest Abdomen Pelvis W/O Contrast Sent. br2 23:01 Blood Culture Adult (2) Sent. br2 23:01 Lactate w/ 2H reflex if indic. Sent. br2 23:01 TSH Sent. br2 23:17 CT Chest Abdomen Pelvis W/O Contrast In Process Unspecified. EDMS 04/02 00:05 Patient admitted, IV remains in place. br2 Administered Medications: 04/01 20:02 Drug: Metoprolol IVP 5 mg IVP every 5 minutes; Hold for SBP < 100 or HR < 60. x3 Route: br2 IVP; Site: left antecubital; 20:30 Follow up: Response: No adverse reaction br2 20:32 CANCELLED (Physician Discretion): metoprolol5 mg IVP every 5 minutes; Hold for SBP < sb4 100 or HR < 60. x3 20:36 Drug: Diltiazem IVP 10 mg IVP once; Over 2 minutes Route: IVP; Site: right antecubital; br2 21:00 Follow up: Response: No adverse reaction br2 20:54 Drug: Diltiazem IV 5 mg/hr IV at calculated rate See Administration Instructions; br2 (standard dilution 125 mg diltiazem mixed in 125 mL NS; final concentration 1mg/mL). Recommended max rate 15 mg/hr; Titrate 5 mg/hr as often as every 15 minutes to achieve goal (see titration policy); Goal parameter HR less than 100 bpm Route: IV; Rate: 5 mg/hr; Site: right hand; 04/02 00:45 Follow up: Response: No adverse reaction; IV Status: Infusion continued upon admission; br2 IV Intake: 45ml 04/01 21:52 Drug: Magnesium Sulfate IVPB 2 grams IVPB once over 2 hrs Route: IVPB; Infused Over: 2 br2 hrs; Site: Other; 23:52 Follow up: Response: No adverse reaction; IV Status: Completed infusion; IV Intake: br2 100ml 21:52 Drug: Potassium Chloride PO 40 mEq PO once Route: PO; br2 22:15 Follow up: Response: No adverse reaction br2 23:13 Drug: MethylPrednisoLONE IVP 125 mg IVP once Route: IVP; Site: Other; br2 04/02 00:00 Follow up: Response: No adverse reaction br2 04/01 23:14 Drug: Potassium Chloride PO 40 mEq PO once Route: PO; br2 04/02 00:00 Follow up: Response: No adverse reaction br2 04/01 23:14 Drug: NS 0.9% IV 1000 ml IV at 100 ml/hr Per protocol; to be given as a bolus over 60 br2 minutes Route: IV; Rate: 100 ml/hr; Site: right hand; 04/02 00:45 Follow up: IV Status: Infusion continued upon admission; IV Intake: 50ml br2 04/01 23:30 Drug: Cefepime IVPB 1 grams IVPB at 200 ml/hr once over 30 mins; (mix in NS 100 mL) br2 Route: IVPB; Rate: 200 ml/hr; Infused Over: 30 mins; Site: Other; 04/02 00:33 Follow up: Response: No adverse reaction; IV Status: Completed infusion; IV Intake: br2 100ml 00:32 Drug: Enoxaparin Sub-Q 45 mg Sub-Q once Route: Sub-Q; Site: right lower abdomen; br2 01:00 Follow up: Response: No adverse reaction br2 00:33 Drug: vancoMYCIN IVPB 1 grams IVPB once over 2 hrs Route: IVPB; Infused Over: 2 hrs; br2 Site: Other; 00:45 Follow up: Response: No adverse reaction; IV Status: Infusion continued upon admission; br2 IV Intake: 30ml Medication: 04/01 20:34 VIS not applicable for this client. al5 Intake: 23:52 IV: 100ml; Total: 100ml. br2 04/02 00:33 IV: 100ml; Total: 200ml. br2 00:45 IV: 45ml; Total: 245ml. br2 00:45 IV: 30ml; Total: 275ml. br2 00:45 IV: 50ml; Total: 325ml. br2 Outcome: 04/01 22:33 Decision to Hospitalize by Provider. sp4 04/02 00:45 Admitted to ICU accompanied by nurse, via stretcher, room 1, with oxygen, Report called br2 to [facility] Condition: stable Instructed on the need for admit, Demonstrated understanding of instructions, 01:20 Patient left the ED. br2 Signatures: Dispatcher [employer] EDMS Alisa Rodriguez RN RN Blanca Pickard, PA-C PA-C Glory Hyman rv1 German Murillo MD MD sp4 Caryn Ruff RN RN al5 Aylin Lauren RN RN br2 Corrections: (The following items were deleted from the chart) 00:35 04/01 20:54 BP 129 / 65; Pulse 183bpm; Resp 22bpm; Spontaneous; Pulse Ox 95% RA; br2 br2 04/02 00:35 04/01 21:18 BP 133 / 83; Pulse 172bpm; Resp 22bpm; Pulse Ox 91% RA; br2 br2 04/02 00:35 12 22:31 BP 120 / 80; Pulse 125bpm; Resp 18bpm; Pulse Ox 98%; br2 br2
--- NOTE | 2024-04-01 22:33 | EDPHYS ---
Physician Documentation [facility] Name: Yodit Mercedes Age: 78 yrs Sex: Female : 1945 Arrival Date: 04/01/2024 Time: 19:19 Bed 6 Private MD: ED Physician German Murillo HPI: 04/01 19:48 This 78 yrs old Female presents to ER via Unassigned with complaints of shortness of sb4 breath, afib. 19:56 patient with history of COPD on home O2 called EMS for shortness of breath. when they sb4 got to her, they found her to be in afib RVR. patient denies any history of afib. states that has back pain and feels weak but denies any chest pain. she is not on any blood thinners. EMS administered 20 mg IV cardizem without any change. 22:27 Past medical history based on the record includes COPD, NSTEMI, pneumonia,. Last sp4 admission 10/07/2023 for pneumonia, COPD exacerbation, sepsis, NSTEMI, acute on chronic respiratory failure, hypertension, hypothyroidism, hyperlipidemia, GERD, diverticulosis, osteoarthritis, thyroid cancer, depression and osteoporosis.. Patient's medications include alendronate, amlodipine, aspirin, benzonatate, budesonide formoterol, levothyroxine, metoprolol, omeprazole, quetiapine, Crestor, also prednisone in the past .. Historical: - Allergies: 19:25 atorvastatin; al5 19:25 Clonidine; al5 19:25 Lisinopril; al5 19:25 Nifedipine; al5 19:25 tramadol; al5 19:25 Zestril; al5 - Home Meds: 19:25 amlodipine 5 mg tablet 1 tab daily [Active]; aspirin 81 mg Oral capsule [Active]; al5 escitalopram oxalate 10 mg Oral tablet 1 tab daily [Active]; Fosamax 70 mg Oral tablet 1 tab every week [Active]; Incruse Ellipta 62.5 mcg/actuation inhalation Blister [Active]; levothyroxine 200 mcg capsule 1 cap daily [Active]; metoprolol tartrate 50 mg Oral tablet 1.5 tab 2 times per day [Active]; omeprazole 40 mg Oral capsule 1 cap daily [Active]; rosuvastatin 5 mg Oral tablet 1 tab 1 weekly [Active]; - PMHx: 19:25 breast cancer; Cancer; COPD; Home O2 \T\ 2L NC (THYROID CANCER); Hypertension; al5 Osteoporosis; THYROID CANCER; - PSHx: 19:25 Left Mastectomy; al5 - Immunization history:: Adult Immunizations up to date. - Infectious Disease History:: Denies. - Social history:: Smoking status: Patient/guardian denies using tobacco. ROS: 19:56 Constitutional: Negative for fever, chills, and weight loss, sb4 19:56 Respiratory: Positive for shortness of breath, 19:56 Back: Positive for pain at rest, 19:56 All other systems are negative, Exam: 19:57 Head/Face: Normocephalic, atraumatic. Eyes: Extra-ocular motions intact. Periorbital sb4 areas with no swelling, redness, or edema. ENT: Mucous membranes moist. Respiratory: No increased work of breathing, no retractions or nasal flaring. Abdomen/GI: Soft, non-tender, no distension. Skin: Warm, dry with normal turgor. Normal color with no rashes, no lesions, and no evidence of cellulitis. 19:57 Constitutional: The patient appears in no acute distress, alert, awake, 19:57 Cardiovascular: Rate: tachycardic, Rhythm: irregularly irregular, 04/02 01:02 Constitutional: Patient is frail elderly female with stigmata of COPD. On arrival sp4 rapid irregular tachycardia. Signs of moderate physical deconditioning Head/Face: Normocephalic, atraumatic. Eyes: Pupils equal round and reactive to light, extra-ocular motions intact. Lids and lashes normal. Conjunctiva and sclera are not injected. Cornea within normal limits. Periorbital areas with no swelling, redness, or edema. ENT: Nares patent. No nasal discharge, no septal abnormalities noted. Tympanic membranes are normal and external auditory canals are clear. Oropharynx with no redness, swelling, or masses, exudates, or evidence of obstruction, uvula midline. Mucous membranes moist. Neck: Trachea midline, no thyromegaly or masses palpated, and no cervical lymphadenopathy. Supple, full range of motion without nuchal rigidity, or vertebral point tenderness. Chest/axilla: Normal chest wall appearance and motion. Nontender with no deformity. No lesions are appreciated. Cardiovascular: There is a irregularly irregular tachycardia, no gallops, murmurs, or rubs. Normal PMI, no JVD. No pulse deficits. Respiratory: Lungs have equal breath sounds bilaterally, clear to auscultation and percussion. No rales, rhonchi or wheezes noted. No increased work of breathing, no retractions or nasal flaring. Abdomen/GI: Soft, with normal bowel sounds. No distension or tympany. No guarding or rebound. No evidence of tenderness throughout. Back: No spinal tenderness. No costovertebral tenderness. Skin: Warm, dry with normal turgor. Normal color with no rashes, no lesions, and no evidence of cellulitis. MS/ Extremity: Pulses equal, no cyanosis. Neurovascular intact. Full, normal range of motion. Neuro: Awake and alert, GCS 15, oriented to person, place, time, and situation. Cranial nerves II-XII grossly intact. Motor strength 5/5 in all extremities. Sensory grossly intact. Psych: Awake, alert, with orientation to person, place and time. Behavior, mood, and affect are within normal limits ECG was reviewed by the Attending Physician. Repeat EKG after conversion to sinus rhythm and EKG at 0055 sinus rhythm with short CO with occasional PAC, rate 80, no ST elevation or depression, no additional ectopy, Other normal intervals. Vital Signs: 04/01 19:25 BP 154 / 89; Pulse 187; Resp 25; Temp 98.1; Pulse Ox 97% on 6 lpm NC; Weight 45.36 kg; al5 Height 5 ft. 0 in. ; 20:02 BP 122 / 81; Pulse 191; Resp 24; br2 20:54 BP 129 / 65; Pulse 183; Resp 22 S; Pulse Ox 95% on 3 lpm NC; br2 21:18 BP 133 / 83; Pulse 172; Resp 22; Pulse Ox 91% on 3 lpm NC; br2 22:31 BP 120 / 80; Pulse 125; Resp 18; Pulse Ox 98% on 3 lpm NC; br2 22:31 BP 134 / 78; Pulse 78; Resp 23; Pulse Ox 96% on 3 lpm NC; Pain 0/10; br2 19:25 Body Mass Index 19.53 (45.36 kg, 152.4 cm) al5 22:31 Pain Scale: Adult br2 MDM: 19:28 Medical Screening Exam initiated sb4 20:33 Data reviewed: vital signs, nurses notes, EMS record, lab test result(s), EKG, sb4 radiologic studies, I have discussed the patient's presentation/case with the attending Emergency Department Physician;. Consideration of Admission/Observation Patient was admitted/placed on observation. Counseling: I had a detailed discussion with the patient and/or guardian regarding the historical points, exam findings, and any diagnostic results supporting the discharge/admit diagnosis, the presence of at least one elevated blood pressure reading (>120/80) during this emergency department visit, lab results, radiology results, the need to transfer to another facility, no ICU beds. 22:17 ED course: HISTORY: Chest pain COMPARISON: September 2023 FINDINGS: Vague nodular opacity sp4 left lower lobe is without obvious change. It is more clearly visualized on CT. Right lung appears clear of acute infiltrate. Lungs are hyperaerated. No significant pleural effusion noted. The heart is normal size. . 04/02 00:36 ED course: EXAM: CT Chest, Abdomen and Pelvis Without Intravenous Contrast CLINICAL sp4 HISTORY: The patient is 78 years old and is Female; CHEST PAIN TECHNIQUE: Axial computed tomography images of the chest, abdomen and pelvis without intravenous contrast. Sagittal and coronal reformatted images were created and reviewed. This CT exam was performed using one or more of the following dose reduction techniques: automated exposure control, adjustment of the mA and/or kV according to patient size, and/or use of iterative reconstruction technique. COMPARISON: CT chest without contrast October 04, 2023. FINDINGS: CHEST: Lungs: Emphysematous changes in the lungs bilaterally. 2 cm spiculated lesion in the left lower lobe which appears similar to the prior exam. Scarring or atelectasis in the right lung base. No mass. Pleural space: Small left pleural effusion. No pneumothorax. Heart: Unremarkable. No cardiomegaly. No significant pericardial effusion. No significant coronary artery calcifications. Thyroid: Thyroid is not seen. ABDOMEN: Liver: Unremarkable. Gallbladder and bile ducts: Unremarkable. No calcified stones. No ductal dilation. Pancreas: Unremarkable. No ductal dilation. Spleen: Unremarkable. No splenomegaly. Adrenals: Unremarkable. No mass. Kidneys and ureters: Unremarkable. No obstructing stones. No hydronephrosis. Stomach and bowel: Sigmoid diverticulosis. Scattered colonic diverticula. No obstruction. No mucosal thickening. PELVIS: Appendix: No findings to suggest acute appendicitis. Bladder: Unremarkable. No stones. Reproductive: Unremarkable as visualized. CHEST, ABDOMEN and PELVIS: Intraperitoneal space: Unremarkable. No significant fluid collection. No free air. Bones/joints: Disc space narrowing with degenerative endplate changes in the spine. Chronic appearing changes in the left lower posterior ribs. No acute fracture. No dislocation. Soft tissues: Clips in the left posterior chest wall. Vasculature: Scattered atherosclerotic vascular calcifications. No aortic aneurysm. Lymph nodes: Unremarkable. No enlarged lymph nodes. IMPRESSION: 1. Emphysematous changes in the lungs bilaterally. 2. Small left pleural effusion. 3. 2 cm spiculated lesion in the left lower lobe which appears similar to the prior exam. Finding is concerning for neoplasm. 4. No acute finding in the abdomen/pelvis. Electronically signed by: Satish Moreno MD 04/02/2024. 00:37 Differential Diagnosis altered mental status, sepsis, flu, Atrial fibrillation with RVR sp4 . Management of patient was discussed with the following: Martial Arts Instructor: Kem FELIX . Discussed with Biomass Technician . ED course: Patient is stable for admission and she has converted into normal sinus rhythm. Right now patient sinus rhythm at rate of 76.. 04/01 19:33 Order name: Basic Metabolic Panel; Complete Time: 20:56 sb4 04/01 19:33 Order name: CBC with Diff; Complete Time: 21:30 sb4 04/01 19:33 Order name: LFT's; Complete Time: 20:56 sb4 04/01 19:33 Order name: Magnesium; Complete Time: 20:56 sb4 04/01 19:33 Order name: NT PRO-BNP; Complete Time: 20:56 sb4 04/01 19:33 Order name: PT-INR; Complete Time: 20:41 sb4 04/01 19:33 Order name: Troponin HS; Complete Time: 20:56 sb4 04/01 20:58 Order name: CBC Smear Scan; Complete Time: 21:30 EDMS 04/01 22:29 Order name: Blood Culture Adult (2) sp4 04/01 22:29 Order name: Lactate w/ 2H reflex if indic.; Complete Time: 23:57 sp4 04/01 22:29 Order name: TSH; Complete Time: 23:57 sp4 04/01 22:29 Order name: CRP; Complete Time: 23:57 sp4 04/01 22:29 Order name: T4 Free; Complete Time: 23:57 sp4 04/01 22:33 Order name: Urinalysis W/Microscopic; Complete Time: 00:39 sp4 04/01 19:33 Order name: XRAY Chest (1 view); Complete Time: 22:03 sb4 04/01 22:29 Order name: CT Chest Abdomen Pelvis W/O Contrast; Complete Time: 00:39 sp4 04/02 00:02 Order name: CONS Physician Consult EDCO 04/01 19:33 Order name: Cardiac monitoring; Complete Time: 20:26 sb4 04/01 19:33 Order name: EKG - Nurse/Tech; Complete Time: 20:26 sb4 04/01 19:33 Order name: IV Saline Lock; Complete Time: 20:26 sb4 04/01 19:33 Order name: Labs collected and sent; Complete Time: 20:26 sb4 04/01 19:33 Order name: O2 Per Protocol; Complete Time: 20:26 sb4 04/01 19:33 Order name: O2 Sat Monitoring; Complete Time: 20:26 sb4 EC/24 19:55 Rate is 182 beats/min. Rhythm is irregularly irregular, A fib. QRS interval is normal sb4 at 80 msec. QT interval is normal at 272 msec. Clinical impression: Atrial Fibrillation and with RVR. Interpreted by me. Reviewed by me. Administered Medications: 20:02 Drug: Metoprolol IVP 5 mg IVP every 5 minutes; Hold for SBP < 100 or HR < 60. x3 Route: br2 IVP; Site: left antecubital; 20:30 Follow up: Response: No adverse reaction br2 20:32 CANCELLED (Physician Discretion): metoprolol5 mg IVP every 5 minutes; Hold for SBP < sb4 100 or HR < 60. x3 20:36 Drug: Diltiazem IVP 10 mg IVP once; Over 2 minutes Route: IVP; Site: right antecubital; br2 21:00 Follow up: Response: No adverse reaction br2 20:54 Drug: Diltiazem IV 5 mg/hr IV at calculated rate See Administration Instructions; br2 (standard dilution 125 mg diltiazem mixed in 125 mL NS; final concentration 1mg/mL). Recommended max rate 15 mg/hr; Titrate 5 mg/hr as often as every 15 minutes to achieve goal (see titration policy); Goal parameter HR less than 100 bpm Route: IV; Rate: 5 mg/hr; Site: right hand; 04/02 00:45 Follow up: Response: No adverse reaction; IV Status: Infusion continued upon admission; br2 IV Intake: 45ml 04/01 21:52 Drug: Magnesium Sulfate IVPB 2 grams IVPB once over 2 hrs Route: IVPB; Infused Over: 2 br2 hrs; Site: Other; 23:52 Follow up: Response: No adverse reaction; IV Status: Completed infusion; IV Intake: br2 100ml 21:52 Drug: Potassium Chloride PO 40 mEq PO once Route: PO; br2 22:15 Follow up: Response: No adverse reaction br2 23:13 Drug: MethylPrednisoLONE IVP 125 mg IVP once Route: IVP; Site: Other; br2 04/02 00:00 Follow up: Response: No adverse reaction br2 04/01 23:14 Drug: Potassium Chloride PO 40 mEq PO once Route: PO; br2 04/02 00:00 Follow up: Response: No adverse reaction br2 04/01 23:14 Drug: NS 0.9% IV 1000 ml IV at 100 ml/hr Per protocol; to be given as a bolus over 60 br2 minutes Route: IV; Rate: 100 ml/hr; Site: right hand; 04/02 00:45 Follow up: IV Status: Infusion continued upon admission; IV Intake: 50ml br2 04/01 23:30 Drug: Cefepime IVPB 1 grams IVPB at 200 ml/hr once over 30 mins; (mix in NS 100 mL) br2 Route: IVPB; Rate: 200 ml/hr; Infused Over: 30 mins; Site: Other; 04/02 00:33 Follow up: Response: No adverse reaction; IV Status: Completed infusion; IV Intake: br2 100ml 00:32 Drug: Enoxaparin Sub-Q 45 mg Sub-Q once Route: Sub-Q; Site: right lower abdomen; br2 01:00 Follow up: Response: No adverse reaction br2 00:33 Drug: vancoMYCIN IVPB 1 grams IVPB once over 2 hrs Route: IVPB; Infused Over: 2 hrs; br2 Site: Other; 00:45 Follow up: Response: No adverse reaction; IV Status: Infusion continued upon admission; br2 IV Intake: 30ml Disposition: 04/01 20:33 Critical Care:. sb4 22:32 Co-signature as Attending Physician, German Murillo MD I agree with the assessment sp4 and plan of care. I reviewed the patient's care provided by Advanced Practice Provider \T\ agree w/ the diagnosis \T\ care plan. I personally saw the pt \T\ performed a substantive portion of the visit, incldng all aspects of the (History/Exam/Medical Decision Making). Disposition Summary: 04/01/24 22:33 Hospitalization Ordered Notes: Hospitalization Status: Inpatient Admission sp4 Provider: Roc Brownlee sp4 Condition: Stable sp4 Problem: new sp4 Symptoms: have improved sp4 Bed/Room Type: Standard sp4 Location: Intensive Care Unit(04/02/24 00:14) Room Assignment: 1-(04/02/24 00:14) Diagnosis - Atrial fibrillation with RVR, COPD exacerbation, physical debility sp4 Forms: - Medication Reconciliation Form sp4 - SBAR form sp4 - Leadership Thank You Letter sp4 Critical care time excluding procedures: 20:33 Critical care time: Bedside Care: 20 minutes, Consultation: 20 minutes. Total time: 40 sb4 minutes Signatures: Dispatcher [employer] Irais Nicolas RN Blanca Dickerson PA-C PAFrancy sb4 German Murillo MD MD sp4 Caryn Ruff RN RN al5 Aylin Lauren RN RN br2 Corrections: (The following items were deleted from the chart) 20:32 19:54 Metoprolol IVP 5 mg IVP every 5 minutes; Hold for SBP < 100 or HR < 60. x3 sb4 ordered. sb4 22:30 22:29 BLOOD CULTURE*+BA.LAB.BRZ ordered. EDMS EDMS 22:30 22:29 LACTATE+C.LAB.BRZ ordered. EDMS EDMS 22:30 22:29 THYROID STIMULAT HORMONE+C.LAB.BRZ ordered. EDMS EDMS 22:30 22:29 C-REACTIVE PROTEIN+C.LAB.BRZ ordered. EDMS EDMS 22:30 22:29 T4 FREE+C.LAB.BRZ ordered. EDMS EDMS 22:32 22:27 Patient's medications include alendronate, amlodipine, aspirin, benzonatate, sp4 budesonide formoterol, levothyroxine, metoprolol, omeprazole, quetiapine, Crestor, also prednisone.. sp4 22:42 20:57 Arterial Blood Gas+RC.LAB.BRZ ordered. EDCO EDCO 04/02 00:14 04/01 22:33 Telemetry/MedSurg (Inpatient) sp4 kl 04/02 00:14 04/01 22:33 sp4 kl
[2024-04-01] MEDS ORDERED: METHYLPREDNISOLONE 125 MG INJ ONE (22:37)
[2024-04-01] MEDS ORDERED: VANCOMYCIN 1 GM/VIAL ONE (22:37)
[2024-04-01] MEDS ORDERED: CEFAZOLIN SODIUM 1 GM/VIAL ONE (22:38)
[2024-04-01] MEDS ORDERED: ENOXAPARIN 40 MG/0.4 ML SQ ONE (22:38)
[2024-04-01] MEDS ORDERED: NA CHLORIDE 0.9% 250 ML ONE (22:38)
[2024-04-01] MEDS ORDERED: NA CHLORIDE 0.9% 100 ML ONE (22:39)
[2024-04-01] MEDS ORDERED: NA CHLORIDE 0.9% 1,000 ML ONE (22:39)
[2024-04-01] MEDS ORDERED: CEFEPIME 1 GM/VIAL ONE (23:08)
[2024-04-01 23:48] LABS: Thyroid Stimulating Hormone < 0.005 uIU/mL (0.358-3.740)
--- NOTE | 2024-04-02 00:20 | RAD REPORT ---
EXAM: CT Chest, Abdomen and Pelvis Without Intravenous Contrast CLINICAL HISTORY: The patient is 78 years old and is Female; CHEST PAIN TECHNIQUE: Axial computed tomography images of the chest, abdomen and pelvis without intravenous co ntrast. Sagittal and coronal reformatted images were created and reviewed. This CT exam was performed using one or more of the following dose reduction techniques: automated exposure control, adjustment of the mA and/or kV according to patient size, and/or use of iterative reconstruction technique. COMPARISON: CT chest without contrast October 04, 2023. FINDINGS: CHEST: Lungs: Emphysematous changes in the lungs bilaterally. 2 cm spiculated lesion in the left lower lobe which appears similar to the prior exam. Scarring or atelectasis in the right lung base. No mass. Pleural space: Small left pleural effusion. No pneumothorax. Heart: Unremarkable. No cardiomegaly. No significant pericardial effusion. No significant c oronary artery calcifications. Thyroid: Thyroid is not seen. ABDOMEN: Liver: Unremarkable. Gallbladder and bile ducts: Unremarkable. No calcified stones. No ductal dilation. Pancreas: Unremarkable. No ductal dilation. Spleen: Unremarkable. No splenomegaly. Adrenals: Unremarkable. No mass. Kidneys and ureters: Unremarkable. No obstructing stones. No hydronephrosis. Stomach and bowel: Sigmoid diverticulosis. Scattered colonic diverticula. No obstruction. No mucosal thickening. PELVIS: Appendix: No findings to suggest acute appendicitis. Bladder: Unremarkable. No stones. Reproductive: Unremarkable as visualized. CHEST, ABDOMEN and PELVIS: Intraperitoneal space: Unremarkable. No significant fluid collection. No free air. Bones/joints: Disc space narrowing with degenerative endplate changes in the spine. Chronic appearing changes in the left lower posterior ribs. No acute fracture. No dislocation. Soft tissues: Clips in the left posterior chest wall. Vasculature: Scattered atherosclerotic vascular calcifications. No aortic aneurysm. Lymph nodes: Unremarkable. No enlarged lymph nodes. IMPRESSION: 1. Emphysematous changes in the lungs bilaterally. 2. Small left pleural effusion. 3. 2 cm spiculated lesion in the left lower lobe which appears similar to the prior exam. Finding is concerning for neoplasm. 4. No acute finding in the abdomen/pelvis. Electronically signed by: Satish Moreno MD 04/02/2024 12:08 AM [facility] 8 Due to temporary technical issues with the [employer] reporting system, reports are being alberto d by the in-house radiologist without review as a courtesy to ensure prompt reporting the interpreting radiologist is fully responsible for the content of the report. Transcribed Date/Time: 04/02/2024 12:19 AM
[2024-04-02 00:28] LABS: Calcium Oxalate Crystals- Ur Few /HPF (None Seen); Renal Epithelial <5 /HPF (None Seen); Specific Gravity 1.015 (1.005-1.030); Sqamous Epithelial <5 /HPF (None Seen); Urine Bacteria <20 /HPF (<20); Urine Bilirubin NEGATIVE (Negative); Urine Blood 1+ (Negative); Urine Clarity Extremely Turbid (Clear); Urine Color Light-Orange (Yellow); Urine Culture Reflex Order NOT NEEDED; Urine Glucose NEGATIVE (Negative); Urine Ketones 2+ (Negative); Urine Micro Reflex YN NO BILL MICROSCOPIC; Urine Mucus Slight /HPF (None Seen); Urine Nitrite NEGATIVE (Negative); Urine Protein NEGATIVE (Negative); Urine RBC 21-50 /HPF (None Seen); Urine Urobilinogen Normal (Normal); Urine WBC <5 /HPF (<5); Urine pH 7.5 (5.0-7.0)
[2024-04-02] MEDS ORDERED: ONDANSETRON 4 MG/2 ML VIAL IV PRN (00:50)
[2024-04-02] MEDS: dilTIAZem HCL 25 MG/5 ML VIAL IV ONE (00:56)
[2024-04-02] MEDS: NA CHLORIDE 0.9% 100 ML ONE (00:57)
[2024-04-02] MEDS: METHYLPREDNISOLONE 40 MG INJ IV SCH (01:00)
[2024-04-02] MEDS: DILTIAZEM INJ 125 MG/25 ML 125 MG in NA CHLORIDE 0.9% 100 ML IV SCH (01:15)
--- NOTE | 2024-04-02 07:41 | RAD REPORT ---
EXAM: CT Ct Stroke Brain Wo Cont HISTORY: AMS COMPARISON: 05/24/2023 TECHNIQUE: Multiple contiguous axial images were obtained for a CT of the brain without contrast. Sag ittal and coronal reformats were performed. One or more of the following dose reduction techniques were used: Automated exposure control, adjus tment of the mA and kV according to patient size, and iterative reconstruction. Unless otherwise specified, incidental findings do not require dedicated imaging follow-up. FINDINGS: No evidence of hydrocephalus, intracranial hemorrhage, or extra-axial fluid collection. Stable changes of mild brain atrophy, and moderate periventricular and deep white matter chronic alphonse rovascular ischemic changes present. The calvarium is intact. The visualized paranasal sinuses and mastoid air cells are essentially clear . IMPRESSION: No evidence of acute intracranial abnormality. Stable findings as above. THIS REPORT CONTAINS FINDINGS THAT MAY BE CRITICAL TO PATIENT CARE. The findings were verbally commun icated via telephone to Roc Brownlee MD on 04/02/2024 7:36 AM.
[2024-04-02 07:55] LABS: Absolute Lymphocytes (CBC) 0.4 K/uL (0.7-4.9); Absolute Monocytes 0.1 K/uL (0.1-1.3); Absolute Neutrophil 4.9 K/uL (1.8-8.0); Basophils % 0.2 % (0-1.3); Hematocrit 36.5 % (36.0-45.0); Hemoglobin 11.5 g/dL (12.0-15.0); Lymphocytes % 7.4 % (15.3-44.8); MCH 28.9 pg (27.0-35.0); MCHC 31.6 g/dL (32.0-36.0); MCV 91.3 fL (80-100); MPV 12.9 fL (7.6-11.3); Monocytes % 1.3 % (3.3-12.3); Neutrophils % 91.1 % (41.7-73.7); Nucleated Red Blood Cells % 0.1 % (0-0); Platelets 101 thou/uL (152-406); Red Cell Distribution Width 14.6 % (12.1-15.2)
[2024-04-02 07:59] LABS: PT Prothrombin Time 11.7 SECONDS (9.4-12.5); PTT, Activated Partial Thromb 29.5 SECONDS (24.3-36.9); Protime INR 1.05
[2024-04-02 08:15] LABS: Anion Gap 3.4 mEq/L (5.0-15.0); Potassium 4.4 mEq/L (3.5-5.1)
--- NOTE | 2024-04-02 08:54 | RAD REPORT ---
EXAMINATION: ONE VIEW CHEST XR CLINICAL INDICATION: Female, 78 years old.,Code Stroke Protocol TECHNIQUE: Frontal chest projection is submitted. Examination is limited by patient positioning and t echnique. COMPARISON: 04/01/2024 FINDINGS: The lungs are well inflated. Stable small left basilar opacity, probably relates to known spiculated nodule. No pneumothorax or sizable effusion. The heart is normal in size. Mediastinal contours are unremarkable. IMPRESSION: Stable left basilar small opacity, correlating to known nodule. No other acute intrathoracic abnormal ities.
[2024-04-02] MEDS: NA CHLORIDE 0.9% 1,000 ML IV SCH ×2 (09:00→10:32)
[2024-04-02 10:31] LABS: Arterial Blood Carboxyhemoglob 1.3 % (0-1.5); Blood Gas Oxyhemoglobin 95.3 % (94-97); Blood O2 Saturation 97.3 % (92-98.5)
[2024-04-02 10:32] LABS: Blood Gas THB 11.5 g/dl (12-18)
[2024-04-02] MEDS: ENOXAPARIN 60 MG/0.6 ML SQ SCH (10:32)
[2024-04-02] MEDS: Mupirocin NASAL 2 APPL/1 GM TUBE NAS SCH (10:32)
--- NOTE | 2024-04-02 12:57 | P.HP ---
Certification for Inpatient Patient admitted to: Observation With expected LOS: <2 Midnights <Liza Madsen - Last Filed: 04/02/24 17:34> Patient History Date of Service: 04/02/24 Reason for admission: Afib with RVR History of Present Illness: Yodit Mercedes is a 78 year old female with Pmhx breast cancer, COPD, Home O2 2L NC, THYROID CANCER, Hypertension, Osteoporosis, who presents to the ED with chief complaint of shortness of breath for unknown period of time. She has a history of COPD on 2 L nasal cannula at home. EMS arrived finding her to be in A-fib with RVR, Yodit denies a history of atrial fibrillation and reports back pain with weakness. While in the ED 20 mg IV Cardizem administered without any change. Cardizem drip started, echo from September 2023 is within normal limits, EF 60-65%. Chest x-ray reports "Stable left basilar small opacity, correlating to known nodule. No other acute intrathoracic abnormalities" Code stroke called at 0709, Yodit unresponsive to stimuli, CT head negative for acute findings. She regained her ability to speak and was able to follow commands after returning for the CT scan. ABG PH 7.35, PCO2 78.4, PO2 85, HCO2 41.7 Yodit will be admitted to hospitalist service for further evaluation and treatment of Afib - Past Medical/Surgical History Has patient received pneumonia vaccine in the past: Yes Diabetic: No -: COPD -: Asthma -: Depression -: HTN -: hyperlipidemia -: Anxiety -: breast cancer -: thyroid cancer -: bowel obstruction -: Diverticulitis -: CVA x2 -: left breast mastectomy -: thyroidectomy -: Bowel Sx -: Cesarian Section X1 -: hysterectomy -: appendectomy - Family History Mother -: Heart disease, Hypertension, Cancer Notes: brain cancer Father -: Lung disease Notes: emphysema. asthma Brother -: Heart disease Sister -: Cancer Notes: breast cancer - Social History Smoking Status: Former smoker Alcohol use: No CD- Drugs: No Caffeine use: Yes Place of Residence: Home <Liza Madsen - Last Filed: 04/02/24 17:34> Date of Service: 04/03/24 <cassy francisco - Last Filed: 04/03/24 14:22> Allergies memantine Allergy (Verified 02/25/20 11:12) Anaphylaxis clonidine Adverse Reaction (Verified 07/17/17 07:36) Anaphylaxis lisinopril Adverse Reaction (Verified 02/25/20 11:12) Anaphylaxis Home Medications: Omeprazole [Prilosec] 40 mg PO DAILY 02/25/20 Amlodipine [Norvasc*] 1 tab PO BID 01/24/22 Metoprolol Tartrate 1.5 tab PO BID 01/24/22 Rosuvastatin Calcium 1 tab PO BEDTIME 01/24/22 Alendronate Sodium/Vitamin D3 [Fosamax Plus D 70 mg-2,800 Iu] 1 each PO SEECOM 05/24/23 Benzonatate 100 mg PO QID 05/24/23 Quetiapine Fumarate [Seroquel] 25 mg PO BEDTIME 05/24/23 Aspirin [Aspirin EC] 81 mg PO DAILY 10/06/23 Budesonide/Glycopyr/Formoterol [Breztri Aerosphere Inhaler] 1 puff IH Q4H PRN 10/06/23 Levothyroxine Sodium 1 tab PO [id number] 10/06/23 predniSONE [Prednisone] 2 tab PO DAILY 10/06/23 Review of Systems Respiratory: Shortness of Breath Cardiovascular: Palpitations <Liza Madsen - Last Filed: 04/02/24 17:34> Physical Examination - Vital Signs Temperature: 98.0 F Blood Pressure: 137/58 Pulse: 81 Respirations: 22 Pulse Ox (%): 98 - Physical Exam General: Alert, In no apparent distress, Oriented x3 HEENT: Atraumatic, Normocephalic, PERRLA Neck: 2+ carotid pulse no bruit Respiratory: Clear to auscultation bilaterally, Normal air movement Cardiovascular: No edema, Normal pulses, Regular rate/rhythm, Normal S1 S2 Capillary refill: <2 Seconds Gastrointestinal: Normal bowel sounds, Soft and benign, Non-distended Musculoskeletal: No clubbing Integumentary: No rashes Neurological: Normal speech, Normal tone - Studies Laboratory Data (last 24 hrs) 04/01/24 04/01/24 04/01/24 20:24 20:24 20:24 WBC 14.00 H Hgb 11.5 L Hct 37.2 Plt Count 96 L PT 12.1 INR 1.08 Sodium 142 Potassium 3.4 L BUN 14 Creatinine 0.32 L Glucose 113 H Magnesium 1.5 L Total Bilirubin 0.6 AST 19 ALT 17 Alkaline Phosphatase 59 <Liza Madsen - Last Filed: 04/02/24 17:34> Assessment and Plan - Plan Assessment and plan New onset atrial fibrillation with RVR NSTEMI -Chest x-ray reports "Stable left basilar small opacity, correlating to known nodule. No other acute intrathoracic abnormalities -Cardizem drip titrate PRN -Admit to ICU -Continuous telemetry -Dr. Love consulted -Troponin 493.7/306.9/241.4 -Serial EKG as needed -therapuetic lovenox -Asa and statin Acute CVA vs TIA Acute metabolic encephalopathy secondary to Acute compensated respiratory acidosis with hypercarbia -Code stroke called at 709 -CT head with no acute findings -MRI/MRA head and neck ordered -Echo ordered -Continuous telemetry as above -ABG PH 7.35, PCO2 78.4, PO2 85, HCO2 41.7 -TSH/free T4, A1c, lipid panel in the a.m. -Therapeutic Lovenox -NIHSS 0, at time of episode Yodit was unresponsive -Asa, statin, folic acid Breast/thyroid cancer COPD on Home O2 2L NC Hypertension Osteoporosis -Continue home medications -Supportive care DVT PPx Lovenox Full code LOS 24-hour ops Discharge Plan: Home Plan to discharge in: 48 Hours - Advance Directives Does patient have a Living Will: Yes Does patient have a Durable POA for Healthcare: Yes <Liza Madsen - Last Filed: 04/02/24 17:34> - Plan Patient seen and examined with Ms. Madsen. I agree with the plan as described above. Arterial blood gas reviewed and noted CO2 retention. Altered mental status likely related to CO2 retention. Patient converted to sinus rhythm on Cardizem drip. Cardizem drip discontinued. Altered mental status was brief. Patient is currently alert and oriented. Respiratory therapy to follow Titrate oxygen to keep SaO2 after 92% BiPAP as needed. Resume other home medications. Therapeutic Lovenox for both A-fib and elevated troponin. Head CT negative for acute CVA. Follow-up MRI of the brain Cardiology consult. <cassy francisco - Last Filed: 04/03/24 14:22>
[2024-04-02] MEDS ORDERED: HOME MED 1 EA UNK (Budesonide/Glycopyr/Formoterol [Breztri Aerosphere Inhaler] 10.7 GM Hfa IH PRN (17:42)
[2024-04-02] MEDS: ROSUVASTATIN 5 MG TAB PO SCH (20:07)
[2024-04-02] MEDS: ATORVASTATIN 40 MG TAB PO SCH (20:09)
[2024-04-03] MEDS: PANTOPRAZOLE 40MG TABLET PO SCH (05:22)
[2024-04-03] MEDS: LEVOTHYROXINE SOD 0.1 MG TAB PO SCH (05:23)
[2024-04-03] MEDS: dilTIAZem HCL 25 MG/5 ML VIAL IV ONE ×2 (06:07→06:12)
[2024-04-03] MEDS: NA CHLORIDE 0.9% 100 ML ONE (06:09)
[2024-04-03] MEDS: DILTIAZEM INJ 125 MG/25 ML 125 MG in NA CHLORIDE 0.9% 100 ML IV SCH (06:10)
[2024-04-03 06:45] LABS: Phosphorus 2.6 mg/dL (2.5-4.9); T4,Total 11.4 ug/dL (4.8-13.9); Thyroid Stimulating Hormone 0.007 uIU/mL (0.358-3.740)
[2024-04-03 07:03] LABS: Absolute Lymphocytes (CBC) 0.6 K/uL (0.7-4.9); Absolute Monocytes 0.6 K/uL (0.1-1.3); Absolute Neutrophil 18.2 K/uL (1.8-8.0); Hematocrit 34.4 % (36.0-45.0); Hemoglobin 11.1 g/dL (12.0-15.0); Lymphocytes % 3.1 % (15.3-44.8); MCH 29.1 pg (27.0-35.0); MCHC 32.4 g/dL (32.0-36.0); MPV 12.2 fL (7.6-11.3); Monocytes % 3.2 % (3.3-12.3); Neutrophils % 93.7 % (41.7-73.7); RBC Red Blood Cell Count 3.83 M/uL (3.86-4.86); Red Cell Distribution Width 14.6 % (12.1-15.2)
[2024-04-03] MEDS: METOPROLOL TARTRATE 5 MG/5 ML INJ IV STA (07:28)
[2024-04-03] MEDS: FOLIC ACID 1 MG TABLET PO SCH (08:11)
[2024-04-03] MEDS: ASPIRIN EC 81 MG TAB PO SCH (08:11)
[2024-04-03] MEDS: AMIODARONE HCL 150 MG in D5W 100 ML IV ONE (08:30)
[2024-04-03] MEDS: AMIODARONE HCL 900 MG in Dextrose 5%-Water 482 ML IV SCH (08:30)
[2024-04-03 08:42] LABS: Platelets 138 thou/uL (152-406)
[2024-04-03 08:43] LABS: Differential Total Cells Count 100; Lymphocytes 2 % (15-42); Monocytes 1 % (0-10); Segmented Neutrophils 97 % (40-80)
[2024-04-03 08:44] LABS: Blood Morphology Comment NOTED (NOT SEEN); Platelet Estimate DECR; Polychromasia SLIGHT
--- NOTE | 2024-04-03 08:52 | P.PN ---
Date of Service: 04/03/24 Subjective: Went back into A-fib this morning with RVR No other acute events overnight No chest pain or dyspnea ROS: 10 point ROS as noted above, otherwise negative Physical exam GEN: Alert, oriented, NAD HEENT: Normal conjunctiva, sclera anicteric CV: A-fib with RVR, no edema Pulm: Nonlabored respirations on room air ABD: Soft, nontender, nondistended MSK: No joint tenderness Integumentary: No rashes Neuro: Normal speech, normal affect Vitals reviewed Assessment and plan New onset atrial fibrillation with RVR NSTEMI -Chest x-ray reports "Stable left basilar small opacity, correlating to known nodule. No other acute intrathoracic abnormalities -Cardizem drip titrate -switched to amiodarone a.m. 04/03 by cardiology for persistent A-fib with RVR -Patient reports that she stopped taking her home medications including her metoprolol about 5 days ago -Also noted to be in hyperthyroid, synthroid stopped, was taking 200mcg -Continuous telemetry -Cardiology consulted/following -Troponin 493.7/306.9/241.4 -Echo ordered -therapuetic lovenox -Asa and statin Acute CVA vs TIA Acute metabolic encephalopathy secondary to Acute compensated respiratory acidosis with hypercarbia-improved -Code stroke called at 709 -CT head with no acute findings -MRI stroke protocol ordered and pending -TSH/free T4, A1c, lipid panel in the a.m. -Therapeutic Lovenox -NIHSS 0, at time of episode Yodit was unresponsive -Asa, statin, folic acid Breast/thyroid cancer Hyperthyroidism TSH 0.007 Free T4-3.14 Synthroid 200mcg stopped 04/03 T3 pending COPD on Home O2 2L NC Hypertension Osteoporosis GERD -Continue home medications -Supportive care DVT PPx Lovenox Full code Discharge Plan: Home Plan to discharge in: 48 to 72 hours Time Spent Managing Pts Care (In Minutes): 35 <Sourav Estrada - Last Filed: 04/03/24 12:16> Patient seen and examined. Plan of care discussed with Sourav Estrada. Patient denies any complaint.. She is maintained on 2 L oxygen by nasal. She developed atrial fibrillation with RVR early this morning. Patient has remained awake and alert. TSH checked is extremely low with elevated free T4 indicating hyperthyroid state. Plan: Plan of care discussed with cardiology Dr. Johns Patient started on amiodarone. Discontinue thyroid supplementation Repeat TSH in 8 weeks. Continue bronchodilators Transition full dose Lovenox to Eliquis. CO2 retention likely related to emphysema. Titrate oxygen to SpO2 of up to 92%. BiPAP as needed Continue steroid and bronchodilators. PT consult. <cassy francisco - Last Filed: 04/03/24 15:05>
[2024-04-03 10:19] LABS: Anion Gap 3.3 mEq/L (5.0-15.0); Potassium 4.3 mEq/L (3.5-5.1)
--- NOTE | 2024-04-03 12:42 | P.CNS ---
Date of Consult: 04/03/24 Chief Complaint: Afib with RVR History of Present Illness: Patient with PMH of stroke, COPD presented with palpitations, found to be in AF w RVR, denies having chest pain, no syncope. Allergies memantine Allergy (Verified 02/25/20 11:12) Anaphylaxis clonidine Adverse Reaction (Verified 07/17/17 07:36) Anaphylaxis lisinopril Adverse Reaction (Verified 02/25/20 11:12) Anaphylaxis Home medications list reviewed: Yes Home Medications: Omeprazole [Prilosec] 40 mg PO DAILY 02/25/20 Amlodipine [Norvasc*] 1 tab PO BID 01/24/22 Metoprolol Tartrate 1.5 tab PO BID 01/24/22 Rosuvastatin Calcium 1 tab PO BEDTIME 01/24/22 Alendronate Sodium/Vitamin D3 [Fosamax Plus D 70 mg-2,800 Iu] 1 each PO SEECOM 05/24/23 Benzonatate 100 mg PO QID 05/24/23 Quetiapine Fumarate [Seroquel] 25 mg PO BEDTIME 05/24/23 Aspirin [Aspirin EC] 81 mg PO DAILY 10/06/23 Budesonide/Glycopyr/Formoterol [Breztri Aerosphere Inhaler] 1 puff IH Q4H PRN 10/06/23 Levothyroxine Sodium 1 tab PO [id number] 10/06/23 predniSONE [Prednisone] 2 tab PO DAILY 10/06/23 - Past Medical/Surgical History Diabetic: No -: COPD -: Asthma -: Depression -: HTN -: hyperlipidemia -: Anxiety -: breast cancer -: thyroid cancer -: bowel obstruction -: Diverticulitis -: CVA x2 -: left breast mastectomy -: thyroidectomy -: Bowel Sx -: Cesarian Section X1 -: hysterectomy -: appendectomy - Family History Mother Medical History: Heart disease, Hypertension, Cancer Notes: brain cancer Father Medical History: Lung disease Notes: emphysema. asthma Brother Medical History: Heart disease Sister Medical History: Cancer Notes: breast cancer - Social History Smoking Status: Current some day smoker Alcohol use: No CD- Drugs: No Caffeine use: Yes Place of Residence: Home Review of Systems 10-point ROS is otherwise unremarkable Physical Examination Temp Pulse Resp BP Pulse Ox 97.8 F 126 H 18 144/56 H 99 04/03/24 07:45 04/03/24 10:00 04/03/24 10:00 04/03/24 10:00 04/03/24 10:00 General: Alert, In no apparent distress HEENT: Atraumatic, PERRLA, Mucous membr. moist/pink, EOMI, Sclerae nonicteric Neck: Supple, 2+ carotid pulse no bruit, No LAD, Without JVD or thyroid abnormality Respiratory: Clear to auscultation bilaterally, Normal air movement Cardiovascular: Irregular heart rate/rhythm Gastrointestinal: Normal bowel sounds, No tenderness Musculoskeletal: No tenderness Integumentary: No rashes Neurological: Normal gait, Normal speech, Normal tone, Normal affect Lymphatics: No axilla or inguinal lymphadenopathy - Problems (1) Atrial fibrillation Current Visit: Yes Status: Acute Plan: patient was taken off cardizem drip and bolused with Amiodarone and drip was started. continue drip for 24 hours then switch to 200 mg po BID Start Eliquis 5 mg po BID DIscussed possible options like [facility] DCCV but patient refused.
[2024-04-03 17:36] LABS: T3 Free 2.1 pg/mL (2.18-3.98)
[2024-04-03] MEDS: APIXABAN 5 MG TABLET PO SCH (19:44)
[2024-04-04 04:15] VITALS: BMI 20.9
[2024-04-04 04:59] LABS: Absolute Lymphocytes (CBC) 1.1 K/uL (0.7-4.9); Absolute Monocytes 1.5 K/uL (0.1-1.3); Absolute Neutrophil 16.1 K/uL (1.8-8.0); Hematocrit 33.5 % (36.0-45.0); Hemoglobin 10.7 g/dL (12.0-15.0); Lymphocytes % 5.8 % (15.3-44.8); MCH 28.7 pg (27.0-35.0); MCHC 31.9 g/dL (32.0-36.0); MCV 90.1 fL (80-100); Monocytes % 8.2 % (3.3-12.3); Nucleated Red Blood Cells % 0.1 % (0-0); Platelets 100 thou/uL (152-406); RBC Red Blood Cell Count 3.72 M/uL (3.86-4.86); Red Cell Distribution Width 14.4 % (12.1-15.2)
[2024-04-04 05:24] LABS: Anion Gap 2.9 mEq/L (5.0-15.0); Magnesium 1.9 mg/dL (1.6-2.4); Phosphorus 2.9 mg/dL (2.5-4.9); Potassium 3.9 mEq/L (3.5-5.1)
[2024-04-04] MEDS ORDERED: HYDRALAZINE HCL 20 MG/ML VIAL IV PRN (07:22)
[2024-04-04] MEDS ORDERED: AMIODARONE HCL 900 MG in Dextrose 5%-Water 482 ML IV SCH (08:00)
[2024-04-04] MEDS: predniSONE 20 MG TAB PO SCH (08:49)
[2024-04-04] MEDS: AMIODARONE HCL 200 MG TAB PO SCH (08:50)
[2024-04-04] MEDS: AMLODIPINE 5 MG TAB PO SCH (08:50)
--- NOTE | 2024-04-04 08:57 | P.PN ---
Date of Service: 04/04/24 Subjective: NSR Overnight No acute events Stable for downgrade to floor today ROS: 10 point ROS as noted above, otherwise negative Physical exam GEN: Alert, oriented, NAD HEENT: Normal conjunctiva, sclera anicteric CV: NSR, no edema Pulm: Nonlabored respirations on room air ABD: Soft, nontender, nondistended MSK: No joint tenderness Integumentary: No rashes Neuro: Normal speech, normal affect Vitals reviewed Assessment and plan New onset atrial fibrillation with RVR NSTEMI -Chest x-ray reports "Stable left basilar small opacity, correlating to known nodule. No other acute intrathoracic abnormalities -Cardizem drip titrate -switched to amiodarone a.m. 04/03 by cardiology for persistent A-fib with RVR -Patient reports that she stopped taking her home medications including her metoprolol about 5 days ago -Also noted to be in hyperthyroid, synthroid stopped, was taking 200mcg -Continuous telemetry -Cardiology consulted/following -Troponin 493.7/306.9/241.4 -Echo ordered -Continue Eliquis -Asa and statin Acute CVA vs TIA Acute metabolic encephalopathy secondary to Acute compensated respiratory acidosis with hypercarbia-improved -Code stroke called at 709 -CT head with no acute findings -MRI stroke protocol ordered and pending -Continue eliquis -NIHSS 0, at time of episode Yodit was unresponsive -Asa, statin, folic acid Breast/thyroid cancer Hyperthyroidism TSH 0.007 Free T4-3.14 Synthroid 200mcg stopped 04/03 Repeat TSH in 8 weeks COPD on Home O2 2L NC Hypertension Osteoporosis GERD -Continue home medications -Supportive care DVT PPx Eliquis Full code Discharge Plan: Home Plan to discharge in: 48 to 72 hours Time Spent Managing Pts Care (In Minutes): 35
--- NOTE | 2024-04-04 12:10 | RAD REPORT ---
EXAMINATION: MRI BRAIN WITHOUT CONTRAST CLINICAL INDICATION: Female, 78 years old. Unresponsiveness TECHNIQUE: Multiplanar multisequence MR images of the brain were obtained without intravenous contras t. Unless otherwise specified, incidental findings do not require dedicated imaging follow-up. [id number]. COMPARISON: 01/12/2021 FINDINGS: INTRACRANIAL: No acute infarct identified. No significant mass effect or midline shift.No hydrocepha mally. Moderate chronic small vessel ischemic changes.Age advanced cerebral atrophy. VASCULATURE: Normal signal voids in the larger intracranial arteries and dural venous sinuses. SINUSES: The paranasal sinuses are clear.No mastoid effusions. BONE: The marrow signal pattern is within normal limits. IMPRESSION: No acute intracranial abnormality. Advanced chronic small vessel ischemic changes and age advanced ce rebral atrophy. No evidence of acute infarct.
--- NOTE | 2024-04-04 13:41 | EKG ---
Test Date: 2024-04-02 Test Time: 08:39:52 Materials And Corrosion Engineer: MESSI MEASUREMENT RESULTS: Intervals: Rate: 91 KS: 102 QRSD: 82 QT: 372 QTc: 457 [place]: P: 81 KS: 102 QRS: 67 T: 75 INTERPRETIVE STATEMENTS: Sinus rhythm with marked sinus arrhythmia with short KS Early repolarization Otherwise normal ECG Compared to ECG 04/02/2024 08:38:51 Early repolarization now present Atrial abnormality no longer present Electronically Signed On 04-04-24 13:37:11 DATA GOVERNANCE CONSULTANT by Stone Love
--- NOTE | 2024-04-04 13:41 | EKG ---
Test Date: 2024-04-02 Test Time: 08:38:51 After School Tutor: MESSI MEASUREMENT RESULTS: Intervals: Rate: 76 NE: 98 QRSD: 78 QT: 390 QTc: 438 [place]: P: 84 NE: 98 QRS: 64 T: 69 INTERPRETIVE STATEMENTS: Sinus rhythm with short NE Right atrial enlargement Borderline ECG Compared to ECG 04/02/2024 08:38:00 Atrial abnormality now present Atrial premature complex(es) no longer present Electronically Signed On 04-04-24 13:37:13 PARANORMAL INVESTIGATOR by Stone Love
--- NOTE | 2024-04-04 13:41 | EKG ---
Test Date: 2024-04-02 Test Time: 08:38:00 Eye[place] Row Marker: MESSI MEASUREMENT RESULTS: Intervals: Rate: 96 AR: 104 QRSD: 76 QT: 380 QTc: 480 [place]: P: 79 AR: 104 QRS: 65 T: 76 INTERPRETIVE STATEMENTS: Sinus rhythm with short AR with premature atrial complexes Otherwise normal ECG Compared to ECG 10/04/2023 11:33:59 Atrial premature complex(es) now present Short AR interval now present Sinus tachycardia no longer present Electronically Signed On 04-04-24 13:37:14 PUPPET MAKER by Stone Love
[2024-04-05] MEDS: HYDROCODONE/APAP 5/325 MG TAB PO PRN (04:28)
[2024-04-05 05:09] LABS: Absolute Monocytes 1.5 K/uL (0.1-1.3); Basophils % 0.3 % (0-1.3); Eosinophils % 0.1 % (0-4.4); Hematocrit 34.1 % (36.0-45.0); Hemoglobin 10.8 g/dL (12.0-15.0); Lymphocytes % 14.6 % (15.3-44.8); MCH 28.6 pg (27.0-35.0); MCHC 31.6 g/dL (32.0-36.0); MCV 90.5 fL (80-100); Nucleated Red Blood Cells % 0.1 % (0-0); RBC Red Blood Cell Count 3.77 M/uL (3.86-4.86); Red Cell Distribution Width 14.1 % (12.1-15.2)
[2024-04-05 05:27] LABS: MPV 13.2 fL (7.6-11.3); Platelets 108 thou/uL (152-406)
[2024-04-05 05:55] LABS: Anion Gap 2.7 mEq/L (5.0-15.0); Magnesium 1.5 mg/dL (1.6-2.4); Phosphorus 2.8 mg/dL (2.5-4.9); Potassium 3.7 mEq/L (3.5-5.1)
--- NOTE | 2024-04-05 08:21 | P.PN ---
Date of Service: 04/05/24 Subjective: NSR with episodes of svt vs afib overnight Otherwise no new complaints/events ROS: 10 point ROS as noted above, otherwise negative Physical exam GEN: Alert, oriented, NAD HEENT: Normal conjunctiva, sclera anicteric CV: NSR, no edema Pulm: Nonlabored respirations on room air ABD: Soft, nontender, nondistended MSK: No joint tenderness Integumentary: No rashes Neuro: Normal speech, normal affect Vitals reviewed Assessment and plan New onset atrial fibrillation with RVR NSTEMI -Chest x-ray reports "Stable left basilar small opacity, correlating to known nodule. No other acute intrathoracic abnormalities -Cardizem drip titrate -switched to amiodarone a.m. 04/03 by cardiology for persistent A-fib with RVR -Switched to PO amiodarone -Patient reports that she stopped taking her home medications including her metoprolol about 5 days ago -Also noted to be in hyperthyroid, synthroid stopped, was taking 200mcg -Continuous telemetry -Cardiology consulted/following -Troponin 493.7/306.9/241.4 -Echo ordered -Continue Eliquis -Asa and statin Acute CVA vs TIA Acute metabolic encephalopathy secondary to Acute compensated respiratory acidosis with hypercarbia-improved -Code stroke called at 709 -CT head with no acute findings -MRI negative for acute findings -Continue eliquis -NIHSS 0, at time of episode Yodit was unresponsive -Asa, statin, folic acid Breast/thyroid cancer Hyperthyroidism TSH 0.007 Free T4-3.14 Synthroid 200mcg stopped 04/03 Repeat TSH in 8 weeks COPD on Home O2 2L NC Hypertension Osteoporosis GERD -Continue home medications -Supportive care DVT PPx Eliquis Full code Discharge Plan: SNF Plan to discharge in: 48 to 72 hours Time Spent Managing Pts Care (In Minutes): 35
[2024-04-05] MEDS: ALBUTEROL 2.5 MG/3 ML NEB SOL NEB PRN (20:47)
[2024-04-06 04:46] LABS: Hematocrit 33.8 % (36.0-45.0); MCHC 32.6 g/dL (32.0-36.0); MCV 88.9 fL (80-100); MPV 12.3 fL (7.6-11.3); Platelets 123 thou/uL (152-406); RBC Red Blood Cell Count 3.81 M/uL (3.86-4.86); Red Cell Distribution Width 13.9 % (12.1-15.2)
[2024-04-06 05:10] LABS: Anion Gap 4.3 mEq/L (5.0-15.0); Magnesium 1.6 mg/dL (1.6-2.4); Phosphorus 2.8 mg/dL (2.5-4.9); Potassium 4.3 mEq/L (3.5-5.1)
[2024-04-06] MEDS: METOPROLOL TAR 25 MG TAB PO SCH (09:15)
--- NOTE | 2024-04-06 09:41 | P.PN ---
Date of Service: 04/06/24 Subjective: No acute events overnight Patient not agreeable to SNF yesterday ROS: 10 point ROS as noted above, otherwise negative Physical exam GEN: Alert, oriented, NAD HEENT: Normal conjunctiva, sclera anicteric CV: NSR, no edema Pulm: Nonlabored respirations on room air ABD: Soft, nontender, nondistended MSK: No joint tenderness Integumentary: No rashes Neuro: Normal speech, normal affect Vitals reviewed Assessment and plan New onset atrial fibrillation with RVR NSTEMI Weakness -Lives alone, has dyspnea on exertion, await PT eval tomorrow to determine needs/post hospital care -Chest x-ray reports "Stable left basilar small opacity, correlating to known nodule. No other acute intrathoracic abnormalities -Cardizem drip titrate -switched to amiodarone a.m. 04/03 by cardiology for persistent A-fib with RVR -Switched to PO amiodarone -Patient reports that she stopped taking her home medications including her metoprolol about 5 days ago -Also noted to be in hyperthyroid, synthroid stopped, was taking 200mcg -Continuous telemetry -Cardiology consulted/following -Troponin 493.7/306.9/241.4 -Echo Results: Normal LV systolic function. LVEF 60-65%. Unable to assess diastolic function due to arrhythmia. Elevated filling pressure, RA pressure >20 mmHg. -Continue Eliquis -Asa and statin Acute CVA vs TIA Acute metabolic encephalopathy secondary to Acute compensated respiratory acidosis with hypercarbia-improved -CT head with no acute findings -MRI negative for acute findings -Continue eliquis -NIHSS 0, at time of episode Yodit was unresponsive -Asa, statin, folic acid Breast/thyroid cancer Hyperthyroidism TSH 0.007 Free T4-3.14 Synthroid 200mcg stopped 04/03 Repeat TSH in 8 weeks COPD on Home O2 2L NC Hypertension Osteoporosis GERD -Continue home medications -Supportive care DVT PPx Eliquis Full code Discharge Plan: SNF Plan to discharge in: 48 to 72 hours Time Spent Managing Pts Care (In Minutes): 35 <Sourav Estrada - Last Filed: 04/06/24 09:36> Patient seen and examined, plan of care discussed with Sourav Estrada. She denies any new complain. BMP reviewed and noted patient may be compensating for respiratory CO2 retention. Patient initially declined disposition to SNF but now considering it according to the social research assistant. Recommending BIPAP at night. Continue steroid Scheduled bronchodilators. Continue PT. <cassy francisco - Last Filed: 04/06/24 17:19>
[2024-04-06] MEDS: IPRATROPIUM BROM 0.5MG/2.5ML NEB SCH (14:10)
[2024-04-06] MEDS: levoFLOXacin 750 MG TAB PO SCH (17:51)
[2024-04-06] MEDS: IPRATROPIUM BROM 0.5MG/2.5ML ONE (21:13)
--- NOTE | 2024-04-06 21:20 | PN ---
Date of Progress Note: 04/06/2024 Subjective: Seen by bedside, doing much better. Still with shortness of breath and cough producing sputum, but heart rate is in the 70s. No palpitations or chest pain. Review of Systems: No chest pain. Has some shortness of breath and cough. No nausea, vomiting, diarrhea. No abdominal pain. No dysuria, polyuria, or urgency. All other systems reviewed and negative. Physical Examination: Vital Signs: Reviewed. Head and Neck: Pupils are equal, reactive to light. Intact eye movements. No JVD. No cervical lym phadenopathy. Neck supple. Thyroid is not enlarged. Lungs: Clear to auscultation bilaterally. No rhonchi, wheezing, or crackles. No accessory muscle u se. Heart : Regular. No extra sounds. Abdomen: Soft, nontender. Bowel sounds positive. No organomegaly. No masses or hernia. No rigidi ty or rebound. Extremities: No clubbing or cyanosis. No edema. Neurologic: Alert, awake, oriented x3. No acute focal deficits appreciated. Investigations: BUN is 17, creatinine 0.47. Hemoglobin is 11. Assessment/recommendation: 1.Atrial fibrillation with rapid ventricular response, now heart rate is controlled. Continue amiod arone and Eliquis. She is to follow up with her primary fender finisher on outpatient basis. 2.Chronic obstructive pulmonary disease exacerbation. I believe she has bronchitis. Recommend anti biotic with Rocephin. 3.Chest pain with elevated troponin. Recommend exercise nuclear stress test to be done once she her condition is stable, and she might need coronary angiogram. SR/MODL Voice ID: [id number] Report ID: [id number]
[2024-04-07] MEDS: IPRATROPIUM BROM 0.5MG/2.5ML ONE (02:52)
[2024-04-07 06:06] LABS: Hematocrit 37.9 % (36.0-45.0); Hemoglobin 11.7 g/dL (12.0-15.0); MCV 90.2 fL (80-100); MPV 11.6 fL (7.6-11.3); Platelets 145 thou/uL (152-406); Red Cell Distribution Width 14.4 % (12.1-15.2)
[2024-04-07 06:32] LABS: Anion Gap 7.1 mEq/L (5.0-15.0); Magnesium 1.7 mg/dL (1.6-2.4); Phosphorus 2.3 mg/dL (2.5-4.9); Potassium 4.1 mEq/L (3.5-5.1)
--- NOTE | 2024-04-07 07:36 | RAD REPORT ---
EXAM: CT brain without contrast HISTORY: confusion COMPARISON: 04/02/2024 TECHNIQUE: Multiple contiguous axial images were obtained and a CT of the brain without contrast. Sag ittal and coronal reformats were performed. One or more of the following dose reduction techniques were used: Automated exposure control, adjust ment of the mA and/or kV according to patient size, and/or iterative reconstruction. FINDINGS: No evidence of hydrocephalus, intracranial hemorrhage, or extra-axial fluid collection. Mild brain atrophy with mild periventricular and deep white matter chronic microvascular ischemic ch anges present. No evidence of midline shift or areas of brain edema. The calvarium is intact. The visualized paranasal sinuses and mastoid air cells are essentially clear . IMPRESSION: No evidence of acute intracranial abnormality.
--- NOTE | 2024-04-07 09:03 | P.PN ---
Date of Service: 04/07/24 Subjective: Has a fall overnight and confusion back at mental status baseline today CT head negative for acute findings Cardiology rec stress, pt ate today Will likely need stress tomorrow ROS: 10 point ROS as noted above, otherwise negative Physical exam GEN: Alert, oriented x2-3, NAD HEENT: Normal conjunctiva, sclera anicteric CV: NSR, no edema Pulm: Nonlabored respirations on nasal cannula ABD: Soft, nontender, nondistended MSK: No joint tenderness Integumentary: No rashes Neuro: Normal speech, normal affect Vitals reviewed Assessment and plan New onset atrial fibrillation with RVR NSTEMI Weakness -Lives alone, has dyspnea on exertion, await PT eval tomorrow to determine needs/post hospital care -Chest x-ray reports "Stable left basilar small opacity, correlating to known nodule. No other acute intrathoracic abnormalities -Cardizem drip titrate -switched to amiodarone a.m. 04/03 by cardiology for persistent A-fib with RVR -Switched to PO amiodarone -Patient reports that she stopped taking her home medications including her metoprolol about 5 days ago -Also noted to be in hyperthyroid, synthroid stopped, was taking 200mcg -Continuous telemetry -Cardiology consulted/following -Troponin 493.7/306.9/241.4 -Echo Results: Normal LV systolic function. LVEF 60-65%. Unable to assess diastolic function due to arrhythmia. Elevated filling pressure, RA pressure >20 mmHg. -Continue Eliquis -Asa and statin Acute CVA vs TIA Acute metabolic encephalopathy secondary to Acute compensated respiratory acidosis with hypercarbia-improved -CT head with no acute findings -MRI negative for acute findings -Continue eliquis -NIHSS 0, at time of episode Yodit was unresponsive -Asa, statin, folic acid Breast/thyroid cancer Hyperthyroidism TSH 0.007 Free T4-3.14 Synthroid 200mcg stopped 04/03 Repeat TSH in 8 weeks COPD on Home O2 2L [place] Hypertension Osteoporosis GERD -Continue home medications -Supportive care DVT PPx Eliquis Full code Discharge Plan: SNF in [place] closer to family Plan to discharge in: 48 to 72 hours Time Spent Managing Pts Care (In Minutes): 35
--- NOTE | 2024-04-07 10:54 | ECHO ---
HEIGHT: 5 ft 0 in WEIGHT: 107 lb 8 oz DATE OF STUDY: 04/03/[address]: Liza Madsen NP 2-DIMENSIONAL: YES M.MODE: YES DOPPLER: YES COLOR FLOW: YES TDS: NO PORTABLE: YES DEFINITY: NO BUBBLE STUDY: NO DIAGNOSIS: STROKE CARDIAC HISTORY: CATHERIZATION: NO SURGERY: NO PROSTHETIC VALVE: NO PACEMAKER: NO MEASUREMENTS (cm) DIASTOLIC (NORMALS) SYSTOLIC (NORMALS) IVSd 1.1 (0.6-1.2) LA Diam 2.1 (1.9-4.0) LVEF 60-65% LVIDd 2.4 (3.5-5.7) LVIDs 1.9 (2.0-3.5) %FS 21% LVPWd 1.1 (0.6-1.2) Ao Diam 2.3 (2.0-3.7) 2 DIMENSIONAL ASSESSMENT: RIGHT ATRIUM: ENLARGED LEFT ATRIUM: SEVERELY DILATED RIGHT VENTRICLE: NORMAL LEFT VENTRICLE: NORMAL TRICUSPID VALVE: MILD TRICUSPID REGURGITATION MITRAL VALVE: MILD MITRAL REGURGITATION PULMONIC VALVE: NORMAL AORTIC VALVE: NORMAL PERICARDIAL EFFUSION: NONE AORTIC ROOT: NORMAL LEFT VENTRICULAR WALL MOTION: NORMAL. DOPPLER/COLOR FLOW: UNABLE TO ASSESS. COMMENTS: 1. NORMAL LEFT VENTRICULAR SYSTOLIC FUNCTION. LEFT VENTRICULAR EJECTION FRACTION 60-65%. NORMAL WALL MOTION. 2. UNABLE TO ASSESS DIASTOLIC FUNCTION DUE TO ARRYTHMIA. 3. ELEVATED FILLING PRESSURE. RIGHT ATRIAL PRESSURE >20 mmHg. TECHNOLOGIST: CUCA KOENIG
--- NOTE | 2024-04-07 10:59 | P.PN ---
Subjective Date of Service: 04/07/24 Chief Complaint: Afib with RVR Subjective: No new changes, No C/O voiced, Tolerating diet, Ambulating, Improving Review of Systems 10-point ROS is otherwise unremarkable Physical Examination - Vital Signs Temperature: 97.3 F Blood Pressure: 136/75 Pulse: 85 Respirations: 18 Pulse Ox (%): 95 - Physical Exam General: Alert, In no apparent distress HEENT: Atraumatic, PERRLA, EOMI Neck: Supple, JVD not distended Respiratory: Clear to auscultation bilaterally, Normal air movement Cardiovascular: Irregular heart rate/rhythm Gastrointestinal: Normal bowel sounds, No tenderness Musculoskeletal: No tenderness Integumentary: No rashes Neurological: Normal speech, Normal tone, Normal affect Lymphatics: No axilla or inguinal lymphadenopathy - Studies Microbiology Data (last 24 hrs): 04/01/24 22:40 Blood - Blood Aerobic Blood Culture - Final No growth in 5 days. 04/01/24 22:40 Blood - Blood Anaerobic Blood Culture - Final No growth in 5 days. 04/01/24 22:57 Blood - Blood Aerobic Blood Culture - Final No growth in 5 days. 04/01/24 22:57 Blood - Blood Anaerobic Blood Culture - Final No growth in 5 days. Medications List Reviewed: Yes Assessment And Plan - Current Problems (Diagnosis) (1) Atrial fibrillation Current Visit: Yes Status: Acute Plan: patient was taken off cardizem drip and bolused with Amiodarone and drip . Now on amiodarone 200 mg po BID on Eliquis 5 mg po BID (hold until stress test done and resulted). DIscussed possible options like YOLY DCCV but patient refused. (2) Troponin level elevated Current Visit: Yes Status: Acute Plan: most likely type 2 LA, troponin trending down, echo shows normal EF patient will benefit from stress test (Lexiscan).
--- NOTE | 2024-04-07 11:24 | EKG ---
Test Date: 2024-04-01 Test Time: 19:50:28 [facility]: KELLEY MEASUREMENT RESULTS: Intervals: Rate: 182 OK: QRSD: 80 QT: 272 QTc: 473 [place]: P: OK: QRS: 67 T: -20 INTERPRETIVE STATEMENTS: Atrial fibrillation with rapid ventricular response Marked ST abnormality, possible inferior subendocardial injury Marked ST abnormality, possible anterior subendocardial injury Abnormal ECG Compared to ECG 10/04/2023 11:33:59 ST (T wave) deviation now present Sinus tachycardia no longer present Electronically Signed On 04-07-24 11:17:45 [employer] DIRECTOR by Luis Armando Johns
[2024-04-07] MEDS: LORazepam 2 MG/ML VIAL IV ONE (17:16)
[2024-04-07] MEDS: ZOLPIDEM TARTRATE 5 MG TABLET PO PRN (20:57)
[2024-04-08 05:11] LABS: Hematocrit 38.1 % (36.0-45.0); MCH 28.4 pg (27.0-35.0); MCHC 31.6 g/dL (32.0-36.0); MPV 11.5 fL (7.6-11.3); Platelets 168 thou/uL (152-406); RBC Red Blood Cell Count 4.23 M/uL (3.86-4.86); Red Cell Distribution Width 14.9 % (12.1-15.2)
[2024-04-08 05:30] LABS: Anion Gap 6.4 mEq/L (5.0-15.0); Magnesium 1.8 mg/dL (1.6-2.4); Phosphorus 4.2 mg/dL (2.5-4.9); Potassium 3.4 mEq/L (3.5-5.1)
[2024-04-08] MEDS ORDERED: REGADENOSON 0.4 MG/5 ML SYR IV ONE (08:13)
--- NOTE | 2024-04-08 09:18 | RAD REPORT ---
EXAM :Rest Stress Cardiac Imaging CLINICAL HISTORY: Chest pain TECHNIQUE: Rest images: 10.3 mCi technetium 99m sestamibi administered intravenously. Stress images: 29.2 mCi of technetium 99m sestamibi administered intravenously. Cardiac SPECT images obtained COMPARISON: None. FINDINGS: Large area of diminished radiotracer activity involves the inferior left ventricular myocardium on st ress images. This also involves a portion of the lateral wall. This defect persists on rest images. Left ventricular ejection fraction equals 57% IMPRESSION: Large apparent fixed perfusion defect involving the inferior left ventricular myocardium may indicate infarction or be secondary to attenuation from the diaphragm. There is no evidence of stress-induced ischemia
[2024-04-08] MEDS: predniSONE 20 MG TAB PO SCH (09:35)
--- NOTE | 2024-04-08 14:27 | TREADPHA ---
DX: CHEST PAIN, ELEVATED TROPONIN Date of Study: 04/08/2024 Ht: 5' 0 " Wt: 107 lb 8 oz Consulting Physician: Meri GREEN MEDICATIONS: ASPIRIN, ELIQUIS, NORVASC, ASPRESOLINE, LIPITOR, LEVAQUIN, CRESTOR, NORCO HISTORY: ALLERGY TO STATIN. MEDICAL HISTORY OF THYROIDECTOMY, BREAST CANCER, COPD AND LUNG CANCER STAGE 3 PHYSICIAL EXAMINATION: RESTING B.P.: 155/71 RESTING H.R.: 84 RESTING EKG: ATRIAL FIBRILLATION. PROTOCOL: LEXISCAN EXERCISE TIME: 3:30 B.P. AT PEAK STRESS: 132/67 IMPRESSION: LEXISCAN INJECTED PER PROTOCOL. CARDIOLITE INJECTED. SEE NUCLEAR MEDICINE REPORT. NO CHEST PAIN. NO ARRHYTHMIA OUTSIDE OF ATRIAL FIBRILLATION WHICH PATIENT HAD ENTIRE STRESS TEST. CAFFEINE PROVIDED. PATIENT TOLERATED WELL.
--- NOTE | 2024-04-08 14:39 | P.PN ---
Subjective Date of Service: 04/08/24 Chief Complaint: Afib with RVR Patient is confused, sitter at bedside Review of Systems 10-point ROS is otherwise unremarkable Physical Examination - Vital Signs Temperature: 98 F Blood Pressure: 145/59 Pulse: 85 Respirations: 18 Pulse Ox (%): 98 - Physical Exam General: Alert, In no apparent distress, Oriented x2 HEENT: Atraumatic, Normocephalic Neck: Supple, 2+ carotid pulse no bruit Respiratory: Diminished, Other (Unlabored) Gastrointestinal: Normal bowel sounds, Soft and benign Musculoskeletal: No swelling, No contractures Integumentary: No breakdown, No significant lesion Neurological: Normal speech, Normal strength at 5/5 x4 extr, Other (Confused) - Studies Medications List Reviewed: Yes Assessment And Plan - Plan Assessment and plan New onset atrial fibrillation with RVR [place] type II NSTEMI Weakness -Lives alone, has dyspnea on exertion, await PT eval tomorrow to determine needs/post hospital care -Chest x-ray reports "Stable left basilar small opacity, correlating to known nodule. No other acute intrathoracic abnormalities -Cardizem drip titrate -switched to amiodarone a.m. 04/03 by cardiology for persistent A-fib with RVR -Switched to PO amiodarone -Patient reports that she stopped taking her home medications including her metoprolol about 5 days ago -Also noted to be in hyperthyroid, synthroid stopped, was taking 200mcg -Continuous telemetry -Cardiology consulted/following -Troponin 493.7/306.9/241.4 -Echo Results: Normal LV systolic function. LVEF 60-65%. Unable to assess diastolic function due to arrhythmia. Elevated filling pressure, RA pressure >20 mmHg. -Continue Eliquis -Asa and statin Stress test DIscussed possible options like YOLY DCCV but patient refused. currently on amiodarone 200 p.o. twice daily, resume Eliquis Acute CVA vs TIA Acute metabolic encephalopathy secondary to Acute compensated respiratory acidosis with hypercarbia-improved -CT head with no acute findings -MRI negative for acute findings -Continue eliquis -NIHSS 0, at time of episode Yodit was unresponsive -Asa, statin, folic acid Breast/thyroid cancer Hyperthyroidism TSH 0.007 Free T4-3.14 Synthroid 200mcg stopped 04/03 Repeat TSH in 8 weeks COPD on Home O2 2L [place] Hypertension Osteoporosis GERD -Continue home medications -Supportive care DVT PPx Eliquis Full code Discharge Plan: SNF in [place] closer to family Plan to discharge in: 48 to 72 hours Time Spent Managing Pts Care (In Minutes): 35 Discharge Plan: Correction - Code Status/Comfort Care Code Status: Do Not Attempt Resuscitat Critical Care: No Time Spent Managing PTS Care (In Minutes): 35
[2024-04-09] MEDS: ACETAMINOPHEN 325 MG TABLET PO PRN (04:54)
[2024-04-09 05:07] LABS: Hematocrit 37.4 % (36.0-45.0); Hemoglobin 11.9 g/dL (12.0-15.0); MCH 28.5 pg (27.0-35.0); MCHC 31.9 g/dL (32.0-36.0); MCV 89.3 fL (80-100); MPV 11.9 fL (7.6-11.3); Platelets 179 thou/uL (152-406); RBC Red Blood Cell Count 4.19 M/uL (3.86-4.86); Red Cell Distribution Width 14.7 % (12.1-15.2)
[2024-04-09 05:08] LABS: Anion Gap 5.4 mEq/L (5.0-15.0); Magnesium 1.9 mg/dL (1.6-2.4); Phosphorus 3.9 mg/dL (2.5-4.9); Potassium 4.4 mEq/L (3.5-5.1)
--- NOTE | 2024-04-09 11:23 | P.PN ---
Subjective Date of Service: 04/09/24 Chief Complaint: Afib with RVR Eating breakfast, no acute distress noted, confused Review of Systems 10-point ROS is otherwise unremarkable Physical Examination - Vital Signs Temperature: 98.4 F Blood Pressure: 131/49 Pulse: 58 Respirations: 18 Pulse Ox (%): 99 - Physical Exam General: Alert, In no apparent distress, Oriented x2 HEENT: Atraumatic, Normocephalic Neck: Supple, JVD not distended Respiratory: Clear to auscultation bilaterally, Normal air movement Cardiovascular: Normal pulses, Regular rate/rhythm, Normal S1 S2 Capillary refill: <2 Seconds Gastrointestinal: Normal bowel sounds, Soft and benign Musculoskeletal: No swelling, No contractures Integumentary: No rashes, No breakdown Neurological: Normal speech, Normal strength at 5/5 x4 extr - Studies Medications List Reviewed: Yes Assessment And Plan - Plan Assessment and plan New onset atrial fibrillation with RVR [place] type II NSTEMI Weakness -Lives alone, has dyspnea on exertion, await PT eval tomorrow to determine needs/post hospital care -Chest x-ray reports "Stable left basilar small opacity, correlating to known nodule. No other acute intrathoracic abnormalities -Cardizem drip titrate -switched to amiodarone a.m. 04/03 by cardiology for persistent A-fib with RVR -Switched to PO amiodarone -Patient reports that she stopped taking her home medications including her metoprolol about 5 days ago -Also noted to be in hyperthyroid, synthroid stopped, was taking 200mcg -Continuous telemetry -Cardiology consulted/following -Troponin 493.7/306.9/241.4 -Echo Results: Normal LV systolic function. LVEF 60-65%. Unable to assess diastolic function due to arrhythmia. Elevated filling pressure, RA pressure >20 mmHg. -Continue Eliquis -Asa and statin Stress test negative, cardiology DIscussed possible options like YOLY DCCV but patient refused. currently on amiodarone 200 p.o. twice daily, resume Eliquis Acute CVA vs TIA Acute metabolic encephalopathy secondary to Acute compensated respiratory acidosis with hypercarbia-improved -CT head with no acute findings -MRI negative for acute findings -Continue eliquis -NIHSS 0, at time of episode Yodit was unresponsive -Asa, statin, folic acid Breast/thyroid cancer Hyperthyroidism TSH 0.007 Free T4-3.14 Synthroid 200mcg stopped 04/03 Repeat TSH in 8 weeks COPD on Home O2 2L [place] Hypertension Osteoporosis GERD -Continue home medications -Supportive care DVT PPx Eliquis Full code Discharge Plan: SNF in [place] closer to family Plan to discharge in: 48 to 72 hours pending review [facility] [employer] Discharge Plan: Residential - Code Status/Comfort Care Code Status: Do Not Attempt Resuscitat Critical Care: No Time Spent Managing PTS Care (In Minutes): 25
[2024-04-10 05:50] LABS: Anion Gap 8.4 mEq/L (5.0-15.0); Potassium 4.4 mEq/L (3.5-5.1)
--- NOTE | 2024-04-10 09:14 | P.PN ---
Date of Service: 04/10/24 Subjective Alert, pleasant No acute events overnight No complaints Review of Systems 10-point ROS is otherwise unremarkable - Physical Exam General: Alert, In no apparent distress, Oriented x2 HEENT: Atraumatic, Normocephalic Neck: Supple, JVD not distended Respiratory: Clear to auscultation bilaterally, Normal air movement Cardiovascular: Normal pulses, Regular rate/rhythm, Normal S1 S2 Capillary refill: <2 Seconds Gastrointestinal: Normal bowel sounds, Soft and benign Musculoskeletal: No swelling, No contractures Integumentary: No rashes, No breakdown Neurological: Normal speech, Normal strength at 5/5 x4 extr Vitals reviewed Assessment and plan New onset atrial fibrillation with RVR [place] type II NSTEMI Weakness -Lives alone, pending SNF closer to family -Chest x-ray reports "Stable left basilar small opacity, correlating to known nodule. No other acute intrathoracic abnormalities -switched to amiodarone a.m. 04/03 by cardiology for persistent A-fib with RVR -Switched to PO amiodarone -Also noted to be in hyperthyroid, synthroid stopped, was taking 200mcg -Continuous telemetry -Cardiology consulted/following -Troponin 493.7/306.9/241.4 -Echo Results: Normal LV systolic function. LVEF 60-65%. Unable to assess diastolic function due to arrhythmia. Elevated filling pressure, RA pressure >20 mmHg. -Stress test negative -Continue Eliquis -Asa and statin Acute CVA vs TIA Acute metabolic encephalopathy secondary to Acute compensated respiratory acidosis with hypercarbia-improved -CT head with no acute findings -MRI negative for acute findings -Continue eliquis -NIHSS 0, at time of episode Yodit was unresponsive -Asa, statin, folic acid Breast/thyroid cancer Hyperthyroidism TSH 0.007 Free T4-3.14 Synthroid 200mcg stopped 04/03 Repeat TSH in 8 weeks COPD on Home O2 2L [place] Hypertension Osteoporosis GERD -Continue home medications -Supportive care DVT PPx Eliquis Full code Discharge Plan: SNF in [place] closer to family Plan to discharge in: 48 to 72 hours pending review [facility] [employer] Discharge Plan: Skilled Nursing
--- NOTE | 2024-04-10 11:02 | P.PN ---
Subjective Date of Service: 04/10/24 Chief Complaint: Afib with RVR Subjective: No new changes, No C/O voiced, Tolerating diet, Ambulating, Improving Review of Systems 10-point ROS is otherwise unremarkable Physical Examination - Vital Signs Temperature: 98.9 F Blood Pressure: 137/48 Pulse: 62 Respirations: 22 Pulse Ox (%): 100 - Physical Exam General: Alert, In no apparent distress HEENT: Atraumatic, PERRLA, EOMI Neck: Supple, JVD not distended Respiratory: Clear to auscultation bilaterally, Normal air movement Cardiovascular: Regular rate/rhythm, Normal S1 S2 Gastrointestinal: Normal bowel sounds, No tenderness Musculoskeletal: No tenderness Integumentary: No rashes Neurological: Normal speech, Normal tone, Normal affect Lymphatics: No axilla or inguinal lymphadenopathy - Studies Medications List Reviewed: Yes Assessment And Plan - Current Problems (Diagnosis) (1) Atrial fibrillation Current Visit: Yes Status: Acute Plan: patient was taken off cardizem drip and bolused with Amiodarone and drip . Patient is currently in sinus rhythm Now on amiodarone 200 mg po BID on Eliquis 5 mg po BID DIscussed possible options like YOLY DCCV but patient refused. (2) Troponin level elevated Current Visit: Yes Status: Acute Plan: most likely type 2 RI, troponin trending down, echo shows normal EF stress test shows large inferior wall defect, most likely artiact, no signs of reversible ischemia.
[2024-04-11 07:13] LABS: Anion Gap 6.4 mEq/L (5.0-15.0); Potassium 4.4 mEq/L (3.5-5.1)
--- NOTE | 2024-04-11 09:31 | P.PN ---
Date of Service: 04/11/24 Subjective Alert, pleasant No acute events overnight No complaints Pending SNF Review of Systems 10-point ROS is otherwise unremarkable - Physical Exam General: Alert, In no apparent distress, Oriented x2 HEENT: Atraumatic, Normocephalic Neck: Supple, JVD not distended Respiratory: Clear to auscultation bilaterally, Normal air movement Cardiovascular: Normal pulses, Regular rate/rhythm, Normal S1 S2 Capillary refill: <2 Seconds Gastrointestinal: Normal bowel sounds, Soft and benign Musculoskeletal: No swelling, No contractures Integumentary: No rashes, No breakdown Neurological: Normal speech, Normal strength at 5/5 x4 extr Vitals reviewed Assessment and plan New onset atrial fibrillation with RVR [place] type II NSTEMI Weakness -Lives alone, pending SNF closer to family -Chest x-ray reports "Stable left basilar small opacity, correlating to known nodule. No other acute intrathoracic abnormalities -switched to amiodarone a.m. 04/03 by cardiology for persistent A-fib with RVR -Switched to PO amiodarone -Also noted to be in hyperthyroid, synthroid stopped, was taking 200mcg -Continuous telemetry -Cardiology consulted/following -Troponin 493.7/306.9/241.4 -Echo Results: Normal LV systolic function. LVEF 60-65%. Unable to assess diastolic function due to arrhythmia. Elevated filling pressure, RA pressure >20 mmHg. -Stress test negative -Continue Eliquis -Asa and statin -Working well with PT, pending SNF Acute CVA vs TIA Acute metabolic encephalopathy secondary to Acute compensated respiratory acidosis with hypercarbia-improved -CT head with no acute findings -MRI negative for acute findings -Continue eliquis -NIHSS 0, at time of episode Oydit was unresponsive -Asa, statin, folic acid Breast/thyroid cancer Hyperthyroidism TSH 0.007 Free T4-3.14 Synthroid 200mcg stopped 04/03 Repeat TSH in 8 weeks COPD on Home O2 2L [place] Hypertension Osteoporosis GERD -Continue home medications -Supportive care DVT PPx Eliquis Full code Discharge Plan: SNF in [place] closer to family Plan to discharge in: 48 to 72 hours pending review [place] [employer] Discharge Plan: Retirement
[2024-04-11] MEDS: ALBUTEROL 2.5 MG/3 ML NEB SOL NEB PRN (20:38)
[2024-04-12] MEDS: GUAIFENESIN 600 MG SA TAB PO SCH (03:36)
[2024-04-12] MEDS: levoFLOXacin 750 MG TAB PO SCH (09:02)
[2024-04-12] MEDS: BENZONATATE 100 MG CAP PO SCH (09:02)
--- NOTE | 2024-04-12 09:05 | P.PN ---
Date of Service: 04/12/24 Subjective Alert, pleasant Reports trouble sleeping No acute events overnight No complaints Pending SNF Review of Systems 10-point ROS is otherwise unremarkable - Physical Exam General: Alert, In no apparent distress, Oriented x2 HEENT: Atraumatic, Normocephalic Neck: Supple, JVD not distended Respiratory: Clear to auscultation bilaterally, Normal air movement Cardiovascular: Normal pulses, Regular rate/rhythm, Normal S1 S2 Capillary refill: <2 Seconds Gastrointestinal: Normal bowel sounds, Soft and benign Musculoskeletal: No swelling, No contractures Integumentary: No rashes, No breakdown Neurological: Normal speech, Normal strength at 5/5 x4 extr Vitals reviewed Assessment and plan New onset atrial fibrillation with RVR [place] type II NSTEMI Weakness -Lives alone, pending SNF closer to family -Chest x-ray reports "Stable left basilar small opacity, correlating to known nodule. No other acute intrathoracic abnormalities -switched to amiodarone a.m. 04/03 by cardiology for persistent A-fib with RVR -Switched to PO amiodarone -Also noted to be in hyperthyroid, synthroid stopped, was taking 200mcg -Continuous telemetry -Cardiology consulted/following -Troponin 493.7/306.9/241.4 -Echo Results: Normal LV systolic function. LVEF 60-65%. Unable to assess diastolic function due to arrhythmia. Elevated filling pressure, RA pressure >20 mmHg. -Stress test negative -Continue Eliquis -Asa and statin -Working well with PT, pending SNF Acute CVA vs TIA Acute metabolic encephalopathy secondary to Acute compensated respiratory acidosis with hypercarbia-improved -CT head with no acute findings -MRI negative for acute findings -Continue eliquis -NIHSS 0, at time of episode Yodit was unresponsive -Asa, statin, folic acid Breast/thyroid cancer Hyperthyroidism TSH 0.007 Free T4-3.14 Synthroid 200mcg stopped 04/03 Repeat TSH in 8 weeks COPD on Home O2 2L [place] Hypertension Osteoporosis GERD -Continue home medications -Supportive care DVT PPx Eliquis Full code Discharge Plan: SNF in [place] closer to family Plan to discharge in: 48 to 72 hours pending review [facility] [employer] Discharge Plan: [facility]
[2024-04-12] MEDS: MELATONIN 5 MG TABLET PO PRN (21:20)
--- NOTE | 2024-04-13 08:58 | P.PN ---
Date of Service: 04/13/24 Subjective Alert, pleasant Reports trouble sleeping No acute events overnight No complaints Pending SNF Review of Systems 10-point ROS is otherwise unremarkable - Physical Exam General: Alert, In no apparent distress, Oriented x2 HEENT: Atraumatic, Normocephalic Neck: Supple, JVD not distended Respiratory: Clear to auscultation bilaterally, Normal air movement Cardiovascular: Normal pulses, Regular rate/rhythm, Normal S1 S2 Capillary refill: <2 Seconds Gastrointestinal: Normal bowel sounds, Soft and benign Musculoskeletal: No swelling, No contractures Integumentary: No rashes, No breakdown Neurological: Normal speech, Normal strength at 5/5 x4 extr Vitals reviewed Assessment and plan New onset atrial fibrillation with RVR [place] type II NSTEMI Weakness -Lives alone, pending SNF closer to family -Chest x-ray reports "Stable left basilar small opacity, correlating to known nodule. No other acute intrathoracic abnormalities -switched to amiodarone a.m. 04/03 by cardiology for persistent A-fib with RVR -Switched to PO amiodarone -Also noted to be in hyperthyroid, synthroid stopped, was taking 200mcg -Continuous telemetry -Cardiology consulted/following -Troponin 493.7/306.9/241.4 -Echo Results: Normal LV systolic function. LVEF 60-65%. Unable to assess diastolic function due to arrhythmia. Elevated filling pressure, RA pressure >20 mmHg. -Stress test negative -Continue Eliquis -Asa and statin -Working well with PT, pending SNF Acute CVA vs TIA Acute metabolic encephalopathy secondary to Acute compensated respiratory acidosis with hypercarbia-improved -CT head with no acute findings -MRI negative for acute findings -Continue eliquis -NIHSS 0, at time of episode Yodit was unresponsive -Asa, statin, folic acid Breast/thyroid cancer Hyperthyroidism TSH 0.007 Free T4-3.14 Synthroid 200mcg stopped 04/03 Repeat TSH in 8 weeks COPD on Home O2 2L [place] Hypertension Osteoporosis GERD -Continue home medications -Supportive care DVT PPx Eliquis Full code Discharge Plan: SNF in [place] closer to family Plan to discharge in: 48 to 72 hours pending review [facility] [employer] Discharge Plan: [facility]
[2024-04-14 05:26] LABS: Hematocrit 36.1 % (36.0-45.0); Hemoglobin 11.7 g/dL (12.0-15.0); MCH 28.8 pg (27.0-35.0); MCHC 32.5 g/dL (32.0-36.0); MCV 88.7 fL (80-100); MPV 10.2 fL (7.6-11.3); Platelets 227 thou/uL (152-406); RBC Red Blood Cell Count 4.07 M/uL (3.86-4.86); Red Cell Distribution Width 15.2 % (12.1-15.2)
[2024-04-14 05:41] LABS: Anion Gap 5.4 mEq/L (5.0-15.0); Potassium 4.4 mEq/L (3.5-5.1)
--- NOTE | 2024-04-14 09:51 | P.PN ---
Date of Service: 04/14/24 Subjective Alert, pleasant Reports trouble sleeping No acute events overnight No complaints Pending SNF placement Review of Systems 10-point ROS is otherwise unremarkable - Physical Exam General: Alert, In no apparent distress, Oriented x2 HEENT: Atraumatic, Normocephalic Neck: Supple, JVD not distended Respiratory: Clear to auscultation bilaterally, Normal air movement, on NC 02 Cardiovascular: Normal pulses, Regular rate/rhythm, Normal S1 S2 Capillary refill: <2 Seconds Gastrointestinal: Normal bowel sounds, Soft and benign Musculoskeletal: No swelling, No contractures Integumentary: No rashes, No breakdown Neurological: Normal speech, Normal strength at 5/5 x4 extr Vitals reviewed Assessment and plan New onset atrial fibrillation with RVR DE type II NSTEMI Weakness -Lives alone, pending SNF closer to family -Chest x-ray reports "Stable left basilar small opacity, correlating to known nodule. No other acute intrathoracic abnormalities -switched to amiodarone a.m. 04/03 by cardiology for persistent A-fib with RVR -Switched to PO amiodarone -Also noted to be in hyperthyroid, synthroid stopped, was taking 200mcg -Continuous telemetry -Cardiology consulted/following -Troponin 493.7/306.9/241.4 -Echo Results: Normal LV systolic function. LVEF 60-65%. Unable to assess diastolic function due to arrhythmia. Elevated filling pressure, RA pressure >20 mmHg. -Stress test negative -Continue Eliquis -Asa and statin -Working well with PT, pending SNF Acute CVA vs TIA Acute metabolic encephalopathy secondary to Acute compensated respiratory acid osis with hypercarbia-improved -CT head with no acute findings -MRI negative for acute findings -Continue eliquis -NIHSS 0, at time of episode Yodit was unresponsive -Asa, statin, folic acid Breast/thyroid cancer Hyperthyroidism TSH 0.007 Free T4-3.14 Synthroid 200mcg stopped 04/03 Repeat TSH in 8 weeks COPD on Home O2 2L NC Hypertension Osteoporosis GERD -Continue home medications -Supportive care DVT PPx Eliquis Full code Discharge Plan: SNF in [place] closer to family Plan to discharge in: 48 to 72 hours pending review [facility] Discharge Plan: Longterm
--- NOTE | 2024-04-14 13:58 | P.DS ---
Admission Date: 04/01/24 Discharge Date: 04/14/24 Disposition: TRANSFER TO SNF - REHAB Discharge Condition: GOOD Reason for Admission: Afib with RVR Brief History of Present Illness: Yodit Mercedes is a 78 year old female with Pmhx breast cancer, COPD, Home O2 2L NC, THYROID CANCER, Hypertension, Osteoporosis, who presents to the ED with chief complaint of shortness of breath for unknown period of time. She has a history of COPD on 2 L nasal cannula at home. EMS arrived finding her to be in A-fib with RVR, Yodit denies a history of atrial fibrillation and reports back pain with weakness. While in the ED 20 mg IV Cardizem administered without any change. Cardizem drip started, echo from September 2023 is within normal limits, EF 60-65%. Chest x-ray reports "Stable left basilar small opacity, correlating to known nodule. No other acute intrathoracic abnormalities" Code stroke called at 0709, Yodit unresponsive to stimuli, CT head negative for acute findings. She regained her ability to speak and was able to follow commands after returning for the CT scan. ABG PH 7.35, PCO2 78.4, PO2 85, HCO2 41.7 Yodit will be admitted to hospitalist service for further evaluation and treatment of Afib Hospital Course: Assessment New onset atrial fibrillation with RVR DC type II NSTEMI Weakness Acute CVA vs TIA Acute metabolic encephalopathy secondary to Acute compensated respiratory acidosis with hypercarbia-improved Breast/thyroid cancer Hyperthyroidism COPD on Home O2 2L NC Hypertension Osteoporosis GERD Patient was admitted to the hospital for new onset atrial fibrillation with rapid ventricular response, elevated troponin level. She ended up needing to be started on amiodarone and ultimately converted to sinus rhythm with the amiodarone. She was also started on Eliquis for stroke prevention. Troponins were trended and trended down, she underwent stress test which did not show any reversible ischemia. Of note she was in a hyperthyroid state TSH was 0.007, free T4 was 3.14. Patient was taking 200 mcg of Synthroid, this medication was stopped and she will need to have a repeat TSH in 8 weeks. During her hospitalization she suffered from deconditioning/weakness and was seen by PT. Patient was deemed appropriate for half-way facility, family preferred a half-way facility closer to home which has been arranged. Patient is not accepted to SNF for further PT before return home. Discontinue Synthroid Continue new medications amiodarone 200 mg by mouth twice daily and Eliquis 5 mg mouth twice daily You will need to follow-up with cardiology in 1 to 2 weeks for reevaluation, in the future the amiodarone dose may be reduced. Continue other home medications as previously prescribed. Vital Signs/Physical Exam: Temp Pulse Resp BP Pulse Ox 97.6 F 65 15 121/54 L 99 04/14/24 12:00 04/14/24 12:00 04/14/24 12:00 04/14/24 12:00 04/14/24 12:00 General: Alert, In no apparent distress, Oriented x3 HEENT: Atraumatic, PERRLA Neck: Supple, JVD not distended Respiratory: Clear to auscultation bilaterally, Normal air movement Cardiovascular: Regular rate/rhythm, Normal S1 S2 Gastrointestinal: Normal bowel sounds, No tenderness Musculoskeletal: No tenderness Integumentary: No rashes Neurological: Normal speech, Normal affect Laboratory Data at Discharge: WBC 13.10 thou/uL (4.3-10.9) H 04/14/24 05:10 Hgb 11.7 g/dL (12.0-15.0) L 04/14/24 05:10 Hct 36.1 % (36.0-45.0) 04/14/24 05:10 Plt Count 227 thou/uL (152-406) 04/14/24 05:10 PT 11.7 SECONDS (9.4-12.5) 04/02/24 07:32 INR 1.05 04/02/24 07:32 APTT 29.5 SECONDS (24.3-36.9) 04/02/24 07:32 Sodium 134 mEq/L (136-145) L 04/14/24 05:10 Potassium 4.4 mEq/L (3.5-5.1) 04/14/24 05:10 BUN 19 mg/dL (7-18) H 04/14/24 05:10 Creatinine 0.50 mg/dL (0.55-1.02) L 04/14/24 05:10 Glucose 113 mg/dL (74-106) H 04/14/24 05:10 Phosphorus 3.9 mg/dL (2.5-4.9) 04/09/24 04:40 Magnesium 1.9 mg/dL (1.6-2.4) 04/09/24 04:40 Total Bilirubin 0.6 mg/dL (0.2-1.0) 04/01/24 20:24 AST 19 U/L (15-37) 04/01/24 20:24 ALT 17 U/L (13-56) 04/01/24 20:24 Alkaline Phosphatase 59 U/L (45-117) 04/01/24 20:24 Triglycerides 97 mg/dL (<150) 04/03/24 04:50 Cholesterol 171 mg/dL (<200) 04/03/24 04:50 HDL Cholesterol 71 mg/dL (40-60) H 04/03/24 04:50 Cholesterol/HDL Ratio 2.41 04/03/24 04:50 Home Medications: Omeprazole [Prilosec] 40 mg PO DAILY 02/25/20 Amlodipine [Norvasc*] 1 tab PO BID 01/24/22 Metoprolol Tartrate 1.5 tab PO BID 01/24/22 Rosuvastatin Calcium 1 tab PO BEDTIME 01/24/22 Benzonatate 100 mg PO QID 05/24/23 Quetiapine Fumarate [Seroquel] 25 mg PO BEDTIME 05/24/23 Aspirin [Aspirin EC] 81 mg PO DAILY 10/06/23 Budesonide/Glycopyr/Formoterol [Breztri Aerosphere Inhaler] 1 puff IH Q4H PRN 10/06/23 Amiodarone HCl [Cordarone*] 200 mg PO BID 30 Days #60 tab 04/14/24 Apixaban [Eliquis] 5 mg PO BID #60 tab 04/14/24 New Medications: Amiodarone HCl [Cordarone*] 200 mg PO BID 30 Days #60 tab Apixaban [Eliquis] 5 mg PO BID #60 tab Physician Discharge Instructions: Patient was admitted to the hospital for new onset atrial fibrillation with rapid ventricular response, elevated troponin level. She ended up needing to be started on amiodarone and ultimately converted to sinus rhythm with the amiodarone. She was also started on Eliquis for stroke prevention. Troponins were trended and trended down, she underwent stress test which did not show any reversible ischemia. Of note she was in a hyperthyroid state TSH was 0.007, free T4 was 3.14. Patient was taking 200 mcg of Synthroid, this medication was stopped and she will need to have a repeat TSH in 8 weeks. During her hospitalization she suffered from deconditioning/weakness and was seen by PT. Patient was deemed appropriate for half-way facility, family preferred a half-way facility closer to home which has been arranged. Patient is not accepted to SNF for further PT before return home. Discontinue Synthroid Continue new medications amiodarone 200 mg by mouth twice daily and Eliquis 5 mg mouth twice daily You will need to follow-up with cardiology in 1 to 2 weeks for reevaluation, in the future the amiodarone dose may be reduced. Continue other home medications as previously prescribed. Diet: Regular Activity: Fall precautions Followup: Luis Armando Johns MD [ACTIVE - CAN ADMIT] - 1-2 Weeks Dat Hernandez MD [Primary Care Provider] - 1 Week Time spent managing pt's care (in minutes): 37
[2024-04-15 03:22] VITALS: O2SAT 93
[2024-04-15 05:09] LABS: Hematocrit 35.4 % (36.0-45.0); Hemoglobin 11.6 g/dL (12.0-15.0); MCHC 32.8 g/dL (32.0-36.0); MCV 88.3 fL (80-100); MPV 10.5 fL (7.6-11.3); Platelets 230 thou/uL (152-406); RBC Red Blood Cell Count 4.01 M/uL (3.86-4.86); Red Cell Distribution Width 14.8 % (12.1-15.2)
[2024-04-15 05:23] LABS: Anion Gap 6.6 mEq/L (5.0-15.0); Potassium 4.6 mEq/L (3.5-5.1)
[2024-04-15] MEDS: levoFLOXacin 750 MG TAB PO SCH (07:43)
[2024-04-15 08:49] VITALS: BP 123/42; TEMP 98
--- NOTE | 2024-04-15 10:24 | P.DS ---
Admission Date: 04/01/24 Discharge Date: 04/15/24 Disposition: TRANSFER TO SNF - REHAB Discharge Condition: GOOD Reason for Admission: Afib with RVR Brief History of Present Illness: Diagnosis New onset atrial fibrillation with RVR MA type II NSTEMI Weakness Acute CVA vs TIA Acute metabolic encephalopathy secondary to Acute compensated respiratory acidosis with hypercarbia-improved Breast/thyroid cancer Hyperthyroidism COPD on Home O2 2L NC Hypertension Osteoporosis GERD HPI 04/01/24 Yodit Mercedes is a 78 year old female with Pmhx breast cancer, COPD, Home O2 2L NC, THYROID CANCER, Hypertension, Osteoporosis, who presents to the ED with chief complaint of shortness of breath for unknown period of time. She has a history of COPD on 2 L nasal cannula at home. EMS arrived finding her to be in A-fib with RVR, Yodit denies a history of atrial fibrillation and reports back pain with weakness. While in the ED 20 mg IV Cardizem administered without any change. Cardizem drip started, echo from September 2023 is within normal limits, EF 60-65%. Chest x-ray reports "Stable left basilar small opacity, correlating to known nodule. No other acute intrathoracic abnormalities" Code stroke called at 0709, Yodit unresponsive to stimuli, CT head negative for acute findings. She regained her ability to speak and was able to follow commands after returning for the CT scan. ABG PH 7.35, PCO2 78.4, PO2 85, HCO2 41.7 Yodit will be admitted to hospitalist service for further evaluation and treatment of Afib Hospital Course: Yodit Mercedes is a 78 year old female who was admitted to the hospital for new onset atrial fibrillation with rapid ventricular response, elevated troponin level. She ended up needing to be started on amiodarone and ultimately converted to sinus rhythm with the amiodarone. She was also started on Eliquis for stroke prevention. Troponins trended down, she underwent stress test which did not show any reversible ischemia. She was in a hyperthyroid state TSH was 0.007, free T4 was 3.14. Patient was taking 200 mcg of Synthroid, this medication was stopped and she will need to have a repeat TSH in 8 weeks. During her hospitalization she suffered from deconditioning/weakness and was seen by PT. Patient was deemed appropriate for care home facility, family preferred a care home facility closer to home which has been arranged. Patient is now accepted to SNF for further PT before return home. Discontinue Synthroid. Plan to continue new medications amiodarone 200 mg by mouth twice daily and Eliquis 5 mg mouth twice daily. Follow up with Cardiology in 1 to 2 weeks for re-evaluation and managment of new medications. Continue other home medications as previously prescribed. Physical Exam General: Alert and Oriented x3, NAD HEENT: Atraumatic, PERRLA Neck: Supple, JVD not distended Respiratory: Clear to auscultation bilaterally, Normal air movement, on RA Cardiovascular: RRR, Normal S1 S2 present Gastrointestinal: Normal bowel sounds, ND/NT Musculoskeletal: No tenderness Integumentary: No rashes Neurological: Normal speech, Normal affect Vital Signs/Physical Exam: Temp Pulse Resp BP Pulse Ox 98 F 72 16 123/42 L 90 L 04/15/24 08:00 04/15/24 08:00 04/15/24 08:00 04/15/24 08:00 04/15/24 08:00 Laboratory Data at Discharge: WBC 13.20 thou/uL (4.3-10.9) H 04/15/24 04:48 Hgb 11.6 g/dL (12.0-15.0) L 04/15/24 04:48 Hct 35.4 % (36.0-45.0) L 04/15/24 04:48 Plt Count 230 thou/uL (152-406) 04/15/24 04:48 PT 11.7 SECONDS (9.4-12.5) 04/02/24 07:32 INR 1.05 04/02/24 07:32 APTT 29.5 SECONDS (24.3-36.9) 04/02/24 07:32 Sodium 136 mEq/L (136-145) 04/15/24 04:48 Potassium 4.6 mEq/L (3.5-5.1) 04/15/24 04:48 BUN 22 mg/dL (7-18) H 04/15/24 04:48 Creatinine 0.52 mg/dL (0.55-1.02) L 04/15/24 04:48 Glucose 143 mg/dL (74-106) H 04/15/24 04:48 Phosphorus 3.9 mg/dL (2.5-4.9) 04/09/24 04:40 Magnesium 1.9 mg/dL (1.6-2.4) 04/09/24 04:40 Total Bilirubin 0.6 mg/dL (0.2-1.0) 04/01/24 20:24 AST 19 U/L (15-37) 04/01/24 20:24 ALT 17 U/L (13-56) 04/01/24 20:24 Alkaline Phosphatase 59 U/L (45-117) 04/01/24 20:24 Triglycerides 97 mg/dL (<150) 04/03/24 04:50 Cholesterol 171 mg/dL (<200) 04/03/24 04:50 HDL Cholesterol 71 mg/dL (40-60) H 04/03/24 04:50 Cholesterol/HDL Ratio 2.41 04/03/24 04:50 Home Medications: Omeprazole [Prilosec] 40 mg PO DAILY 02/25/20 Amlodipine [Norvasc*] 1 tab PO BID 01/24/22 Metoprolol Tartrate 1.5 tab PO BID 01/24/22 Rosuvastatin Calcium 1 tab PO BEDTIME 01/24/22 Benzonatate 100 mg PO QID 05/24/23 Quetiapine Fumarate [Seroquel] 25 mg PO BEDTIME 05/24/23 Aspirin [Aspirin EC] 81 mg PO DAILY 10/06/23 Budesonide/Glycopyr/Formoterol [Breztri Aerosphere Inhaler] 1 puff IH Q4H PRN 10/06/23 Amiodarone HCl [Cordarone*] 200 mg PO BID 30 Days #60 tab 04/14/24 Apixaban [Eliquis] 5 mg PO BID #60 tab 04/14/24 New Medications: Amiodarone HCl [Cordarone*] 200 mg PO BID 30 Days #60 tab Apixaban [Eliquis] 5 mg PO BID #60 tab Physician Discharge Instructions: Patient was admitted to the hospital for new onset atrial fibrillation with rapid ventricular response, elevated troponin level. She ended up needing to be started on amiodarone and ultimately converted to sinus rhythm with the amiodarone. She was also started on Eliquis for stroke prevention. Troponins were trended and trended down, she underwent stress test which did not show any reversible ischemia. Of note she was in a hyperthyroid state TSH was 0.007, free T4 was 3.14. Patient was taking 200 mcg of Synthroid, this medication was stopped and she will need to have a repeat TSH in 8 weeks. During her hospitalization she suffered from deconditioning/weakness and was seen by PT. Patient was deemed appropriate for care home facility, family preferred a care home facility closer to home which has been arranged. Patient is not accepted to SNF for further PT before return home. Discontinue Synthroid Continue new medications amiodarone 200 mg by mouth twice daily and Eliquis 5 mg mouth twice daily You will need to follow-up with cardiology in 1 to 2 weeks for reevaluation, in the future the amiodarone dose may be reduced. Continue other home medications as previously prescribed. Diet: Regular Activity: Fall precautions Followup: Luis Armando Johns MD [ACTIVE - CAN ADMIT] - 1-2 Weeks Dat Hernandez MD [Primary Care Provider] - 1 Week
== END 2024-04-15 09:54 | DRG 280 ==
LOC: ER 19:19 → 3RD-ICU 23:58 → 2ND 04-04 15:26
PROVIDERS: ADMIT Internal Medicine; ATTEND Internal Medicine
PROC: 02HV33Z Insertion of Infusion Device into Superior Vena Cava, Percutaneous Approach (ICD-10-PCS; 2024-04-02)
PROC: 5A09457 Assistance with Respiratory Ventilation, 24-96 Consecutive Hours, Continuous Positive Airway Pressure (ICD-10-PCS; principal; 2024-04-07)
DX: I48.19 Other persistent atrial fibrillation (principal); G93.41 Metabolic encephalopathy; I21.A1 Myocardial infarction type 2; J96.02 Acute respiratory failure with hypercapnia; J44.1 Chronic obstructive pulmonary disease with (acute) exacerbation; I10 Essential (primary) hypertension; E03.9 Hypothyroidism, unspecified; E78.5 Hyperlipidemia, unspecified; K21.9 Gastro-esophageal reflux disease without esophagitis; M19.09 Primary osteoarthritis, other specified site; M81.0 Age-related osteoporosis without current pathological fracture; I25.2 Old myocardial infarction; Z60.2 Problems related to living alone; Z79.82 Long term (current) use of aspirin; Z99.81 Dependence on supplemental oxygen; Z79.899 Other long term (current) drug therapy; Z79.890 Hormone replacement therapy; Z79.52 Long term (current) use of systemic steroids; Z88.5 Allergy status to narcotic agent; Z88.8 Allergy status to other drugs, medicaments and biological substances; Z85.3 Personal history of malignant neoplasm of breast; Z85.850 Personal history of malignant neoplasm of thyroid; Z90.12 Acquired absence of left breast and nipple; Z86.73 Personal history of transient ischemic attack (TIA), and cerebral infarction without residual deficits; Z90.49 Acquired absence of other specified parts of digestive tract; Z90.710 Acquired absence of both cervix and uterus; Z87.891 Personal history of nicotine dependence; Z79.01 Long term (current) use of anticoagulants
CPT/HCPCS: 36415; 70450; 70551; 71045; 71250; 74176; 78452; 80048; 80061; 80076; 81001; 81240; 81241; 82805; 82947; 83090; 83516; 83605; 83735; 83880; 84100; 84165; 84436; 84439; 84443; 84480; 84481; 84484; 85025; 85027; 85300; 85302; 85305; 85306; 85610; 85730; 86021; 86140; 86146; 86147; 87040; 92610; 93005; 93017; 93306; 94640; 94760; 96372; 97110; 97116; 97161; 97530; 99285; A9500; J0282; J0360; J0690; J0692; J1650; J2785; J2919; J3475; J7030; J7050; J7060; J7512; J7613; J7644